=== PATIENT | female | born 1960 | race Caucasian/White ===

== ENCOUNTER 2023-05-11 14:38 | Inpatient (IN) | payer OTHER, SELFPAY ==
--- NOTE | ~2023-05-11 | US_ITS ---
EXAMINATION: US VENOUS ULTRASOUND WITH DOPPLER LOWER EXTREMITY, BILATERAL CLINICAL INFORMATION: Pain. COMPARISON: None available. TECHNIQUE: Ultrasound of the deep veins is performed from the hip to the calf with compression sonography and color and pulse Doppler assessment. Spectral analysis with color-flow imaging is performed. FINDINGS: RIGHT: There is thrombus in the popliteal vein and visualized posterior tibial and peroneal veins in the calf. The visualized common femoral vein, superficial femoral vein, and profunda femoral vein shows no evidence of deep venous thrombosis. There is no significant popliteal fossa cyst. LEFT: There is thrombus in the posterior tibial vein in the calf. The visualized common femoral vein, superficial femoral vein, profunda femoral vein, popliteal vein, and the peroneal vein shows no evidence of deep venous thrombosis. There is no significant popliteal fossa cyst. US/US venous duplex LE IMPRESSION: Right popliteal vein and bilateral calf vein DVT. Findings were communicated to Dr. Gonzalez by telephone on 05/11/2023 at 1908 hours
--- NOTE | ~2023-05-11 | CT_ITS ---
EXAMINATION: CT ABDOMEN AND PELVIS WITH CONTRAST CLINICAL INFORMATION: CT angiogram chest 05/11/2023: 1 cm low-attenuation lesion high in the posterior dome of the right lobe of the liver. COMPARISON: None available. TECHNIQUE: Multidetector volumetric images were obtained from the superior aspect of the liver through the pubic symphysis following administration 85 mL of Omnipaque 350 intravenous contrast. Sagittal and coronal reformatted images were obtained on the technologist's workstation. Oral contrast: No This CT examination was performed using dose optimization techniques as appropriate, variously including the following: *Automated exposure control *Adjustment of mA and/or kV according to patient size (this includes techniques or standardized protocols for targeted exams where dose is matched to indication/reason for exam; i.e. extremities or head) *Use of iterative reconstruction technique DLP: 299 mGy-cm FINDINGS: LUNG BASES: Again seen is a right-sided pleural effusion and right lower lobe infiltrate/atelectasis. There is a 4 mm right middle lobe nodule, unchanged when compared to the study from 2 days ago. There is a new tiny left pleural effusion. Right infrahilar lymph node better imaged on the CT chest 2 days ago. LIVER, GALLBLADDER, AND BILIARY TREE: The liver is normal in size, shape, and attenuation. There is a 1 cm lobular mass seen in the right lobe of the liver just beneath the hemidiaphragm which measures 2 Hounsfield units on noncontrast imaging consistent with a benign simple cyst. A single septation may be present. No worrisome solid focal hepatic lesion or biliary ductal dilatation is present. The gallbladder is unremarkable with no evidence of radiopaque gallstones, gallbladder wall thickening, or obvious pericholecystic inflammatory changes. PANCREAS: Unremarkable. SPLEEN: Unremarkable. ADRENAL GLANDS: Unremarkable. KIDNEYS AND URETERS: The kidneys are normal in size, shape, and attenuation. There is a 1 cm cortical left renal mass present measuring 76 Hounsfield units which is indeterminate based upon this exam (3:28). It could represent a Bosniak class II hypodensities cyst but a small solid mass cannot be excluded. Some smaller water density masses are present in the left kidney, the largest measuring 1 cm (3:38) consistent with benign Bosniak class I renal cysts for which no additional followup is needed. No hydronephrosis, hydroureter, or calculi seen. No perinephric stranding. BLADDER: Unremarkable. GASTROINTESTINAL TRACT: The small and large bowel are unremarkable. The appendix is unremarkable. ABDOMINAL WALL: No significant hernia is appreciated. LYMPH NODES: No retroperitoneal lymphadenopathy. VASCULAR: Unremarkable. Reflux is present in both ovarian veins without large pelvic varices. PELVIC VISCERA: Unremarkable. There is a 2.5 cm right ovarian cyst present which needs no additional imaging or followup. OSSEOUS STRUCTURES: No evidence of bony metastatic disease. CT/CT abdomen pelvis w IV con IMPRESSION: 1. The 1 cm mass in the right lobe of the liver is a benign cyst. 2. There is a 1 cm indeterminate left renal mass. Renal ultrasound is recommended for further evaluation. Given its size and location, if this is not seen with ultrasound, MRI would be useful for further evaluation. 3. Other incidental findings as described above. Fleischner guidelines were followed.
--- NOTE | ~2023-05-11 | XR_ITS ---
EXAMINATION: XR CHEST CLINICAL INFORMATION: Fatigue, right lung base rhonchi on auscultation COMPARISON: None available. TECHNIQUE: 2 views of the chest were obtained. FINDINGS: vascularity. Mitral valve replacement prosthesis is present. LUNGS: Lungs are hyperinflated with flat hemidiaphragms. Asymmetric airspace disease is seen in the right lung base effacing the right hemidiaphragm and right lateral costophrenic angle. No pneumothorax is seen. BONES: Bony skeleton is intact. Median sternotomy wire loops are present. XR/XR chest 2V IMPRESSION: 1. COPD. 2. Right lung base airspace disease and small right pleural effusion are present, suggestive of pneumonia. 3. Status post median sternotomy and mitral valve replacement.
--- NOTE | ~2023-05-11 | US_ITS ---
EXAMINATION: US RETROPERITONEAL LIMITED (RENAL ONLY) CLINICAL INFORMATION: Cortical left renal mass. COMPARISON: CT scan 05/13/2023 TECHNIQUE: Portable real-time imaging of the kidneys was performed. FINDINGS: RIGHT KIDNEY: 11.4 x 6.1 x 4.8 cm (SAG x AP x TRV). The kidney is normal in size, contour, and echogenicity. Renal cortical thickness is normal. No calculi or focal parenchymal lesions. No hydronephrosis. LEFT KIDNEY: 11.1 x 5.2 x 6.0 cm (SAG x AP x TRV). The kidney is normal in size, contour, and echogenicity. Renal cortical thickness is normal. No calculi. No hydronephrosis. 0.8 x 0.9 x 1.1 cm lateral cortical simple cyst is seen in the upper to mid kidney. This likely corresponds to the finding seen on CT scan. No imaging follow-up is recommended. 1.0 x 2 1.0 x 1.1 cm simple cyst is seen in the lower pole and this corresponds to the finding seen on CT scan as well. No imaging follow-up is recommended. US/US renal BI IMPRESSION: Normal appearance of the right kidney. 1.1 cm lateral cortical simple cyst in the upper to mid left kidney corresponds to the finding seen on CT scan. No imaging follow-up is recommended.
--- NOTE | ~2023-05-11 | CT_ITS ---
EXAMINATION: CT ANGIOGRAM OF THE CHEST PE PROTOCOL CLINICAL INFORMATION: Shortness of breath. COMPARISON: Chest x-ray from earlier the same day. TECHNIQUE: Prior to contrast administration, noncontrast localization images were obtained. Subsequently, multidetector volumetric imaging was performed from the thoracic inlet to below the diaphragms following the administration of 65 mL Omnipaque 350 intravenous contrast. No contrast reaction reported. Sagittal, coronal, and MIP oblique sagittal reformatted images were obtained on the CT workstation, uploaded to PACS, and reviewed. This CT examination was performed using dose optimization techniques as appropriate, variously including the following: *Automated exposure control *Adjustment of mA and/or kV according to patient size (this includes techniques or standardized protocols for targeted exams where dose is matched to indication/reason for exam; i.e. extremities or head) *Use of iterative reconstruction technique Total exam dose-length product: 213 mGy-cm. FINDINGS: QUALITY OF STUDY/CONTRAST BOLUS: Satisfactory. PULMONARY ARTERIES: Right middle and right lower lobe subsegmental pulmonary emboli. THORACIC AORTA: No aneurysm. LUN mm right upper lobe nodule axial image 182, series 7 and a 4 mm right middle lobe nodule axial image 312, series 7. Right middle and right lower lobe patchy and lingular atelectasis/consolidation. PLEURA: Small right pleural effusion. MEDIASTINUM: Enlarged heart. Mitral valve ring. No pericardial effusion. No evidence of septal bowing or right heart strain. Large right thyroid nodule measuring 2.3 x 3.4 cm, deviates trachea to the left. Enlarged mediastinal lymph nodes. Largest lymph node is a right paratracheal lymph node measuring 4.5 cm in short axis. Small bilateral hilar lymph nodes. CORONARY ARTERY CALCIFICATION: Mild. CHEST WALL/AXILLA: Bilateral axillary lymphadenopathy, upper normal-size. No chest wall mass. OSSEOUS STRUCTURES: Median sternotomy wires. Degenerative changes of the spine. UPPER ABDOMEN: 1 cm low-attenuation lesion high in the posterior dome of the right lobe of the liver. No reflux of contrast into the hepatic veins to suggest elevated right heart pressures. CT/CT angio chest PE protocol IMPRESSION: Subsegmental pulmonary emboli in the right middle and right lower lobes. Atelectasis or small infiltrates in the right lower lobe, right middle lobe and inferior segment of the lingula. Small right pleural effusion. Abnormal enlarged mediastinal lymph nodes, worrisome for neoplastic process. Large right thyroid nodule. Given size of nodule, ultrasound follow-up recommended. Small pulmonary nodules. 1 cm liver lesion. VTE: positive Findings were communicated to Dr. Gonzalez by telephone on 05/11/2023 and 9:00 PM
--- NOTE | ~2023-05-11 | US_ITS ---
EXAMINATION: US VENOUS WITH DOPPLER UPPER EXTREMITY, LEFT CLINICAL INFORMATION: Swelling COMPARISON: None available. TECHNIQUE: Ultrasound of the upper extremity is performed using compression sonography and color and pulse Doppler flow with assessment of augmentation of flow. There is also imaging and Doppler assessment of the jugular and subclavian veins. Spectral analysis with color-flow imaging is performed. FINDINGS: Respiratory variation, normal compression, and augmented flow are noted throughout the upper extremity including the axillary, cubital, and radial and ulnar veins. There is normal flow in the internal jugular and subclavian veins. There is nonocclusive thrombus in the brachial vein and superficial thrombophlebitis in the basilic and distal cephalic veins. US/US venous duplex UE LT IMPRESSION: Nonocclusive thrombus in the brachial vein and superficial thrombophlebitis in the basilic and distal cephalic veins. Per notes, patient is anticoagulated.
--- NOTE | 2023-05-11 15:00 | ED_ITS ---
HPI - General Adult General Chief complaint: Recheck/Abnormal Lab/Rx Stated complaint: heart valve infection ? Time Seen by Provider: 05/11/23 17:01 Source: patient, RN notes reviewed and old records reviewed Mode of arrival: ambulatory Limitations: no limitations History of Present Illness HPI narrative: 62-year-old female presents for evaluation of fevers, chills, shortness of breath with exertion Patient reports that she has had weakness, cough and runny nose for a few weeks. She has finished a course of azithromycin and is currently taking Levaquin prescribed by her PCP She states that despite the antibiotics her white blood cell count was elevated Patient complains of bilateral calf pain and right foot pain. 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 Related Data Allergies Allergy/AdvReac Type Severity Reaction Status Date / Time acetaminophen [From Vicodin] Allergy Vomiting Verified 05/11/23 15:07 hydrocodone [From Vicodin] Allergy Vomiting Verified 05/11/23 15:07 oxycodone [From Percocet] Allergy Vomiting Verified 05/11/23 15:07 shellfish derived Allergy Unknown Verified 05/11/23 15:07 Review of Systems 2 Constitutional: Constitutional: Reports body ache(s), Reports chills and Reports fever(s) ENT: Reports sinus pain and Reports sinus pressure Cardiovascular: Cardiovascular: Reports chest pain (Right-sided chest pain with exertion), Reports chest pain with activity and Reports dyspnea Respiratory: Respiratory: Reports chest congestion, Reports cough, Reports pain on inspiration and Reports dyspnea Gastrointestinal: Gastrointestinal: Denies abdominal pain, Denies nausea and Denies vomiting Musculoskeletal: Musculoskeletal: Denies back pain Integumentary/Breasts: Skin/Breast: Denies rash PMFSH Past Medical History Medical History Sinus tachycardia Asthma Social History Social History Patient Tobacco Use Status: Never used Tobacco Smoked in Last 30 Days: No Use of substances other than those prescribed or required for medical reasons: No Advance Directives: No Advance Directives Information Provided: No Nutrition Risks: No Nutritional Risk Patient : No Physical Exam ED Vital Signs: Vital Signs - 24 hr 05/11/23 15:01 05/11/23 18:14 05/11/23 20:05 Temperature 97.3 F Pulse Rate 116 H 112 H 104 H Respiratory Rate 16 20 21 H Blood Pressure 129/77 125/74 132/79 Pulse Oximetry 97 99 97 Oxygen Delivery Method Room Air Room Air Room Air BMI result Body Mass Index 22.2 Const General: healthy appearing, comfortable, no acute distress, alert and awake Nutritional Appearance: well nourished Orientation/consciousness: patient oriented x3 HENMT Head: Yes normocephalic and Yes atraumatic Eyes Eyelids: Yes eyelids normal Conjunctivae: conjunctivae normal Sclerae: sclerae normal Corneas: corneas normal Pupils: Equal, round and reactive pupils present EOM: EOMs intact bilaterally Neck Neck: Yes full ROM Resp Effort & Inspection: normal respiratory effort, able to speak in complete sentences, no audible wheezes and not labored Auscultation: clear to auscultation bilaterally Cardio Rate: regular rate Rhythm: regular rhythm GI Inspection: No distended Palpation (GI): Soft to palpation, not firm, nontender, no guarding and not rigid Skin General skin exam: elasticity normal Neuro General: patient oriented x3 Cranial nerves: Yes Equal, round and reactive pupils present and Yes Bilaterally intact EOM present Cognition (Neuro): normal cognition Extrem Other: Moving all extremities well without any obvious deformities Course Course Course Narrative: RME:?62 yo female here for eval of feeling generally unwell, fatigue, productive cough, body aches x2 months. admits to feeling short of breath and endorses pain under right shoulder blade beginning today. Was diagnosed with sinus infection and treated with Augmentin 1 mo ago. Had lab work with WBC of 14.5 with left shift at PCP office 1 week ago. was seen at [facility] yesterday with a white count of 22.8 with left shift. Mitral valve repair 2017. denies fever, chills, dysuria. Denies recent travel or long car rides. ronchi to right lung base labs, CXR, trop ekg, urine ordered Full HPI, ROS and PE to be performed by the primary ED provider. Reevaluation(s) Reevaluation #1: Discussed with radiology who reports the patient has a right lower extremity DVT as well as right sided PE. There is no evidence of heart strain. The patient's vital signs remained stable. Discussed with the hospitalist, Dr. Calix who will admit the patient for further evaluation and management. The patient is receiving therapeutic Lovenox Time: 21:37 Medications Administered Generic Name Dose Route Start Last Admin Trade Name Freq PRN Reason Stop Dose Admin Enoxaparin Sodium 60 mg 05/11/23 20:00 05/11/23 20:01 Enoxaparin Sodium 60 Mg/0.6 Ml Syringe SUBCUT 60 mg Q12H ABHAY Administration Ceftriaxone Sodium 1 gm/ 50 mls @ 100 mls/hr 05/11/23 20:00 05/11/23 19:59 Sodium Chloride IV Infused Q24H ABHAY Infusion Doxycycline Hyclate 100 mg/ 250 mls @ 166.67 mls/hr 05/11/23 21:00 05/11/23 20:47 Sodium Chloride IV 166.67 mls/hr Q12H ABHAY Administration Discontinued Medications Generic Name Dose Route Start Last Admin Trade Name Freq PRN Reason Stop Dose Admin Aspirin 324 mg 05/11/23 18:28 05/11/23 18:34 Aspirin 81 Mg Tab.Chew PO 05/11/23 18:29 324 mg ONCE ONE Administration Hydrocortisone Sodium Succinate 100 mg 05/11/23 17:35 05/11/23 18:13 Hydrocortisone Sod Succ/Pf 100 Mg Vial IVPUSH 05/11/23 17:36 100 mg ONCE ONE Administration Sodium Chloride 1,000 mls @ 999 mls/hr 05/11/23 17:45 05/11/23 18:13 Ns IV 05/11/23 18:45 999 mls/hr .Q1H1M ABHAY Administration Iohexol 65 ml 05/11/23 19:42 05/11/23 19:43 Iohexol 350 Mg/Ml 100 Ml Infus..Btl IV 05/11/23 19:43 65 ml ONCE ONE Administration Medical Decision Making Medical Decision Making MDM Narrative: 62-year-old female presents for evaluation of subjective fevers and elevated white count. Her white count in the ER today is 22.2 K. she has a left shift. ESR is elevated to 55 with a CRP elevated to 23.68. Her troponin was elevated to 199.5. This was repeated 2 hours later in his to 13.6. BNP is 87. There is some concern for PE given the exertional dyspnea with calf pain and elevated troponin. The patient is not hypoxic but is tachycardic. She has not having chest pain and denies having had any chest pain today. Her EKG does not show any acute ischemic changes, then for CTA of the chest as well as duplex ultrasound of the lower extremities. Dr. Ham was present in the ER and did a bedside ultrasound that did not show any obvious/overt vegetations to any of the heart valves. Blood cultures are pending. Patient's chest x-ray shows possible right lower lobe pneumonia. This will be better evaluated with CT imaging. Differential Diagnosis Differential Diagnoses: The differential diagnosis associated with the presentation includes Pneumonia ACS Cardiac arrhythmia PE CHF Influenza Admission/Observation Consideration of admission/observation: Escalation of care including admission/observation considered Consult Healthcare Provider Management of the patient was discussed with: Hospitalist Lab Data MDM Lab Attestation statement: I reviewed the patient's lab results. See above, notably elevated white count, elevated troponin. 05/11/23 15:55 05/11/23 15:55 Labs: Lab Results 05/11/23 05/11/23 05/11/23 Range/Units 15:55 17:50 17:51 WBC 22.2 H (4.8-10.8) X10*3/uL RBC 3.85 L (4.20-5.50) X10*6/uL Hgb 10.9 L (12.0-16.0) g/dl Hct 32.7 L (37.0-47.0) % MCV 84.9 (80.0-98.0) fL MCH 28.3 (27.0-33.0) pg MCHC 33.3 (31.0-35.0) g/dl RDW 14.1 (11.0-16.0) % Plt Count 305 (160-400) X10*3/uL MPV 10.6 (9.4-12.3) fL Immature Gran % (Auto) 1.5 H (0.0-0.4) % Neut % (Auto) 88.9 H (45-73) % Lymph % (Auto) 3.7 L (20-40) % [place] % (Auto) 5.5 (2-11) % Eos % (Auto) 0.1 (0-4) % Baso % (Auto) 0.3 (0-2) % Lymph # (Auto) 0.8 L (1.2-4.9) X10*3/uL [place] # (Auto) 1.2 (0.1-1.2) X10*3/uL Eos # (Auto) 0.0 (0.0-0.4) X10*3/uL Baso # (Auto) 0.1 (0.0-0.2) X10*3/uL Abs Immat Gran (auto) 0.34 H (0.00-0.03) X10*3/uL Absolute Neuts (auto) 19.8 H (2.0-8.3) x10*3/uL Absolute Nucleated RBC 0.000 (0.0-0.012) X10*3/uL Nucleated RBC % (auto) 0.0 (0.0-0.2) /100WBC ESR 55 H (0-20) MM/HR PT 18.1 H (11.1-13.3) SEC INR 1.5 H (0.9-1.1) D-Dimer High Sensitivty NG/ML Sodium 132 L (135-145) mmol/L Potassium 4.2 (3.3-5.1) mmol/L Chloride 97 (96-108) mmol/L Carbon Dioxide 27 (22-29) mmol/L Anion Gap 12 (12-20) BUN 17 H (9-16) mg/dL Creatinine 0.84 (0.5-1.4) mg/dL Estim Creat Clear Calc 63.3 Estimated GFR > 60 Random Glucose 121 H (60-115) mg/dL Lactic Acid 1.1 (0.5-2.0) mmol/L Calcium 8.8 (8.4-10.2) mg/dL Magnesium 2.2 (1.6-2.6) mg/dL Troponin I High Sens 199.5 H* 213.6 H* (<3.5-17.0) ng/L C-Reactive Protein 23.68 H (< or = 0.50) mg/dL B-Natriuretic Peptide 87 (<100) pg/mL Urine Color Urine Appearance Urine pH (5.0-9.0) Ur Specific [place] (1.005-1.025) Urine Protein (Neg-Trace) mg/dL Urine Glucose (UA) (Negative) mg/dL Urine Ketones (Negative) mg/dL Urine Blood (Negative) Urine Nitrite (Negative) Ur Leukocyte Esterase (Negative) Influenza Type A (EZE) Negative (Negative) Influenza Type A (PCR) NEGATIVE (Negative) Influenza Type B (EZE) Negative (Negative) Influenza Type B (PCR) NEGATIVE (Negative) Influenza A & B Note See Note RSV RNA Qual (PCR) NEGATIVE (Negative) SARS-CoV-2 RNA (RT-PCR) NEGATIVE (Negative) 05/11/23 Range/Units 20:48 WBC (4.8-10.8) X10*3/uL RBC (4.20-5.50) X10*6/uL Hgb (12.0-16.0) g/dl Hct (37.0-47.0) % MCV (80.0-98.0) fL MCH (27.0-33.0) pg MCHC (31.0-35.0) g/dl RDW (11.0-16.0) % Plt Count (160-400) X10*3/uL MPV (9.4-12.3) fL Immature Gran % (Auto) (0.0-0.4) % Neut % (Auto) (45-73) % Lymph % (Auto) (20-40) % [place] % (Auto) (2-11) % Eos % (Auto) (0-4) % Baso % (Auto) (0-2) % Lymph # (Auto) (1.2-4.9) X10*3/uL [place] # (Auto) (0.1-1.2) X10*3/uL Eos # (Auto) (0.0-0.4) X10*3/uL Baso # (Auto) (0.0-0.2) X10*3/uL Abs Immat Gran (auto) (0.00-0.03) X10*3/uL Absolute Neuts (auto) (2.0-8.3) x10*3/uL Absolute Nucleated RBC (0.0-0.012) X10*3/uL Nucleated RBC % (auto) (0.0-0.2) /100WBC ESR (0-20) MM/HR PT (11.1-13.3) SEC INR (0.9-1.1) D-Dimer High Sensitivty NG/ML Sodium (135-145) mmol/L Potassium (3.3-5.1) mmol/L Chloride (96-108) mmol/L Carbon Dioxide (22-29) mmol/L Anion Gap (12-20) BUN (9-16) mg/dL Creatinine (0.5-1.4) mg/dL Estim Creat Clear Calc Estimated GFR Random Glucose (60-115) mg/dL Lactic Acid (0.5-2.0) mmol/L Calcium (8.4-10.2) mg/dL Magnesium (1.6-2.6) mg/dL Troponin I High Sens (<3.5-17.0) ng/L C-Reactive Protein (< or = 0.50) mg/dL B-Natriuretic Peptide (<100) pg/mL Urine Color Yellow Urine Appearance Clear Urine pH 6.0 (5.0-9.0) Ur Specific [place] >= 1.030 H (1.005-1.025) Urine Protein Trace (Neg-Trace) mg/dL Urine Glucose (UA) Negative (Negative) mg/dL Urine Ketones Negative (Negative) mg/dL Urine Blood Negative (Negative) Urine Nitrite Negative (Negative) Ur Leukocyte Esterase Negative (Negative) Influenza Type A (EZE) (Negative) Influenza Type A (PCR) (Negative) Influenza Type B (EZE) (Negative) Influenza Type B (PCR) (Negative) Influenza A & B Note RSV RNA Qual (PCR) (Negative) SARS-CoV-2 RNA (RT-PCR) (Negative) Independent Interpretation I performed an independent interpretation of an: EKG (Sinus tachycardia with frequent PVCs. Rate of [address] segment elevation) and Plain X- Ray (Right lower lobe effusion) Radiology Impression Discussion of test interpretation with radiology: I have reviewed the radiologist's reading. (COPD, right lung base airspace disease and small right pleural effusion are present suggestive of pneumonia.) Discharge Plan Discharge Clinical Impression: DVT (deep venous thrombosis), Pulmonary emboli Patient Disposition: Admitted As Inpatient
[2023-05-11 15:01] VITALS: BP 129/77; PULSE 116; RESP 16; TEMP 36.3; O2SAT 97; BMI 22.2
--- NOTE | 2023-05-11 15:09 | ECG_ITS ---
Test Reason : FATIGUE Blood Pressure : / mmHG Vent. Rate : 112 BPM Atrial Rate : 112 BPM P-R Int : 124 ms QRS Dur : 078 ms QT Int : 332 ms P-R-T Axes : 044 004 034 degrees QTc Int : 453 ms Sinus tachycardia with frequent Premature ventricular complexes Nonspecific ST abnormality Abnormal ECG No previous ECGs available Referred By: Yecenia Saldana Electronically Signed By:Stefano Escobar
[2023-05-11 16:02] LABS: MANUAL DIFF FLAG NO
[2023-05-11 16:10] LABS: Basophils Absolute Auto 0.1 X10*3/uL (0.0-0.2); Basophils Percent Auto 0.3 % (0-2); Eosinophils Percent Auto 0.1 % (0-4); Hematocrit 32.7 % (37.0-47.0); Hemoglobin 10.9 g/dl (12.0-16.0); Imm Gran Abs Auto 0.34 X10*3/uL (0.00-0.03); Imm Gran Pct Auto 1.5 % (0.0-0.4); Lymphocytes Absolute Auto 0.8 X10*3/uL (1.2-4.9); Lymphocytes Percent Auto 3.7 % (20-40); Mean Corpuscular HGB Conc 33.3 g/dl (31.0-35.0); Mean Corpuscular Hemoglobin 28.3 pg (27.0-33.0); Mean Corpuscular Volume 84.9 fL (80.0-98.0); Mean Platelet Volume 10.6 fL (9.4-12.3); Monocytes Absolute Auto 1.2 X10*3/uL (0.1-1.2); Monocytes Percent Auto 5.5 % (2-11); Neutrophils Absolute Auto 19.8 x10*3/uL (2.0-8.3); Neutrophils Percent Auto 88.9 % (45-73); Platelet Count 305 X10*3/uL (160-400); Red Blood Count 3.85 X10*6/uL (4.20-5.50); Red Cell Distribution Width 14.1 % (11.0-16.0); White Blood Count 22.2 X10*3/uL (4.8-10.8)
[2023-05-11 16:18] LABS: Anion Gap 12 (12-20); Blood Urea Nitrogen 17 mg/dL (9-16); C Reactive Protein 23.68 mg/dL (< or = 0.50); Calcium 8.8 mg/dL (8.4-10.2); Carbon Dioxide 27 mmol/L (22-29); Chloride 97 mmol/L (96-108); Creatinine Clr Calc Pharmacy 63.3; Estimated Glomerular Filt Rate > 60; Glucose Random 121 mg/dL (60-115); Magnesium 2.2 mg/dL (1.6-2.6); Potassium 4.2 mmol/L (3.3-5.1); Sodium 132 mmol/L (135-145)
[2023-05-11 16:24] LABS: B Type Natriuretic Peptide 87 pg/mL (<100)
[2023-05-11 16:26] LABS: IDNOW Serial# 9DB6401D; Influenza A Negative (Negative); Influenza B2 Negative (Negative)
[2023-05-11 16:28] LABS: Troponin-I High Sensitivity 199.5 ng/L (<3.5-17.0)
[2023-05-11 16:46] LABS: Erythrocyte Sedimentation Rate 55 MM/HR (0-20)
[2023-05-11 18:13] LABS: Lactic Acid 1.1 mmol/L (0.5-2.0)
[2023-05-11] MEDS: Hydrocortisone Sod Succ/PF 100 MG VIAL IVPUSH (18:13)
[2023-05-11] MEDS: 0.9 % Sodium Chloride 1,000 ML 999 ML IV (18:13)
[2023-05-11 18:14] VITALS: BP 125/74; PULSE 112; RESP 20; O2SAT 99
--- NOTE | 2023-05-11 18:15 | PC.NURSE ---
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
[2023-05-11 18:28] LABS: Troponin-I High Sensitivity 213.6 ng/L (<3.5-17.0)
[2023-05-11] MEDS: Aspirin 81 MG TAB.CHEW 324 MG PO (18:34)
[2023-05-11 18:41] LABS: Influenza A PCR NEGATIVE (Negative); Influenza B PCR NEGATIVE (Negative); Resp Syncy Virus RNA Qual PCR NEGATIVE (Negative); SARS COV2 PCR INHOUSE NEGATIVE (Negative)
[2023-05-11 19:13] LABS: INTERNATIONAL NORM RATIO 1.5 (0.9-1.1); Prothrombin Time 18.1 SEC (11.1-13.3)
--- NOTE | 2023-05-11 19:18 | PC.NURSE ---
Lab called reporting there is something interfering with the D-Dimer test results not available. EDWARD Madden notified. No new orders received at this time.
[2023-05-11] MEDS: cefTRIAXone sodium 1 GM in 0.9 % Sodium Chloride 50 ML IV (19:29)
[2023-05-11] MEDS: iohexoL 350 MG/ML 100 ML INFUS..BTL 65 ML IV (19:43)
--- NOTE | 2023-05-11 19:49 | P.HPHOSP_ITS ---
History of Present Illness Date of Service: 05/11/23 Chief Complaint: Dyspnea This is a 62-year-old female with pertinent history of asthma not on home oxygen, sinus tachycardia on beta-elli, history of mitral valve repair in 2017 who presents to the emergency department for evaluation of chills and dyspnea. Patient states that she has been having symptoms for the last 3-4 weeks. She has been having productive cough with yellowish sputum production. Also has been having associated chills. Endorses dyspnea which is worse with exertion. No orthopnea or PND. No wheezing. Patient states she is compliant with home inhaler. Patient was seen outpatient and got blood work done about 1 week ago where white count was found to be elevated. She states that her neighbor is a nurse practitioner and she started p.o. antibiotics on the neighbor's recommendation. Patient does not remember the name but took 2 separate courses of p.o. antibiotics without any relief. Also has been having bilateral calf pain that started 1 week ago. No history of DVT/PE or blood clots. No chest discomfort, palpitations, abdominal pain, changes in urinary or bowel habits. In the emergency department, imaging with right-sided PE, right-sided pneumonia and DVT. WBC found to be elevated Review of Systems 2 Constitutional: Constitutional: Reports chills, Reports malaise, Reports poor appetite and Reports weakness Cardiovascular: Cardiovascular: Reports dyspnea on exertion Respiratory: Respiratory: Reports cough and Reports dyspnea on exertion Genitourinary: Genitourinary: Reports no additional female genitourinary complaints Neurologic: Reports weakness PMFSH Medical History Sinus tachycardia Asthma Pertinent family history: No family history of early CAD Social History Patient Tobacco Use Status: Never used Tobacco Smoked in Last 30 Days: No Use of substances other than those prescribed or required for medical reasons: No Advance Directives: No Advance Directives Information Provided: No Nutrition Risks: No Nutritional Risk Patient : No Meds Allergies Allergy/AdvReac Type Severity Reaction Status Date / Time acetaminophen [From Vicodin] Allergy Vomiting Verified 05/11/23 15:07 hydrocodone [From Vicodin] Allergy Vomiting Verified 05/11/23 15:07 oxycodone [From Percocet] Allergy Vomiting Verified 05/11/23 15:07 shellfish derived Allergy Unknown Verified 05/11/23 15:07 Active Medications: Current Medications Acetaminophen (Acetaminophen 325 Mg Tablet) 650 mg PO Q6H PRN PRN Reason: Pain, Mild (Pain Scale 1-3) Enoxaparin Sodium (Enoxaparin Sodium 60 Mg/0.6 Ml Syringe) 60 mg SUBCUT Q12H [facility] Ceftriaxone Sodium 1 gm/ (Sodium Chloride) 50 mls @ 100 mls/hr IV Q24H ABHAY Last Admin: 05/11/23 19:29 Dose: 100 mls/hr Azithromycin 500 mg/ Sodium (Chloride) 250 mls @ 125 mls/hr IV Q24H [facility] Melatonin (Melatonin 3 Mg Tablet) 6 mg PO BEDTIME PRN PRN Reason: Insomnia Ondansetron HCl (Ondansetron Hcl 4 Mg/2 Ml Vial) 4 mg IVPUSH Q8H PRN PRN Reason: Nausea and Vomiting Sodium Chloride (0.9 % Sodium Chloride Flush 3 Ml Syringe) 3 ml IVFLUSH QSHIFT [facility] Physical Exam 2 Vital Signs and Narrative: Vital Signs: Last Vital Signs Temp 97.3 F 05/11/23 15:01 Pulse 112 H 05/11/23 18:14 Resp 20 05/11/23 18:14 BP 125/74 05/11/23 18:14 Pulse Ox 99 05/11/23 18:14 O2 Del Method Room Air 05/11/23 18:14 BMI result Body Mass Index 22.2 Middle-aged female lying in bed in no distress Neck supple, no JVD Tachycardic with regular rhythm, S1-S2 heard Regular breath sounds bilaterally, no wheezing or crackles appreciated Abdomen soft nontender, no guarding, no rigidity Patient is awake, alert and oriented to self, place, time and person ; no focal motor deficit Psych: Normal mood Results Labs 05/11/23 15:55 05/11/23 15:55 Labs: Laboratory Results - last 24 hr 05/11/23 05/11/23 05/11/23 15:55 17:50 17:51 MCV 84.9 MCH 28.3 MCHC 33.3 RDW 14.1 Plt Count 305 MPV 10.6 Immature Gran % (Auto) 1.5 H Neut % (Auto) 88.9 H Lymph % (Auto) 3.7 L [place] % (Auto) 5.5 Eos % (Auto) 0.1 Baso % (Auto) 0.3 Lymph # (Auto) 0.8 L White # (Auto) 1.2 Eos # (Auto) 0.0 Baso # (Auto) 0.1 Abs Immat Gran (auto) 0.34 H Absolute Neuts (auto) 19.8 H Absolute Nucleated RBC 0.000 Nucleated RBC % (auto) 0.0 ESR 55 H PT 18.1 H INR 1.5 H D-Dimer High Sensitivty Anion Gap 12 Estim Creat Clear Calc 63.3 Estimated GFR > 60 Random Glucose 121 H Lactic Acid 1.1 Calcium 8.8 Magnesium 2.2 Troponin I High Sens 199.5 H* 213.6 H* C-Reactive Protein 23.68 H B-Natriuretic Peptide 87 Influenza Type A (EZE) Negative Influenza Type A (PCR) NEGATIVE Influenza Type B (EZE) Negative Influenza Type B (PCR) NEGATIVE Influenza A & B Note See Note RSV RNA Qual (PCR) NEGATIVE SARS-CoV-2 RNA (RT-PCR) NEGATIVE Imaging Radiologist's Impressions: Impressions Chest X-Ray 05/11/23 16:19 IMPRESSION: 1. COPD. 2. Right lung base airspace disease and small right pleural effusion are present, suggestive of pneumonia. 3. Status post median sternotomy and mitral valve replacement. Venous Duplex 05/11/23 18:39 IMPRESSION: Right popliteal vein and bilateral calf vein DVT. Findings were communicated to Dr. Gonzalez by telephone on 05/11/2023 at 1908 hours Assessment and Plan (1) Acute pulmonary embolus: Status: Acute (2) Community acquired pneumonia: Status: Acute (3) DVT (deep venous thrombosis): Status: Acute Plan This is a 62-year-old female who presents to the emergency department for evaluation of fevers, chills and dyspnea. #. Sepsis due to right sided pneumonia: Failed outpatient po abx. Initiating empiric IV abx. Resuscitated with IV crystalloids. Sputum culture and blood culture pending. Lactic acid obtained. #. Acute submassive PE: Will admit patient with cardiac monitoring. Initiated therapeutic lovenox. Transitioned to p.o. anticoagulants prior to discharge. Obtaining echocardiogram #. Acute respiratory distress due to PE + PNA #. Acute right popliteal and calf vein DVT: On therapeutic lovenox. Will need outpatient hematology follow up #. Elevated troponin: Likely in the setting of increased demand. Patient received aspirin and is on anticoagulation. Trend troponin #. Normocytic anemia: Hemoglobin above transfusion threshold #. Thyroid nodule on imaging: Outpatient follow-up with ultrasound #. Enlarged mediastinal lymph nodes on imaging: Will need outpatient follow- up. #. Asthma: No exacerbation during admission. Continue home inhaler #. Sinus tachycardia on beta-elli Med rec pending DVT prophylaxis: Therapeutic Lovenox Full code Admit as inpatient and will require two night minimum hospital stay for IV antibiotics, close hemodynamic monitoring (as above), which is not possible in a lesser acute setting. Quality Stroke Does the patient have a stroke diagnosis?: No VTE Prior VTE?: No VTE Risk Level:: Medical - moderate - high VTE Device Contraindication: Treatment Not Indicated VTE Drug Contraindication: N/A - Med Ordered
[2023-05-11] MEDS: Enoxaparin Sodium 60 MG/0.6 ML SYRINGE SUBCUT (20:01)
[2023-05-11 20:05] VITALS: BP 132/79; PULSE 104; RESP 21; O2SAT 97
[2023-05-11] MEDS: Doxycycline Hyclate 100 MG in 0.9 % Sodium Chloride 250 ML 166.67 MG IV (20:47)
[2023-05-11 20:55] LABS: Appearance Urine Clear; Color Urine Yellow; Glucose Urine UA Negative (Negative); Leukocyte Esterase Urine Negative (Negative); Nitrite Urine Negative (Negative); Specific Gravity - Urine >= 1.030 (1.005-1.025); Urine Blood Negative (Negative); Urine Ketones Negative (Negative); Urine Protein Trace mg/dL (Neg-Trace)
[2023-05-11 22:56] VITALS: BP 125/74; PULSE 93; RESP 22; O2SAT 96
[2023-05-12] MEDS: 0.9 % Sodium Chloride Flush 3 ML SYRINGE IVFLUSH ×4 (03:42→20:40)
[2023-05-12 03:55] VITALS: BP 127/76; PULSE 88; RESP 20; TEMP 36.4; O2SAT 96
[2023-05-12 05:54] VITALS: BP 135/80; PULSE 89; RESP 20; O2SAT 97
[2023-05-12 07:52] VITALS: BP 127/73; PULSE 109; RESP 18; TEMP 36.9; O2SAT 95
--- NOTE | 2023-05-12 09:24 | PHA.MEDREC ---
Pharmacy Consult ? Medication Reconciliation Pharmacy has completed the medication reconciliation. called patients pharmacy to confirm medications. Patient told med rec pharmacist yesterday that she has not been taking her meds for a while.
--- NOTE | 2023-05-12 10:32 | HO.PM.IMPN ---
Subjective Subjective Date of Service: 05/12/23 Interval History: Being followed for right-sided pulmonary embolism and right lower extremity DVT Patient denies chest pain, no shortness of breath, has bilateral cough pain for of several weeks of. Tolerating diet no nausea, no vomiting No urinary symptoms of urgency or frequency. Review of Systems All other system reviewed and negative. Physical Exam Vital Signs: Vital Signs: Last Vital Signs Temp 98.4 F 05/12/23 07:52 Pulse 109 H 05/12/23 07:52 Resp 18 05/12/23 07:52 BP 127/73 05/12/23 07:52 Pulse Ox 95 05/12/23 07:52 O2 Del Method Room Air 05/12/23 07:52 BMI result Body Mass Index 22.2 Const: Other: General A xox3, resting comfortably in no acute distress. Neck supple no JVD. CVS regular rate rhythm, Respiratory lungs clear to auscultation, no respiratory distress, no wheeze, no rhonchi. Gastrointestinal abdomen soft, non tender, bowel sounds audible, no guarding , no rigidity. Extremities no edema. Mild bilateral calf tenderness, Neuro nonfocal Skin no rash Psych appropriate affect Objective Data Active Medications Acetaminophen (Acetaminophen 325 Mg Tablet) 650 mg PO Q6H PRN PRN Reason: Pain, Mild (Pain Scale 1-3) Enoxaparin Sodium (Enoxaparin Sodium 60 Mg/0.6 Ml Syringe) 60 mg SUBCUT Q12H [facility] Last Admin: 05/11/23 20:01 Dose: 60 mg Documented By: MARCELINO Ceftriaxone Sodium 1 gm/ (Sodium Chloride) 50 mls @ 100 mls/hr IV Q24H [facility] Last Infusion: 05/11/23 19:59 Dose: Infused Documented By: MARCELINO Doxycycline Hyclate 100 mg/ (Sodium Chloride) 250 mls @ 166.67 mls/hr IV Q12H [facility] Last Infusion: 05/11/23 22:17 Dose: Infused Documented By: MARCELINO Melatonin (Melatonin 3 Mg Tablet) 6 mg PO BEDTIME PRN PRN Reason: Insomnia Ondansetron HCl (Ondansetron Hcl 4 Mg/2 Ml Vial) 4 mg IVPUSH Q8H PRN PRN Reason: Nausea and Vomiting Sodium Chloride (0.9 % Sodium Chloride Flush 3 Ml Syringe) 3 ml IVFLUSH QSHIFT [facility] Last Admin: 05/12/23 03:42 Dose: 3 ml Documented By: MARCELINO Labs 05/11/23 15:55 05/11/23 15:55 Labs: Laboratory Results - last 24 hr 05/11/23 05/11/23 05/11/23 15:55 17:50 17:51 MCV 84.9 MCH 28.3 MCHC 33.3 RDW 14.1 Plt Count 305 MPV 10.6 Immature Gran % (Auto) 1.5 H Neut % (Auto) 88.9 H Lymph % (Auto) 3.7 L [place] % (Auto) 5.5 Eos % (Auto) 0.1 Baso % (Auto) 0.3 Lymph # (Auto) 0.8 L [place] # (Auto) 1.2 Eos # (Auto) 0.0 Baso # (Auto) 0.1 Abs Immat Gran (auto) 0.34 H Absolute Neuts (auto) 19.8 H Absolute Nucleated RBC 0.000 Nucleated RBC % (auto) 0.0 ESR 55 H PT 18.1 H INR 1.5 H D-Dimer High Sensitivty Anion Gap 12 Estim Creat Clear Calc 63.3 Estimated GFR > 60 Random Glucose 121 H Lactic Acid 1.1 Calcium 8.8 Magnesium 2.2 Troponin I High Sens 199.5 H* 213.6 H* C-Reactive Protein 23.68 H B-Natriuretic Peptide 87 Urine Color Urine Appearance Urine pH Ur Specific Sully Urine Protein Urine Glucose (UA) Urine Ketones Urine Blood Urine Nitrite Ur Leukocyte Esterase Influenza Type A (EZE) Negative Influenza Type A (PCR) NEGATIVE Influenza Type B (EZE) Negative Influenza Type B (PCR) NEGATIVE Influenza A & B Note See Note RSV RNA Qual (PCR) NEGATIVE SARS-CoV-2 RNA (RT-PCR) NEGATIVE 05/11/23 20:48 MCV MCH MCHC RDW Plt Count MPV Immature Gran % (Auto) Neut % (Auto) Lymph % (Auto) [place] % (Auto) Eos % (Auto) Baso % (Auto) Lymph # (Auto) [place] # (Auto) Eos # (Auto) Baso # (Auto) Abs Immat Gran (auto) Absolute Neuts (auto) Absolute Nucleated RBC Nucleated RBC % (auto) ESR PT INR D-Dimer High Sensitivty Anion Gap Estim Creat Clear Calc Estimated GFR Random Glucose Lactic Acid Calcium Magnesium Troponin I High Sens C-Reactive Protein B-Natriuretic Peptide Urine Color Yellow Urine Appearance Clear Urine pH 6.0 Ur Specific Sully >= 1.030 H Urine Protein Trace Urine Glucose (UA) Negative Urine Ketones Negative Urine Blood Negative Urine Nitrite Negative Ur Leukocyte Esterase Negative Influenza Type A (EZE) Influenza Type A (PCR) Influenza Type B (EZE) Influenza Type B (PCR) Influenza A & B Note RSV RNA Qual (PCR) SARS-CoV-2 RNA (RT-PCR) Assessment and Plan (1) Pulmonary emboli: Status: Acute (2) DVT (deep venous thrombosis): Status: Acute (3) Community acquired pneumonia: Status: Acute (4) Sinus tachycardia: Status: Acute Plan 62-year-old female who presents to the emergency department for evaluation of fevers, chills and dyspnea. #. Sepsis due to right sided pneumonia: Failed outpatient po abx., continue IV doxycycline and ceftriaxone started on 05/11 blood culture pending. Lactic acid normal, elevated C-reactive protein and ESR will follow. Elevated WBC will follow. #. Acute submassive PE: Feels better, no chest pain, no palpitations continue therapeutic Lovenox and transition to by mouth Lovenox prior to discharge follow echocardiogram Noted to have right lower extremity DVT, no family history of clots quit smoking 36 years ago. #. Acute respiratory distress due to PE + PNA resolved no hypoxia noted. #. Acute right popliteal and calf vein DVT: On therapeutic lovenox. Will need outpatient hematology follow up. #. Elevated troponin: No chest pain, no palpitations, no worsening shortness of breath, Elevated but flat 199.5 repeat 213.6, Likely in the setting of increased demand, no acute ischemic changes on EKG, received aspirin and is on anticoagulation, resume low-dose beta-blockers , Follow echocardiogram. #. Normocytic anemia: Hemoglobin above transfusion threshold. #. Thyroid nodule on imaging: Being followed by glove stitcher for right thyroid nodule at [facility] , recommend continued outpatient follow-up #. Enlarged mediastinal lymph nodes on imaging: Concern for malignancy, due to DVT and PE with no obvious cause, no sedentary lifestyle, no family history, question related to COVID infection dx week of February Will need outpatient Oncology follow-up. #. Mild persistent Asthma: No acute exacerbation , Continue home inhalers. #. Sinus tachycardia on beta-elli DVT prophylaxis: Therapeutic Lovenox Full code Patient will require continued inpatient hospitalization for IV antibiotics, close hemodynamic monitoring (as above), which is not possible in a lesser acute setting. Quality Stroke Does the patient have a stroke diagnosis?: No VTE Prior VTE?: No VTE Risk Level:: Medical - moderate - high VTE Device Contraindication: Treatment Not Indicated VTE Drug Contraindication: N/A - Med Ordered
[2023-05-12] MEDS: Doxycycline Hyclate 100 MG in 0.9 % Sodium Chloride 250 ML 166.67 MG IV ×2 (11:19→21:18)
[2023-05-12] MEDS: Enoxaparin Sodium 60 MG/0.6 ML SYRINGE SUBCUT ×2 (11:19→20:39)
[2023-05-12] MEDS: Metoprolol Tartrate 12.5 MG HALFTAB PO ×2 (11:19→20:40)
--- NOTE | 2023-05-12 11:59 | PC.NURSE ---
remains alert and oriented with even and unlabored respirations. continues to offer no complaints and ambulate independently to the bathroom. iv antibiotics infusing, medicated per the MAR. offered a hospital bed which patient declined. no obvious signs/symptoms of distress noted, conversing with family at the bedside.
--- NOTE | 2023-05-12 12:00 | CA_ITS ---
Transthoracic Echocardiogram Patient (Last, First, Middle): Woo Marks, Gender: Female Date of : 1960 Age: 62 Procedure Date: 05/12/2023 Procedure Type: Transthoracic Echocardiogram Location: ER Height: 167.64 cm Weight: 62.14 kg BSA: 1.70 m2 Heart Rate: 99 bpm BP: 127 / 73 mmHg Supervisor Product Inspection: SB Referring MD: Gail Calix MD Symptoms: PE Study Quality: Adequate ECG Rhythm: Sinus Conclusions: - Normal left ventricular size, thickness, systolic function, and wall motion. The visually estimated ejection fraction is between 60-65%. Diastolic function is indeterminate on the basis of available data. - Normal right ventricular cavity size. There is low normal right ventricular systolic function. - The left atrium is severely dilated. - There is moderate mitral annular calcification. There is no mitral valve regurgitation. There is moderate mitral valve stenosis. There is previous mitral valve repair potentially with mitral valve ring- mean gradient across MV 11-12 mm Hg at HR 108 beats/min. - Normal right atrial pressure. Mild pulmonary hypertension is present. Findings Left Ventricle Normal left ventricular size, thickness, systolic function, and wall motion. The visually estimated ejection fraction is between 60-65%. Diastolic function is indeterminate on the basis of available data. Right Ventricle Normal right ventricular cavity size. There is low normal right ventricular systolic function. Atria The left atrium is severely dilated. The right atrium is normal in size. Aortic Valve Normal aortic valve structure and function. There is no aortic valve stenosis. There is no aortic valve regurgitation. Mitral Valve There is moderate mitral annular calcification. There is no mitral valve regurgitation. There is moderate mitral valve stenosis. There is previous mitral valve repair potentially with mitral valve ring- mean gradient across MV 11-12 mm Hg at HR 108 beats/min. Pulmonic Valve The pulmonic valve is normal. There is trace pulmonic valve regurgitation. Tricuspid Valve Normal tricuspid valve structure. There is trace tricuspid valve regurgitation. The right ventricular systolic pressure is 43 mmHg. Normal right atrial pressure. Mild pulmonary hypertension is present. Great Vessels There is mild dilatation of the ascending aorta measuring 3.70 cm. The visualized portions of the pulmonary artery and branches are normal. Venous The inferior vena cava is normal in size and collapses greater than 50% with inspiration. Pericardium/Pleural There is no evidence of pericardial effusion. Prior Study Comparison No prior study available for comparison. Measurements 2D Linear Measurements IVSd: 1.01 0.6-0.9/0.6-1.0 cm LVIDd: 4.01 3.9-5.3/4.2-5.9 cm LVIDd Index: 2.36 2.4-3.2/2.2-3.1 cm/m2 LVIDs: 2.51 2.0-3.6 cm LVPWd: 0.78 0.7-1.1 cm Ao Root: 2.70 2.1-3.5 cm LA Diam: 5.40 2.7-3.8/3.0-4.0 cm LAIDs Index: 3.18 1.5-2.3 cm/m2 LV Mass: 135.75 67-162/88-224 g LV Mass Index: 79.85 43-95/49-115 g/m2 LVOT Diam: 2.00 3.0+(-)1.3 cm 2D Systolic Function EF 4C: 54.00 >55% EF 2C: 54.70 >55% EF BiP: 53.30 >55% Mitral Valve MV VTI: 0.47 MV Pk Vipul: 2.07 MV Mn Vipul: 1.53 MV Pk Grad: 17.00 MV Mn Grad: 10.00 MV Pk E: 1.93 MV PK A: 1.69 MV Decel Time: 306.00 E/A: 1.10 E'Lateral: 3.92 E'Medial: 5.55 E/E' Med: 34.80 E/E' Lat: 49.20 PHT: 89.00 MVA PHT: 2.47 MVA Continuity: 1.71 Decel [place]: 6.31 Aortic Valve AoV Pk Vipul: 1.83 AoV Mn Vipul: 1.34 AoV VTI: 0.30 AoV Pk Grad: 13.00 Aov Mn Grad: 9.00 RASTA Cont.VTI: 2.74 LVOT LVOT Pk Vipul: 1.55 LVOT Mn Vipul: 1.17 LVOT VTI: 0.26 LVOT Pk Grad: 10.00 LVOT Mn Grad: 6.00 LVOT Diam: 2.00 LVOT Area: 3.14 Diastolic Function MV Pk E: 1.93 MV Pk A: 1.69 E/A: 1.10 E'Medial: 5.55 E/E' Med: 34.80 E' Laterial: 3.92 E/E' Lat: 49.20 Right Ventricle TAPSE (mm): 13.00 Tricuspid Valve TR Pk Vipul: 3.15 TR Pk Grad: 40.00 RA Press: 3.00 RVSP: 43.00 Great Vessels Aorta Ao Root-2D: 2.70 2.0-3.7 cm Ao Asc: 3.70 2.1-3.4 cm Pulmonary Veins Pulm Vein S/D 1.30 Pulmonary Valve PV Pk Vipul: 0.94 Peak PV Grad: 4.00 Updated in Other Vendor System with Status of Final Stefano Escobar MD electronically signed on 05/12/2023 6:44:47 PM with status of Final
[2023-05-12 14:51] VITALS: BMI 22.7
--- NOTE | 2023-05-12 15:12 | PC.NURSE ---
Received patient from ed, by stretcher at approximately 1445.
[2023-05-12 15:42] VITALS: BP 121/66; PULSE 112; RESP 20; TEMP 37; O2SAT 97
[2023-05-12 19:38] VITALS: BP 122/64; PULSE 102; RESP 16; TEMP 36.5; O2SAT 94
[2023-05-12] MEDS: cefTRIAXone sodium 1 GM in 0.9 % Sodium Chloride 50 ML IV (20:39)
[2023-05-13] VITALS (7 sets, daily range): BP systolic 111–143; BP diastolic 70–77; PULSE 89–104; RESP 16–20; TEMP 36.1–37.4; O2SAT 93–95
[2023-05-13 07:08] LABS: Hematocrit 29.7 % (37.0-47.0); Mean Corpuscular HGB Conc 33.7 g/dl (31.0-35.0); Mean Corpuscular Hemoglobin 28.6 pg (27.0-33.0); Mean Corpuscular Volume 84.9 fL (80.0-98.0); Mean Platelet Volume 10.6 fL (9.4-12.3); Platelet Count 441 X10*3/uL (160-400); Red Cell Distribution Width 14.4 % (11.0-16.0)
[2023-05-13 07:21] LABS: Anion Gap 11 (12-20); Blood Urea Nitrogen 14 mg/dL (9-16); Calcium 8.2 mg/dL (8.4-10.2); Carbon Dioxide 23 mmol/L (22-29); Chloride 104 mmol/L (96-108); Creatinine Clr Calc Pharmacy 67.3; Estimated Glomerular Filt Rate > 60; Glucose Random 92 mg/dL (60-115); Sodium 134 mmol/L (135-145)
[2023-05-13] MEDS: Enoxaparin Sodium 60 MG/0.6 ML SYRINGE SUBCUT ×2 (08:33→20:06)
[2023-05-13] MEDS: Metoprolol Tartrate 12.5 MG HALFTAB PO ×2 (08:33→20:05)
[2023-05-13] MEDS: Doxycycline Hyclate 100 MG in 0.9 % Sodium Chloride 250 ML 166.7 MG IV (08:34)
[2023-05-13] MEDS: 0.9 % Sodium Chloride Flush 3 ML SYRINGE IVFLUSH ×2 (08:35→16:06)
--- NOTE | 2023-05-13 09:01 | MHC.CM.PN ---
Pt is independent, no home health services or medical equipment. Her sister, Vicki Gutierres is her HCP, copy requested. She has transportation when DC. DC plan mirta be home, self care. CM will follow and assist as needed with DC plan.
--- NOTE | 2023-05-13 09:07 | MHC.CM.PN ---
For PCP pt goes to [facility] in [place], [place], and she sees residents, it is associated with [facility] [place]. She plans to get a PCP after DC.
--- NOTE | 2023-05-13 12:44 | HO.PM.IMPN ---
Subjective Subjective Date of Service: 05/13/23 Interval History: Feeling better this morning denies shortness of breath, no chest pain, has mild bilateral persistent calf discomfort, no fevers, no chills, no other acute events overnight. Review of Systems All other system reviewed and negative. Physical Exam Vital Signs: Vital Signs: Last Vital Signs Temp 98.4 F 05/13/23 12:00 Pulse 95 05/13/23 12:00 Resp 16 05/13/23 12:00 BP 121/71 05/13/23 12:00 Pulse Ox 94 05/13/23 12:00 O2 Del Method Room Air 05/13/23 12:00 BMI result Body Mass Index 22.7 Const: Other: General A xox3, resting comfortably in no acute distress. Neck supple no JVD. CVS regular rate rhythm, Respiratory lungs coarse breath sounds, no respiratory distress, no wheeze, no rhonchi. Gastrointestinal abdomen soft, non tender, bowel sounds audible, no guarding , no rigidity. Extremities no edema. Mild bilateral calf tenderness, Neuro non focal Skin no rash Psych appropriate affect Objective Data Active Medications Acetaminophen (Acetaminophen 325 Mg Tablet) 650 mg PO Q6H PRN PRN Reason: Pain, Mild (Pain Scale 1-3) Albuterol Sulfate (Albuterol Sulfate 90 Mcg 8 Gm Inhaler) 2 puff INHALE Q4H PRN PRN Reason: Shortness Of Breath Or Wheezing Enoxaparin Sodium (Enoxaparin Sodium 60 Mg/0.6 Ml Syringe) 60 mg SUBCUT Q12H [facility] Last Admin: 05/13/23 08:33 Dose: 60 mg Documented By: EUGENIO Ceftriaxone Sodium 1 gm/ (Sodium Chloride) 50 mls @ 100 mls/hr IV Q24H [facility] Last Infusion: 05/12/23 21:20 Dose: Infused Documented By: BRYAN Doxycycline Hyclate 100 mg/ (Sodium Chloride) 250 mls @ 166.67 mls/hr IV Q12H [facility] Last Infusion: 05/13/23 10:15 Dose: Infused Documented By: EUGENIO Melatonin (Melatonin 3 Mg Tablet) 6 mg PO BEDTIME PRN PRN Reason: Insomnia Metoprolol Tartrate (Metoprolol Tartrate 12.5 Mg Halftab) 12.5 mg PO BID [facility]; Protocol Last Admin: 05/13/23 08:33 Dose: 12.5 mg Documented By: EUGENIO Ondansetron HCl (Ondansetron Hcl 4 Mg/2 Ml Vial) 4 mg IVPUSH Q8H PRN PRN Reason: Nausea and Vomiting Sodium Chloride (0.9 % Sodium Chloride Flush 3 Ml Syringe) 3 ml IVFLUSH QSHIFT [facility] Last Admin: 05/13/23 08:35 Dose: 3 ml Documented By: EUGENIO Labs 05/13/23 06:33 05/13/23 06:33 Labs: Laboratory Results - last 24 hr 05/13/23 06:33 MCV 84.9 MCH 28.6 MCHC 33.7 RDW 14.4 Plt Count 441 H D MPV 10.6 Absolute Nucleated RBC 0.000 Nucleated RBC % (auto) 0.0 Anion Gap 11 L Estim Creat Clear Calc 67.3 Estimated GFR > 60 Random Glucose 92 Calcium 8.2 L D Microbiology Microbiology Results: Microbiology 05/11/23 17:53 Blood Culture - Preliminary Blood - Venous No growth after 24 hours. 05/11/23 17:50 Blood Culture - Preliminary Blood - Venous No growth after 24 hours. Assessment and Plan (1) Pulmonary emboli: Status: Acute (2) DVT (deep venous thrombosis): Status: Acute (3) Community acquired pneumonia: Status: Acute Plan 62-year-old female who presents to the emergency department for evaluation of fevers, chills and dyspnea. #. Sepsis due to right sided pneumonia: Failed outpatient po abx., continue IV doxycycline and ceftriaxone started on 05/11 blood culture negative times 24 hours, Lactic acid normal, elevated C-reactive protein and ESR WBC remains elevated will follow ESR and WBC. #. Acute submassive PE: Feels better, no chest pain, no palpitations continue therapeutic Lovenox and transition to by mouth eliquis prior to discharge echocardiogram showed EF 60-65%, indeterminate diastolic function low normal right ventricular systolic function, severely dilated left atrium, no mitral valve regurgitation moderate mitral valve stenosis Noted to have right lower extremity DVT, no family history of clots quit smoking 36 years ago. Consult oncology case discussed with Dr. Lowry #. Acute respiratory distress due to PE + PNA resolved no hypoxia noted. #. Acute right popliteal and calf vein DVT: On therapeutic lovenox. Will need outpatient hematology follow up. #. Elevated troponin: No chest pain, no palpitations, no worsening shortness of breath, Elevated but flat 199.5 repeat 213.6, Likely in the setting of increased demand, no acute ischemic changes on EKG, received aspirin and is on anticoagulation, resume low-dose beta-blockers , echocardiogram as above no wall motion abnormality. #. Normocytic anemia: Hemoglobin above transfusion threshold. #. Thyroid nodule on imaging: Being followed by alarm installer for right thyroid nodule at [facility] , recommend continued outpatient follow-up #. Enlarged mediastinal lymph nodes on imaging: Concern for malignancy, due to DVT and PE with no obvious cause, no sedentary lifestyle, no family history, question related to COVID infection dx week of February /oncology consult obtained. #. Mild persistent Asthma: No acute exacerbation , Continue home inhalers. #. Sinus tachycardia on beta-elli DVT prophylaxis: Therapeutic Lovenox Full code Patient will require continued inpatient hospitalization for IV antibiotics, close hemodynamic monitoring (as above), which is not possible in a lesser acute setting. Quality Stroke Does the patient have a stroke diagnosis?: No VTE Prior VTE?: No VTE Risk Level:: Medical - moderate - high VTE Device Contraindication: Treatment Not Indicated VTE Drug Contraindication: N/A - Med Ordered
--- NOTE | 2023-05-13 14:40 | PM.HEMONCCN ---
Subjective - Subjective Chief complaint: consult for: 1. PE. 2. DVT. 3. Mediastinal mass. Patient: new to practice Consult date: 05/13/23 Requesting Physician: Tyler. Primary Care Provider: Unknown Physician Medical Summary: DIAGNOSIS: 1. DVT. 2. PE. 3. MEDIASTINAL MASS. HPI - Consult Narrative Reason for consult: Consult for: 1. PE. 2. DVT. 3. Mediastinal mass. Narrative: Woo Marks is a 62 year old lady, referred for pulmonary embolism, DVT and mediastinal mass. She initially had some cold symptoms for about a week. Sore throat cough and sinus symptoms. She had a fever, had some sweats x3. She has been tired but has a busy work schedule. She had a great appetite up until 2 weeks ago when it declined. She noted pain in her right foot a week ago. She felt she had plantar fasciitis. Then the back of her legs started feeling sore. She then had bilateral leg pain. No obvious swelling. Sunday she noted right-sided pleuritic chest pain. She presented to the emergency department for evaluation of chills and dyspnea. Patient states that she has been having symptoms for the last 3-4 weeks. She has been having productive cough with yellowish sputum production. Also has been having associated chills. Endorses dyspnea which is worse with exertion. No orthopnea or PND. No wheezing. Patient states she is compliant with home inhaler. Patient was seen outpatient and got blood work done about 1 week ago where white count was found to be elevated. She states that her neighbor is a nurse practitioner and she started p.o. antibiotics on the neighbor's recommendation. Patient does not remember the name but took 2 separate courses of p.o. antibiotics without any relief. Also has been having bilateral calf pain that started 1 week ago. No history of DVT/PE or blood clots. No chest discomfort, palpitations, abdominal pain, changes in urinary or bowel habits. CT scan angiogram of the chest revealed: Subsegmental pulmonary emboli in the right middle and right lower lobes. Atelectasis or small infiltrates in the right lower lobe, right middle lobe and inferior segment of the lingula. Small right pleural effusion. Abnormal enlarged mediastinal lymph nodes, worrisome for neoplastic process. Large right thyroid nodule. Given size of nodule, ultrasound follow-up recommended. Small pulmonary nodules. 1 cm liver lesion. WBC found to be elevated. Review of Systems Constitutional: Constitutional: Reports chills, Reports malaise, Reports poor appetite and Reports weakness Cardiovascular: Cardiovascular: Reports dyspnea on exertion Respiratory: Respiratory: Reports cough and Reports dyspnea on exertion Genitourinary: Genitourinary: Reports no additional female genitourinary complaints Neurologic: Reports weakness [facility] Medical History: history of asthma not on home oxygen, Sinus tachycardia on beta-elli. PAST SURGICAL HISTORY: History of mitral valve repair in 2017. Thyroid nodule removed in 2008. 36 years ago. Family history: Her dad had parkinsonism. Mom had AML at the age of 83, she quickly No family history of early CAD. 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 She is . Has 130 6-year-old daughter. Patient Tobacco Use Status: Never used Tobacco Smoked in Last 30 Days: No Use of substances other than those prescribed or required for medical reasons: No She denies any alcohol. ROS: She has felt fatigued over the past couple of weeks. She had some night sweats x3. Couple of weeks ago her appetite declined she thinks she may have lost 4-5 lb. No headache no dizziness. She has had pleuritic chest pain. She does have shortness of breath related to asthma. She also has a dog and a sister has a CT could be allergic. Denies any abdominal pain nausea vomiting heartburn indigestion. Bowels are working without any gross blood in it. She does have hemorrhoids and bleeds sometimes. She had a colonoscopy couple of years ago at [place]. She denies dysuria or hematuria. Denies any depression. She gets rashes behind her heels during the summer months. Review of Systems - Constitutional Reports system reviewed and no additional complaints, except as documented, Reports malaise, Reports weakness, Reports weight loss, Denies fever(s) - Eyes Reports system reviewed and no additional complaints, except as documented - ENT Reports system reviewed and no additional complaints, except as documented - Cardiovascular Reports system reviewed and no additional complaints, except as documented - Respiratory Reports no additional respiratory complaints, Reports dyspnea - Gastrointestinal Reports system reviewed and no additional complaints, except as documented - Genitourinary Reports no additional female genitourinary complaints - Musculoskeletal Reports system reviewed and no additional complaints, except as documented - Integumentary/Breasts Skin/Breast: Reports no additional skin complaints - Neurologic Reports weakness - Psychiatric Reports system reviewed and no additional complaints, except as documented - Endocrine Reports no additional endocrine complaints - Hematologic/Lymphatic Reports system reviewed and no additional complaints, except as documented - Allergic/Immunologic Reports system reviewed and no additional complaints, except as documented [facility] Medical History: Medical History (Last Updated 05/15/23 @ 13:36 by Shama Jaffe RN) Asthma Bilateral cataracts Family history of thyroid disease Sinus tachycardia Functional capacity: independent ambulation Patient : No Surgical History: Surgical History (Last Updated 05/15/23 @ 13:37 by Shama Jaffe RN) History of open heart surgery History of tonsillectomy S/P IVC filter Social History: Social History (Last Reviewed 05/11/23 @ 21:28 by Gail Calix MD) Living Situation History: Household Members: Family Household Members Other:: sister Housing: House Do you presently have visiting nurse or other home services: No Alcohol History Details: 1. How often do you have a drink containing alcohol?: a. Never 2. How many drinks containing alcohol do you have on a typical day when you are drinking?: a. 1 or 2 3. How often do you have six or more drinks on one occasion?: a. Never AUDIT-C Alcohol total score: 0 Currently Displaying Signs/Symptoms of Alcohol Withdrawal: No Tobacco History: Patient Tobacco Use Status: Former Tobacco user Smoked in Last 30 Days: No Substance Use History: Use of substances other than those prescribed or required for medical reasons: No Currently Displaying Signs/Symptoms of Drug Intoxication Withdrawal: No Domestic Abuse History: Have you been hit, kicked, punched, or otherwise hurt by someone within the past year? If so, by whom?: No Do you feel safe in your current relationship?: Yes Is there a partner from a previous relationship who is making you feel unsafe now?: No Are you made to feel afraid or neglected: No Advance Directives: Advance Directives: No Advance Directives Information Provided: No Homicidal Assessment: Do you have thoughts of harming others: None Nutrition Assessment: Recently lost weight without trying: No How much weight loss: Not applicable Eating poorly because of decreased appetite: No Nutrition screen score: 0 Nutrition Risks: No Nutritional Risk Patient : No : No Poor oral hygiene: No Occupation Assessmet: service: No Home Medications and Allergies Current Medications: Current Medications Acetaminophen (Acetaminophen 325 Mg Tablet) 650 mg PO Q6H PRN PRN Reason: Pain, Mild (Pain Scale 1-3) Albuterol Sulfate (Albuterol Sulfate 90 Mcg 8 Gm Inhaler) 2 puff INHALE Q4H PRN PRN Reason: Shortness Of Breath Or Wheezing Enoxaparin Sodium (Enoxaparin Sodium 60 Mg/0.6 Ml Syringe) 60 mg SUBCUT Q12H [facility] Last Admin: 05/13/23 08:33 Dose: 60 mg Ceftriaxone Sodium 1 gm/ (Sodium Chloride) 50 mls @ 100 mls/hr IV Q24H [facility] Last Infusion: 05/12/23 21:20 Dose: Infused Doxycycline Hyclate 100 mg/ (Sodium Chloride) 250 mls @ 166.67 mls/hr IV Q12H [facility] Last Infusion: 05/13/23 10:15 Dose: Infused Melatonin (Melatonin 3 Mg Tablet) 6 mg PO BEDTIME PRN PRN Reason: Insomnia Metoprolol Tartrate (Metoprolol Tartrate 12.5 Mg Halftab) 12.5 mg PO BID [facility]; Protocol Last Admin: 05/13/23 08:33 Dose: 12.5 mg Ondansetron HCl (Ondansetron Hcl 4 Mg/2 Ml Vial) 4 mg IVPUSH Q8H PRN PRN Reason: Nausea and Vomiting Sodium Chloride (0.9 % Sodium Chloride Flush 3 Ml Syringe) 3 ml IVFLUSH QSHIFT [facility] Last Admin: 05/13/23 08:35 Dose: 3 ml Home Medications Medication Instructions Recorded Confirmed Type albuterol sulfate 90 mcg/actuation 2 puff inhalation Q4-6H PRN 05/12/23 05/12/23 History aerosol inhaler (Ventolin HFA) Shortness Of Breath Or Wheezing budesonide-formoterol HFA 160 2 puff inhalation BID 05/12/23 05/12/23 History mcg-4.5 mcg/actuation aerosol inhaler (Symbicort) levofloxacin 500 mg tablet 500 mg PO DAILY 05/12/23 05/12/23 History metoprolol tartrate 25 mg tablet 12.5 mg PO BID 05/12/23 05/12/23 History Allergies Allergy/AdvReac Type Severity Reaction Status Date / Time hydrocodone [From Vicodin] Allergy Vomiting Verified 05/11/23 15:07 oxycodone [From Percocet] Allergy Vomiting Verified 05/11/23 15:07 shellfish derived Allergy Anaphylaxis Verified 05/15/23 13:33 Physical Exam Vital signs: Vital Signs Temp 98.4 F 05/13/23 12:00 Pulse 95 05/13/23 12:00 Resp 16 05/13/23 12:00 BP 121/71 05/13/23 12:00 Pulse Ox 94 05/13/23 12:00 O2 Del Method Room Air 05/13/23 12:00 Intake & Output 05/12/23 05/13/23 05/13/23 18:59 06:59 18:59 Intake Total 250 / 750 500 / 750 1050 / 1050 Balance 250 / 750 500 / 750 1050 / 1050 Intake: Intake, Oral Amount 200 / 200 800 / 800 Intake, IV Amount 250 / 550 300 / 550 250 / 250 Doxycycline Hyclate 100 mg In 0 250 / 500 250 / 500 250 / 250 .9 % Sodium Chloride 250 ml @ 166.67 mls/hr IV Q12H [facility] Rx#: [id number] cefTRIAXone sodium 1 gm In 0.9 50 / 50 % Sodium Chloride 50 ml @ 100 mls/hr IV Q24H [facility] Rx#: [id number] Other: Breakfast % Eaten 100% Lunch % Eaten 100% Number of Unmeasured Voids 1 2 Urine Bathroom Bathroom Last Bowel Movement 05/10/23 Weight 63.9 kg Weight in Grams [id number] Weight 63.9 kg - Constitutional Present: mild distress - Routine HEENT Exam Head: Present: normal inspection, normocephalic Eye: Present: normal appearance ENT: Present: mucous membranes moist - Routine Neck Exam Present: supple - Routine Respiratory Exam Present: CTAB - Routine Cardiovascular Exam Cardiovascular: Present: RRR, S1, S2 - Routine Abdominal Exam Present: normal bowel sounds, nontender - Routine Extremities Exam Present: nontender - Routine Skin Exam Present: intact - Routine Neurological Exam Present: alert, oriented X3 - Detailed Neurological Exam: Coma Scale Eye Opening: Spontaneous (4) Verbal Response: Oriented (5) Motor Response: Obeys commands (6) [place] Coma Scale Total: 15 Hem/Onc Consult Result - Labs CBC & Chem 7: 05/20/23 07:08 05/19/23 07:07 Labs: Short CBC 05/13/23 Range/Units 06:33 WBC 21.0 H (4.8-10.8) X10*3/uL Hgb 10.0 L (12.0-16.0) g/dl Hct 29.7 L (37.0-47.0) % Plt Count 441 H D (160-400) X10*3/uL [facility] 05/13/23 06:33 Sodium 134 L Potassium 4.0 Chloride 104 Carbon Dioxide 23 BUN 14 Creatinine 0.79 Calcium 8.2 L D Assessment and Plan Patient Active problem list reviewed?: Yes (1) Acute pulmonary embolus Status: Acute Assessment and plan: 62-year-old lady presented with shortness of breath. CT scan angiogram of the chest revealed: Subsegmental pulmonary emboli in the right middle and right lower lobes. Atelectasis or small infiltrates in the right lower lobe, right middle lobe and inferior segment of the lingula. Small right pleural effusion. Abnormal enlarged mediastinal lymph nodes, worrisome for neoplastic process. Large right thyroid nodule. Given size of nodule, ultrasound follow-up recommended. Small pulmonary nodules. 1 cm liver lesion. Noted to have a pulmonary embolism. Ultrasound of the leg revealed: Right popliteal vein and bilateral calf vein DVT. In addition she has been noted to have a 4.5 cm mediastinal mass, in the right paratracheal region. Denies any history of smoking. DIFFERENTIAL DIAGNOSIS: 1. Lymphoma: Hodgkin's versus non-Hodgkin's. Versus T-cell. 2. SOLID TUMOR: Metastatic tumor versus primary lung cancer. She had a mammogram in September. Colonoscopy was a couple of years ago. She had a pelvic exam 4 years ago along with a Pap smear. PLAN: Will proceed with CT scan of the abdomen pelvis for complete staging, and to look for a primary site. 1. The 1 cm mass in the right lobe of the liver is a benign cyst. 2. There is a 1 cm indeterminate left renal mass. Renal ultrasound is recommended for further evaluation. Given its size and location, if this is not seen with ultrasound, MRI would be useful for further evaluation. 3. Other incidental findings as described above. Tissue diagnosis: Option is Mediastinal biopsy, discussed with pulmonary. Unless we find another primary on the CT scan of the abdomen, that would be less risky to biopsy. Meanwhile check LDH:226, and CEA levels: 26.30. Continue Lovenox for now, easier to obtain tissue on Lovenox. Thank you for this consult, Will follow, Thank you, CC: Dr. Scott. - Time Spent With Patient Time Spent with Patient (in minutes): 30
[2023-05-13 15:10] LABS: Lactate Dehydrogenase 226 U/L (122-220)
--- NOTE | 2023-05-13 19:09 | PC.NURSE ---
contacted Dr Scott @ 15:37 concerning shell fish allergy and order ct scan with contrast via [employer]. Provider aware of allergy and no medication order provided for pre scan.
[2023-05-13] MEDS: iohexoL 350 MG/ML 100 ML INFUS..BTL 85 ML IV (19:57)
[2023-05-13] MEDS: cefTRIAXone sodium 1 GM in 0.9 % Sodium Chloride 50 ML IV (20:05)
[2023-05-14] MEDS: Doxycycline Hyclate 100 MG in 0.9 % Sodium Chloride 250 ML 166.67 MG IV ×2 (00:08→09:46)
[2023-05-14] MEDS: 0.9 % Sodium Chloride Flush 3 ML SYRINGE IVFLUSH ×4 (01:41→20:17)
[2023-05-14 03:36] VITALS: BP 151/88; PULSE 88; RESP 20; TEMP 36.4; O2SAT 95
[2023-05-14 07:43] VITALS: BP 131/83; PULSE 103; RESP 20; TEMP 36.8; O2SAT 94
--- NOTE | 2023-05-14 07:47 | PC.NURSE ---
Patient c/o rectal bleeding. Patient asymptomatic, VSS. Dr Scott notified via [employer] and will reassess per .
[2023-05-14] MEDS: Metoprolol Tartrate 12.5 MG HALFTAB PO ×2 (08:24→20:15)
--- NOTE | 2023-05-14 09:59 | PC.NURSE ---
VO Dr Tyler lackey to shower off tele
[2023-05-14 11:04] VITALS: BP 121/71; PULSE 95; RESP 20; TEMP 36.4; O2SAT 95
--- NOTE | 2023-05-14 11:45 | P.CONPL_ITS ---
History of Present Illness History of Present Illness Consult date: 05/14/23 Chief complaint: heart valve infection ? Narrative: This is an inpatient pulmonary consultation. This is a 62-year-old female with pertinent history of asthma, sinus tachycardia on beta-elli, history of mitral valve repair in 2017 who presents to the emergency department for evaluation of chills and dyspnea. Patient states that she has been having symptoms for the last 3-4 weeks. She has been having productive cough with yellowish sputum production. Also has been having associated chills. She states that her neighbor is a nurse practitioner and she started p.o. antibiotics on the neighbor's recommendation. Patient does not remember the name but took 2 separate courses of p.o. antibiotics without any relief. Also has been having bilateral calf pain that started 1 week ago. No history of DVT/PE or blood clots. In the emergency department, imaging with right-sided PE, right-sided pneumonia and DVT. WBC found to be elevated. I did personally review the CT scan of the chest demonstrating the pulmonary emboli in addition to that significant mediastinal mass in addition to a thyroid masslike density in the right low. The patient was placed on anticoagulation but then she started having a GI bleed. She is having bright red blood per rectum. Therefore the antithrombotic therapy was stopped. She is being evaluated by GI in may need a IVC filter in view of the significant clot burden. The patient does have DVTs so therefore will be imperative to avoid further clot burden to be dislodged into the lungs. Right now although the patient appears to have a malignant process that is likely resulting the hypercoagulable state the patient is not stable enough to undergo a procedure. Will continue to monitor closely and likely will plan to do a endobronchial ultrasound bronchoscopy once the patient is stable ideally 2 weeks after starting anticoagulation. Review of Systems 2 Constitutional: Constitutional: Reports chills, Reports malaise, Reports poor appetite and Reports weakness Cardiovascular: Cardiovascular: Reports dyspnea on exertion Respiratory: Respiratory: Reports cough and Reports dyspnea on exertion Gastrointestinal: Gastrointestinal: Reports hematochezia Genitourinary: Genitourinary: Reports no additional female genitourinary complaints Neurologic: Reports weakness PMFSH Past Medical History Medical History Sinus tachycardia Asthma Social History Social History Household Members: Family Household Members Other:: sister Housing: House Do you presently have visiting nurse or other home services: No Patient Tobacco Use Status: Never used Tobacco Smoked in Last 30 Days: No Use of substances other than those prescribed or required for medical reasons: No Currently Displaying Signs/Symptoms of Drug Intoxication Withdrawal: No Have you been hit, kicked, punched, or otherwise hurt by someone within the past year? If so, by whom?: No Do you feel safe in your current relationship?: Yes Is there a partner from a previous relationship who is making you feel unsafe now?: No Are you made to feel afraid or neglected: No Advance Directives: No Advance Directives Information Provided: No Do you have thoughts of harming others: None Recently lost weight without trying: No How much weight loss: Not applicable Eating poorly because of decreased appetite: No Nutrition screen score: 0 Nutrition Risks: No Nutritional Risk Patient : No : No Poor oral hygiene: No service: No Meds Allergies Allergy/AdvReac Type Severity Reaction Status Date / Time acetaminophen [From Vicodin] Allergy Vomiting Verified 05/11/23 15:07 hydrocodone [From Vicodin] Allergy Vomiting Verified 05/11/23 15:07 oxycodone [From Percocet] Allergy Vomiting Verified 05/11/23 15:07 shellfish derived Allergy Unknown Verified 05/11/23 15:07 Active Medications: Current Medications Acetaminophen (Acetaminophen 325 Mg Tablet) 650 mg PO Q6H PRN PRN Reason: Pain, Mild (Pain Scale 1-3) Albuterol Sulfate (Albuterol Sulfate 90 Mcg 8 Gm Inhaler) 2 puff INHALE Q4H PRN PRN Reason: Shortness Of Breath Or Wheezing Ceftriaxone Sodium 1 gm/ (Sodium Chloride) 50 mls @ 100 mls/hr IV Q24H [facility] Last Infusion: 05/13/23 20:44 Dose: Infused Doxycycline Hyclate 100 mg/ (Sodium Chloride) 250 mls @ 166.67 mls/hr IV Q12H [facility] Last Infusion: 05/14/23 11:31 Dose: Infused Melatonin (Melatonin 3 Mg Tablet) 6 mg PO BEDTIME PRN PRN Reason: Insomnia Metoprolol Tartrate (Metoprolol Tartrate 12.5 Mg Halftab) 12.5 mg PO BID [facility]; Protocol Last Admin: 05/14/23 08:24 Dose: 12.5 mg Ondansetron HCl (Ondansetron Hcl 4 Mg/2 Ml Vial) 4 mg IVPUSH Q8H PRN PRN Reason: Nausea and Vomiting Sodium Chloride (0.9 % Sodium Chloride Flush 3 Ml Syringe) 3 ml IVFLUSH QSHIFT [facility] Last Admin: 05/14/23 07:37 Dose: 3 ml Home Medications Medication Instructions Recorded Confirmed Last Taken Type albuterol sulfate 90 mcg/actuation 2 puff inhalation Q4-6H PRN 05/12/23 05/12/23 Unknown History aerosol inhaler (Ventolin HFA) Shortness Of Breath Or Wheezing budesonide-formoterol HFA 160 2 puff inhalation BID 05/12/23 05/12/23 Unknown History mcg-4.5 mcg/actuation aerosol inhaler (Symbicort) levofloxacin 500 mg tablet 500 mg PO DAILY 05/12/23 05/12/23 Unknown History metoprolol tartrate 25 mg tablet 12.5 mg PO BID 05/12/23 05/12/23 Unknown History Physical Exam 2 Vital Signs: Vital Signs: Last Vital Signs Temp 97.6 F 05/14/23 11:04 Pulse 95 05/14/23 11:04 Resp 20 05/14/23 11:04 BP 121/71 05/14/23 11:04 Pulse Ox 95 05/14/23 11:04 O2 Del Method Room Air 05/14/23 11:04 BMI result Body Mass Index 22.7 Const: General: comfortable Orientation/consciousness: patient oriented x3 Resp: Effort & Inspection: normal respiratory effort and able to speak in complete sentences GI: Other: bright blood in the toliet Skin: General skin exam: no rashes or lesions noted Neuro: General: patient oriented x3 Extrem: General: Yes full ROM Psych: Mental Status: mental status grossly normal Speech and movement: N ormal speech and movement present and Clear speech present Affect: normal affect Results Laboratory Findings 05/13/23 06:33 05/13/23 06:33 ABG, PT/INR, D-dimer: PT/INR, D-dimer PT 18.1 SEC (11.1-13.3) H 05/11/23 17:50 INR 1.5 (0.9-1.1) H 05/11/23 17:50 Abnormal lab findings: Abnormal Labs 05/11/23 05/11/23 05/11/23 15:55 17:50 20:48 WBC 22.2 H RBC 3.85 L Hgb 10.9 L Hct 32.7 L Plt Count Immature Gran % (Auto) 1.5 H Neut % (Auto) 88.9 H Lymph % (Auto) 3.7 L Lymph # (Auto) 0.8 L Abs Immat Gran (auto) 0.34 H Absolute Neuts (auto) 19.8 H ESR 55 H PT 18.1 H INR 1.5 H Sodium 132 L Anion Gap BUN 17 H Random Glucose 121 H Calcium Lactate Dehydrogenase Troponin I High Sens 199.5 H* 213.6 H* C-Reactive Protein 23.68 H Ur Specific Boelus >= 1.030 H 05/13/23 06:33 WBC 21.0 H RBC 3.50 L Hgb 10.0 L Hct 29.7 L Plt Count 441 H D Immature Gran % (Auto) Neut % (Auto) Lymph % (Auto) Lymph # (Auto) Abs Immat Gran (auto) Absolute Neuts (auto) ESR PT INR Sodium 134 L Anion Gap 11 L BUN Random Glucose Calcium 8.2 L D Lactate Dehydrogenase 226 H Troponin I High Sens C-Reactive Protein Ur Specific Boelus Microbiology: Microbiology 05/11/23 17:53 Blood - Venous Blood Culture - Preliminary No growth after 48 hours. 05/11/23 17:50 Blood - Venous Blood Culture - Preliminary No growth after [address] scan - chest: report reviewed and other Assessment and Plan (1) Pulmonary emboli: Qualifiers: Pulmonary embolism type: other Chronicity: acute Acute cor pulmonale presence: with acute cor pulmonale Qualified Code(s): I26.09 - Other pulmonary embolism with acute cor pulmonale Status: Acute Submassive PE with elevated tropI and mild pulm HTN (2) DVT (deep venous thrombosis): Qualifiers: DVT location: lower extremity Affected thrombotic vein of extremity: u nspecified vein of extremity Chronicity: acute Laterality: unspecified laterality Qualified Code(s): I82.409 - Acute embolism and thrombosis of unspecified deep veins of unspecified lower extremity Status: Acute (3) Mediastinal mass: Status: Acute Likely 4cm 4R lymph node (4) Thyroid mass: Status: Acute (5) GIB (gastrointestinal bleeding): Qualifiers: GI bleed type/associated pathology: unspecified gastrointestinal hemorrhage type Qualified Code(s): K92.2 - Gastrointestinal hemorrhage, unspecified Status: Acute Plan Holding anticoagulatio/anti platelet for now, needs urgent GI eval. Will need life long anticoagulation Needs IVC filter now in view of the submassive pe and still with DVT which could be detrimental after 2 weeks of anticoagulation, we can have her undergo an EBUS to sample 4R LN should have an US to assess thyroid Fair condition Procedures Date of Service Date of Service: 05/14/23
[2023-05-14 12:23] LABS: Hematocrit 31.3 % (37.0-47.0); Hemoglobin 10.6 g/dl (12.0-16.0); Mean Corpuscular HGB Conc 33.9 g/dl (31.0-35.0); Mean Corpuscular Hemoglobin 28.3 pg (27.0-33.0); Mean Corpuscular Volume 83.7 fL (80.0-98.0); Mean Platelet Volume 10.2 fL (9.4-12.3); Platelet Count 550 X10*3/uL (160-400); Red Blood Count 3.74 X10*6/uL (4.20-5.50); Red Cell Distribution Width 14.6 % (11.0-16.0); White Blood Count 23.6 X10*3/uL (4.8-10.8)
[2023-05-14 12:44] LABS: Iron 39 mcg/dL (30-160); Percent Iron Saturation 26 % (15-50); Total Iron Binding Capacity 150 mcg/dL (228-428); Unsaturated Iron Binding 111 ug/dL
[2023-05-14 12:58] LABS: Ferritin 721 ng/mL (10-250)
--- NOTE | 2023-05-14 13:03 | PM.EVENT ---
Event Note Date of Service: 05/14/23 Event Note: GI consult received, chart reviewed, discussed with nursing. I have tentatively planned colonoscopy for tomorrow if she is agreeable, as she will need anticoagulation for dvt/pe. Time Spent With Patient Time: Total time managing care of this patient today ____ minutes.
[2023-05-14] MEDS: PEG 3350/Na Sulf,Bicarb,Cl/KCL 4,000 ML SOLN.RECON 4000 ML PO (14:01)
[2023-05-14 15:36] VITALS: BP 147/83; PULSE 102; RESP 20; TEMP 36.8; O2SAT 98
--- NOTE | 2023-05-14 15:40 | HO.PM.IMPN ---
Subjective Subjective Date of Service: 05/14/23 Interval History: Had 2 episodes of bright red blood per rectum, denies rectal pain history of internal hemorrhoids, no history of intermittent bleeding had last episode 6 months ago, denies abdominal pain no nausea, no vomiting, no hematemesis tolerating diet, leg pain improving. No lightheadedness, no dizziness, no fevers, no cough, no shortness of breath. Review of Systems All other system reviewed and negative Physical Exam Vital Signs: Vital Signs: Last Vital Signs Temp 98.3 F 05/14/23 15:36 Pulse 102 H 05/14/23 15:36 Resp 20 05/14/23 15:36 BP 147/83 H 05/14/23 15:36 Pulse Ox 98 05/14/23 15:36 O2 Del Method Room Air 05/14/23 15:36 BMI result Body Mass Index 22.7 Const: Other: General A xox3, resting comfortably in no acute distress. Neck supple no JVD. CVS regular rate rhythm, Respiratory lungs coarse breath sounds, no respiratory distress, no wheeze, no rhonchi. Gastrointestinal abdomen soft, non tender, bowel sounds audible, no guarding , no rigidity. Extremities no edema. Neuro non focal Skin no rash Psych appropriate affect Objective Data Active Medications Acetaminophen (Acetaminophen 325 Mg Tablet) 650 mg PO Q6H PRN PRN Reason: Pain, Mild (Pain Scale 1-3) Albuterol Sulfate (Albuterol Sulfate 90 Mcg 8 Gm Inhaler) 2 puff INHALE Q4H PRN PRN Reason: Shortness Of Breath Or Wheezing Steptoe Butter/Zinc Oxide (Steptoe Butter/Zinc Oxide Supp.Rect) 1 supp [place] BID [facility] Ceftriaxone Sodium 1 gm/ (Sodium Chloride) 50 mls @ 100 mls/hr IV Q24H [facility] Last Infusion: 05/13/23 20:44 Dose: Infused Documented By: BOAZ Doxycycline Hyclate 100 mg/ (Sodium Chloride) 250 mls @ 166.67 mls/hr IV Q12H [facility] Last Infusion: 05/14/23 11:31 Dose: Infused Documented By: MAGUI Melatonin (Melatonin 3 Mg Tablet) 6 mg PO BEDTIME PRN PRN Reason: Insomnia Metoprolol Tartrate (Metoprolol Tartrate 12.5 Mg Halftab) 12.5 mg PO BID [facility]; Protocol Last Admin: 05/14/23 08:24 Dose: 12.5 mg Documented By: MAGUI Ondansetron HCl (Ondansetron Hcl 4 Mg/2 Ml Vial) 4 mg IVPUSH Q8H PRN PRN Reason: Nausea and Vomiting Sodium Chloride (0.9 % Sodium Chloride Flush 3 Ml Syringe) 3 ml IVFLUSH QSHIFT [facility] Last Admin: 05/14/23 14:54 Dose: 3 ml Documented By: MAGUI Labs 05/14/23 12:05 05/13/23 06:33 Labs: Laboratory Results - last 24 hr 05/14/23 12:05 MCV 83.7 MCH 28.3 MCHC 33.9 RDW 14.6 Plt Count 550 H MPV 10.2 Absolute Nucleated RBC 0.000 Nucleated RBC % (auto) 0.0 Iron 39 TIBC 150 L % Saturation 26 Unsat Iron Binding 111 Ferritin 721 H Blood Type O Positive Antibody Screen POSITIVE Blood Bank Comment Technical Microbiology Microbiology Results: Microbiology 05/11/23 17:53 Blood Culture - Preliminary Blood - Venous No growth after 48 hours. 05/11/23 17:50 Blood Culture - Preliminary Blood - Venous No growth after 48 hours. Assessment and Plan (1) Pulmonary emboli: Status: Acute (2) DVT (deep venous thrombosis): Status: Acute (3) Community acquired pneumonia: Status: Acute Plan 62-year-old female who presents to the emergency department for evaluation of fevers, chills and dyspnea. #. Sepsis due to right sided pneumonia: Failed outpatient po abx., on IV doxycycline and ceftriaxone started on 05/11 No fevers, no cough, no shortness on breath blood culture negative times 24 hours, Lactic acid normal, elevated C-reactive protein and ESR WBC remains elevated, likely reactive Will DC IV ceftriaxone, will follow ESR and WBC. #. Acute submassive PE: Feels better, no chest pain, no palpitations on therapeutic Lovenox but noted to have bright red blood per rectum x2 therefore Lovenox discontinued echocardiogram showed EF 60-65%, indeterminate diastolic function low normal right ventricular systolic function, severely dilated left atrium, no mitral valve regurgitation moderate mitral valve stenosis Noted to have right lower extremity DVT, no family history of clots quit smoking 36 years ago. Ordered IVC filter placement, will hold Lovenox follow CBC. # acute lower GI bleed likely hemorrhoidal obtain GI consult since patient requires anticoagulation Will undergo colonoscopy at a.m. follow CBC/hold anticoagulation. #. Acute respiratory distress due to PE + PNA resolved no hypoxia noted. #. Acute right popliteal and calf vein DVT: On therapeutic lovenox. Will need outpatient hematology follow up. #. Elevated troponin: No chest pain, no palpitations, no worsening shortness of breath, Elevated but flat 199.5 repeat 213.6, Likely in the setting of increased demand, no acute ischemic changes on EKG, received aspirin and is on anticoagulation, resume low-dose beta-blockers , echocardiogram as above no wall motion abnormality. #. Normocytic anemia: Hemoglobin stable hold blood transfusion. #. Thyroid nodule on imaging: Being followed by commissary clerk for right thyroid nodule at [facility] , recommend continued outpatient follow-up #. Enlarged mediastinal lymph nodes on imaging: Concern for malignancy, due to DVT and PE with no obvious cause, no sedentary lifestyle, no family history, question related to COVID infection dx week february /seen by Dr. Lowry from Oncology CT abdomen and pelvis showed no abnormality, renal ultrasound showed benign renal cyst Case discussed with pulmonology they recommend mediastinal node biopsy once patient hemodynamically stable after 2 weeks of treatment with anticoagulation #. Mild persistent Asthma: No acute exacerbation , Continue home inhalers. #. Sinus tachycardia on beta-elli DVT prophylaxis: Lovenox on hold due to bleeding/hold compression boot with b/l dvt. Full code Patient will require continued inpatient hospitalization for IV antibiotics, close hemodynamic monitoring (as above), which is not possible in a lesser acute setting. Quality Stroke Does the patient have a stroke diagnosis?: No VTE Prior VTE?: No VTE Risk Level:: Medical - moderate - high VTE Device Contraindication: Treatment Not Indicated VTE Drug Contraindication: N/A - Med Ordered
[2023-05-14 16:02] LABS: Alanine Aminotransferase 34 U/L (0-31); Albumin Level 2.9 g/dL (3.5-5.0); Alkaline Phosphatase 133 U/L (39-117); Aspartate Amino Transferase 40 U/L (5-31); Bilirubin Direct 0.2 mg/dL (0.0-0.5); Bilirubin Total 0.3 mg/dL (0.0-1.0); Total Protein 7.4 g/dL (6.5-8.0)
[2023-05-14 19:57] VITALS: BP 137/77; PULSE 98; RESP 20; TEMP 36.7; O2SAT 94
[2023-05-14] MEDS: cefTRIAXone sodium 1 GM in 0.9 % Sodium Chloride 50 ML IV (20:16)
[2023-05-14 20:23] LABS: Hematocrit 30.6 % (37.0-47.0); Hemoglobin 10.3 g/dl (12.0-16.0); Mean Corpuscular HGB Conc 33.7 g/dl (31.0-35.0); Mean Corpuscular Hemoglobin 28.5 pg (27.0-33.0); Mean Corpuscular Volume 84.5 fL (80.0-98.0); Mean Platelet Volume 10.1 fL (9.4-12.3); Platelet Count 484 X10*3/uL (160-400); Red Blood Count 3.62 X10*6/uL (4.20-5.50); Red Cell Distribution Width 14.6 % (11.0-16.0); White Blood Count 22.9 X10*3/uL (4.8-10.8)
[2023-05-14] MEDS: Doxycycline Hyclate 100 MG in 0.9 % Sodium Chloride 250 ML 166.7 MG IV (22:06)
[2023-05-14 23:38] VITALS: BP 138/73; PULSE 96; RESP 20; TEMP 36.5; O2SAT 96
[2023-05-15] VITALS (11 sets, daily range): BP systolic 99–145; BP diastolic 54–89; PULSE 77–109; RESP 16–20; TEMP 36.2–37.6; O2SAT 92–97
[2023-05-15 06:51] LABS: MANUAL DIFF FLAG NO
[2023-05-15 07:02] LABS: Basophils Absolute Auto 0.1 X10*3/uL (0.0-0.2); Basophils Percent Auto 0.3 % (0-2); Eosinophils Absolute Auto 0.1 X10*3/uL (0.0-0.4); Eosinophils Percent Auto 0.3 % (0-4); Hemoglobin 9.7 g/dl (12.0-16.0); Imm Gran Abs Auto 0.24 X10*3/uL (0.00-0.03); Imm Gran Pct Auto 1.1 % (0.0-0.4); Lymphocytes Absolute Auto 1.1 X10*3/uL (1.2-4.9); Lymphocytes Percent Auto 5.1 % (20-40); Mean Corpuscular HGB Conc 33.4 g/dl (31.0-35.0); Mean Corpuscular Hemoglobin 28.3 pg (27.0-33.0); Mean Corpuscular Volume 84.5 fL (80.0-98.0); Mean Platelet Volume 10.1 fL (9.4-12.3); Monocytes Percent Auto 4.6 % (2-11); Neutrophils Absolute Auto 18.8 x10*3/uL (2.0-8.3); Neutrophils Percent Auto 88.6 % (45-73); Platelet Count 434 X10*3/uL (160-400); Red Blood Count 3.43 X10*6/uL (4.20-5.50); Red Cell Distribution Width 14.6 % (11.0-16.0); White Blood Count 21.2 X10*3/uL (4.8-10.8)
[2023-05-15 07:21] LABS: INTERNATIONAL NORM RATIO 1.3 (0.9-1.1); Prothrombin Time 16.3 SEC (11.1-13.3)
[2023-05-15] MEDS: Metoprolol Tartrate 12.5 MG HALFTAB PO ×2 (07:47→23:30)
[2023-05-15] MEDS: 0.9 % Sodium Chloride Flush 3 ML SYRINGE IVFLUSH (07:48)
--- NOTE | 2023-05-15 09:09 | W.PM.OPN ---
Operative Note Operative Note Date of Service: 05/15/23 Narrative: Angiogram report from [facility] Preoperative diagnosis: Deep venous thrombosis Postoperative diagnosis: Same Procedure: 1. Ultrasound-guided right common femoral vein access 2. Inferior vena cavogram 3. Placement of inferior vena cava filter Surgeon:Ben Oneil M.D., FACS, RPVI Business Info Consultant:None Anesthesia: Local only Specimens:none Drains:none Estimated blood loss: Less than 10 ml Implant: Bard Milena retrievable vena cava filter Indications: 62-year-old female who was diagnosed with DVT and PE. Had GI bleed and was unable to be anticoagulated. She now presents for IVC filter placement. The patient has signed the informed consent after reviewing risks, complications, benefits, and alternatives previously discussed with the patient. The patient was given the opportunity to ask any additional questions or voice any concerns. All questions were answered to the patient's satisfaction. Of note she has a prior history to shellfish. There was no prior history to contrast dye allergy. Procedure in detail: Patient was brought to the angiography suite prior to which a time-out was called for patient identification and site verification. Bilateral groins were prepped and draped in the standard surgical fashion. Under ultrasound guidance right common femoral vein was punctured with micro puncture needle and wire. Subsequently a precision 5 [place] sheath was then placed. Bentson wire was advanced to the level of the vena cava. Vena cavogram was then undertaken through the 5 [place] sheath. This was a baseline study to define the variant anatomy, caval size, location and number of renal veins, and to evaluate for ileo caval thrombus. Under direct fluoroscopic guidance we exchanged out the 5 [place] sheath for the [place] sheath. We brought the filter into position. This was then subsequently deployed. The inner cannula was then removed. Through the sheath a hand injection was performed to assess filter position. Once this was accomplished the sheath was then removed, and hemostasis was achieved with 10 minutes of direct compression. No immediate complications occurred and the patient was returned to the recovery suite with no complications Interpretation of films: 1. Ultrasound demonstrates appropriate femoral vein puncture. Image of which was saved. 2. There was no ileal caval thrombus noted 3. There are single renal veins bilaterally and the IVC is normal in caliber. There is no aberrant anatomy. 4. The filter was deployed appropriately and position below the lowest renal vein. Conclusion: 1. Successful placement of Bard Milena IVC filter 2. Anticoagulation status: Resume regular anticoagulation as indicated 4 hours post filter placement This note is constructed using voice recognition software. While every effort has been made to ensure accuracy, gold leaf gilder errors may have been included. Thank you for allowing me to participate in the care of your patient. Yours sincerely, Ben Oneil MD, FACS, R.P.V.I.
--- NOTE | 2023-05-15 09:11 | PM.CNGS ---
History of Present Illness Consult details Consult date: 05/15/23 Reason for consult: other (DVT with PE) Narrative: Complex 62-year-old female was brought into the hospital for sore throat sinus symptoms. 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 She would noted lower extremity pain but attributed to musculoskeletal more of plantar fasciitis. This past Sunday she started to develop right-sided chest pain. She then presented to the emergency room. Upon workup CT scan of the chest demonstrated PE in the right middle and lower lobes. Upon lower extremity ultrasound was noted to have a DVT. Once anticoagulated was noted to have a GI bleed. She was seen by GI and was actually scheduled for colonoscopy today. There was concern over this and her lack of being able to be anticoagulated and she now presents for IVC filter placement. Review of Systems Review of Systems: Yes all other systems are reviewed and are negative Constitutional: Constitutional: Reports no additional constitutional complaints ENT: Reports Normal hearing present Cardiovascular: Cardiovascular: Denies chest pain, Denies chest pain at rest, Denies chest pain with activity and Denies pedal edema Respiratory: Respiratory: Denies cough Gastrointestinal: Gastrointestinal: Denies abdominal pain Musculoskeletal: Musculoskeletal: Denies abnormal gait, Denies muscle cramps and Denies radiating pain into limb Integumentary/Breasts: Skin/Breast: Denies skin ulcer and Denies wounds Neurologic: Reports Normal hearing present and Denies abnormal gait Psychiatric: Psychiatric: Reports no additional psychiatric complaints [facility] Past Medical History Medical History Sinus tachycardia Asthma Social History Social History Household Members: Family Household Members Other:: sister Housing: House Do you presently have visiting nurse or other home services: No Comment: Commode near bed. Pt gait and balance are steady. Per protocol extra safety Patient Tobacco Use Status: Never used Tobacco Smoked in Last 30 Days: No Use of substances other than those prescribed or required for medical reasons: No Currently Displaying Signs/Symptoms of Drug Intoxication Withdrawal: No Have you been hit, kicked, punched, or otherwise hurt by someone within the past year? If so, by whom?: No Do you feel safe in your current relationship?: Yes Is there a partner from a previous relationship who is making you feel unsafe now?: No Are you made to feel afraid or neglected: No Advance Directives: No Advance Directives Information Provided: No Do you have thoughts of harming others: None Recently lost weight without trying: No How much weight loss: Not applicable Eating poorly because of decreased appetite: No Nutrition screen score: 0 Nutrition Risks: No Nutritional Risk Patient : No : No Poor oral hygiene: No service: No Meds Allergies Allergy/AdvReac Type Severity Reaction Status Date / Time acetaminophen [From Vicodin] Allergy Vomiting Verified 05/11/23 15:07 hydrocodone [From Vicodin] Allergy Vomiting Verified 05/11/23 15:07 oxycodone [From Percocet] Allergy Vomiting Verified 05/11/23 15:07 shellfish derived Allergy Unknown Verified 05/11/23 15:07 Active Medications: Current Medications Acetaminophen (Acetaminophen 325 Mg Tablet) 650 mg PO Q6H PRN PRN Reason: Pain, Mild (Pain Scale 1-3) Albuterol Sulfate (Albuterol Sulfate 90 Mcg 8 Gm Inhaler) 2 puff INHALE Q4H PRN PRN Reason: Shortness Of Breath Or Wheezing [place] Butter/Zinc Oxide ([place] Butter/Zinc Oxide Supp.Rect) 1 supp WA BID [facility] Last Admin: 05/15/23 07:49 Dose: Not Given Ceftriaxone Sodium 1 gm/ (Sodium Chloride) 50 mls @ 100 mls/hr IV Q24H [facility] Last Infusion: 05/15/23 00:05 Dose: Infused Doxycycline Hyclate 100 mg/ (Sodium Chloride) 250 mls @ 166.67 mls/hr IV Q12H [facility] Last Infusion: 05/15/23 00:00 Dose: Infused Melatonin (Melatonin 3 Mg Tablet) 6 mg PO BEDTIME PRN PRN Reason: Insomnia Metoprolol Tartrate (Metoprolol Tartrate 12.5 Mg Halftab) 12.5 mg PO BID [facility]; Protocol Last Admin: 05/15/23 07:47 Dose: 12.5 mg Ondansetron HCl (Ondansetron Hcl 4 Mg/2 Ml Vial) 4 mg IVPUSH Q8H PRN PRN Reason: Nausea and Vomiting Sodium Chloride (0.9 % Sodium Chloride Flush 3 Ml Syringe) 3 ml IVFLUSH QSHIFT [facility] Last Admin: 05/15/23 07:48 Dose: 3 ml Home Medications Medication Instructions Recorded Confirmed Last Taken Type albuterol sulfate 90 mcg/actuation 2 puff inhalation Q4-6H PRN 05/12/23 05/12/23 Unknown History aerosol inhaler (Ventolin HFA) Shortness Of Breath Or Wheezing budesonide-formoterol HFA 160 2 puff inhalation BID 05/12/23 05/12/23 Unknown History mcg-4.5 mcg/actuation aerosol inhaler (Symbicort) levofloxacin 500 mg tablet 500 mg PO DAILY 05/12/23 05/12/23 Unknown History metoprolol tartrate 25 mg tablet 12.5 mg PO BID 05/12/23 05/12/23 Unknown History Physical Exam Vital Signs: Vital Signs: Last Vital Signs Temp 98.5 F 05/15/23 07:20 Pulse 94 05/15/23 07:20 Resp 18 05/15/23 07:20 BP 133/76 05/15/23 07:20 Pulse Ox 94 05/15/23 07:20 O2 Del Method Room Air 05/15/23 07:20 BMI result Body Mass Index 22.7 Const: General: cooperative, healthy appearing and comfortable Orientation/consciousness: oriented to person, oriented to place and oriented to time HEENT: Head: Yes normal to inspection Neck: Neck: Yes normal visual inspection Carotids: no bruits Chest: Chest palpation & inspection: normal inspection of the chest Resp: Effort & Inspection: normal respiratory effort and able to speak in complete sentences Auscultation: clear to auscultation bilaterally, no crackles, no rales, no rhonchi and no wheezes Cardio: Rate: regular rate Rhythm: regular rhythm Heart sounds: S1 normal heart sound present and S2 normal heart sound present Bruits: no carotid bruits Peripheral pulses: Peripheral pulses 2+ throughout GI: Inspection: Yes normal to inspection Skin: Wounds: no wounds Hair: normal Neuro: General: oriented to person, oriented to place and oriented to time Cranial nerves: Yes CN's II-XII intact bilaterally and Yes Normal hearing present Cognition (Neuro): normal cognition Motor exam (neuro): 5/5 motor strength present throughout Extrem: Other: venous exam: No significant superficial varicosities or spider telangiectasias, minimal edema General: No clubbing, No cyanosis and No edema Psych: Appearance: grossly normal Mental Status: mental status grossly normal Speech and movement: Normal speech and movement present Results Labs 05/15/23 06:34 05/13/23 06:33 Labs: Abnormal lab results 05/14/23 05/14/23 05/15/23 Range/Units 12:05 20:14 06:34 WBC 23.6 H 22.9 H 21.2 H (4.8-10.8) X10*3/uL RBC 3.74 L 3.62 L 3.43 L (4.20-5.50) X10*6/uL Hgb 10.6 L 10.3 L 9.7 L (12.0-16.0) g/dl Hct 31.3 L 30.6 L 29.0 L (37.0-47.0) % Plt Count 550 H 484 H 434 H (160-400) X10*3/uL Immature Gran % (Auto) 1.1 H (0.0-0.4) % Neut % (Auto) 88.6 H (45-73) % Lymph % (Auto) 5.1 L (20-40) % Lymph # (Auto) 1.1 L (1.2-4.9) X10*3/uL Abs Immat Gran (auto) 0.24 H (0.00-0.03) X10*3/uL Absolute Neuts (auto) 18.8 H (2.0-8.3) x10*3/uL PT 16.3 H (11.1-13.3) SEC INR 1.3 H (0.9-1.1) TIBC 150 L (228-428) mcg/dL Ferritin 721 H (10-250) ng/mL AST 40 H (5-31) U/L ALT 34 H (0-31) U/L Alkaline Phosphatase 133 H (39-117) U/L Albumin 2.9 L (3.5-5.0) g/dL Enhanced Crossmatch See Detail Short CBC 05/14/23 05/14/23 05/15/23 Range/Units 12:05 20:14 06:34 WBC 23.6 H 22.9 H 21.2 H (4.8-10.8) X10*3/uL Hgb 10.6 L 10.3 L 9.7 L (12.0-16.0) g/dl Hct 31.3 L 30.6 L 29.0 L (37.0-47.0) % Plt Count 550 H 484 H 434 H (160-400) X10*3/uL Liver Function 05/14/23 Range/Units 12:05 Total Bilirubin 0.3 (0.0-1.0) mg/dL Direct Bilirubin 0.2 (0.0-0.5) mg/dL AST 40 H (5-31) U/L ALT 34 H (0-31) U/L Alkaline Phosphatase 133 H (39-117) U/L Albumin 2.9 L (3.5-5.0) g/dL Urine 05/11/23 Range/Units 20:48 Urine Color Yellow Urine Appearance Clear Urine pH 6.0 (5.0-9.0) Ur Specific [place] >= 1.030 H (1.005-1.025) Urine Protein Trace (Neg-Trace) mg/dL Urine Glucose (UA) Negative (Negative) mg/dL All other labs normal. Assessment and Plan (1) DVT (deep venous thrombosis): Qualifiers: Affected thrombotic vein of extremity: unspecified vein of extremity Chronicity: acute DVT location: lower extremity Laterality: unspecified laterality Qualified Code(s): I82.409 - Acute embolism and thrombosis of unspecified deep veins of unspecified lower extremity Status: Acute Plan In short patient has DVT with PE. Patient will require inferior vena cava filter placement. Risks benefits complications of the procedure were discussed in detail with the patient. She understood and consented. Procedures Date of Service Date of Service: 05/15/23
[2023-05-15] MEDS: Doxycycline Hyclate 100 MG in 0.9 % Sodium Chloride 250 ML 166.67 MG IV (09:49)
--- NOTE | 2023-05-15 11:45 | PM.HEMONCPN ---
Medical Summary - Medical Summary Date of Service: 05/15/23 Chief complaint: Follow-up for: Mediastinal mass. 2. PE. 3. DVT. Primary Care Provider: Unknown Physician Medical Summary: DIAGNOSIS: 1. DVT. 2. PE. 3. MEDIASTINAL MASS. Interval History Interval history: Woo Marks is a 62 year old lady, she is holding her own. She has felt fatigued over the past couple of weeks. She had some night sweats x3. No headache no dizziness. She has had pleuritic chest pain. She does have shortness of breath related to asthma. She also has a dog and a sister has a CT could be allergic. Denies any abdominal pain nausea vomiting heartburn indigestion. Bowels are working without any gross blood in it. She does have hemorrhoids and bleeds sometimes. Couple of weeks ago her appetite declined she thinks she may have lost 4-5 lb. She had a colonoscopy couple of years ago at [facility]. She denies dysuria or hematuria. Denies any depression. She gets rashes behind her heels during the summer months. PRESENTING HISTORY: She was referred for pulmonary embolism, DVT and mediastinal mass. She initially had some cold symptoms for about a week. Sore throat cough and sinus symptoms. She had a fever, had some sweats x3. She has been tired but has a busy work schedule. She had a great appetite up until 2 weeks ago when it declined. She noted pain in her right foot a week ago. She felt she had plantar fasciitis. Then the back of her legs started feeling sore. She then had bilateral leg pain. No obvious swelling. Sunday she noted right-sided pleuritic chest pain. She presented to the emergency department for evaluation of chills and dyspnea. Patient states that she has been having symptoms for the last 3-4 weeks. She has been having productive cough with yellowish sputum production. Also has been having associated chills. Endorses dyspnea which is worse with exertion. No orthopnea or PND. No wheezing. Patient states she is compliant with home inhaler. Patient was seen outpatient and got blood work done about 1 week ago where white count was found to be elevated. She states that her neighbor is a nurse practitioner and she started p.o. antibiotics on the neighbor's recommendation. Patient does not remember the name but took 2 separate courses of p.o. antibiotics without any relief. Also has been having bilateral calf pain that started 1 week ago. No history of DVT/PE or blood clots. No chest discomfort, palpitations, abdominal pain, changes in urinary or bowel habits. CT scan angiogram of the chest revealed: Subsegmental pulmonary emboli in the right middle and right lower lobes. Atelectasis or small infiltrates in the right lower lobe, right middle lobe and inferior segment of the lingula. Small right pleural effusion. Abnormal enlarged mediastinal lymph nodes, worrisome for neoplastic process. Large right thyroid nodule. Given size of nodule, ultrasound follow-up recommended. Small pulmonary nodules. 1 cm liver lesion. WBC found to be elevated. Review of Systems Constitutional: Constitutional: Reports chills, Reports malaise, Reports poor appetite and Reports weakness Cardiovascular: Cardiovascular: Reports dyspnea on exertion Respiratory: Respiratory: Reports cough and Reports dyspnea on exertion Genitourinary: Genitourinary: Reports no additional female genitourinary complaints Neurologic: Reports weakness PMFSH Medical History: history of asthma not on home oxygen, Sinus tachycardia on beta-elli. PAST SURGICAL HISTORY: History of mitral valve repair in 2017. Thyroid nodule removed in 2008. 36 years ago. Family history: Her dad had parkinsonism. Mom had AML at the age of 83, she quickly No family history of early CAD. 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 She is . Has 130 6-year-old daughter. Patient Tobacco Use Status: Never used Tobacco Smoked in Last 30 Days: No Use of substances other than those prescribed or required for medical reasons: No She denies any alcohol. Review of Systems - Constitutional Reports system reviewed and no additional complaints, except as documented, Reports weakness, Reports weight loss, Denies fever(s) - Eyes Reports system reviewed and no additional complaints, except as documented - ENT Reports system reviewed and no additional complaints, except as documented - Cardiovascular Reports system reviewed and no additional complaints, except as documented - Respiratory Reports no additional respiratory complaints - Gastrointestinal Reports system reviewed and no additional complaints, except as documented - Genitourinary Reports no additional female genitourinary complaints - Musculoskeletal Reports system reviewed and no additional complaints, except as documented - Integumentary/Breasts Skin/Breast: Reports no additional skin complaints - Neurologic Reports hearing normal, Reports weakness, Denies abnormal gait - Psychiatric Reports system reviewed and no additional complaints, except as documented - Endocrine Reports no additional endocrine complaints - Hematologic/Lymphatic Reports system reviewed and no additional complaints, except as documented - Allergic/Immunologic Reports system reviewed and no additional complaints, except as documented [facility] Medical History: Medical History (Last Updated 05/15/23 @ 13:36 by Shama Jaffe RN) Asthma Bilateral cataracts Family history of thyroid disease Sinus tachycardia Functional capacity: independent ambulation Patient : No Surgical History: Surgical History (Last Updated 05/15/23 @ 13:37 by Shama Jaffe RN) History of open heart surgery History of tonsillectomy S/P IVC filter Social History: Social History (Last Reviewed 05/11/23 @ 21:28 by Gail Calix MD) Living Situation History: Household Members: Family Household Members Other:: sister Housing: House Do you presently have visiting nurse or other home services: No Alcohol History Details: 1. How often do you have a drink containing alcohol?: a. Never 2. How many drinks containing alcohol do you have on a typical day when you are drinking?: a. 1 or 2 3. How often do you have six or more drinks on one occasion?: a. Never AUDIT-C Alcohol total score: 0 Currently Displaying Signs/Symptoms of Alcohol Withdrawal: No Tobacco History: Patient Tobacco Use Status: Former Tobacco user Smoked in Last 30 Days: No Substance Use History: Use of substances other than those prescribed or required for medical reasons: No Currently Displaying Signs/Symptoms of Drug Intoxication Withdrawal: No Domestic Abuse History: Have you been hit, kicked, punched, or otherwise hurt by someone within the past year? If so, by whom?: No Do you feel safe in your current relationship?: Yes Is there a partner from a previous relationship who is making you feel unsafe now?: No Are you made to feel afraid or neglected: No Advance Directives: Advance Directives: No Advance Directives Information Provided: No Homicidal Assessment: Do you have thoughts of harming others: None Nutrition Assessment: Recently lost weight without trying: No How much weight loss: Not applicable Eating poorly because of decreased appetite: No Nutrition screen score: 0 Nutrition Risks: No Nutritional Risk Patient : No : No Poor oral hygiene: No Occupation Assessmet: service: No Oncology Screenings - ECOG Performance Status ECOG Performance Status: 0 Home Medications and Allergies Current Medications: Current Medications Acetaminophen (Acetaminophen 325 Mg Tablet) 650 mg PO Q6H PRN PRN Reason: Pain, Mild (Pain Scale 1-3) Albuterol Sulfate (Albuterol Sulfate 90 Mcg 8 Gm Inhaler) 2 puff INHALE Q4H PRN PRN Reason: Shortness Of Breath Or Wheezing [place] Butter/Zinc Oxide ([place] Butter/Zinc Oxide Supp.Rect) 1 supp MD BID [facility] Last Admin: 05/15/23 07:49 Dose: Not Given Ceftriaxone Sodium 1 gm/ (Sodium Chloride) 50 mls @ 100 mls/hr IV Q24H [facility] Last Infusion: 05/15/23 00:05 Dose: Infused Doxycycline Hyclate 100 mg/ (Sodium Chloride) 250 mls @ 166.67 mls/hr IV Q12H [facility] Last Infusion: 05/15/23 11:20 Dose: Infused Melatonin (Melatonin 3 Mg Tablet) 6 mg PO BEDTIME PRN PRN Reason: Insomnia Metoprolol Tartrate (Metoprolol Tartrate 12.5 Mg Halftab) 12.5 mg PO BID [facility]; Protocol Last Admin: 05/15/23 07:47 Dose: 12.5 mg Ondansetron HCl (Ondansetron Hcl 4 Mg/2 Ml Vial) 4 mg IVPUSH Q8H PRN PRN Reason: Nausea and Vomiting Sodium Chloride (0.9 % Sodium Chloride Flush 3 Ml Syringe) 3 ml IVFLUSH QSHIFT [facility] Last Admin: 05/15/23 07:48 Dose: 3 ml Home Medications Medication Instructions Recorded Confirmed Type albuterol sulfate 90 mcg/actuation 2 puff inhalation Q4-6H PRN 05/12/23 05/12/23 History aerosol inhaler (Ventolin HFA) Shortness Of Breath Or Wheezing budesonide-formoterol HFA 160 2 puff inhalation BID 05/12/23 05/12/23 History mcg-4.5 mcg/actuation aerosol inhaler (Symbicort) levofloxacin 500 mg tablet 500 mg PO DAILY 05/12/23 05/12/23 History metoprolol tartrate 25 mg tablet 12.5 mg PO BID 05/12/23 05/12/23 History Allergies Allergy/AdvReac Type Severity Reaction Status Date / Time hydrocodone [From Vicodin] Allergy Vomiting Verified 05/11/23 15:07 oxycodone [From Percocet] Allergy Vomiting Verified 05/11/23 15:07 shellfish derived Allergy Anaphylaxis Verified 05/15/23 13:33 Exam Vital signs: Vital Signs Temp 99.6 F 05/15/23 11:06 Pulse 93 05/15/23 11:06 Resp 18 05/15/23 11:06 BP 144/75 H 05/15/23 11:06 Pulse Ox 95 05/15/23 11:06 O2 Del Method Room Air 05/15/23 11:06 Intake & Output 05/14/23 05/15/23 05/15/23 18:59 06:59 18:59 Intake Total 250 / 4150 3900 / 4150 250 / 250 Balance 250 / 4150 3900 / 4150 250 / 250 Intake: Intake, Oral Amount 3600 / 3600 Intake, IV Amount 250 / 550 300 / 550 250 / 250 Doxycycline Hyclate 100 mg In 0 250 / 500 250 / 500 250 / 250 .9 % Sodium Chloride 250 ml @ 166.67 mls/hr IV Q12H [facility] Rx#: [id number] cefTRIAXone sodium 1 gm In 0.9 50 / 50 % Sodium Chloride 50 ml @ 100 mls/hr IV Q24H [facility] Rx#: [id number] Other: Number of Unmeasured Voids 2 1 Number of Bowel Movements 2 Urine Bedside Commode Urine Color Yellow Last Bowel Movement 05/14/23 05/15/23 05/15/23 Stool Bedpan Bedside Commode Stool Amount Small Stool Color Michael Blood Stool Consistency Liquid Weight 63.9 kg BMI result Body Mass Index 22.7 - Constitutional Present: mild distress - Routine HEENT Exam Head: Present: normal inspection, normocephalic Eye: Present: normal appearance ENT: Present: mucous membranes moist - Routine Neck Exam Present: full ROM - Routine Respiratory Exam Present: CTAB - Routine Cardiovascular Exam Cardiovascular: Present: RRR, S1, S2 - Routine Abdominal Exam Present: normal bowel sounds, nontender - Routine Rectal Exam Patient deferred: digital exam - Routine Extremities Exam Present: nontender - Routine Back/Spine/Pelvis Exam Back/Spine: Present: full ROM - Routine Skin Exam Present: intact - Routine Neurological Exam Present: alert, oriented X3 - Detailed Neurological Exam: Coma Scale Eye Opening: Spontaneous (4) - Routine Psychiatric Exam Present: normal affect Data - Labs CBC & Chem 7: 05/20/23 07:08 05/19/23 07:07 Labs: Laboratory Last Values WBC 21.2 X10*3/uL (4.8-10.8) H 05/15/23 06:34 RBC 3.43 X10*6/uL (4.20-5.50) L 05/15/23 06:34 Hgb 9.7 g/dl (12.0-16.0) L 05/15/23 06:34 Hct 29.0 % (37.0-47.0) L 05/15/23 06:34 MCV 84.5 fL (80.0-98.0) 05/15/23 06:34 MCH 28.3 pg (27.0-33.0) 05/15/23 06:34 MCHC 33.4 g/dl (31.0-35.0) 05/15/23 06:34 RDW 14.6 % (11.0-16.0) 05/15/23 06:34 Plt Count 434 X10*3/uL (160-400) H 05/15/23 06:34 MPV 10.1 fL (9.4-12.3) 05/15/23 06:34 Immature Gran % (Auto) 1.1 % (0.0-0.4) H 05/15/23 06:34 Neut % (Auto) 88.6 % (45-73) H 05/15/23 06:34 Lymph % (Auto) 5.1 % (20-40) L 05/15/23 06:34 [place] % (Auto) 4.6 % (2-11) 05/15/23 06:34 Eos % (Auto) 0.3 % (0-4) 05/15/23 06:34 Baso % (Auto) 0.3 % (0-2) 05/15/23 06:34 Lymph # (Auto) 1.1 X10*3/uL (1.2-4.9) L 05/15/23 06:34 [place] # (Auto) 1.0 X10*3/uL (0.1-1.2) 05/15/23 06:34 Eos # (Auto) 0.1 X10*3/uL (0.0-0.4) 05/15/23 06:34 Baso # (Auto) 0.1 X10*3/uL (0.0-0.2) 05/15/23 06:34 Abs Immat Gran (auto) 0.24 X10*3/uL (0.00-0.03) H 05/15/23 06:34 Absolute Neuts (auto) 18.8 x10*3/uL (2.0-8.3) H 05/15/23 06:34 Absolute Nucleated RBC 0.000 X10*3/uL (0.0-0.012) 05/15/23 06:34 Nucleated RBC % (auto) 0.0 /100WBC (0.0-0.2) 05/15/23 06:34 ESR 55 MM/HR (0-20) H 05/11/23 15:55 PT 16.3 SEC (11.1-13.3) H 05/15/23 06:34 INR 1.3 (0.9-1.1) H 05/15/23 06:34 D-Dimer High Sensitivty NG/ML 05/11/23 17:50 Sodium 134 mmol/L (135-145) L 05/13/23 06:33 Potassium 4.0 mmol/L (3.3-5.1) 05/13/23 06:33 Chloride 104 mmol/L (96-108) 05/13/23 06:33 Carbon Dioxide 23 mmol/L (22-29) 05/13/23 06:33 Anion Gap 11 (12-20) L 05/13/23 06:33 BUN 14 mg/dL (9-16) 05/13/23 06:33 Creatinine 0.79 mg/dL (0.5-1.4) 05/13/23 06:33 Estim Creat Clear Calc 67.3 05/13/23 06:33 Estimated GFR > 60 05/13/23 06:33 Random Glucose 92 mg/dL (60-115) 05/13/23 06:33 Lactic Acid 1.1 mmol/L (0.5-2.0) 05/11/23 17:50 Calcium 8.2 mg/dL (8.4-10.2) L D 05/13/23 06:33 Magnesium 2.2 mg/dL (1.6-2.6) 05/11/23 15:55 Iron 39 mcg/dL (30-160) 05/14/23 12:05 TIBC 150 mcg/dL (228-428) L 05/14/23 12:05 % Saturation 26 % (15-50) 05/14/23 12:05 Unsat Iron Binding 111 ug/dL 05/14/23 12:05 Ferritin 721 ng/mL (10-250) H 05/14/23 12:05 Total Bilirubin 0.3 mg/dL (0.0-1.0) 05/14/23 12:05 Direct Bilirubin 0.2 mg/dL (0.0-0.5) 05/14/23 12:05 AST 40 U/L (5-31) H 05/14/23 12:05 ALT 34 U/L (0-31) H 05/14/23 12:05 Alkaline Phosphatase 133 U/L (39-117) H 05/14/23 12:05 Lactate Dehydrogenase 226 U/L (122-220) H 05/13/23 06:33 Troponin I High Sens 213.6 ng/L (<3.5-17.0) H* 05/11/23 17:50 C-Reactive Protein 23.68 mg/dL (< or = 0.50) H 05/11/23 15:55 B-Natriuretic Peptide 87 pg/mL (<100) 05/11/23 15:55 Total Protein 7.4 g/dL (6.5-8.0) 05/14/23 12:05 Albumin 2.9 g/dL (3.5-5.0) L 05/14/23 12:05 Carcinoembryonic Ag 26.30 ng/mL 05/13/23 06:33 Urine Color Yellow 05/11/23 20:48 Urine Appearance Clear 05/11/23 20:48 Urine pH 6.0 (5.0-9.0) 05/11/23 20:48 Ur Specific [place] >= 1.030 (1.005-1.025) H 05/11/23 20:48 Urine Protein Trace mg/dL (Neg-Trace) 05/11/23 20:48 Urine Glucose (UA) Negative mg/dL (Negative) 05/11/23 20:48 Urine Ketones Negative mg/dL (Negative) 05/11/23 20:48 Urine Blood Negative (Negative) 05/11/23 20:48 Urine Nitrite Negative (Negative) 05/11/23 20:48 Ur Leukocyte Esterase Negative (Negative) 05/11/23 20:48 Influenza Type A (EZE) Negative (Negative) 05/11/23 15:55 Influenza Type A (PCR) NEGATIVE (Negative) 05/11/23 17:51 Influenza Type B (EZE) Negative (Negative) 05/11/23 15:55 Influenza Type B (PCR) NEGATIVE (Negative) 05/11/23 17:51 Influenza A & B Note See Note 05/11/23 15:55 RSV RNA Qual (PCR) NEGATIVE (Negative) 05/11/23 17:51 SARS-CoV-2 RNA (RT-PCR) NEGATIVE (Negative) 05/11/23 17:51 Blood Type O Positive 05/14/23 12:05 Antibody Screen POSITIVE 05/14/23 12:05 Antibody Identification Warm Auto Antibody 05/14/23 12:05 PREETHI, Polyspecific POSITIVE A 05/14/23 12:05 Positive PREETHI Work-up IgG=Pos U2e=Hpt A 05/14/23 12:05 Enhanced Crossmatch See Detail 05/14/23 12:05 Blood Bank Comment Technical 05/14/23 12:05 - Imaging Radiologist's impression: ITS Impressions Chest X-Ray 05/11/23 16:19 IMPRESSION: 1. COPD. 2. Right lung base airspace disease and small right pleural effusion are present, suggestive of pneumonia. 3. Status post median sternotomy and mitral valve replacement. Venous Duplex 05/11/23 18:39 IMPRESSION: Right popliteal vein and bilateral calf vein DVT. Findings were communicated to Dr. Gonzalez by telephone on 05/11/2023 at 1908 hours Chest CTA 05/11/23 20:11 IMPRESSION: Subsegmental pulmonary emboli in the right middle and right lower lobes. Atelectasis or small infiltrates in the right lower lobe, right middle lobe and inferior segment of the lingula. Small right pleural effusion. Abnormal enlarged mediastinal lymph nodes, worrisome for neoplastic process. Large right thyroid nodule. Given size of nodule, ultrasound follow-up recommended. Small pulmonary nodules. 1 cm liver lesion. VTE: positive Findings were communicated to Dr. Gonzalez by telephone on 05/11/2023 and 9:00 PM Abdomen/Pelvis CT 05/13/23 20:03 IMPRESSION: 1. The 1 cm mass in the right lobe of the liver is a benign cyst. 2. There is a 1 cm indeterminate left renal mass. Renal ultrasound is recommended for further evaluation. Given its size and location, if this is not seen with ultrasound, MRI would be useful for further evaluation. 3. Other incidental findings as described above. Fleischner guidelines were followed. Renal Ultrasound 05/14/23 10:59 IMPRESSION: Normal appearance of the right kidney. 1.1 cm lateral cortical simple cyst in the upper to mid left kidney corresponds to the finding seen on CT scan. No imaging follow-up is recommended. Assessment and Plan Patient Active problem list reviewed?: Yes (1) Acute pulmonary embolus Status: Acute Assessment and plan: 62-year-old lady presented with shortness of breath. CT scan angiogram of the chest revealed: Subsegmental pulmonary emboli in the right middle and right lower lobes. Atelectasis or small infiltrates in the right lower lobe, right middle lobe and inferior segment of the lingula. Small right pleural effusion. Abnormal enlarged mediastinal lymph nodes, worrisome for neoplastic process. Large right thyroid nodule. Given size of nodule, ultrasound follow-up recommended. Small pulmonary nodules. 1 cm liver lesion. Noted to have a pulmonary embolism. Ultrasound of the leg revealed: Right popliteal vein and bilateral calf vein DVT. In addition she has been noted to have a 4.5 cm mediastinal mass, in the right paratracheal region. Denies any history of smoking. DIFFERENTIAL DIAGNOSIS: 1. Lymphoma: Hodgkin's versus non-Hodgkin's. Versus T-cell. 2. SOLID TUMOR: Metastatic tumor versus primary lung cancer. She had a mammogram in September. Colonoscopy was a couple of years ago. She had a pelvic exam 4 years ago along with a Pap smear. l proceeded with CT scan of the abdomen pelvis for complete staging, and to look for a primary site. 1. The 1 cm mass in the right lobe of the liver is a benign cyst. 2. There is a 1 cm indeterminate left renal mass. Renal ultrasound is recommended for further evaluation. Given its size and location, if this is not seen with ultrasound, MRI would be useful for further evaluation. 3. Other incidental findings as described above. Renal ultrasound revealed: Normal appearance of the right kidney. 1.1 cm lateral cortical simple cyst in the upper to mid left kidney corresponds to the finding seen on CT scan. No imaging follow-up is recommended. Checked LDH:226, and CEA levels: 26.30. Patient has had a couple of episodes of bright red blood per rectum yesterday. Concern is hemorrhoids versus a colonic lesion. Patient was seen by GI and scheduled for a colonoscopy for today. However an IVC filter has been placed since she could not be continued on the Lovenox. PLAN: For colonoscopy later today. If that does not provide with an answer, proceed with Mediastinal biopsy, as discussed with pulmonary. Thank you for this consult, Will follow, Thank you, CC: dr. Scott. Addendum: Colonoscopy revealed: Internal hemorrhoids and diverticulosis no active bleeding was noted likely hemorrhoidal source. ok to resume anticoagulation per GI follow CBC/hemorrhoidal cream ordered/recommend to avoid straining if re-bleeding occurs, rec to consult surgery for possible hemorrhoidectomy Pt underwent mediastinal node biopsy 05/18, Pathology: Documented malignant cells in the specimens official bx, cytology pending. Will make further treatment plan based upon the final results. - Time Spent With Patient Time Spent with Patient (in minutes): 25
--- NOTE | 2023-05-15 12:31 | MHC.CM.PN ---
EMR reviewed and per MD rounds, pt is not medically cleared for D/C due to IVC filter placement today. CM will continue to follow.
--- NOTE | 2023-05-15 14:02 | P.PNIM_ITS ---
Subjective Subjective Date of Service: 05/15/23 Interval History: Resting comfortably offers no acute complaints NPO for IVC filter placement and colonoscopy. Denies shortness of breath, no chest pain, no palpitations, no nausea, no vomiting, no abdominal pain no acute events overnight. Review of Systems All other system reviewed and negative. Physical Exam 2 Vital Signs: Vital Signs: Last Vital Signs Temp 99.7 F 05/15/23 13:43 Pulse 102 H 05/15/23 13:43 Resp 16 05/15/23 13:43 BP 145/89 H 05/15/23 13:43 Pulse Ox 93 05/15/23 13:43 O2 Del Method Room Air 05/15/23 13:43 BMI result Body Mass Index 22.7 Const: Other: General A xox3, resting comfortably in no acute distress. Neck supple no JVD. CVS regular rate rhythm, Respiratory lungs coarse breath sounds, no respiratory distress, no wheeze, no rhonchi. Gastrointestinal abdomen soft, non tender, bowel sounds audible, no guarding , no rigidity. Extremities no edema. Neuro non focal Skin no rash Psych appropriate affect Objective Data Active Medications Acetaminophen (Acetaminophen 325 Mg Tablet) 650 mg PO Q6H PRN PRN Reason: Pain, Mild (Pain Scale 1-3) Albuterol Sulfate (Albuterol Sulfate 90 Mcg 8 Gm Inhaler) 2 puff INHALE Q4H PRN PRN Reason: Shortness Of Breath Or Wheezing [place] Butter/Zinc Oxide ([place] Butter/Zinc Oxide Supp.Rect) 1 supp [place] BID [facility] Last Admin: 05/15/23 07:49 Dose: Not Given Documented By: SRAVANI Non-Admin Reason: Patient Condition Contraindication Ceftriaxone Sodium 1 gm/ (Sodium Chloride) 50 mls @ 100 mls/hr IV Q24H [facility] Last Infusion: 05/15/23 00:05 Dose: Infused Documented By: JOSE MARTIN Doxycycline Hyclate 100 mg/ (Sodium Chloride) 250 mls @ 166.67 mls/hr IV Q12H [facility] Last Infusion: 05/15/23 11:20 Dose: Infused Documented By: SRAVANI Melatonin (Melatonin 3 Mg Tablet) 6 mg PO BEDTIME PRN PRN Reason: Insomnia Metoprolol Tartrate (Metoprolol Tartrate 12.5 Mg Halftab) 12.5 mg PO BID [facility]; Protocol Last Admin: 05/15/23 07:47 Dose: 12.5 mg Documented By: SRAVANI Ondansetron HCl (Ondansetron Hcl 4 Mg/2 Ml Vial) 4 mg IVPUSH Q8H PRN PRN Reason: Nausea and Vomiting Sodium Chloride (0.9 % Sodium Chloride Flush 3 Ml Syringe) 3 ml IVFLUSH QSHIFT [facility] Last Admin: 05/15/23 07:48 Dose: 3 ml Documented By: SRAVANI Labs 05/15/23 06:34 05/13/23 06:33 Labs: Laboratory Results - last 24 hr 05/14/23 05/14/23 05/15/23 12:05 20:14 06:34 MCV 84.5 84.5 MCH 28.5 28.3 MCHC 33.7 33.4 RDW 14.6 14.6 Plt Count 484 H 434 H MPV 10.1 10.1 Immature Gran % (Auto) 1.1 H Neut % (Auto) 88.6 H Lymph % (Auto) 5.1 L [place] % (Auto) 4.6 Eos % (Auto) 0.3 Baso % (Auto) 0.3 Lymph # (Auto) 1.1 L [place] # (Auto) 1.0 Eos # (Auto) 0.1 Baso # (Auto) 0.1 Abs Immat Gran (auto) 0.24 H Absolute Neuts (auto) 18.8 H Absolute Nucleated RBC 0.000 0.000 Nucleated RBC % (auto) 0.0 0.0 PT 16.3 H INR 1.3 H Total Bilirubin 0.3 Direct Bilirubin 0.2 AST 40 H ALT 34 H Alkaline Phosphatase 133 H Total Protein 7.4 Albumin 2.9 L Blood Type O Positive Antibody Screen POSITIVE Antibody Identification Warm Auto Antibody PREETHI, Polyspecific POSITIVE A Positive PREETHI Work-up IgG=Pos B2b=Zlk A Enhanced Crossmatch See Detail Blood Bank Comment Technical Assessment and Plan (1) Pulmonary emboli: Status: Acute (2) DVT (deep venous thrombosis): Status: Acute (3) Community acquired pneumonia: Status: Acute Plan 62-year-old female who presents to the emergency department for evaluation of fevers, chills and dyspnea. #. Sepsis due to right sided pneumonia: Failed outpatient po abx., No fevers, no cough, no shortness on breath blood culture negative times 48 hours, Lactic acid normal, elevated C- reactive protein and ESR WBC remains elevated, likely reactive On IV doxy and IV ceftriaxone day 4 will transition to by mouth doxycycline 100mg po bid. #. Acute submassive PE: Feels better, no chest pain, no palpitations s/p therapeutic Lovenox ,noted to have bright red blood per rectum x2 on 05/14 therefore Lovenox discontinued echocardiogram showed EF 60-65%, indeterminate diastolic function low normal right ventricular systolic function, severely dilated left atrium, no mitral valve regurgitation moderate mitral valve stenosis Noted to have right lower extremity DVT, no family history of clots quit smoking 36 years ago. IVC filter placed this morning by vascular surgery Will decide anticoagulation after colonoscopy. # acute lower GI bleed likely hemorrhoidal obtain GI consult since patient requires anticoagulation colonoscopy scheduled for today, by Dr. Huff , repeat hematocrit dropped but above transfusion threshold. follow CBC/hold anticoagulation. #. Acute respiratory distress due to PE + PNA resolved no hypoxia noted. #. Acute right popliteal and calf vein DVT: s/p IVC filter /AC on hold as above. #. Elevated troponin: No chest pain, no palpitations, no worsening shortness of breath, Elevated but flat 199.5 repeat 213.6, Likely in the setting of increased demand, no acute ischemic changes on EKG, received aspirin and is on anticoagulation, resume low-dose beta-blockers , echocardiogram as above no wall motion abnormality. #. Normocytic anemia: Hemoglobin stable, hold blood transfusion. #. Thyroid nodule on imaging: Being followed by livestock laborer for right thyroid nodule at [facility] , recommend continued outpatient follow-up #. Enlarged mediastinal lymph nodes on imaging: Concern for malignancy, due to DVT and PE with no obvious cause, no sedentary lifestyle, no family history, question related to COVID infection dx February /seen by Dr. Lowry from Oncology CT abdomen and pelvis showed no abnormality, renal ultrasound showed benign renal cyst Case discussed with pulmonology they recommend mediastinal node biopsy once patient hemodynamically stable after 2 weeks of treatment with anticoagulation #. Mild persistent Asthma: No acute exacerbation , Continue home inhalers. #. Sinus tachycardia on beta-elli DVT prophylaxis: Lovenox on hold due to bleeding/hold compression boot with b/l dvt. Full code Patient will require continued inpatient hospitalization for close hemodynamic monitoring (as above), which is not possible in a lesser acute setting. Quality Stroke Does the patient have a stroke diagnosis?: No VTE Prior VTE?: No VTE Risk Level:: Medical - moderate - high VTE Device Contraindication: Treatment Not Indicated VTE Drug Contraindication: N/A - Med Ordered
--- NOTE | 2023-05-15 14:06 | P.CONAN_ITS ---
[facility] Active Problems Active Problems: All Active Problems (Updated 05/15/23 @ 13:36 by Shama Jaffe RN) GIB (gastrointestinal bleeding) (Acute) Thyroid mass (Acute) Mediastinal mass (Acute) Pulmonary emboli (Acute) DVT (deep venous thrombosis) (Acute) DVT (deep venous thrombosis) (Acute) Community acquired pneumonia (Acute) Acute pulmonary embolus (Acute) Asthma (Acute) Sinus tachycardia (Acute) Past Medical History Medical History (Updated 05/15/23 @ 13:36 by Shama Jaffe RN) Family history of thyroid disease Bilateral cataracts Sinus tachycardia Asthma Functional capacity: independent ambulation Family History Family history of problems with anesthesia: No Surgical History Surgical History (Updated 05/15/23 @ 13:37 by Shama Jaffe RN) S/P IVC filter History of tonsillectomy History of open heart surgery History of Problems with Anesthesia: No Social History Social History Household Members: Family Household Members Other:: sister Housing: House Do you presently have visiting nurse or other home services: No Comment: Commode near bed. Pt gait and balance are steady. Per protocol extra safety Patient Tobacco Use Status: Former Tobacco user Smoked in Last 30 Days: No Use of substances other than those prescribed or required for medical reasons: No Currently Displaying Signs/Symptoms of Drug Intoxication Withdrawal: No Have you been hit, kicked, punched, or otherwise hurt by someone within the past year? If so, by whom?: No Do you feel safe in your current relationship?: Yes Is there a partner from a previous relationship who is making you feel unsafe now?: No Are you made to feel afraid or neglected: No Are you DNR?: No Advance Directives: No Advance Directives Information Provided: No Do you have thoughts of harming others: None Recently lost weight without trying: No How much weight loss: Not applicable Eating poorly because of decreased appetite: No Nutrition screen score: 0 Nutrition Risks: No Nutritional Risk Patient : No : No Poor oral hygiene: No service: No Meds Allergies Allergy/AdvReac Type Severity Reaction Status Date / Time hydrocodone [From Vicodin] Allergy Vomiting Verified 05/11/23 15:07 oxycodone [From Percocet] Allergy Vomiting Verified 05/11/23 15:07 shellfish derived Allergy Anaphylaxis Verified 05/15/23 13:33 Active Medications: Current Medications Acetaminophen (Acetaminophen 325 Mg Tablet) 650 mg PO Q6H PRN PRN Reason: Pain, Mild (Pain Scale 1-3) Albuterol Sulfate (Albuterol Sulfate 90 Mcg 8 Gm Inhaler) 2 puff INHALE Q4H PRN PRN Reason: Shortness Of Breath Or Wheezing [place] Butter/Zinc Oxide ([place] Butter/Zinc Oxide Supp.Rect) 1 supp [place] BID [facility] Last Admin: 05/15/23 07:49 Dose: Not Given Ceftriaxone Sodium 1 gm/ (Sodium Chloride) 50 mls @ 100 mls/hr IV Q24H [facility] Last Infusion: 05/15/23 00:05 Dose: Infused Doxycycline Hyclate 100 mg/ (Sodium Chloride) 250 mls @ 166.67 mls/hr IV Q12H [facility] Last Infusion: 05/15/23 11:20 Dose: Infused Melatonin (Melatonin 3 Mg Tablet) 6 mg PO BEDTIME PRN PRN Reason: Insomnia Metoprolol Tartrate (Metoprolol Tartrate 12.5 Mg Halftab) 12.5 mg PO BID [facility]; Protocol Last Admin: 05/15/23 07:47 Dose: 12.5 mg Ondansetron HCl (Ondansetron Hcl 4 Mg/2 Ml Vial) 4 mg IVPUSH Q8H PRN PRN Reason: Nausea and Vomiting Sodium Chloride (0.9 % Sodium Chloride Flush 3 Ml Syringe) 3 ml IVFLUSH QSHIFT [facility] Last Admin: 05/15/23 07:48 Dose: 3 ml Home Medications Medication Instructions Recorded Confirmed Last Taken Type albuterol sulfate 90 mcg/actuation 2 puff inhalation Q4-6H PRN 05/12/23 05/12/23 Unknown History aerosol inhaler (Ventolin HFA) Shortness Of Breath Or Wheezing budesonide-formoterol HFA 160 2 puff inhalation BID 05/12/23 05/12/23 Unknown History mcg-4.5 mcg/actuation aerosol inhaler (Symbicort) levofloxacin 500 mg tablet 500 mg PO DAILY 05/12/23 05/12/23 Unknown History metoprolol tartrate 25 mg tablet 12.5 mg PO BID 05/12/23 05/12/23 Unknown History Exam Height,Weight and Vital Signs: Height 5 ft 6 in Weight 63.9 kg Last Vital Signs Temp 99.7 F 05/15/23 13:43 Pulse 102 H 05/15/23 13:43 Resp 16 05/15/23 13:43 BP 145/89 H 05/15/23 13:43 Pulse Ox 93 05/15/23 13:43 O2 Del Method Room Air 05/15/23 13:43 Pertinent Lab Results Pertinent Lab Results: Laboratory Tests 05/11/23 05/11/23 05/11/23 15:55 17:50 17:51 WBC 22.2 H RBC 3.85 L Hgb 10.9 L Hct 32.7 L MCV 84.9 MCH 28.3 MCHC 33.3 RDW 14.1 Plt Count 305 MPV 10.6 Immature Gran % (Auto) 1.5 H Neut % (Auto) 88.9 H Lymph % (Auto) 3.7 L [place] % (Auto) 5.5 Eos % (Auto) 0.1 Baso % (Auto) 0.3 Lymph # (Auto) 0.8 L [place] # (Auto) 1.2 Eos # (Auto) 0.0 Baso # (Auto) 0.1 Abs Immat Gran (auto) 0.34 H Absolute Neuts (auto) 19.8 H Absolute Nucleated RBC 0.000 Nucleated RBC % (auto) 0.0 ESR 55 H PT 18.1 H INR 1.5 H D-Dimer High Sensitivty Sodium 132 L Potassium 4.2 Chloride 97 Carbon Dioxide 27 Anion Gap 12 BUN 17 H Creatinine 0.84 Estim Creat Clear Calc 63.3 Estimated GFR > 60 Random Glucose 121 H Lactic Acid 1.1 Calcium 8.8 Magnesium 2.2 Iron TIBC % Saturation Unsat Iron Binding Ferritin Total Bilirubin Direct Bilirubin AST ALT Alkaline Phosphatase Lactate Dehydrogenase Troponin I High Sens 199.5 H* 213.6 H* C-Reactive Protein 23.68 H B-Natriuretic Peptide 87 Total Protein Albumin Carcinoembryonic Ag Urine Color Urine Appearance Urine pH Ur Specific [place] Urine Protein Urine Glucose (UA) Urine Ketones Urine Blood Urine Nitrite Ur Leukocyte Esterase Influenza Type A (EZE) Negative Influenza Type A (PCR) NEGATIVE Influenza Type B (EZE) Negative Influenza Type B (PCR) NEGATIVE Influenza A & B Note See Note RSV RNA Qual (PCR) NEGATIVE SARS-CoV-2 RNA (RT-PCR) NEGATIVE Blood Type Antibody Screen Antibody Identification PREETHI, Polyspecific Positive PREETHI Work-up Enhanced Crossmatch Blood Bank Comment 05/11/23 05/13/23 05/14/23 20:48 06:33 12:05 WBC 21.0 H 23.6 H RBC 3.50 L 3.74 L Hgb 10.0 L 10.6 L Hct 29.7 L 31.3 L MCV 84.9 83.7 MCH 28.6 28.3 MCHC 33.7 33.9 RDW 14.4 14.6 Plt Count 441 H D 550 H MPV 10.6 10.2 Immature Gran % (Auto) Neut % (Auto) Lymph % (Auto) [place] % (Auto) Eos % (Auto) Baso % (Auto) Lymph # (Auto) [place] # (Auto) Eos # (Auto) Baso # (Auto) Abs Immat Gran (auto) Absolute Neuts (auto) Absolute Nucleated RBC 0.000 0.000 Nucleated RBC % (auto) 0.0 0.0 ESR PT INR D-Dimer High Sensitivty Sodium 134 L Potassium 4.0 Chloride 104 Carbon Dioxide 23 Anion Gap 11 L BUN 14 Creatinine 0.79 Estim Creat Clear Calc 67.3 Estimated GFR > 60 Random Glucose 92 Lactic Acid Calcium 8.2 L D Magnesium Iron 39 TIBC 150 L % Saturation 26 Unsat Iron Binding 111 Ferritin 721 H Total Bilirubin 0.3 Direct Bilirubin 0.2 AST 40 H ALT 34 H Alkaline Phosphatase 133 H Lactate Dehydrogenase 226 H Troponin I High Sens C-Reactive Protein B-Natriuretic Peptide Total Protein 7.4 Albumin 2.9 L Carcinoembryonic Ag 26.30 Urine Color Yellow Urine Appearance Clear Urine pH 6.0 Ur Specific [place] >= 1.030 H Urine Protein Trace Urine Glucose (UA) Negative Urine Ketones Negative Urine Blood Negative Urine Nitrite Negative Ur Leukocyte Esterase Negative Influenza Type A (EZE) Influenza Type A (PCR) Influenza Type B (EZE) Influenza Type B (PCR) Influenza A & B Note RSV RNA Qual (PCR) SARS-CoV-2 RNA (RT-PCR) Blood Type O Positive Antibody Screen POSITIVE Antibody Identification Warm Auto Antibody PREETHI, Polyspecific POSITIVE A Positive PREETHI Work-up IgG=Pos [id number] A Enhanced Crossmatch See Detail Blood Bank Comment Technical 05/14/23 05/15/23 20:14 06:34 WBC 22.9 H 21.2 H RBC 3.62 L 3.43 L Hgb 10.3 L 9.7 L Hct 30.6 L 29.0 L MCV 84.5 84.5 MCH 28.5 28.3 MCHC 33.7 33.4 RDW 14.6 14.6 Plt Count 484 H 434 H MPV 10.1 10.1 Immature Gran % (Auto) 1.1 H Neut % (Auto) 88.6 H Lymph % (Auto) 5.1 L [place] % (Auto) 4.6 Eos % (Auto) 0.3 Baso % (Auto) 0.3 Lymph # (Auto) 1.1 L [place] # (Auto) 1.0 Eos # (Auto) 0.1 Baso # (Auto) 0.1 Abs Immat Gran (auto) 0.24 H Absolute Neuts (auto) 18.8 H Absolute Nucleated RBC 0.000 0.000 Nucleated RBC % (auto) 0.0 0.0 ESR PT 16.3 H INR 1.3 H D-Dimer High Sensitivty Sodium Potassium Chloride Carbon Dioxide Anion Gap BUN Creatinine Estim Creat Clear Calc Estimated GFR Random Glucose Lactic Acid Calcium Magnesium Iron TIBC % Saturation Unsat Iron Binding Ferritin Total Bilirubin Direct Bilirubin AST ALT Alkaline Phosphatase Lactate Dehydrogenase Troponin I High Sens C-Reactive Protein B-Natriuretic Peptide Total Protein Albumin Carcinoembryonic Ag Urine Color Urine Appearance Urine pH Ur Specific [place] Urine Protein Urine Glucose (UA) Urine Ketones Urine Blood Urine Nitrite Ur Leukocyte Esterase Influenza Type A (EZE) Influenza Type A (PCR) Influenza Type B (EZE) Influenza Type B (PCR) Influenza A & B Note RSV RNA Qual (PCR) SARS-CoV-2 RNA (RT-PCR) Blood Type Antibody Screen Antibody Identification PREETHI, Polyspecific Positive PREETHI Work-up Enhanced Crossmatch Blood Bank Comment Airway Mallampati Class: II TM Dist: >3cm Neck ROM: Full Assessment and Plan Assessment Anesthesia Assessment: Anesthesia Plan Discussed and Chart Reviewed Final Anesthetic Review Family History of Problems with Anesthesia: No History of Problems with Anesthesia: No NPO: Yes ASA Class: III Final Preanesthetic Review: No Changes in Pt Med Stat, Meds/Allgs Chart Reviewed, Consent Obtained/Reviewed and Anes Risks/Benef Reviewed Patient Risk: Intermediate Procedure Risk: Low Anesthetic Plan Anesthetic Plan: TIVA Disposition: Standard PACU
--- NOTE | 2023-05-15 14:40 | MHC.SHP ---
Pre-Procedural Eval Section A - 24 Hr Update-Section A only Date of Service: 05/15/23 The patient is an INPATIENT: Yes Changes since office visit: No Cold of Flu in the past 2 weeks, No New Medical Problems, No Changes in Medication and No Patient answered all questions The patient has been examined within 24 hours of the surgical procedure. The History & Physical has been completed within 30 days and I have reviewed it.: Yes Section B - Complete if H&P > 30 days Chief Complaint: heart valve infection ? Allergies: Allergies Allergy/AdvReac Type Severity Reaction Status Date / Time hydrocodone [From Vicodin] Allergy Vomiting Verified 05/11/23 15:07 oxycodone [From Percocet] Allergy Vomiting Verified 05/11/23 15:07 shellfish derived Allergy Anaphylaxis Verified 05/15/23 13:33 Plan I have reviewed the history and physical and performed a pertinent physical examination on my patient. No changes have occurred unless specified. Time Spent With Patient Time: Total time managing care of this patient today ____ minutes.
--- NOTE | 2023-05-15 15:26 | PM.EVENT ---
Event Note Date of Service: 05/15/23 Event Note: GI colonoscopy shows internal hemorrhoids and diverticulosis no active bleeding, suspect hemorrhoids as source if AC needs to be restarted, can use hydrocortisone suppostories or refer for hemorrhoidectomy if rebleeds. Time Spent With Patient Time: Total time managing care of this patient today ____ minutes.
--- NOTE | 2023-05-15 15:45 | OP_ITS ---
DATE OF SERVICE: 05/15/2023 SURGEON: Kapil Huff MD INDICATIONS: Rectal bleeding. PREOPERATIVE DIAGNOSIS: POSTOPERATIVE DIAGNOSIS: PROCEDURE PERFORMED: Colonoscopy to the terminal ileum. ESTIMATED BLOOD LOSS: COMPLICATIONS: ANESTHESIA: Medications; monitored anesthesia care. ASSISTANTS: SPECIMENS: DESCRIPTION OF PROCEDURE: A history and physical performed. The risks and benefits of the procedure were explained to the patient. Informed consent was obtained. The patient was placed in the left lateral decubitus position. A digital rectal exam was performed and was found to be normal. The Olympus pediatric video colonoscope was introduced into the rectum and advanced to the cecum. The cecum was identified by transillumination, palpation, and identification of ileocecal valve. Examination was performed. The scope was removed. She tolerated the procedure well and was returned to recovery area in stable condition. FINDINGS: The terminal ileum was examined and appeared normal. The visualized colonic mucosa was normal. There was some stool coating mucosa in a thin layer across the right colon and proximal transverse colon limiting the sensitivity examination for detection of small polyps. This was washed and suctioned. No polyps were identified. There was mild sigmoid diverticulosis with no recent bleeding or bleeding source identified. Retroflexed examination showed moderate-sized internal hemorrhoids. IMPRESSION: 1. Diverticulosis. 2. Internal hemorrhoids, otherwise normal examination. RECOMMENDATIONS: 1. Monitor hematocrit. 2. Advance diet. 3. Anticoagulation is not contraindicated unless rebleeding occurs. MD SIMÓN Vaughn/KAROLL / [id number] MTDD
--- NOTE | 2023-05-15 15:55 | CONS_ITS ---
DATE OF SERVICE: 05/15/2023 REFERRING PHYSICIAN: Dr. Scott REASON FOR CONSULTATION: Rectal bleeding. HISTORY OF PRESENT ILLNESS: The patient is a pleasant 62-year-old woman, who was admitted to the hospital on May 11 with shortness of breath and chills. She was found to have DVT with PE and was started on anticoagulation, where she had rectal bleeding. She denies any abdominal or rectal pain. She does recall undergoing colonoscopy a couple of years ago with no significant findings. Her anticoagulation was stopped and she had a vena caval filter placed today. Hematocrit was 32.7 on admission and has been stable between 29 and 31 since then, she has not required blood transfusion. As a part of her evaluation, she was found to have a mediastinal mass, which is currently undergoing workup with suspicions of underlying malignancy. She denies any prior history of rectal bleeding. She has had no history of polyps or colitis and does not take NSAIDs on a regular basis at home. PAST MEDICAL HISTORY: 1. Asthma. 2. Tachycardia. CURRENT MEDICATIONS: Her current medication list is reviewed in the chart. ALLERGIES: SHE HAS DIFFICULTY WITH NARCOTICS AND HAS ANAPHYLAXIS TO SHELLFISH. FAMILY HISTORY: Noncontributory. SOCIAL HISTORY: There is no current tobacco, alcohol, or substance abuse. REVIEW OF SYSTEMS: SKIN: No pruritus. HEENT: Negative. CARDIOPULMONARY: She denies shortness of breath or chest pain. GASTROINTESTINAL: As above. GENITOURINARY: Negative. NEUROPSYCHIATRIC: Negative. PHYSICAL EXAMINATION: GENERAL: Shows a pleasant female, lying comfortably on the stretcher. VITAL SIGNS: Reviewed in electronic medical record and are stable. SKIN: Anicteric. HEENT: Shows no scleral icterus. NECK: Without lymphadenopathy or thyromegaly. LUNGS: Clear. HEART: Shows a regular rate and rhythm. S1, S2. No murmur. ABDOMEN: Soft without focal masses or tenderness. Bowel sounds are present. No organomegaly is noted. EXTREMITIES: Without edema. LABORATORY DATA AND IMAGING STUDIES: Reviewed. IMPRESSION: Rectal bleeding. We discussed the differential diagnosis today for her rectal bleeding, which includes diverticulosis, hemorrhoids, arteriovenous malformations, and mass lesions. This mass lesion would be less likely based on her history of a colonoscopy somewhat recently, I did recommend she undergo colonoscopy to rule out any other source and see if it will be safe for her to go back on anticoagulation. I have discussed risks and benefits of the procedure with her. She understands and agrees to proceed. Thanks for asking me to see her. I will follow her in the hospital with you. MD SIMÓN Vaughn/MARY LOU / [id number] MTDD
[2023-05-15] MEDS: Enoxaparin Sodium 60 MG/0.6 ML SYRINGE SUBCUT (17:54)
[2023-05-15] MEDS: Doxycycline Monohydrate 100 MG CAPSULE PO (20:15)
[2023-05-16 03:13] VITALS: BP 126/66; PULSE 104; RESP 20; TEMP 36.9; O2SAT 93
[2023-05-16] MEDS: Acetaminophen 325 MG TABLET 650 MG PO (03:21)
[2023-05-16 06:21] LABS: C Reactive Protein 13.48 mg/dL (< or = 0.50)
[2023-05-16 06:22] LABS: Hematocrit 29.3 % (37.0-47.0); Hemoglobin 9.7 g/dl (12.0-16.0); Mean Corpuscular HGB Conc 33.1 g/dl (31.0-35.0); Mean Corpuscular Hemoglobin 28.3 pg (27.0-33.0); Mean Corpuscular Volume 85.4 fL (80.0-98.0); Mean Platelet Volume 10.5 fL (9.4-12.3); Platelet Count 460 X10*3/uL (160-400); Red Blood Count 3.43 X10*6/uL (4.20-5.50); Red Cell Distribution Width 14.8 % (11.0-16.0); White Blood Count 20.3 X10*3/uL (4.8-10.8)
[2023-05-16] MEDS: Enoxaparin Sodium 60 MG/0.6 ML SYRINGE SUBCUT ×2 (06:40→18:19)
[2023-05-16 07:35] VITALS: BP 116/74; PULSE 95; RESP 16; TEMP 36.3; O2SAT 95
[2023-05-16] MEDS: Metoprolol Tartrate 12.5 MG HALFTAB PO ×2 (09:40→19:36)
[2023-05-16] MEDS: Doxycycline Monohydrate 100 MG CAPSULE PO ×2 (09:40→21:34)
[2023-05-16] MEDS: 0.9 % Sodium Chloride Flush 3 ML SYRINGE IVFLUSH ×3 (09:40→23:23)
[2023-05-16 12:00] VITALS: BP 130/74; PULSE 99; RESP 16; TEMP 36.4; O2SAT 98
--- NOTE | 2023-05-16 12:19 | HO.VASCPN ---
Subjective Subjective Date of Service: 05/16/23 Patient reports: no new complaints and feels better Interval history: Patient is postop day 1 status post IVC filter placement. She has resumed Lovenox. She also had a colonoscopy. Appears to be doing relatively well. Physical Exam Vital Signs: Vital Signs: Last Vital Signs Temp 97.4 F 05/16/23 07:35 Pulse 95 05/16/23 07:35 Resp 16 05/16/23 07:35 BP 116/74 05/16/23 07:35 Pulse Ox 95 05/16/23 07:35 O2 Del Method Room Air 05/16/23 07:35 O2 Flow Rate 2 05/15/23 15:57 BMI result Body Mass Index 22.7 Const: General: cooperative, healthy appearing and no acute distress Orientation/consciousness: oriented to person, oriented to place and oriented to time HEENT: Head: Yes normal to inspection Neck: Carotids: no bruits Chest: Chest palpation & inspection: normal inspection of the chest Resp: Effort & Inspection: normal respiratory effort and able to speak in complete sentences Auscultation: clear to auscultation bilaterally Cardio: Rate: regular rate Heart sounds: S1 normal heart sound present and S2 normal heart sound present GI: Inspection: Yes normal to inspection Skin: General skin exam: no rashes or lesions noted Wounds: no wounds Neuro: General: oriented to person, oriented to place, oriented to time and CN's II-XI intact bilaterally Extrem: Other: Groin with no significant hematoma General: Yes normal to inspection, Yes full ROM and Yes no clubbing, cyanosis or edema Psych: Appearance: grossly normal and well kempt Speech and movement: Normal speech and movement present Affect: normal affect Progress Note: A&P Assessment and plan (1) DVT (deep venous thrombosis): Status: Acute Assessment and Plan: In short patient has DVT with PE. Had undergone IVC filter placement. Appears to be doing relatively well. Patient will follow up with us on an as-needed basis. Thank you for allowing us to assist in her care. Time Spent With Patient Time: Total time managing care of this patient today ____ minutes. Procedures Date of Service Date of Service: 05/16/23 Quality Stroke Does the patient have a stroke diagnosis?: No VTE Prior VTE?: No VTE Risk Level:: Medical - moderate - high VTE Device Contraindication: Treatment Not Indicated VTE Drug Contraindication: N/A - Med Ordered
--- NOTE | 2023-05-16 13:28 | P.PNPL_ITS ---
Subjective Subjective Date of Service: 05/16/23 Interval history: The patient was seen on exam. She underwent IVC filter without any complications and also her colonoscopy demonstrating hemorrhoids and diverticulosis. She has not tolerating the Lovenox. At some point she will be started on Eliquis as her medication for anticoagulation. Based on her presentation she will require long-term anticoagulation. In the meantime we talked about the mediastinal lymphadenopathy which is concerning for malignancy likely driving the whole process. The patient is agreeable to undergoing a bronchoscopy with endobronchial ultrasound bronchoscopy needle sampling of the mediastinal lymph nodes. Currently she is on Lovenox we can quickly stop the medication perform the procedure. She is scheduled for 08:00 o'clock on May 18. We will stop the Lovenox 12 hours prior. In the meantime the patient should continue to hydrate. Objective Data Labs 05/16/23 05:37 05/13/23 06:33 Labs: Laboratory Results - last 24 hr 05/16/23 05:37 WBC 20.3 H RBC 3.43 L Hgb 9.7 L Hct 29.3 L MCV 85.4 MCH 28.3 MCHC 33.1 RDW 14.8 Plt Count 460 H MPV 10.5 Absolute Nucleated RBC 0.000 Nucleated RBC % (auto) 0.0 C-Reactive Protein 13.48 H Microbiology Microbiology Results: Microbiology 05/11/23 17:53 Blood - Venous Blood Culture - Preliminary No growth after 48 hours. 05/11/23 17:50 Blood - Venous Blood Culture - Preliminary No growth after 48 hours. Review of Systems Constitutional: Reports poor appetite Reports dizziness Cardiovascular: Denies chest pain and Reports dyspnea on exertion Respiratory: Reports cough, Reports dyspnea on exertion and Denies wheezing Gastrointestinal: Reports hematochezia Genitourinary: Reports no additional female genitourinary complaints Musculoskeletal: Reports no additional musculoskeletal complaints Reports dizziness Hematologic/Lymphatic: Reports lymphadenopathy Allergic/Immunologic: Denies wheezing Physical Exam 2 Vital Signs: Vital Signs: Last Vital Signs Temp 97.4 F 05/16/23 07:35 Pulse 95 05/16/23 07:35 Resp 16 05/16/23 07:35 BP 116/74 05/16/23 07:35 Pulse Ox 95 05/16/23 07:35 O2 Del Method Room Air 05/16/23 07:35 O2 Flow Rate 2 05/15/23 15:57 BMI result Body Mass Index 22.7 Const: General: cooperative, healthy appearing and no acute distress O rientation/consciousness: oriented to person, oriented to place and oriented to time HEENT: Head: Yes normal to inspection Neck: Carotids: no bruits Chest: Chest palpation & inspection: normal inspection of the chest Resp: Effort & Inspection: normal respiratory effort and able to speak in complete sentences Auscultation: clear to auscultation bilaterally Cardio: Rate: regular rate Heart sounds: S1 normal heart sound present and S2 normal heart sound present GI: Inspection: Yes normal to inspection Skin: General skin exam: no rashes or lesions noted Wounds: no wounds Neuro: General: oriented to person, oriented to place, oriented to time and CN's II-XI intact bilaterally Extrem: Other: Groin with no significant hematoma General: Yes normal to inspection, Yes full ROM and Yes no clubbing, cyanosis or edema Psych: Appearance: grossly normal and well kempt Speech and movement: N ormal speech and movement present Affect: normal affect Procedures Date of Service Date of Service: 05/16/23 Assessment and Plan Assessment and plan (1) Mediastinal mass: Status: Acute (2) Pulmonary emboli: Status: Acute (3) DVT (deep venous thrombosis): Status: Acute (4) Asthma: Status: Acute Plan continue therapeutic Lovenox, need to stop prior to 8pm the night prior to the EBUS s/p IVC filter monitor for GIB and anemia EBUS for Sunday 8am, NPO after midnight Time Spent With Patient Time: Total time managing care of this patient today ____ minutes. Progress Note: Quality Stroke Does the patient have a stroke diagnosis?: No
--- NOTE | 2023-05-16 13:38 | HO.PM.IMPN ---
Subjective Subjective Date of Service: 05/16/23 Interval History: Feeling better slept well, had loose stool this morning, denies abdominal pain, no nausea, no vomiting, denies bilateral leg discomfort, no chest pain, no palpitations, felt dizzy this morning, no other acute events overnight. Review of Systems All other system reviewed and negative. Physical Exam Vital Signs: Vital Signs: Last Vital Signs Temp 97.4 F 05/16/23 07:35 Pulse 95 05/16/23 07:35 Resp 16 05/16/23 07:35 BP 116/74 05/16/23 07:35 Pulse Ox 95 05/16/23 07:35 O2 Del Method Room Air 05/16/23 07:35 O2 Flow Rate 2 05/15/23 15:57 BMI result Body Mass Index 22.7 Const: Other: General A xox3, resting comfortably in no acute distress. Neck supple no JVD. CVS regular rate rhythm, Respiratory lungs coarse breath sounds, no respiratory distress, no wheeze, no rhonchi. Gastrointestinal abdomen soft, non tender, bowel sounds audible, no guarding , no rigidity. Extremities no edema, No calf tenderness. Neuro non focal Skin no rash Psych appropriate affect Objective Data Active Medications Acetaminophen (Acetaminophen 325 Mg Tablet) 650 mg PO Q6H PRN PRN Reason: Pain, Mild (Pain Scale 1-3) Last Admin: 05/16/23 03:21 Dose: 650 mg Documented By: RICK Albuterol Sulfate (Albuterol Sulfate 90 Mcg 8 Gm Inhaler) 2 puff INHALE Q4H PRN PRN Reason: Shortness Of Breath Or Wheezing Lutsen Butter/Zinc Oxide (Lutsen Butter/Zinc Oxide Supp.Rect) 1 supp FL BID [facility] Last Admin: 05/16/23 09:40 Dose: Not Given Documented By: MYNOR Non-Admin Reason: Patient Refused Doxycycline Monohydrate (Doxycycline Monohydrate 100 Mg Capsule) 100 mg PO BID [facility] Last Admin: 05/16/23 09:40 Dose: 100 mg Documented By: MYNOR Enoxaparin Sodium (Enoxaparin Sodium 60 Mg/0.6 Ml Syringe) 60 mg SUBCUT Q12H [facility] Last Admin: 05/16/23 06:40 Dose: 60 mg Documented By: RICK Hydrocortisone (Hydrocortisone 2.5 % Rectal Cr 30 Gm Tube) 1 appl FL BID [facility] Last Admin: 05/16/23 09:40 Dose: Not Given Documented By: MYNOR Non-Admin Reason: Patient Refused Melatonin (Melatonin 3 Mg Tablet) 6 mg PO BEDTIME PRN PRN Reason: Insomnia Metoprolol Tartrate (Metoprolol Tartrate 12.5 Mg Halftab) 12.5 mg PO BID [facility]; Protocol Last Admin: 05/16/23 09:40 Dose: 12.5 mg Documented By: MYNOR Ondansetron HCl (Ondansetron Hcl 4 Mg/2 Ml Vial) 4 mg IVPUSH Q8H PRN PRN Reason: Nausea and Vomiting Sodium Chloride (0.9 % Sodium Chloride Flush 3 Ml Syringe) 3 ml IVFLUSH QSHIFT [facility] Last Admin: 05/16/23 09:40 Dose: 3 ml Documented By: MYNOR Labs 05/16/23 05:37 05/13/23 06:33 Labs: Laboratory Results - last 24 hr 05/16/23 05:37 MCV 85.4 MCH 28.3 MCHC 33.1 RDW 14.8 Plt Count 460 H MPV 10.5 Absolute Nucleated RBC 0.000 Nucleated RBC % (auto) 0.0 C-Reactive Protein 13.48 H Assessment and Plan (1) Pulmonary emboli: Status: Acute (2) DVT (deep venous thrombosis): Status: Acute (3) Community acquired pneumonia: Status: Acute Plan 62-year-old female who presents to the emergency department for evaluation of fevers, chills and dyspnea. #. Sepsis due to right sided pneumonia: Failed outpatient po abx., Sepsis resolved, No fevers, no cough, no shortness on breath blood culture negative times 48 hours, Lactic acid normal, elevated C-reactive protein and ESR WBC remains elevated, likely reactive s/p IV doxy and IV ceftriaxone x 4d, now on po doxycycline 100mg po bid started on 05/15 thru 05/17. #. Acute submassive PE: Feels better, no chest pain, no palpitations s/p therapeutic Lovenox ,noted to have bright red blood per rectum x2 on 05/14 therefore Lovenox discontinued echocardiogram showed EF 60-65%, indeterminate diastolic function low normal right ventricular systolic function, severely dilated left atrium, no mitral valve regurgitation , moderate mitral valve stenosis Noted to have right lower extremity DVT, no family history of clots quit smoking 36 years ago. IVC filter placed 05/15 by vascular surgery due to GI bleed Placed back on Lovenox 05/15 after colonoscopy showed no active bleed Hold Lovenox evening dose on 05/17 for bronchoscopy Will start Eliquis 5 mg twice daily after bronchoscopy on 05/18, case discussed with oncology. # acute lower GI bleed Underwent colonoscopy that showed internal hemorrhoids and diverticulosis no active bleeding was noted likely hemorrhoidal source chair recommend to resume anticoagulation follow CBC/hemorrhoidal cream ordered/recommend to avoid straining/had soft bowel movement today will place on as needed MiraLax #. Acute respiratory distress due to PE + PNA resolved no hypoxia noted. #. Acute right popliteal and calf vein DVT: s/p IVC filter /and on Lovenox. #. Elevated troponin: No chest pain, no palpitations, no worsening shortness of breath, Elevated but flat 199.5 repeat 213.6, Likely in the setting of increased demand, no acute ischemic changes on EKG, continue low-dose beta-blockers , echocardiogram as above no wall motion abnormality. #. Normocytic anemia: Hemoglobin stable, hold blood transfusion. #. Thyroid nodule on imaging: Being followed by merchandise planner for right thyroid nodule at [facility] , recommend continued outpatient follow-up #. Enlarged mediastinal lymph nodes on imaging: Concern for malignancy, due to DVT and PE with no obvious cause, no sedentary lifestyle, no family history, question related to COVID infection dx week of February /seen by Dr. Lowry from Oncology CT abdomen and pelvis showed no abnormality, renal ultrasound showed benign renal cyst Case discussed with pulmonology they recommend mediastinal node biopsy is scheduled for Sunday at 08:00 Will keep her NPO on midnight/hold dose of Lovenox night #. Mild persistent Asthma: No acute exacerbation , Continue home inhalers. #. Sinus tachycardia on beta-elli DVT prophylaxis: Lovenox Full code Patient will require continued inpatient hospitalization for close hemodynamic monitoring (as above), which is not possible in a lesser acute setting. Quality Stroke Does the patient have a stroke diagnosis?: No VTE Prior VTE?: No VTE Risk Level:: Medical - moderate - high VTE Device Contraindication: Treatment Not Indicated VTE Drug Contraindication: N/A - Med Ordered
--- NOTE | 2023-05-16 14:16 | MHC.CM.PN ---
EMR reviewed and per MD rounds, pt is not medically cleared for D/C due to pending mediastinal node biopsy scheduled on Thursday 05/18. CM will continue to follow.
--- NOTE | 2023-05-16 15:13 | P.PNGI_ITS ---
Subjective Subjective Date of Service: 05/16/23 Interval History: Tolerating diet no bleeding Critical Care Time (minutes): 0 Physical Exam 2 Vital Signs: Vital Signs: Last Vital Signs Temp 97.6 F 05/16/23 12:00 Pulse 99 05/16/23 12:00 Resp 16 05/16/23 12:00 BP 130/74 05/16/23 12:00 Pulse Ox 98 05/16/23 12:00 O2 Del Method Room Air 05/16/23 12:00 O2 Flow Rate 2 05/15/23 15:57 BMI result Body Mass Index 22.7 GI: Other: abdomen is soft and nontender Objective Data Labs 05/16/23 05:37 05/13/23 06:33 Labs: hematocrit is stable. Microbiology Microbiology Results: Microbiology 05/11/23 17:53 Blood - Venous Blood Culture - Preliminary No growth after 48 hours. 05/11/23 17:50 Blood - Venous Blood Culture - Preliminary No growth after 48 hours. Procedures Date of Service Date of Service: 05/16/23 Progress Note: A&P Assessment and plan (1) GIB (gastrointestinal bleeding): Status: Acute Assessment and Plan: no further bleeding I reviewed care and treatment of hemorrhoids with Woo. followup prn. Time Spent With Patient Time: Total time managing care of this patient today ____ minutes. Quality Stroke Does the patient have a stroke diagnosis?: No VTE Prior VTE?: No VTE Risk Level:: Medical - moderate - high VTE Device Contraindication: Treatment Not Indicated VTE Drug Contraindication: N/A - Med Ordered
[2023-05-16 15:21] VITALS: BP 126/62; PULSE 101; RESP 16; TEMP 36.7; O2SAT 96
[2023-05-16 17:32] LABS: INTERNATIONAL NORM RATIO 1.3 (0.9-1.1); Prothrombin Time 15.3 SEC (11.1-13.3)
--- NOTE | 2023-05-16 17:51 | HO.POSTANES ---
Post Anesthesia Evaluation Post Anesthesia Evaluation Date of Service: 05/16/23 Vital Signs: Vital Signs Temp Pulse Resp BP Pulse Ox O2 Del Method 05/16/23 15:21 98.0 F 101 H 16 126/62 96 Room Air 05/16/23 12:00 97.6 F 99 16 130/74 98 Room Air 05/16/23 07:35 97.4 F 95 16 116/74 95 Room Air Anesthesia: Monitored Mental Status: Awake Pain Control: Satisfactory Nausea/Vomiting: None Hydration: Adequate Anesthesia-Related Issues: No Anes. Related Issues
--- NOTE | 2023-05-16 18:24 | PC.NURSE ---
IV site infiltrated , pt c/o pain and induration to the IV site. IV removed , Charge nurse attempted IV access with no effect. US guided IV not available at this time , DR Scott was notified , will attempt IV access tomorrow. Tirso UE some edema from previous IV access ,also some areas are painful to touch
--- NOTE | 2023-05-16 18:50 | PC.NURSE ---
Pt had loose BM , bright red bloody stain on the toilet paper, there are few bloody drops in the toilet bowl,
[2023-05-16 18:58] VITALS: BP 158/72; PULSE 78; RESP 16; TEMP 36.7; O2SAT 93
--- NOTE | 2023-05-16 19:39 | PC.NURSE ---
run of SVT tonight , pt was resting in bed ,no CP ,no SOB, denied palpitation , DR Dahl was notified , Metoprolol 12.5 mg given early
--- NOTE | 2023-05-16 20:13 | PC.NURSE ---
# 20 right upper arm US guided IV placed by ED PARK coburn
[2023-05-16] MEDS: Cocoa Butter/Zinc Oxide SUPP.RECT 1 SUPP PR (21:35)
--- NOTE | 2023-05-16 21:37 | PC.NURSE ---
Pt accepted one suppository medication for her hemorrhoids and she administered by herself . She is afraid to use suppository, she stated that she is afraid to irritate her rectum
[2023-05-16 23:16] VITALS: BP 129/69; PULSE 96; RESP 18; TEMP 36.7; O2SAT 95
[2023-05-17 03:04] VITALS: BP 123/67; PULSE 94; RESP 18; TEMP 36.6; O2SAT 95
[2023-05-17] MEDS: Enoxaparin Sodium 60 MG/0.6 ML SYRINGE SUBCUT (05:56)
[2023-05-17 07:06] LABS: Hematocrit 28.5 % (37.0-47.0); Hemoglobin 9.3 g/dl (12.0-16.0); Mean Corpuscular HGB Conc 32.6 g/dl (31.0-35.0); Mean Corpuscular Hemoglobin 27.8 pg (27.0-33.0); Mean Corpuscular Volume 85.3 fL (80.0-98.0); Mean Platelet Volume 10.6 fL (9.4-12.3); Platelet Count 513 X10*3/uL (160-400); Red Blood Count 3.34 X10*6/uL (4.20-5.50); Red Cell Distribution Width 14.7 % (11.0-16.0); White Blood Count 18.3 X10*3/uL (4.8-10.8)
[2023-05-17 07:43] VITALS: BP 116/68; PULSE 96; RESP 20; TEMP 37.1; O2SAT 97
--- NOTE | 2023-05-17 09:10 | MHC.CM.PN ---
HCP completed with pt, now on file.
[2023-05-17] MEDS: Cocoa Butter/Zinc Oxide SUPP.RECT 1 SUPP PR ×2 (09:12→21:35)
[2023-05-17] MEDS: Doxycycline Monohydrate 100 MG CAPSULE PO ×2 (09:13→21:35)
[2023-05-17] MEDS: Metoprolol Tartrate 12.5 MG HALFTAB PO ×2 (09:13→21:35)
[2023-05-17] MEDS: 0.9 % Sodium Chloride Flush 3 ML SYRINGE IVFLUSH ×3 (09:14→23:46)
[2023-05-17] MEDS: Hydrocortisone 2.5 % Rectal Cr 30 GM TUBE 1 APPL PR (09:16)
--- NOTE | 2023-05-17 09:28 | P.PNPL_ITS ---
Subjective Subjective Date of Service: 05/17/23 Interval history: The patient was seen on exam. Doing better. Her dizziness is improved. She is agreeable to undergo the endobronchial ultrasound bronchoscopy tomorrow morning. She should be NPO after midnight in her Lovenox should be stopped more than 12 hours before. Objective Data Labs 05/17/23 06:17 05/13/23 06:33 Labs: Laboratory Results - last 24 hr 05/16/23 05/17/23 17:02 06:17 WBC 18.3 H RBC 3.34 L Hgb 9.3 L Hct 28.5 L MCV 85.3 MCH 27.8 MCHC 32.6 RDW 14.7 Plt Count 513 H MPV 10.6 Absolute Nucleated RBC 0.000 Nucleated RBC % (auto) 0.0 PT 15.3 H INR 1.3 H Microbiology Microbiology Results: Microbiology 05/11/23 17:53 Blood - Venous Blood Culture - Final No growth after 5 days. 05/11/23 17:50 Blood - Venous Blood Culture - Final No growth after 5 days. Review of Systems Constitutional: Denies poor appetite Denies dizziness Cardiovascular: Denies chest pain and Reports dyspnea on exertion Respiratory: Reports cough, Reports dyspnea on exertion and Denies wheezing Gastrointestinal: Reports hematochezia Genitourinary: Reports no additional female genitourinary complaints Musculoskeletal: Reports no additional musculoskeletal complaints Denies dizziness Hematologic/Lymphatic: Reports lymphadenopathy Allergic/Immunologic: Denies wheezing Physical Exam 2 Vital Signs: Vital Signs: Last Vital Signs Temp 98.7 F 05/17/23 07:43 Pulse 96 05/17/23 07:43 Resp 20 05/17/23 07:43 BP 116/68 05/17/23 07:43 Pulse Ox 97 05/17/23 07:43 O2 Del Method Room Air 05/17/23 07:43 O2 Flow Rate 2 05/15/23 15:57 BMI result Body Mass Index 22.7 Const: General: cooperative, healthy appearing and no acute distress O rientation/consciousness: oriented to person, oriented to place and oriented to time HEENT: Head: Yes normal to inspection Neck: Carotids: no bruits Chest: Chest palpation & inspection: normal inspection of the chest Resp: Effort & Inspection: normal respiratory effort and able to speak in complete sentences Auscultation: clear to auscultation bilaterally Cardio: Rate: regular rate Heart sounds: S1 normal heart sound present and S2 normal heart sound present GI: Inspection: Yes normal to inspection Skin: General skin exam: no rashes or lesions noted Wounds: no wounds Neuro: General: oriented to person, oriented to place, oriented to time and CN's II-XI intact bilaterally Extrem: Other: Groin with no significant hematoma General: Yes normal to inspection, Yes full ROM and Yes no clubbing, cyanosis or edema Psych: Appearance: grossly normal and well kempt Speech and movement: N ormal speech and movement present Affect: normal affect Procedures Date of Service Date of Service: 05/17/23 Assessment and Plan Assessment and plan (1) Mediastinal mass: Status: Acute (2) Pulmonary emboli: Status: Acute (3) DVT (deep venous thrombosis): Status: Acute (4) Asthma: Status: Acute Plan continue therapeutic Lovenox, need to stop >12 hours prior to the EBUS Holding Eliquis, then can start with loading dose s/p IVC filter monitor for GIB and anemia EBUS for Sunday 8am, NPO after midnight Time Spent With Patient Time: Total time managing care of this patient today ____ minutes. Progress Note: Quality Stroke Does the patient have a stroke diagnosis?: No
[2023-05-17 11:27] VITALS: BP 102/60; PULSE 94; RESP 18; TEMP 36.3; O2SAT 96
--- NOTE | 2023-05-17 14:38 | HO.PM.IMPN ---
Subjective Subjective Date of Service: 05/17/23 Interval History: Seen and examined this morning Follow-up for PE, GI bleed reporting small amt of blood mixed with stool yesterday, none since no sob at rest Review of Systems Review of Systems: Yes all other systems are reviewed and are negative Constitutional Constitutional: Denies chills and Denies fever(s) Cardiovascular Cardiovascular: Denies chest pain, Denies palpitations and Denies dyspnea Respiratory Respiratory: Denies cough and Denies dyspnea Endocrine Endocrine: Denies palpitations Physical Exam Vital Signs: Vital Signs: Last Vital Signs Temp 97.4 F 05/17/23 11:27 Pulse 94 05/17/23 11:27 Resp 18 05/17/23 11:27 BP 102/60 05/17/23 11:27 Pulse Ox 96 05/17/23 11:27 O2 Del Method Room Air 05/17/23 11:27 O2 Flow Rate 2 05/15/23 15:57 BMI result Body Mass Index 22.7 Const: General: cooperative, comfortable, no acute distress, alert and awake Nutritional Appearance: average body habitus Orientation/consciousness: patient oriented x3 Resp: Effort & Inspection: normal respiratory effort, able to speak in complete sentences, no respiratory distress and no use of accessory muscles Auscultation: clear to auscultation bilaterally Cardio: Rate: regular rate GI: Inspection: No distended Palpation (GI): Soft to palpation and nontender Neuro: General: patient oriented x3, moves all extremities and CN's II-XI intact bilaterally Extrem: General: Yes no pedal edema Objective Data Active Medications Acetaminophen (Acetaminophen 325 Mg Tablet) 650 mg PO Q6H PRN PRN Reason: Pain, Mild (Pain Scale 1-3) Last Admin: 05/16/23 03:21 Dose: 650 mg Documented By: RICK Albuterol Sulfate (Albuterol Sulfate 90 Mcg 8 Gm Inhaler) 2 puff INHALE Q4H PRN PRN Reason: Shortness Of Breath Or Wheezing [place] Butter/Zinc Oxide ([place] Butter/Zinc Oxide Supp.Rect) 1 supp [place] BID [facility] Last Admin: 05/17/23 09:12 Dose: 1 supp Documented By: VINOD Doxycycline Monohydrate (Doxycycline Monohydrate 100 Mg Capsule) 100 mg PO BID [facility] Last Admin: 05/17/23 09:13 Dose: 100 mg Documented By: VINOD Hydrocortisone (Hydrocortisone 2.5 % Rectal Cr 30 Gm Tube) 1 appl [place] BID [facility] Last Admin: 05/17/23 09:16 Dose: 1 appl Documented By: VINOD Melatonin (Melatonin 3 Mg Tablet) 6 mg PO BEDTIME PRN PRN Reason: Insomnia Metoprolol Tartrate (Metoprolol Tartrate 12.5 Mg Halftab) 12.5 mg PO BID [facility]; Protocol Last Admin: 05/17/23 09:13 Dose: 12.5 mg Documented By: VINOD Ondansetron HCl (Ondansetron Hcl 4 Mg/2 Ml Vial) 4 mg IVPUSH Q8H PRN PRN Reason: Nausea and Vomiting Polyethylene Glycol (Polyethylene Glycol 3350 17 Gm Powd.Pack) 17 gm PO DAILY PRN PRN Reason: Constipation Sodium Chloride (0.9 % Sodium Chloride Flush 3 Ml Syringe) 3 ml IVFLUSH QSHIFT [facility] Last Admin: 05/17/23 09:14 Dose: 3 ml Documented By: VINOD Labs 05/17/23 06:17 05/13/23 06:33 Labs: Laboratory Results - last 24 hr 05/16/23 05/17/23 17:02 06:17 MCV 85.3 MCH 27.8 MCHC 32.6 RDW 14.7 Plt Count 513 H MPV 10.6 Absolute Nucleated RBC 0.000 Nucleated RBC % (auto) 0.0 PT 15.3 H INR 1.3 H Microbiology Microbiology Results: Microbiology 05/11/23 17:53 Blood Culture - Final Blood - Venous No growth after 5 days. 05/11/23 17:50 Blood Culture - Final Blood - Venous No growth after 5 days. Assessment and Plan (1) GIB (gastrointestinal bleeding): Status: Acute (2) Pulmonary emboli: Status: Acute Plan 62-year-old female who presents to the emergency department for evaluation of fevers, chills and dyspnea. Acute submassive PE: Feels better, no chest pain, no palpitations s/p therapeutic Lovenox, noted to have bright red blood per rectum x2 on 05/14 therefore Lovenox discontinued echocardiogram showed EF 60-65%, indeterminate diastolic function low normal right ventricular systolic function, severely dilated left atrium, no mitral valve regurgitation , moderate mitral valve stenosis Noted to have right lower extremity DVT, no family history of clots quit smoking 36 years ago. IVC filter placed 05/15 by vascular surgery due to GI bleed Placed back on Lovenox 05/15 after colonoscopy showed no active bleed Hold Lovenox evening dose on 05/17 for bronchoscopy Will start Eliquis 5 mg twice daily after bronchoscopy on 05/18, case discussed with oncology, no need for loading dose acute lower GI bleed Underwent colonoscopy 05/15 showing internal hemorrhoids and diverticulosis no active bleeding was noted likely hemorrhoidal source. ok to resume anticoagulation per GI follow CBC/hemorrhoidal cream ordered/recommend to avoid straining if re-bleeding occurs, rec to consult surgery for possible hemorrhoidectomy Sepsis due to right sided pneumonia: Failed outpatient po abx. Sepsis resolved, No fevers, no cough, no shortness on breath blood culture negative times 48 hours, Lactic acid normal, elevated C-reactive protein and ESR WBC remains elevated, likely reactive s/p IV doxy and IV ceftriaxone x 4d, now on po doxycycline 100mg po bid started on 05/15 thru 05/17. Acute respiratory distress due to PE + PNA resolved no hypoxia noted. Acute right popliteal and bilateral calf vein DVT s/p IVC filter /and on Lovenox Elevated troponin: No chest pain, no palpitations, no worsening shortness of breath Elevated but flat 199.5 repeat 213.6, Likely in the setting of increased demand, no acute ischemic changes on EKG continue low-dose beta-blockers , echocardiogram as above no wall motion abnormality. Normocytic anemia: Hemoglobin stable, hold blood transfusion. 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 Lowry from Oncology CT abdomen and pelvis showed no abnormality, renal ultrasound showed benign renal cyst Case discussed with pulmonology they recommend mediastinal node biopsy is scheduled for Sunday at 08:00 Will keep her NPO on midnight/hold dose of Lovenox night Mild persistent Asthma: No acute exacerbation , Continue home inhalers. Sinus tachycardia improving on beta-elli DVT prophylaxis: Lovenox Full code Patient will require continued inpatient hospitalization for close hemodynamic monitoring (as above), and lymph node biopsy which is not possible in a lesser acute setting. Quality Stroke Does the patient have a stroke diagnosis?: No VTE Prior VTE?: No VTE Risk Level:: Medical - moderate - high VTE Device Contraindication: Treatment Not Indicated VTE Drug Contraindication: N/A - Med Ordered
[2023-05-17 15:41] VITALS: BP 127/82; PULSE 101; RESP 20; TEMP 36.6; O2SAT 99
[2023-05-17] MEDS: Albuterol Sulfate 90 MCG 8 GM INHALER 2 PUFF INHALE (18:36)
[2023-05-17] MEDS: Acetaminophen 325 MG TABLET 650 MG PO (18:37)
[2023-05-17 20:00] VITALS: BP 117/63; PULSE 111; RESP 20; TEMP 36.7; O2SAT 94
[2023-05-18] VITALS (12 sets, daily range): BP systolic 91–137; BP diastolic 53–81; PULSE 87–105; RESP 16–20; TEMP 36.3–37; O2SAT 94–100
--- NOTE | 2023-05-18 05:56 | PC.NURSE ---
Report called in to K[facility] in pre op, plan to have patient transfer to pre-op around 0700
[2023-05-18 07:10] LABS: Hematocrit 27.5 % (37.0-47.0); Hemoglobin 9.4 g/dl (12.0-16.0); Mean Corpuscular HGB Conc 34.2 g/dl (31.0-35.0); Mean Corpuscular Hemoglobin 28.8 pg (27.0-33.0); Mean Corpuscular Volume 84.4 fL (80.0-98.0); Mean Platelet Volume 10.2 fL (9.4-12.3); Platelet Count 499 X10*3/uL (160-400); Red Blood Count 3.26 X10*6/uL (4.20-5.50); Red Cell Distribution Width 14.9 % (11.0-16.0); White Blood Count 19.2 X10*3/uL (4.8-10.8)
--- NOTE | 2023-05-18 07:29 | HO.ANESPROP2 ---
HPI - Anesthesia Eval Consult details Narrative: for endo bronchial procedure PMFSH Active Problems Active Problems: All Active Problems (Updated 05/15/23 @ 13:36 by Shama Jaffe RN) GIB (gastrointestinal bleeding) (Acute) Thyroid mass (Acute) Mediastinal mass (Acute) Pulmonary emboli (Acute) DVT (deep venous thrombosis) (Acute) DVT (deep venous thrombosis) (Acute) Community acquired pneumonia (Acute) Acute pulmonary embolus (Acute) Asthma (Acute) Sinus tachycardia (Acute) Past Medical History Medical History (Updated 05/15/23 @ 13:36 by Shama Jaffe RN) Family history of thyroid disease Bilateral cataracts Sinus tachycardia Asthma Functional capacity: independent ambulation Family History Family history of problems with anesthesia: No Surgical History Surgical History (Updated 05/15/23 @ 13:37 by Shama Jaffe RN) S/P IVC filter History of tonsillectomy History of open heart surgery History of Problems with Anesthesia: No Social History Social History Household Members: Family Household Members Other:: sister Housing: House Do you presently have visiting nurse or other home services: No Comment: Commode near bed. Pt gait and balance are steady. Per protocol extra safety Patient Tobacco Use Status: Former Tobacco user Smoked in Last 30 Days: No Use of substances other than those prescribed or required for medical reasons: No Currently Displaying Signs/Symptoms of Drug Intoxication Withdrawal: No Have you been hit, kicked, punched, or otherwise hurt by someone within the past year? If so, by whom?: No Do you feel safe in your current relationship?: Yes Is there a partner from a previous relationship who is making you feel unsafe now?: No Are you made to feel afraid or neglected: No Are you DNR?: No Advance Directives: No Advance Directives Information Provided: No Do you have thoughts of harming others: None Recently lost weight without trying: No How much weight loss: Not applicable Eating poorly because of decreased appetite: No Nutrition screen score: 0 Nutrition Risks: No Nutritional Risk Patient : No : No Poor oral hygiene: No service: No Meds Allergies Allergy/AdvReac Type Severity Reaction Status Date / Time hydrocodone [From Vicodin] Allergy Vomiting Verified 05/11/23 15:07 oxycodone [From Percocet] Allergy Vomiting Verified 05/11/23 15:07 shellfish derived Allergy Anaphylaxis Verified 05/15/23 13:33 Active Medications: Current Medications Acetaminophen (Acetaminophen 325 Mg Tablet) 650 mg PO Q6H PRN PRN Reason: Pain, Mild (Pain Scale 1-3) Last Admin: 05/17/23 18:37 Dose: 650 mg Albuterol Sulfate (Albuterol Sulfate 90 Mcg 8 Gm Inhaler) 2 puff INHALE Q4H PRN PRN Reason: Shortness Of Breath Or Wheezing Last Admin: 05/17/23 18:36 Dose: 2 puff [place] Butter/Zinc Oxide ([place] Butter/Zinc Oxide Supp.Rect) 1 supp [place] BID [facility] Last Admin: 05/18/23 07:10 Dose: Not Given Docusate Sodium (Docusate Sodium 100 Mg Capsule) 100 mg PO BEDTIME [facility] Last Admin: 05/17/23 21:41 Dose: Not Given Hydrocortisone (Hydrocortisone 2.5 % Rectal Cr 30 Gm Tube) 1 appl [place] BID [facility] Last Admin: 05/18/23 07:10 Dose: Not Given Melatonin (Melatonin 3 Mg Tablet) 6 mg PO BEDTIME PRN PRN Reason: Insomnia Metoprolol Tartrate (Metoprolol Tartrate 12.5 Mg Halftab) 12.5 mg PO BID [facility]; Protocol Last Admin: 05/18/23 07:10 Dose: Not Given Ondansetron HCl (Ondansetron Hcl 4 Mg/2 Ml Vial) 4 mg IVPUSH Q8H PRN PRN Reason: Nausea and Vomiting Polyethylene Glycol (Polyethylene Glycol 3350 17 Gm Powd.Pack) 17 gm PO DAILY PRN PRN Reason: Constipation Sodium Chloride (0.9 % Sodium Chloride Flush 3 Ml Syringe) 3 ml IVFLUSH QSHIFT [facility] Last Admin: 05/18/23 07:09 Dose: Not Given Home Medications Medication Instructions Recorded Confirmed Last Taken Type albuterol sulfate 90 mcg/actuation 2 puff inhalation Q4-6H PRN 05/12/23 05/12/23 Unknown History aerosol inhaler (Ventolin HFA) Shortness Of Breath Or Wheezing budesonide-formoterol HFA 160 2 puff inhalation BID 05/12/23 05/12/23 Unknown History mcg-4.5 mcg/actuation aerosol inhaler (Symbicort) levofloxacin 500 mg tablet 500 mg PO DAILY 05/12/23 05/12/23 Unknown History metoprolol tartrate 25 mg tablet 12.5 mg PO BID 05/12/23 05/12/23 Unknown History Exam Height,Weight and Vital Signs: Height 5 ft 6 in Weight 63.9 kg Last Vital Signs Temp 98.3 F 05/18/23 07:20 Pulse 105 H 05/18/23 07:20 Resp 18 05/18/23 07:20 BP 137/81 05/18/23 07:20 Pulse Ox 96 05/18/23 07:20 O2 Del Method Room Air 05/18/23 07:20 O2 Flow Rate 2 05/15/23 15:57 Pertinent Lab Results Pertinent Lab Results: Laboratory Tests 05/11/23 05/11/23 05/11/23 15:55 17:50 17:51 WBC 22.2 H RBC 3.85 L Hgb 10.9 L Hct 32.7 L MCV 84.9 MCH 28.3 MCHC 33.3 RDW 14.1 Plt Count 305 MPV 10.6 Immature Gran % (Auto) 1.5 H Neut % (Auto) 88.9 H Lymph % (Auto) 3.7 L [place] % (Auto) 5.5 Eos % (Auto) 0.1 Baso % (Auto) 0.3 Lymph # (Auto) 0.8 L [place] # (Auto) 1.2 Eos # (Auto) 0.0 Baso # (Auto) 0.1 Abs Immat Gran (auto) 0.34 H Absolute Neuts (auto) 19.8 H Absolute Nucleated RBC 0.000 Nucleated RBC % (auto) 0.0 ESR 55 H PT 18.1 H INR 1.5 H D-Dimer High Sensitivty Sodium 132 L Potassium 4.2 Chloride 97 Carbon Dioxide 27 Anion Gap 12 BUN 17 H Creatinine 0.84 Estim Creat Clear Calc 63.3 Estimated GFR > 60 Random Glucose 121 H Lactic Acid 1.1 Calcium 8.8 Magnesium 2.2 Iron TIBC % Saturation Unsat Iron Binding Ferritin Total Bilirubin Direct Bilirubin AST ALT Alkaline Phosphatase Lactate Dehydrogenase Troponin I High Sens 199.5 H* 213.6 H* C-Reactive Protein 23.68 H B-Natriuretic Peptide 87 Total Protein Albumin Carcinoembryonic Ag Urine Color Urine Appearance Urine pH Ur Specific [place] Urine Protein Urine Glucose (UA) Urine Ketones Urine Blood Urine Nitrite Ur Leukocyte Esterase Influenza Type A (EZE) Negative Influenza Type A (PCR) NEGATIVE Influenza Type B (EZE) Negative Influenza Type B (PCR) NEGATIVE Influenza A & B Note See Note RSV RNA Qual (PCR) NEGATIVE SARS-CoV-2 RNA (RT-PCR) NEGATIVE Blood Type Antibody Screen Antibody Identification PREETHI, Polyspecific Positive PREETHI Work-up Enhanced Crossmatch Blood Bank Comment 05/11/23 05/13/23 05/14/23 20:48 06:33 12:05 WBC 21.0 H 23.6 H RBC 3.50 L 3.74 L Hgb 10.0 L 10.6 L Hct 29.7 L 31.3 L MCV 84.9 83.7 MCH 28.6 28.3 MCHC 33.7 33.9 RDW 14.4 14.6 Plt Count 441 H D 550 H MPV 10.6 10.2 Immature Gran % (Auto) Neut % (Auto) Lymph % (Auto) [place] % (Auto) Eos % (Auto) Baso % (Auto) Lymph # (Auto) [place] # (Auto) Eos # (Auto) Baso # (Auto) Abs Immat Gran (auto) Absolute Neuts (auto) Absolute Nucleated RBC 0.000 0.000 Nucleated RBC % (auto) 0.0 0.0 ESR PT INR D-Dimer High Sensitivty Sodium 134 L Potassium 4.0 Chloride 104 Carbon Dioxide 23 Anion Gap 11 L BUN 14 Creatinine 0.79 Estim Creat Clear Calc 67.3 Estimated GFR > 60 Random Glucose 92 Lactic Acid Calcium 8.2 L D Magnesium Iron 39 TIBC 150 L % Saturation 26 Unsat Iron Binding 111 Ferritin 721 H Total Bilirubin 0.3 Direct Bilirubin 0.2 AST 40 H ALT 34 H Alkaline Phosphatase 133 H Lactate Dehydrogenase 226 H Troponin I High Sens C-Reactive Protein B-Natriuretic Peptide Total Protein 7.4 Albumin 2.9 L Carcinoembryonic Ag 26.30 Urine Color Yellow Urine Appearance Clear Urine pH 6.0 Ur Specific [place] >= 1.030 H Urine Protein Trace Urine Glucose (UA) Negative Urine Ketones Negative Urine Blood Negative Urine Nitrite Negative Ur Leukocyte Esterase Negative Influenza Type A (EZE) Influenza Type A (PCR) Influenza Type B (EZE) Influenza Type B (PCR) Influenza A & B Note RSV RNA Qual (PCR) SARS-CoV-2 RNA (RT-PCR) Blood Type O Positive Antibody Screen POSITIVE Antibody Identification Warm Auto Antibody PREETHI, Polyspecific POSITIVE A Positive PREETHI Work-up IgG=Pos Y1v=Swk A Enhanced Crossmatch See Detail Blood Bank Comment Technical 05/14/23 05/15/23 05/16/23 20:14 06:34 05:37 WBC 22.9 H 21.2 H 20.3 H RBC 3.62 L 3.43 L 3.43 L Hgb 10.3 L 9.7 L 9.7 L Hct 30.6 L 29.0 L 29.3 L MCV 84.5 84.5 85.4 MCH 28.5 28.3 28.3 MCHC 33.7 33.4 33.1 RDW 14.6 14.6 14.8 Plt Count 484 H 434 H 460 H MPV 10.1 10.1 10.5 Immature Gran % (Auto) 1.1 H Neut % (Auto) 88.6 H Lymph % (Auto) 5.1 L [place] % (Auto) 4.6 Eos % (Auto) 0.3 Baso % (Auto) 0.3 Lymph # (Auto) 1.1 L [place] # (Auto) 1.0 Eos # (Auto) 0.1 Baso # (Auto) 0.1 Abs Immat Gran (auto) 0.24 H Absolute Neuts (auto) 18.8 H Absolute Nucleated RBC 0.000 0.000 0.000 Nucleated RBC % (auto) 0.0 0.0 0.0 ESR PT 16.3 H INR 1.3 H D-Dimer High Sensitivty Sodium Potassium Chloride Carbon Dioxide Anion Gap BUN Creatinine Estim Creat Clear Calc Estimated GFR Random Glucose Lactic Acid Calcium Magnesium Iron TIBC % Saturation Unsat Iron Binding Ferritin Total Bilirubin Direct Bilirubin AST ALT Alkaline Phosphatase Lactate Dehydrogenase Troponin I High Sens C-Reactive Protein 13.48 H B-Natriuretic Peptide Total Protein Albumin Carcinoembryonic Ag Urine Color Urine Appearance Urine pH Ur Specific [place] Urine Protein Urine Glucose (UA) Urine Ketones Urine Blood Urine Nitrite Ur Leukocyte Esterase Influenza Type A (EZE) Influenza Type A (PCR) Influenza Type B (EZE) Influenza Type B (PCR) Influenza A & B Note RSV RNA Qual (PCR) SARS-CoV-2 RNA (RT-PCR) Blood Type Antibody Screen Antibody Identification PREETHI, Polyspecific Positive PREETHI Work-up Enhanced Crossmatch Blood Bank Comment 05/16/23 05/17/23 05/18/23 17:02 06:17 06:34 WBC 18.3 H 19.2 H RBC 3.34 L 3.26 L Hgb 9.3 L 9.4 L Hct 28.5 L 27.5 L MCV 85.3 84.4 MCH 27.8 28.8 MCHC 32.6 34.2 RDW 14.7 14.9 Plt Count 513 H 499 H MPV 10.6 10.2 Immature Gran % (Auto) Neut % (Auto) Lymph % (Auto) [place] % (Auto) Eos % (Auto) Baso % (Auto) Lymph # (Auto) [place] # (Auto) Eos # (Auto) Baso # (Auto) Abs Immat Gran (auto) Absolute Neuts (auto) Absolute Nucleated RBC 0.000 0.000 Nucleated RBC % (auto) 0.0 0.0 ESR PT 15.3 H INR 1.3 H D-Dimer High Sensitivty Sodium Potassium Chloride Carbon Dioxide Anion Gap BUN Creatinine Estim Creat Clear Calc Estimated GFR Random Glucose Lactic Acid Calcium Magnesium Iron TIBC % Saturation Unsat Iron Binding Ferritin Total Bilirubin Direct Bilirubin AST ALT Alkaline Phosphatase Lactate Dehydrogenase Troponin I High Sens C-Reactive Protein B-Natriuretic Peptide Total Protein Albumin Carcinoembryonic Ag Urine Color Urine Appearance Urine pH Ur Specific [place] Urine Protein Urine Glucose (UA) Urine Ketones Urine Blood Urine Nitrite Ur Leukocyte Esterase Influenza Type A (EZE) Influenza Type A (PCR) Influenza Type B (EZE) Influenza Type B (PCR) Influenza A & B Note RSV RNA Qual (PCR) SARS-CoV-2 RNA (RT-PCR) Blood Type Antibody Screen Antibody Identification PREETHI, Polyspecific Positive PREETHI Work-up Enhanced Crossmatch Blood Bank Comment Airway Mallampati Class: III TM Dist: <=3cm Neck ROM: Limited Heart: rrr Lungs: cta Assessment and Plan Assessment Anesthesia Assessment: Anesthesia Plan Discussed and Chart Reviewed Final Anesthetic Review Family History of Problems with Anesthesia: No History of Problems with Anesthesia: No ASA Class: III Final Preanesthetic Review: No Changes in Pt Med Stat, Meds/Allgs Chart Reviewed, Consent Obtained/Reviewed and Anes Risks/Benef Reviewed Patient Risk: Intermediate Procedure Risk: Low Anesthetic Plan Anesthetic Plan: GA Disposition: Standard PACU
--- NOTE | 2023-05-18 07:36 | MHC.SHP ---
Pre-Procedural Eval Section A - 24 Hr Update-Section A only Date of Service: 05/18/23 The patient is an INPATIENT: Yes Section B - Complete if H&P > 30 days Chief Complaint: heart valve infection ? Allergies: Allergies Allergy/AdvReac Type Severity Reaction Status Date / Time hydrocodone [From Vicodin] Allergy Vomiting Verified 05/11/23 15:07 oxycodone [From Percocet] Allergy Vomiting Verified 05/11/23 15:07 shellfish derived Allergy Anaphylaxis Verified 05/15/23 13:33 Plan I have reviewed the history and physical and performed a pertinent physical examination on my patient. No changes have occurred unless specified. Time Spent With Patient Time: Total time managing care of this patient today ____ minutes.
--- NOTE | 2023-05-18 09:46 | PM.OP ---
Brief Operative Note Date of Service: 05/18/23 Pre-op diagnosis: lung mass, mediastinal lymphadenopathy Post-op diagnosis: other Procedure: Lung cancer Surgeon: Daniele Flowers MD Anesthesia: GLMA Was an Certified Pediatric Nurse Practitioner used for this Procedure?: No Estimated blood loss (mL): 2 Pathology: other (4R TBNA) Condition: stable Disposition: same day
--- NOTE | 2023-05-18 11:39 | OP_ITS ---
DATE OF SERVICE: 05/18/2023 SURGEON: Daniele Flowers MD PREOPERATIVE DIAGNOSIS: POSTOPERATIVE DIAGNOSIS: PROCEDURE PERFORMED: Endobronchial Ultrasound bronchoscopy with TBNA station 4R and bronchoscopy with washings ESTIMATED BLOOD LOSS: COMPLICATIONS: None. The patient will restart the Lovenox today and if she is not having any bleeding, she can start Eliquis tomorrow. ANESTHESIA: LMA. ASSISTANTS: SPECIMENS: ASA: 4. PREOPERATIVE DIAGNOSES: Mediastinal lymphadenopathy, lung mass. POSTOPERATIVE DIAGNOSES: Lung cancer. BALANCE STAFF INSPECTOR: None. DESCRIPTION OF PROCEDURE: After the patient was adequately sedated, LMA in placed. The endobronchial ultrasound bronchoscopy (EBUS) was introduced into the LMA into the level of larynx. The larynx appeared to be normal. There was a little bit of blood-tinged sputum right in the vocal cords prior to the procedure suggesting some degree of hemoptysis. The patient then received lidocaine. After the lidocaine, the bronchoscope was then navigated passed the vocal cords to the level of the trachea. Trachea mucosa appeared normal. Using the ultrasound from the EBUS, we could navigate and evaluate the lymph nodes. The mediastinal lymph nodes especially 4R measuring more than 3 cm in size. The stations covering were smaller with vasculature measuring about a cm and did have some smaller station 11R lymph nodes as well. Using the 22-gauge needle, ultrasound guided transbronchial needle aspirations were selected from the station 4R. Pathology was present and documented malignant cells in the specimens. Therefore, we did an additional total 5 passes that were collected and sent for cytology. Minimal bleeding noted, easily cleared and no evidence of any active bleeding at the end of the needle sampling. The patient did have some bleeding from the lower lobe. The bronchoscope was then removed and replaced with a regular bronchoscopy. The regular bronchoscopy was introduced via the larynx to the vocal cords, through the vocal cords to level of the trachea. The tracheobronchial tree was examined up to the subsegmental level. The patient did have some bleeding noted from the right lower lobe. Small segments was minimal amount and it was clearly cleared out with ice saline. No evidence of any active bleeding during the procedure. The bronchial washings were collected from the right lower lobe, sent for gram stain and culture especially because of her history of pneumonia. No endobronchial lesions noted. No endobronchial masses. No foreign bodies noted. The bronchoscope was then removed. The total endoscopic time was approximately 40 minutes. The patient tolerated the procedure well. Vital signs were stable throughout the procedure. She is going to get back to her hospital room to recovery. MD JULY Hager/MARY LOU / [id number] MTDD
[2023-05-18] MEDS: Enoxaparin Sodium 60 MG/0.6 ML SYRINGE SUBCUT ×2 (12:04→22:46)
--- NOTE | 2023-05-18 12:09 | MHC.CM.PN ---
EMR reviewed and per MD rounds, pt is not medically cleared for D/C due to bronchoscopy today, pt anticipated to be cleared for D/C home tomorrow. CM will continue to follow.
--- NOTE | 2023-05-18 13:49 | P.PNIM_ITS ---
Subjective Subjective Date of Service: 05/18/23 Interval History: seen and examined this morning follow up for PE, DVT had endobronchial ultrasound bronchoscopy with biopsy this morning no shortness of breath Review of Systems Review of Systems: Yes all other systems are reviewed and are negative Constitutional Constitutional: Denies chills and Denies fever(s) Cardiovascular Cardiovascular: Denies chest pain, Denies palpitations and Denies dyspnea Respiratory Respiratory: Denies dyspnea Endocrine Endocrine: Denies palpitations Physical Exam 2 Vital Signs: Vital Signs: Last Vital Signs Temp 98.4 F 05/18/23 11:55 Pulse 96 05/18/23 11:55 Resp 16 05/18/23 11:55 BP 119/72 05/18/23 11:55 Pulse Ox 95 05/18/23 11:55 O2 Del Method Nasal Cannula 05/18/23 11:55 O2 Flow Rate 2 05/18/23 09:52 BMI result Body Mass Index 22.7 Const: General: cooperative, comfortable, no acute distress, alert and awake Nutritional Appearance: average body habitus Orientation/consciousness: p atient oriented x3 Resp: Effort & Inspection: normal respiratory effort, able to speak in complete sentences, no respiratory distress and no use of accessory muscles A uscultation: clear to auscultation bilaterally Cardio: Rate: regular rate GI: Inspection: No distended Palpation (GI): Soft to palpation and nontender Neuro: General: patient oriented x3, moves all extremities and CN's II-XI intact bilaterally Extrem: General: Yes no pedal edema Objective Data Active Medications Acetaminophen (Acetaminophen 325 Mg Tablet) 650 mg PO Q6H PRN PRN Reason: Pain, Mild (Pain Scale 1-3) Last Admin: 05/17/23 18:37 Dose: 650 mg Documented By: VINOD Albuterol Sulfate (Albuterol Sulfate 90 Mcg 8 Gm Inhaler) 2 puff INHALE Q4H PRN PRN Reason: Shortness Of Breath Or Wheezing Last Admin: 05/17/23 18:36 Dose: 2 puff Documented By: VINOD [place] Butter/Zinc Oxide ([place] Butter/Zinc Oxide Supp.Rect) 1 supp [place] BID ABHAY Last Admin: 05/18/23 07:10 Dose: Not Given Documented By: VINOD Non-Admin Reason: Patient in OR Docusate Sodium (Docusate Sodium 100 Mg Capsule) 100 mg PO BEDTIME ON LICENSE OF [facility] Last Admin: 05/17/23 21:41 Dose: Not Given Documented By: GEREMIAS Non-Admin Reason: Patient Refused Enoxaparin Sodium (Enoxaparin Sodium 60 Mg/0.6 Ml Syringe) 60 mg 1 mg/kg (60 mg) SUBCUT Q12H ON LICENSE OF [facility] Stop: 05/18/23 23:46 Last Admin: 05/18/23 12:04 Dose: 60 mg Documented By: VINOD Hydrocortisone (Hydrocortisone 2.5 % Rectal Cr 30 Gm Tube) 1 appl [place] BID ON LICENSE OF [facility] Last Admin: 05/18/23 07:10 Dose: Not Given Documented By: VINOD Non-Admin Reason: Patient in OR Melatonin (Melatonin 3 Mg Tablet) 6 mg PO BEDTIME PRN PRN Reason: Insomnia Metoprolol Tartrate (Metoprolol Tartrate 12.5 Mg Halftab) 12.5 mg PO BID ON LICENSE OF [facility]; Protocol Last Admin: 05/18/23 07:10 Dose: Not Given Documented By: VINOD Non-Admin Reason: Patient in OR Ondansetron HCl (Ondansetron Hcl 4 Mg/2 Ml Vial) 4 mg IVPUSH Q8H PRN PRN Reason: Nausea and Vomiting Ondansetron HCl (Ondansetron Hcl 4 Mg/2 Ml Vial) 4 mg IVPUSH ONCE PRN PRN Reason: Nausea and Vomiting Polyethylene Glycol (Polyethylene Glycol 3350 17 Gm Powd.Pack) 17 gm PO DAILY PRN PRN Reason: Constipation Sodium Chloride (0.9 % Sodium Chloride Flush 3 Ml Syringe) 3 ml IVFLUSH QSHIFT ON LICENSE OF [facility] Last Admin: 05/18/23 07:09 Dose: Not Given Documented By: VINOD Non-Admin Reason: Patient in OR Labs 05/18/23 06:34 05/13/23 06:33 Labs: Laboratory Results - last 24 hr 05/18/23 06:34 MCV 84.4 MCH 28.8 MCHC 34.2 RDW 14.9 Plt Count 499 H MPV 10.2 Absolute Nucleated RBC 0.000 Nucleated RBC % (auto) 0.0 Microbiology Microbiology Results: Microbiology 05/18/23 08:52 Gram Stain - Final Lung Right Lower Lobe Assessment and Plan (1) GIB (gastrointestinal bleeding): Status: Acute (2) Pulmonary emboli: Status: Acute (3) DVT (deep venous thrombosis): Status: Acute Plan 62-year-old female who presents to the emergency department for evaluation of fevers, chills and dyspnea. Acute submassive PE: Feels better, no chest pain, no palpitations s/p therapeutic Lovenox, noted to have bright red blood per rectum x2 on 05/14 therefore Lovenox discontinued echocardiogram showed EF 60-65%, indeterminate diastolic function low normal right ventricular systolic function, severely dilated left atrium, no mitral valve regurgitation, moderate mitral valve stenosis Noted to have right lower extremity DVT, no family history of clots quit smoking 36 years ago. IVC filter placed 05/15 by vascular surgery due to GI bleed Placed back on Lovenox 05/15 after colonoscopy showed no active bleed per pulmonology recommend to continue lovenox today and then if no bleeding transition to po Eliquis 05/19 Will start Eliquis 5 mg twice daily, case discussed with oncology, no need for loading dose acute lower GI bleed Underwent colonoscopy 05/15 showing internal hemorrhoids and diverticulosis no active bleeding was noted likely hemorrhoidal source. ok to resume anticoagulation per GI follow CBC/hemorrhoidal cream ordered/recommend to avoid straining if re-bleeding occurs, rec to consult surgery for possible hemorrhoidectomy Sepsis due to right sided pneumonia: Failed outpatient po abx. Sepsis resolved, No fevers, no cough, no shortness on breath blood culture negative times 48 hours, Lactic acid normal, elevated C-reactive protein and ESR WBC remains elevated, likely reactive s/p IV doxy and IV ceftriaxone x 4d, was transitioned to po doxycycline and completed course of antibiotics. Acute respiratory distress due to PE + PNA resolved no hypoxia noted. Acute right popliteal and bilateral calf vein DVT s/p IVC filter /and on Lovenox as above Elevated troponin: No chest pain, no palpitations, no worsening shortness of breath Elevated but flat 199.5 repeat 213.6, Likely in the setting of increased demand, no acute ischemic changes on EKG continue low-dose beta-blockers, echocardiogram as above no wall motion abnormality. Normocytic anemia: Hemoglobin stable, hold blood transfusion. Thyroid nodule on imaging: Being followed by stripper machine operator for right thyroid nodule at [facility] , recommend continued outpatient follow-up Enlarged mediastinal lymph nodes on imaging: Concern for malignancy, due to DVT and PE with no obvious cause, no sedentary lifestyle, no family history, question related to COVID infection dx week february /seen by Dr. Lowry from Oncology CT abdomen and pelvis showed no abnormality, renal ultrasound showed benign renal cyst pt underwent mediastinal node biopsy 05/18, bx, cytology pending Mild persistent Asthma: No acute exacerbation , Continue home inhalers. Sinus tachycardia improving on beta-elli DVT prophylaxis: Lovenox Full code Patient will require continued inpatient hospitalization for close hemodynamic monitoring (as above), and lymph node biopsy which is not possible in a lesser acute setting. Quality Stroke Does the patient have a stroke diagnosis?: No VTE Prior VTE?: No VTE Risk Level:: Medical - moderate - high VTE Device Contraindication: Treatment Not Indicated VTE Drug Contraindication: N/A - Med Ordered
[2023-05-18] MEDS: 0.9 % Sodium Chloride Flush 3 ML SYRINGE IVFLUSH ×2 (17:57→20:15)
[2023-05-18] MEDS: Metoprolol Tartrate 12.5 MG HALFTAB PO (20:13)
[2023-05-19 03:25] VITALS: BP 117/69; PULSE 65; RESP 18; TEMP 36.2; O2SAT 94
[2023-05-19 07:41] LABS: Hematocrit 28.3 % (37.0-47.0); Hemoglobin 9.4 g/dl (12.0-16.0); Mean Corpuscular HGB Conc 33.2 g/dl (31.0-35.0); Mean Corpuscular Hemoglobin 28.3 pg (27.0-33.0); Mean Corpuscular Volume 85.2 fL (80.0-98.0); Mean Platelet Volume 10.4 fL (9.4-12.3); Platelet Count 534 X10*3/uL (160-400); Red Blood Count 3.32 X10*6/uL (4.20-5.50); Red Cell Distribution Width 15.1 % (11.0-16.0); White Blood Count 21.7 X10*3/uL (4.8-10.8)
[2023-05-19 07:54] LABS: Anion Gap 14 (12-20); Blood Urea Nitrogen 13 mg/dL (9-16); Calcium 8.6 mg/dL (8.4-10.2); Carbon Dioxide 24 mmol/L (22-29); Chloride 104 mmol/L (96-108); Creatinine Clr Calc Pharmacy 73.9; Estimated Glomerular Filt Rate > 60; Glucose Random 88 mg/dL (60-115); Sodium 138 mmol/L (135-145)
[2023-05-19 07:57] VITALS: BP 128/70; PULSE 100; RESP 20; TEMP 36.6; O2SAT 95
--- NOTE | 2023-05-19 10:44 | HO.POSTANES ---
Post Anesthesia Evaluation Post Anesthesia Evaluation Date of Service: 05/18/23 Vital Signs: Vital Signs Temp Pulse Resp BP Pulse Ox O2 Del Method 05/19/23 07:57 97.9 F 100 20 128/70 95 Room Air 05/19/23 03:25 97.1 F 65 18 117/69 94 Room Air 05/18/23 23:28 97.3 F 90 18 112/66 94 Room Air Anesthesia: General Mental Status: Awake Pain Control: Satisfactory Nausea/Vomiting: None Hydration: Adequate Anesthesia-Related Issues: No Anes. Related Issues
[2023-05-19] MEDS: Apixaban 5 MG TABLET PO ×2 (10:45→20:32)
[2023-05-19] MEDS: Metoprolol Tartrate 12.5 MG HALFTAB PO ×2 (10:45→20:32)
[2023-05-19] MEDS: 0.9 % Sodium Chloride Flush 3 ML SYRINGE IVFLUSH ×3 (10:46→20:33)
[2023-05-19] MEDS: Hydrocortisone 2.5 % Rectal Cr 30 GM TUBE 1 APPL PR (10:49)
[2023-05-19] MEDS: Cocoa Butter/Zinc Oxide SUPP.RECT 1 SUPP PR (10:49)
[2023-05-19 11:21] VITALS: BP 112/55; PULSE 99; RESP 19; TEMP 36.6; O2SAT 96
--- NOTE | 2023-05-19 11:22 | P.PNIM_ITS ---
Subjective Subjective Date of Service: 05/19/23 Interval History: seen and examined this morning follow up for PE/DVT s/p bronch with bx yesterday no bleeding overnight, mild sob Review of Systems Review of Systems: Yes all other systems are reviewed and are negative Constitutional Constitutional: Denies chills and Denies fever(s) Cardiovascular Cardiovascular: Denies chest pain and Denies palpitations Gastrointestinal Gastrointestinal: Denies abdominal pain Endocrine Endocrine: Denies palpitations Physical Exam 2 Vital Signs: Vital Signs: Last Vital Signs Temp 97.9 F 05/19/23 07:57 Pulse 100 05/19/23 07:57 Resp 20 05/19/23 07:57 BP 128/70 05/19/23 07:57 Pulse Ox 95 05/19/23 07:57 O2 Del Method Room Air 05/19/23 07:57 O2 Flow Rate 2 05/18/23 09:52 BMI result Body Mass Index 22.7 Const: General: cooperative, comfortable, no acute distress, alert and awake Nutritional Appearance: average body habitus Orientation/consciousness: p atient oriented x3 Resp: Effort & Inspection: normal respiratory effort, able to speak in complete sentences, no respiratory distress and no use of accessory muscles A uscultation: clear to auscultation bilaterally Cardio: Rate: regular rate GI: Inspection: No distended Palpation (GI): Soft to palpation and nontender Neuro: General: patient oriented x3, moves all extremities and CN's II-XI intact bilaterally Extrem: Other: mild LUE edema, no warmth, tenderness or erythema General: Yes no pedal edema Objective Data Active Medications Acetaminophen (Acetaminophen 325 Mg Tablet) 650 mg PO Q6H PRN PRN Reason: Pain, Mild (Pain Scale 1-3) Last Admin: 05/17/23 18:37 Dose: 650 mg Documented By: VINOD Albuterol Sulfate (Albuterol Sulfate 90 Mcg 8 Gm Inhaler) 2 puff INHALE Q4H PRN PRN Reason: Shortness Of Breath Or Wheezing Last Admin: 05/17/23 18:36 Dose: 2 puff Documented By: VINOD Apixaban (Apixaban 5 Mg Tablet) 5 mg PO BID ABHAY Last Admin: 05/19/23 10:45 Dose: 5 mg Documented By: VINOD [place] Butter/Zinc Oxide ([place] Butter/Zinc Oxide Supp.Rect) 1 supp [place] BID [facility] Last Admin: 05/19/23 10:49 Dose: 1 supp Documented By: VINOD Docusate Sodium (Docusate Sodium 100 Mg Capsule) 100 mg PO BEDTIME [facility] Last Admin: 05/18/23 20:15 Dose: Not Given Documented By: BJ Non-Admin Reason: Patient Refused Hydrocortisone (Hydrocortisone 2.5 % Rectal Cr 30 Gm Tube) 1 appl [place] BID [facility] Last Admin: 05/19/23 10:49 Dose: 1 appl Documented By: VINOD Melatonin (Melatonin 3 Mg Tablet) 6 mg PO BEDTIME PRN PRN Reason: Insomnia Metoprolol Tartrate (Metoprolol Tartrate 12.5 Mg Halftab) 12.5 mg PO BID [facility]; Protocol Last Admin: 05/19/23 10:45 Dose: 12.5 mg Documented By: VINOD Ondansetron HCl (Ondansetron Hcl 4 Mg/2 Ml Vial) 4 mg IVPUSH Q8H PRN PRN Reason: Nausea and Vomiting Ondansetron HCl (Ondansetron Hcl 4 Mg/2 Ml Vial) 4 mg IVPUSH ONCE PRN PRN Reason: Nausea and Vomiting Polyethylene Glycol (Polyethylene Glycol 3350 17 Gm Powd.Pack) 17 gm PO DAILY PRN PRN Reason: Constipation Sodium Chloride (0.9 % Sodium Chloride Flush 3 Ml Syringe) 3 ml IVFLUSH QSHIFT [facility] Last Admin: 05/19/23 10:46 Dose: 3 ml Documented By: VINOD Labs 05/19/23 07:07 05/19/23 07:07 Labs: Laboratory Results - last 24 hr 05/19/23 07:07 MCV 85.2 MCH 28.3 MCHC 33.2 RDW 15.1 Plt Count 534 H MPV 10.4 Absolute Nucleated RBC 0.000 Nucleated RBC % (auto) 0.0 Anion Gap 14 Estim Creat Clear Calc 73.9 Estimated GFR > 60 Random Glucose 88 Calcium 8.6 Microbiology Microbiology Results: Microbiology 05/18/23 08:52 Gram Stain - Final Lung Right Lower Lobe Routine Culture - Preliminary Culture in progress. Assessment and Plan (1) GIB (gastrointestinal bleeding): Status: Acute (2) Mediastinal mass: Status: Acute (3) Pulmonary emboli: Status: Acute (4) DVT (deep venous thrombosis): Status: Acute Plan 62-year-old female who presents to the emergency department for evaluation of fevers, chills and dyspnea. Acute submassive PE: Feels better, no chest pain, no palpitations s/p therapeutic Lovenox, noted to have bright red blood per rectum x2 on 05/14 therefore Lovenox discontinued echocardiogram showed EF 60-65%, indeterminate diastolic function low normal right ventricular systolic function, severely dilated left atrium, no mitral valve regurgitation, moderate mitral valve stenosis Noted to have right lower extremity DVT, no family history of clots quit smoking 36 years ago. IVC filter placed 05/15 by vascular surgery due to GI bleed Placed back on Lovenox 05/15 after colonoscopy showed no active bleed transitioned to po Eliquis 05/19 Will start Eliquis 5 mg twice daily, case discussed with oncology, no need for loading dose left arm swelling US pending acute lower GI bleed Underwent colonoscopy 05/15 showing internal hemorrhoids and diverticulosis no active bleeding was noted likely hemorrhoidal source. ok to resume anticoagulation per GI follow CBC/hemorrhoidal cream ordered/recommend to avoid straining if re-bleeding occurs, rec to consult surgery for possible hemorrhoidectomy Sepsis due to right sided pneumonia: Failed outpatient po abx. Sepsis resolved, No fevers, no cough, no shortness on breath blood culture negative times 48 hours, Lactic acid normal, elevated C-reactive protein and ESR WBC remains elevated, likely reactive s/p IV doxy and IV ceftriaxone x 4d, was transitioned to po doxycycline and completed course of antibiotics. Acute respiratory distress due to PE + PNA resolved no hypoxia noted. Acute right popliteal and bilateral calf vein DVT s/p IVC filter /and on Lovenox as above Elevated troponin: No chest pain, no palpitations, no worsening shortness of breath Elevated but flat 199.5 repeat 213.6, Likely in the setting of increased demand, no acute ischemic changes on EKG continue low-dose beta-blockers, echocardiogram as above no wall motion abnormality. Normocytic anemia: Hemoglobin stable, hold blood transfusion. 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 Lowry from Oncology CT abdomen and pelvis showed no abnormality, renal ultrasound showed benign renal cyst pt underwent mediastinal node biopsy 05/18, bx, cytology pending Mild persistent Asthma: No acute exacerbation , Continue home inhalers. Sinus tachycardia improving on beta-elli DVT prophylaxis: Lovenox Full code Patient will require continued inpatient hospitalization for close hemodynamic monitoring Quality Stroke Does the patient have a stroke diagnosis?: No VTE Prior VTE?: No VTE Risk Level:: Medical - moderate - high VTE Device Contraindication: Treatment Not Indicated VTE Drug Contraindication: N/A - Med Ordered
[2023-05-19 15:12] VITALS: BP 107/59; PULSE 100; RESP 20; TEMP 36.6; O2SAT 99
[2023-05-19] MEDS: Albuterol Sulfate 90 MCG 8 GM INHALER 2 PUFF INHALE ×2 (15:46→19:22)
[2023-05-19 20:00] VITALS: BP 127/67; PULSE 98; RESP 18; TEMP 36.8; O2SAT 94
[2023-05-19 23:30] VITALS: BP 129/76; PULSE 94; RESP 18; TEMP 37.1; O2SAT 93
[2023-05-20 04:00] VITALS: BP 121/70; PULSE 99; RESP 18; TEMP 36.7; O2SAT 91
[2023-05-20 07:38] LABS: Hematocrit 28.1 % (37.0-47.0); Hemoglobin 9.4 g/dl (12.0-16.0); Mean Corpuscular HGB Conc 33.5 g/dl (31.0-35.0); Mean Corpuscular Hemoglobin 28.6 pg (27.0-33.0); Mean Corpuscular Volume 85.4 fL (80.0-98.0); Mean Platelet Volume 10.1 fL (9.4-12.3); Platelet Count 443 X10*3/uL (160-400); Red Blood Count 3.29 X10*6/uL (4.20-5.50); White Blood Count 19.7 X10*3/uL (4.8-10.8)
[2023-05-20 08:00] VITALS: BP 129/73; PULSE 82; RESP 20; TEMP 36.5; O2SAT 95
[2023-05-20] MEDS: Metoprolol Tartrate 12.5 MG HALFTAB PO ×2 (09:00→19:52)
[2023-05-20] MEDS: 0.9 % Sodium Chloride Flush 3 ML SYRINGE IVFLUSH ×2 (09:00→23:28)
[2023-05-20] MEDS: Apixaban 5 MG TABLET PO ×2 (09:00→19:52)
[2023-05-20] MEDS: Cocoa Butter/Zinc Oxide SUPP.RECT 1 SUPP PR ×2 (09:00→19:52)
[2023-05-20 11:37] VITALS: BP 119/67; PULSE 92; RESP 20; TEMP 36.4; O2SAT 96
--- NOTE | 2023-05-20 11:48 | P.PNIM_ITS ---
Subjective Subjective Date of Service: 05/20/23 Interval History: seen and examined this morning follow up for PE/DVT left arm swelling improving, some sob with ambulation intermittent palpitations some atrial tachycardia this am no rectal bleeding Review of Systems Review of Systems: Yes all other systems are reviewed and are negative Constitutional Constitutional: Denies chills and Denies fever(s) ENT Ears, Nose, Mouth, and Throat: Denies dizziness Cardiovascular Cardiovascular: Denies chest pain Respiratory Respiratory: Denies cough Gastrointestinal Gastrointestinal: Denies abdominal pain Neurologic Neurologic: Denies dizziness Physical Exam 2 Vital Signs: Vital Signs: Last Vital Signs Temp 97.5 F 05/20/23 11:37 Pulse 92 05/20/23 11:37 Resp 20 05/20/23 11:37 BP 119/67 05/20/23 11:37 Pulse Ox 96 05/20/23 11:37 O2 Del Method Room Air 05/20/23 11:37 O2 Flow Rate 2 05/18/23 09:52 BMI result Body Mass Index 22.7 Const: General: cooperative, comfortable, no acute distress, alert and awake Nutritional Appearance: average body habitus Orientation/consciousness: p atient oriented x3 Resp: Effort & Inspection: normal respiratory effort, able to speak in complete sentences, no respiratory distress and no use of accessory muscles A uscultation: clear to auscultation bilaterally Cardio: Rate: regular rate GI: Inspection: No distended Palpation (GI): Soft to palpation and nontender Neuro: General: patient oriented x3, moves all extremities and CN's II-XI intact bilaterally Extrem: Other: improving LUE edema, no warmth, tenderness or erythema General: Yes no pedal edema Objective Data Active Medications Acetaminophen (Acetaminophen 325 Mg Tablet) 650 mg PO Q6H PRN PRN Reason: Pain, Mild (Pain Scale 1-3) Last Admin: 05/17/23 18:37 Dose: 650 mg Documented By: VINOD Albuterol Sulfate (Albuterol Sulfate 90 Mcg 8 Gm Inhaler) 2 puff INHALE Q4H PRN PRN Reason: Shortness Of Breath Or Wheezing Last Admin: 05/19/23 19:22 Dose: 2 puff Documented By: VINOD Apixaban (Apixaban 5 Mg Tablet) 5 mg PO BID ABHAY Last Admin: 05/20/23 09:00 Dose: 5 mg Documented By: VINOD [place] Butter/Zinc Oxide ([place] Butter/Zinc Oxide Supp.Rect) 1 supp [place] BID [facility] Last Admin: 05/20/23 09:00 Dose: 1 supp Documented By: VINOD Docusate Sodium (Docusate Sodium 100 Mg Capsule) 100 mg PO BEDTIME [facility] Last Admin: 05/19/23 20:08 Dose: Not Given Documented By: BJ Non-Admin Reason: Patient Refused Hydrocortisone (Hydrocortisone 2.5 % Rectal Cr 30 Gm Tube) 1 appl [place] BID [facility] Last Admin: 05/20/23 09:00 Dose: Not Given Documented By: VINOD Non-Admin Reason: Patient Refused Melatonin (Melatonin 3 Mg Tablet) 6 mg PO BEDTIME PRN PRN Reason: Insomnia Metoprolol Tartrate (Metoprolol Tartrate 12.5 Mg Halftab) 12.5 mg PO BID [facility]; Protocol Last Admin: 05/20/23 09:00 Dose: 12.5 mg Documented By: VINOD Ondansetron HCl (Ondansetron Hcl 4 Mg/2 Ml Vial) 4 mg IVPUSH Q8H PRN PRN Reason: Nausea and Vomiting Ondansetron HCl (Ondansetron Hcl 4 Mg/2 Ml Vial) 4 mg IVPUSH ONCE PRN PRN Reason: Nausea and Vomiting Polyethylene Glycol (Polyethylene Glycol 3350 17 Gm Powd.Pack) 17 gm PO DAILY PRN PRN Reason: Constipation Sodium Chloride (0.9 % Sodium Chloride Flush 3 Ml Syringe) 3 ml IVFLUSH QSHIFT [facility] Last Admin: 05/20/23 09:00 Dose: 3 ml Documented By: VINOD Labs 05/20/23 07:08 05/19/23 07:07 Labs: Laboratory Results - last 24 hr 05/20/23 07:08 MCV 85.4 MCH 28.6 MCHC 33.5 RDW 15.0 Plt Count 443 H MPV 10.1 Absolute Nucleated RBC 0.000 Nucleated RBC % (auto) 0.0 Microbiology Microbiology Results: Microbiology 05/18/23 08:52 Gram Stain - Final Lung Right Lower Lobe Routine Culture - Final Assessment and Plan (1) Pulmonary emboli: Status: Acute (2) DVT (deep venous thrombosis): Status: Acute Plan 62-year-old female who presents to the emergency department for evaluation of fevers, chills and dyspnea. Acute submassive PE/bl LE DVT: improving, some intermittent sob, palpitations s/p therapeutic Lovenox, noted to have bright red blood per rectum x2 on 05/14 therefore Lovenox discontinued echocardiogram showed EF 60-65%, indeterminate diastolic function low normal right ventricular systolic function, severely dilated left atrium, no mitral valve regurgitation, moderate mitral valve stenosis Noted to have right lower extremity DVT, no family history of clots quit smoking 36 years ago. IVC filter placed 05/15 by vascular surgery due to GI bleed Placed back on Lovenox 05/15 after colonoscopy showed no active bleed (internal hemorrhoids likely cause of bleeding) transitioned to po Eliquis 05/19 - Eliquis 5 mg twice daily, case discussed with oncology, no need for loading dose Acute right popliteal and bilateral calf vein DVT s/p IVC filter /and on Eliquis as above left arm swelling improving US pending Enlarged mediastinal lymph nodes on imaging: Concern for malignancy, due to DVT and PE with no obvious cause, no sedentary lifestyle, no family history, question related to COVID infection dx week of February /seen by Dr. Lowry from Oncology CT abdomen and pelvis showed no abnormality, renal ultrasound showed benign renal cyst pt underwent mediastinal node biopsy 05/18, Pathology was present and documented malignant cells in the specimens official bx, cytology pending Sinus tachycardia improving but with some atrial tachycardia follow on tele continue beta-elli acute lower GI bleed Underwent colonoscopy 05/15 showing internal hemorrhoids and diverticulosis no active bleeding was noted likely hemorrhoidal source. ok to resume anticoagulation per GI follow CBC/hemorrhoidal cream ordered/recommend to avoid straining if re-bleeding occurs, rec to consult surgery for possible hemorrhoidectomy Sepsis due to right sided pneumonia: Failed outpatient po abx. Sepsis resolved, No fevers, no cough, no shortness on breath blood culture negative times 48 hours, Lactic acid normal, elevated C-reactive protein and ESR WBC remains elevated, likely reactive s/p IV doxy and IV ceftriaxone x 4d, was transitioned to po doxycycline and completed course of antibiotics. Acute respiratory distress due to PE + PNA resolved no hypoxia noted. Elevated troponin: No chest pain, no palpitations, no worsening shortness of breath Elevated but flat 199.5 repeat 213.6, Likely in the setting of increased demand, no acute ischemic changes on EKG continue low-dose beta-blockers, echocardiogram as above no wall motion abnormality. Normocytic anemia: Hemoglobin stable, hold blood transfusion. 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 DVT prophylaxis: Eliquis Full code Patient will require continued inpatient hospitalization for close hemodynamic monitoring Quality Stroke Does the patient have a stroke diagnosis?: No VTE Prior VTE?: No VTE Risk Level:: Medical - moderate - high VTE Device Contraindication: Treatment Not Indicated VTE Drug Contraindication: N/A - Med Ordered
[2023-05-20 15:14] VITALS: BP 130/69; PULSE 99; RESP 20; TEMP 36.6; O2SAT 97
[2023-05-20 19:43] VITALS: BP 149/78; PULSE 107; RESP 20; TEMP 36.7; O2SAT 95
[2023-05-20] MEDS: Hydrocortisone 2.5 % Rectal Cr 30 GM TUBE 1 APPL PR (19:54)
[2023-05-20 23:20] VITALS: BP 139/81; PULSE 108; RESP 20; TEMP 36.6; O2SAT 93
[2023-05-21 03:19] VITALS: BP 127/75; PULSE 93; RESP 20; TEMP 37.3; O2SAT 95
[2023-05-21 07:00] VITALS: O2SAT 94
[2023-05-21 07:33] VITALS: PULSE 106; RESP 16; TEMP 36.7; O2SAT 94
[2023-05-21] MEDS: 0.9 % Sodium Chloride Flush 3 ML SYRINGE IVFLUSH (08:21)
[2023-05-21] MEDS: Metoprolol Tartrate 12.5 MG HALFTAB PO (08:21)
[2023-05-21] MEDS: Apixaban 5 MG TABLET PO (08:21)
[2023-05-21] MEDS: Cocoa Butter/Zinc Oxide SUPP.RECT 1 SUPP PR (08:21)
--- NOTE | 2023-05-21 11:11 | MHC.CM.PN ---
Patient has been medically cleared for dc to home today, self care.
--- NOTE | 2023-05-21 12:42 | P.DS_ITS ---
DS: Providers Provider Date of Service: 05/21/23 Date of admission: 05/11/23 19:15 Primary care physician: Unknown Physician Consults: 05/13/23 15:04 Consult to Hematology / Oncology Routine Consulting Provider: Moreno Lowry Reason for consultation: mediastinal LN Has provider been notified: Yes Consult to Pulmonology Routine Consulting Provider: [facility] Pul[facility] Reason for consultation: mediastinal LN Has provider been notified: No 05/14/23 10:38 Consult to Gastroenterology Routine Consulting Provider: Kapil Hfuf Reason for consultation: lgi bleed on lovenox Has provider been notified: No 05/14/23 15:55 Consult to Vascular Surgery Routine Consulting Provider: Ben Oneil Reason for consultation: ivc filter Has provider been notified: No DS: Diagnosis Discharge Diagnosis (1) Acute pulmonary embolus: Status: Acute DS: Summary Hospital Course Hospital Course: History of presenting illness: Date of Service: 05/11/23 Chief Complaint: Dyspnea This is a 62-year-old female with pertinent history of asthma not on home oxygen, sinus tachycardia on beta-elli, history of mitral valve repair in 2017 who presents to the emergency department for evaluation of chills and dyspnea. Patient states that she has been having symptoms for the last 3-4 weeks. She has been having productive cough with yellowish sputum production. Also has been having associated chills. Endorses dyspnea which is worse with exertion. No orthopnea or PND. No wheezing. Patient states she is compliant with home inhaler. Patient was seen outpatient and got blood work done about 1 week ago where white count was found to be elevated. She states that her neighbor is a nurse practitioner and she started p.o. antibiotics on the neighbor's recommendation. Patient does not remember the name but took 2 separate courses of p.o. antibiotics without any relief. Also has been having bilateral calf pain that started 1 week ago. No history of DVT/PE or blood clots. No chest discomfort, palpitations, abdominal pain, changes in urinary or bowel habits. In the emergency department, imaging with right-sided PE, right-sided pneumonia and DVT. WBC found to be elevated. Hospital course: 62-year-old female presented to emergency department for evaluation of fevers, chills and dyspnea and diagnosed with : Acute submassive PE/bl LE DVT admitted to intermediate care unit treated with therapeutic Lovenox but noted to have bright red blood per rectum x2 on 05/14 therefore Lovenox discontinued, patient seen by Gastroenterology and underwent colonoscopy that showed no active bleed, but showed internal hemorrhoids likely cause of bleeding therefore patient placed back on Lovenox and was monitored closely with frequent CBC monitoring patient noted to have no recurrent bleed H&H remains stable, patient placed on hemorrhoidal cream and stool softeners, echocardiogram showed EF 60-65%, indeterminate diastolic function, low normal right ventricular systolic function, severely dilated left atrium, no mitral valve regurgitation, moderate mitral valve stenosis, patient underwent IVC filter placement on 05/15 of vascular surgery, now being discharged home on Eliquis 5 mg twice daily patient was seen and evaluated by Oncology and recommended to have continued outpatient follow-up, patient was noted to have enlarged mediastinal lymph node on CT imaging due to concern for malignancy underwent bronchoscopy and mediastinal node biopsy by Dr. Flowers on 05/18, final report of pathology pending patient is recommended outpatient follow-up with Dr. Lowry. Patient noted to have mild sinus tachycardia, she remained asymptomatic and continued on home dose of beta-blockers, she also developed left arm swelling likely due to superficial thrombophlebitis and nonocclusive thrombus in the brachial veins, left arm swelling improved prior to discharge continue Eliquis. Acute right popliteal and bilateral calf vein DVT on Eliquis 5 mg b.i.d. Sepsis due to right sided pneumonia, all features of sepsis resolved blood cultures x2 negative, patient has elevated WBC likely reactive ,finished course of antibiotics. Acute respiratory distress due to PE + PNA resolved no hypoxia noted. 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 Time Attestation Discharge coordination time: Greater than 30 minutes Quality: Safe Use of Opioids Does Pt have an Active Cancer Diagnosis on the Problem List?: No Quality: Stroke Does the patient have a stroke diagnosis?: No Physical Exam Vital Signs: Vital Signs: Last Vital Signs Temp 98.1 F 02/26/24 07:33 Pulse 106 H 05/21/23 07:33 Resp 16 05/21/23 07:33 BP 127/75 05/21/23 03:19 Pulse Ox 94 05/21/23 07:33 O2 Del Method Room Air 05/21/23 07:33 O2 Flow Rate 2 05/18/23 09:52 BMI result Body Mass Index 22.7 Const: Other: General A xox3, resting comfortably in no acute distress. Neck supple no JVD. CVS regular rate rhythm, Respiratory lungs clear to auscultation, no respiratory distress, no wheeze, no rhonchi. Gastrointestinal abdomen soft, non tender, bowel sounds audible, no guarding , no rigidity. Extremities no lower extremity edema, No calf tenderness. Left upper extremity mild swelling antecubital fossa, no redness, no tenderness. Neuro non focal Skin no rash Psych appropriate affect DS: Data Data Completed and Pending Pending studies at discharge: Pending at discharge 05/18/23 08:48 Cytology [PTH] Stat Discharge Plan Discharge Anticipated Discharge Date/Time: 05/21/23 10:49 Patient Disposition: Home, Self-Care Discharge Diagnosis: Acute pulmonary embolism Acute bilateral lower extremity DVT Enlarged mediastinal lymph node Acute lower GI bleed Referrals: Physician,Unknown J [Primary Care Provider] - 1 Week Discharge Medications: New polyethylene glycol 3350 17 gram Powder In Packet 17 g PO DAILY PRN (Reason: Constipation) Qty: 30 0RF hydrocortisone [Proctozone-HC] 2.5 % Cream With Perineal Applicator 1 appl MO BID Qty: 30 0RF Eliquis 5 mg Tablet 5 mg PO BID Qty: 60 0RF Continued albuterol sulfate [Ventolin HFA] 90 mcg/actuation Hfa Aerosol Inhaler 2 puff INHALATION Q4-6H PRN (Reason: Shortness Of Breath Or Wheezing) metoprolol tartrate 25 mg Tablet 12.5 mg PO BID budesonide-formoterol [Symbicort] 160-4.5 mcg/actuation Hfa Aerosol Inhaler 2 puff INHALATION BID Discontinued levofloxacin 500 mg Tablet 500 mg PO DAILY Patient Comments: received on the for a 10 day supply per pharmacy Discharge Orders: Discharge Order (Routine); Ordered 05/21/23 Ordered By: Deya Scott Diet: Advance to usual diet Activity on Discharge: As tolerated Stand Alone Forms: Patient Portal Discharge page Care Plan Goals: Bilateral PE and DVT take Eliquis 5 mg 1 tablet twice daily Avoid constipation use hemorrhoidal cream 5 more days, take stool softeners if noted to have hard stools Ambulate as tolerated Return to check with recurrent shortness of breath, chest pain or palpitations Returned to check with GI bleed Health Concerns: Continue all home medications as before Pending labs pathology report from lymph node biopsy Plan of Treatment: Outpatient follow-up with oncologist Dr. Lowry call for appointment. Outpatient follow-up with PCP. Assessment: as above Discharge Date/Time: 05/21/23 13:56
== END 2023-05-21 13:56 | disposition home or self-care (01) | DRG 710 ==
LOC: HO.ED 21:38 → HO.EDOVER 05-12 04:16 → HO.IMC 05-12 12:32
PROVIDERS: Hospitalist; Internal Medicine Gastroenterology; Internal Medicine Medical Oncology; Physician Assistant; Physician Assistant Medical; Surgery Vascular Surgery; Admitting Provider Student in an Organized Health Care Education/Training Program; Emergency Provider Internal Medicine; Visit Provider Hospitalist
PROC: 06H03DZ Insertion of Intraluminal Device into Inferior Vena Cava, Percutaneous Approach (ICD-10-PCS; principal; 2023-05-15 08:00)
PROC: 0DJD8ZZ Inspection of Lower Intestinal Tract, Via Natural or Artificial Opening Endoscopic (ICD-10-PCS; CPT 45378; principal; 2023-05-15 15:00)
PROC: 07B74ZX Excision of Thorax Lymphatic, Percutaneous Endoscopic Approach, Diagnostic (ICD-10-PCS; principal; 2023-05-18 08:00)
DX: A41.9 Sepsis, unspecified organism (principal); I26.94 Multiple subsegmental thrombotic pulmonary emboli without acute cor pulmonale; C77.1 Secondary and unspecified malignant neoplasm of intrathoracic lymph nodes; I82.431 Acute embolism and thrombosis of right popliteal vein; K57.31 Diverticulosis of large intestine without perforation or abscess with bleeding; I27.20 Pulmonary hypertension, unspecified; J18.9 Pneumonia, unspecified organism; C34.31 Malignant neoplasm of lower lobe, right bronchus or lung; I82.451 Acute embolism and thrombosis of right peroneal vein; I82.442 Acute embolism and thrombosis of left tibial vein; K64.8 Other hemorrhoids; R06.03 Acute respiratory distress; I80.8 Phlebitis and thrombophlebitis of other sites; D63.0 Anemia in neoplastic disease; I05.0 Rheumatic mitral stenosis; I47.19 Other supraventricular tachycardia; R59.0 Localized enlarged lymph nodes; E04.1 Nontoxic single thyroid nodule; J45.30 Mild persistent asthma, uncomplicated; Z20.822 Contact with and (suspected) exposure to COVID-19; Z87.891 Personal history of nicotine dependence; Z79.51 Long term (current) use of inhaled steroids; Z79.899 Other long term (current) drug therapy
CPT/HCPCS: 0241U; 32555; 36415; 36600; 37191; 70450; 70496; 70498; 70553; 71045; 71046; 71250; 71275; 74177; 76775; 80048; 80053; 80061; 80076; 80202; 80307; 81001; 81003; 82140; 82378; 82550; 82565; 82728; 82803; 82947; 83540; 83605; 83615; 83690; 83735; 83880; 84100; 84145; 84155; 84439; 84443; 84484; 84550; 85025; 85027; 85379; 85384; 85610; 85652; 85730; 86140; 86850; 86870; 86880; 86900; 86901; 86920; 86921; 87040; 87070; 87073; 87205; 87449; 87502; 87640; 87641; 87899; 88112; 88172; 88173; 88177; 88305; 88341; 88342; 89051; 92526; 92610; 93005; 93306; 93308; 93970; 93971; 94640; 94664; 97110; 97162; 97166; 97530; 97535; 99285; A9585; C1769; C1880; J0171; J0692; J0696; J1100; J1596; J1650; J1720; J1940; J2250; J2371; J2704; J3370; J3371; Q9967

== ENCOUNTER → 2023-05-11 15:09 | Outpatient (BNV) | payer OTHER, SELFPAY | PROVIDERS: Visit Provider Internal Medicine Cardiovascular Disease | DX: R00.0 Tachycardia, unspecified (principal); I49.3 Ventricular premature depolarization | CPT/HCPCS: 93010 ==

== ENCOUNTER → 2023-05-11 17:40 | Outpatient (BNV) | payer OTHER, SELFPAY | PROVIDERS: Emergency Provider Internal Medicine; Visit Provider Student in an Organized Health Care Education/Training Program | DX: I26.99 Other pulmonary embolism without acute cor pulmonale (principal) | CPT/HCPCS: 99223; 99232; 99233; 99238 ==

== ENCOUNTER 2023-05-11 19:15 | Outpatient (BNV) | payer OTHER, SELFPAY | END 2023-05-12 12:00 | PROVIDERS: Admitting Provider Student in an Organized Health Care Education/Training Program; Emergency Provider Internal Medicine; Visit Provider Internal Medicine Cardiovascular Disease | DX: I26.99 Other pulmonary embolism without acute cor pulmonale (principal); I34.2 Nonrheumatic mitral (valve) stenosis | CPT/HCPCS: 93306 ==

== ENCOUNTER → 2023-05-11 19:15 | Outpatient (BNV) | payer OTHER, SELFPAY | PROVIDERS: Admitting Provider Student in an Organized Health Care Education/Training Program; Emergency Provider Internal Medicine; Visit Provider Hospitalist | DX: R91.8 Other nonspecific abnormal finding of lung field (principal); R59.0 Localized enlarged lymph nodes; J18.9 Pneumonia, unspecified organism | CPT/HCPCS: 31653; 99223; 99233 ==

== ENCOUNTER → 2023-05-11 19:15 | Outpatient (BNV) | payer OTHER, SELFPAY | PROVIDERS: Admitting Provider Student in an Organized Health Care Education/Training Program; Emergency Provider Internal Medicine; Visit Provider Internal Medicine Medical Oncology | DX: I26.99 Other pulmonary embolism without acute cor pulmonale (principal); I82.412 Acute embolism and thrombosis of left femoral vein; I82.431 Acute embolism and thrombosis of right popliteal vein | CPT/HCPCS: 99222; 99232 ==

== ENCOUNTER → 2023-05-11 19:15 | Outpatient (BNV) | payer OTHER, SELFPAY | PROVIDERS: Admitting Provider Student in an Organized Health Care Education/Training Program; Emergency Provider Internal Medicine; Visit Provider Surgery Vascular Surgery | DX: I82.409 Acute embolism and thrombosis of unspecified deep veins of unspecified lower extremity (principal); I26.99 Other pulmonary embolism without acute cor pulmonale | CPT/HCPCS: 37191; 99222; 99232 ==

== ENCOUNTER → 2023-05-22 11:44 | Outpatient (BNV) | payer OTHER, SELFPAY | PROVIDERS: PCP Nurse Practitioner Family; Visit Provider Internal Medicine Medical Oncology | DX: C34.90 Malignant neoplasm of unspecified part of unspecified bronchus or lung (principal) | CPT/HCPCS: 99213; 99214 ==

== ENCOUNTER 2023-05-22 16:40 | Inpatient (IN) | payer OTHER, SELFPAY ==
--- NOTE | ~2023-05-22 | XR_ITS ---
EXAMINATION: XR CHEST CLINICAL INFORMATION: Dyspnea COMPARISON: 05/24/2023 TECHNIQUE: Frontal view of the chest was obtained. FINDINGS: Lung volumes are symmetric. There is redemonstrated prominence of the central vasculature and diffuse reticular opacification bilaterally, suspicious for vascular congestion and interstitial edema. Small pleural effusions are noted. The cardiomediastinal silhouette is stable. Redemonstrated right paratracheal adenopathy/mass, better delineated on recent CT. Calcification is present at the aortic arch. Sternal wires are present. Mitral prosthesis noted. No acute osseous findings are seen. XR/XR chest 1V IMPRESSION: Findings consistent with vascular congestion and interstitial edema, similar to prior along with small pleural effusions. Redemonstrated right paratracheal adenopathy/mass, better delineated on recent CT.
--- NOTE | ~2023-05-22 | US_ITS ---
EXAMINATION: ULTRASOUND-GUIDED THORACENTESIS CLINICAL INFORMATION: Pleural effusion COMPARISON: None available. TECHNIQUE/FINDINGS: Preliminary ultrasound demonstrates moderate-large right pleural effusion with no obvious loculations. A site was selected and the right back was sterilely prepped and draped. The pleural space was accessed with a 4 [place] [employer] centesis catheter. 1000 mL of yellow/jeff fluid was drained. The catheter was removed and a dressing was applied. The patient tolerated procedure well. US/US thoracentesis IMPRESSION: Right thoracentesis.
--- NOTE | ~2023-05-22 | CT_ITS ---
EXAMINATION: CT CHEST WITHOUT CONTRAST CLINICAL INFORMATION: Worsening consolidation COMPARISON: Chest radiograph from 05/22/2023, CT angiography chest from 05/11/2023 TECHNIQUE: Multidetector volumetric CT imaging of the chest was done. Axial MIP volume rendering provided. Sagittal and coronal reformatted images were obtained. This CT examination was performed using dose optimization techniques as appropriate, variously including the following: *Automated exposure control *Adjustment of mA and/or kV according to patient size (this includes techniques or standardized protocols for targeted exams where dose is matched to indication/reason for exam; i.e. extremities or head) *Use of iterative reconstruction technique DLP: 206 mGy-cm FINDINGS: LUNGS/PLEURA: Increased right pleural effusion now moderate to large in size with subjacent atelectasis. New small left pleural effusion with subjacent atelectasis. Respiratory motion artifact limits evaluation. Intralobular septal thickening. Stable pulmonary nodules the largest in the right upper lobe measuring 8 mm (series 5, image 182). No new enlarged or suspicious pulmonary nodules or masses are noted. Central airways are patent. No pneumothorax. MEDIASTINUM: Heart is enlarged. Trace pericardial effusion. Aorta is nonaneurysmal and demonstrates atherosclerotic calcifications. Main pulmonary artery borderline enlarged suggesting pulmonary arterial hypertension. Redemonstration of mediastinal lymphadenopathy greatest in the right paratracheal region measuring up to 6.2 cm previously measuring up to 5.0 cm. Redemonstrated right thyroid nodule measuring 3.8 x 2.7 cm. Mitral valve replacement. Coronary artery calcifications are noted. AXILLA: Bilateral axillary lymphadenopathy measuring up to 1.2 cm in short axis. UPPER ABDOMEN: 6 mm splenule. Previously identified right hepatic lesion is less conspicuous on current examination. OSSEOUS STRUCTURES: Sternotomy wires multilevel degenerative changes of the thoracolumbar spine. CT/CT chest wo IV con IMPRESSION: 1. Increased right pleural effusion now moderate to large in size with subjacent atelectasis. 2. New small left pleural effusion with subjacent atelectasis. 3. Stable pulmonary nodules the largest in the right upper lobe measuring 8 mm. Continued follow-up as per Fleischner criteria. No new enlarged or suspicious pulmonary nodules or masses are noted. 4. Redemonstration of mediastinal lymphadenopathy greatest in the right paratracheal region measuring up to 6.2 cm previously measuring up to 5.0 cm. Bilateral axillary lymphadenopathy measuring up to 1.2 cm in short axis. 5. Redemonstrated right thyroid nodule measuring 3.8 x 2.7 cm. If clinically warranted consider further evaluation with dedicated thyroid ultrasound. 6. Main pulmonary artery borderline enlarged suggesting elements of pulmonary arterial hypertension. According to the UPDATED 2017 Fleischner Society recommendations, the advised follow-up imaging for multiple solid nodules, the largest measuring 6 mm or greater, is: HIGH RISK PATIENT: CT at 3-6 months, then at 18-24 months.
--- NOTE | ~2023-05-22 | XR_ITS ---
EXAMINATION: XR CHEST CLINICAL INFORMATION: Shortness of breath COMPARISON: Chest x-ray May 15, 2023. CT chest May 23, 2023 TECHNIQUE: Frontal portable view of the chest was obtained. 1921 hours FINDINGS: Status post median sternotomy. Status post cardiac valve repair. Prominent superior mediastinum again noted with bulge of the right paramedian stripe the patient's known mediastinal lymphadenopathy. There is persistent extensive pulmonary vascular congestion increased lung markings due to interstitial edema. There are now patchy airspace opacities likely due to developing pulmonary edema, worsening since prior chest x-ray May 15, 2023. Blunting of costophrenic angles due to bilateral pleural effusions similar prior examinations. XR/XR chest 1V IMPRESSION: Worsening congestive heart failure with pulmonary edema. Persistent bilateral pleural effusions.
--- NOTE | ~2023-05-22 | CT_ITS ---
EXAMINATION: CT ANGIOGRAM HEAD CT ANGIOGRAM NECK CLINICAL INFORMATION: Reason for Exam confusion, stroke protocol, abnormal MRI brain COMPARISON: CT chest without contrast 05/23/2023, same day MRI brain without contrast TECHNIQUE: Initial noncontrast adventure guide imaging of the head and neck was performed. Noncontrast head CT was also performed. Test bolus sequences followed by intravenous administration 70 mL of Omnipaque 350. Helical imaging was performed in the axial plane from the aortic arch to the skull vertex. Delayed postcontrast imaging of the head was also performed. The data was processed at the certified ophthalmic technologist workstation for generation of MIP sequences. Angled MIPs and volume rendered reformatted images were also generated at an offline 3D workstation. Stenoses are assessed in accordance with NASCET criteria unless otherwise indicated. DLP: 2446.24 mGy-cm This CT examination was performed using dose optimization techniques as appropriate, variously including the following: *Automated exposure control. *Adjustment of mA and/or kV according to patient size (this includes techniques or standardized protocols for targeted exams where dose is matched to indication/reason for exam; i.e. extremities or head). *Use of iterative reconstruction technique. FINDINGS: CT Head: There are bilateral hypodensities in the centrum semiovale corresponding to regions of acute suspected watershed ischemia. There is no evidence of acute intracranial hemorrhage or edematous territorial infarction. There is no abnormal attenuation within the brain parenchyma. Krishna-white matter differentiation is preserved. The ventricles are normal in size and configuration. No evidence for obstructive hydrocephalus. No abnormal mass effect or midline shift. No extra-axial fluid collections. No pathologic intra-axial enhancement or regional oligemia. No acute soft tissue or osseous abnormalities. Small dependent secretions in the left sphenoid sinus. CT Neck: Stable large right hemithyroid nodule with slight leftward deviation of the trachea as described previously. The remaining cervical soft tissues are within normal limits. No significant abnormalities of the cervical spine. CT Upper Chest: Stable findings compared to recent CT of the chest from 05/23/2023 including right greater than left pleural effusions, bilateral dependent atelectasis, interlobular septal thickening, partially visualized bulky mediastinal and right supraclavicular lymphadenopathy. Sequela median sternotomy. Neck CTA: CT of the neck is technically limited secondary to extensive venous reflux of injected intravenous contrast material which results in obscuring streak artifact. Conventional three-vessel left-sided aortic arch. There is mild calcified atherosclerotic disease involving the left subclavian artery origin without significant vessel narrowing. The left subclavian artery as it exits the thoracic inlet is obscured due to streak artifact. The bilateral common and internal carotid arteries are widely patent. The vertebral artery origins are patent. Significantly limited assessment of the V2 and V3 segments of the vertebral arteries which remain grossly patent. Brain CTA: Intracranial Internal Carotid Arteries: No focal stenosis or occlusion. Right Anterior Cerebral Artery: Normal A1 segment. Normal opacification of the distal JNOG segments. Left Anterior Cerebral Artery: Normal A1 segment. Normal opacification of the distal JONG segments. Anterior Communicating Artery: Normal. Right Middle Cerebral Artery: Normal M1 segment of the MCA without focal stenosis or occlusion. Normal arborization of the distal segments. Left Middle Cerebral Artery: Normal M1 segment of the MCA without focal stenosis or occlusion. Normal arborization of the distal segments. Right Vertebral Artery: Normal V4 segment. Left Vertebral Artery: Normal V4 segment. Basilar Artery: Normal without focal stenosis or occlusion. Normal appearance of the proximal superior cerebellar arteries. Right Posterior Cerebral Artery: Normal P1 segment. Normal opacification of the distal AQUACULTURAL WORKER SUPERVISOR segments. Left Posterior Cerebral Artery: Normal P1 segment. Normal opacification of the distal [employer] WORKER SUPERVISOR segments. Normal opacification of the superior sagittal, straight, transverse, and sigmoid sinuses. CT/CT angio head neck stroke IMPRESSION: 1. No new acute intracranial abnormality. Hypodensities involving the bilateral centrum semiovale corresponding to regions of evolving acute suspected watershed ischemia, the full extent of which is better assessed on preceding MRI. 2. Technically limited CTA of the neck secondary to extensive venous reflux of injected contrast which largely obscures the cervical vertebral arteries. Within this limitation, no arterial high-grade stenosis or occlusion is identified. 3. No intracranial or high-grade stenosis or large vessel occlusion 4. Stable findings in the chest and lower neck as detailed above and described on recent CT of the chest. Above impression was communicated to Dr. Sayda Calix on 05/24/2023 7:41 PM
--- NOTE | ~2023-05-22 | MR_ITS ---
EXAMINATION: MR BRAIN WITHOUT AND WITH CONTRAST CLINICAL INFORMATION: Encephalopathy. Evaluate for intracranial metastatic disease. COMPARISON: CT chest 05/23/2023. CT head 05/22/2023. TECHNIQUE: Multiplanar MR imaging of the brain was performed without contrast. FINDINGS: There are multiple tiny foci of restricted diffusion involving both cerebral hemispheres, cerebellum, thalami, and splenium of corpus callosum. There is a tiny focus of susceptibility artifact located within the occipital horn of the left lateral ventricle with no definite corresponding hyperdensity seen on recent CT imaging possibly representing chronic changes of an old intraventricular hemorrhage. Intracranial vascular flow voids are grossly maintained. Postcontrast images reveal no abnormal intracranial mass or enhancement. There is no intracranial mass effect or midline shift. Lateral and third ventricles are normal. No hydrocephalus. Midline structures including the cervicomedullary junction are normal. No acute bone marrow signal changes. There is a trace right mastoid effusion. Mild paranasal sinus disease primarily within the ethmoid air cells. Globes and orbits are symmetric. MR/MR head/brain wo/w con IMPRESSION: There are multiple tiny acute embolic or watershed infarcts involving both cerebral hemispheres, cerebellum, thalami, and splenium of corpus callosum. These findings are scattered upon numerous chronic small vessel ischemic changes within the periventricular white matter. No evidence of acute hemorrhage. No abnormal intracranial mass or enhancement. There is a tiny focus of susceptibility artifact located within the occipital horn of the left lateral ventricle that may represent chronic changes of an old intraventricular hemorrhage.
--- NOTE | ~2023-05-22 | CT_ITS ---
EXAMINATION: CT HEAD WITHOUT CONTRAST CLINICAL INFORMATION: Altered mental status. COMPARISON: None TECHNIQUE: Contiguous axial imaging was performed from the skull base to vertex without intravenous administration of contrast. This CT examination was performed using dose optimization techniques as appropriate, variously including the following: *Automated exposure control *Adjustment of mA and/or kV according to patient size (this includes techniques or standardized protocols for targeted exams where dose is matched to indication/reason for exam; i.e. extremities or head) *Use of iterative reconstruction technique DLP: 657 mGy-cm FINDINGS: There is no evidence of acute intracranial hemorrhage or edematous territorial infarction. A few foci of hypoattenuation in the periventricular and deep white matter are consistent with mild microangiopathy. Krishna-white matter differentiation is preserved. Proportional prominence of the ventricles and sulcal spaces. No evidence for obstructive hydrocephalus. No abnormal mass effect or midline shift. No extra-axial fluid collections. No acute soft tissue or osseous abnormalities. Inspissated mucous secretions in the left sphenoidal sinus. No air-fluid levels. The mastoids and middle ear cavities are clear. CT/CT head/brain wo IV con IMPRESSION: No evidence of acute intracranial hemorrhage or edematous territorial infarction.
--- NOTE | ~2023-05-22 | XR_ITS ---
EXAMINATION: XR CHEST CLINICAL INFORMATION: Tachypnea COMPARISON: Previous chest CT from earlier the same day and chest x-ray from yesterday TECHNIQUE: Frontal view of the chest was obtained. FINDINGS: Cardiac silhouette does not appear enlarged. Heart valve ring and median sternotomy wires noted. Mediastinal lymphadenopathy appears unchanged. Pulmonary venous redistribution and increased perihilar markings are questionable mild pulmonary edema. Denser atelectasis or consolidation at the right lung base small to moderate right pleural effusion and very small left pleural effusion. No pneumo thorax. XR/XR chest 1V IMPRESSION: Question mild pulmonary edema. Denser atelectasis or consolidation at the right lung base. Bilateral pleural effusions, right greater than left. No pneumothorax.
--- NOTE | ~2023-05-22 | XR_ITS ---
EXAMINATION: XR CHEST CLINICAL INFORMATION: Evaluate for CHF. COMPARISON: 05/26/2023 TECHNIQUE: Frontal view of the chest was obtained. FINDINGS: Interval improvement in appearance of interstitial edema. There are persistent bilateral pleural effusions with basilar consolidation. Pulmonary vasculature remains prominent. Cardiomediastinal contour is unchanged. XR/XR chest 1V IMPRESSION: Interval improvement in interstitial edema.
--- NOTE | ~2023-05-22 | XR_ITS ---
EXAMINATION: XR CHEST CLINICAL INFORMATION: Hypoxia. Syncope. Rule out pneumonia. COMPARISON: Previous chest x-ray 05/11/2023 TECHNIQUE: Frontal view of the chest was obtained. FINDINGS: Cardiac silhouette does not appear enlarged. Heart valve ring and median sternotomy wires. Enlarged right mediastinal paratracheal adenopathy unchanged. Increasing atelectasis or consolidation at the right lung base and increasing right pleural effusion. The left lung is clear. No left pleural effusion. No pneumothorax. XR/XR chest 1V IMPRESSION: Increasing atelectasis or consolidation at the right lung base and increasing right pleural effusion.
--- NOTE | 2023-05-22 16:45 | ECG_ITS ---
Test Reason : SYNCOPE Blood Pressure : / mmHG Vent. Rate : 107 BPM Atrial Rate : 107 BPM P-R Int : 140 ms QRS Dur : 076 ms QT Int : 340 ms P-R-T Axes : 045 004 057 degrees QTc Int : 453 ms Artifact in tracing Sinus tachycardia with Premature supraventricular complexes Otherwise normal ECG When compared with ECG of 11-MAY-2023 15:29, Premature ventricular complexes are no longer Present Premature supraventricular complexes are now Present Referred By: Generic ED Physician Electronically Signed By:REGINALDO TORREZ
[2023-05-22 16:46] VITALS: BP 127/73; PULSE 106; RESP 18; TEMP 36.8; O2SAT 93; BMI 22.2
--- NOTE | 2023-05-22 17:27 | ED_ITS ---
HPI - Syncope General Chief Complaint: Syncope Stated Complaint: can't walk/discharged yesterday Time Seen by Provider: 05/22/23 17:23 Source: patient Mode of arrival: wheelchair Limitations: no limitations History of Present Illness HPI narrative: 62-year-old female with pertinent history of asthma not on home oxygen, sinus tachycardia on beta-elli, history of mitral valve repair in 2017 who was admitted to this hospital from 05/11/2023 until 05/21/2023 for acute subsegmental right middle and right lower lobes pulmonary emboli in the right middle and right lower lobes, right-sided pneumonia and bilateral DVTs following initially treated with Lovenox, patient then developed lower GI bleed which was felt to be secondary to hemorrhoids based on colonoscopy, H&H remained stable, IVC filter placement on 05/15/23, enlarged mediastinal lymph node on CT imaging due to concern for malignancy underwent bronchoscopy and mediastinal node biopsy by Dr. Flowers on 05/18/23 with follow-up with Dr. Lowry, discharged home on Eliquis 5 mg b.i.d.,elevated troponin but flat troponin 199.5 on admission repeat 213.6, likely in the setting of increased demand, no acute ischemic changes on EKG, patient had no chest pain or shortness of breath, echocardiogram showed no wall motion. According to the patient's family and neighbor who is the patient's PCP, when they took the patient home yesterday she was very weak and had difficulty getting her out of the car and into the house. Since being home she has had difficulty getting out of bed and having trouble walking to the bathroom secondary to her weakness. Her sister describes the patient's ability to walk is very limited and states that her legs were like ?rubber ?whenever she tries to stand. The patient states that she did not walk around in the hospital and spent most the time in bed. She was able to get out of the bed and go to the bathroom without difficulty. Since being home she has had no appetite and has had very little to eat and drink over the last 24 hours. She had 1 episode of orange loose stool with no blood in the stool. She came to the hospital today to be evaluated by our oncologist, Dr. Lowry and was told that she has adenocarcinoma of the lung. Patient was sent to [facility] for blood work, they were having difficulty drawing blood on her and then she had a syncopal episode in the phlebotomy chair, she did not fall out of the chair. According to ER staff that responded to the rapid response, the patient's O2 saturation was 88% on room air, here in the emergency department her O2 saturation was 92% on room air and she is currently on 2 L via nasal cannula. Related Data Home Medications Medication Instructions Recorded Confirmed albuterol sulfate 90 mcg/actuation 2 puff inhalation Q4-6H PRN 05/12/23 05/22/23 aerosol inhaler (Ventolin HFA) Shortness Of Breath Or Wheezing budesonide-formoterol HFA 160 2 puff inhalation BID 05/12/23 05/22/23 mcg-4.5 mcg/actuation aerosol inhaler (Symbicort) metoprolol tartrate 25 mg tablet 12.5 mg PO BID 05/12/23 05/22/23 fluticasone propionate 50 1 spray intranasal DAILY 05/22/23 05/22/23 mcg/actuation nasal spray,suspension Previous Rx's Medication Instructions Recorded apixaban 5 mg tablet (Eliquis) 5 mg PO BID #60 tabs 05/21/23 hydrocortisone 2.5 % topical cream 1 appl MD BID #30 grams 05/21/23 with perineal applicator (Proctozone-HC) polyethylene glycol 3350 17 gram 17 g PO DAILY PRN Constipation #30 05/21/23 oral powder packet ea Allergies Allergy/AdvReac Type Severity Reaction Status Date / Time hydrocodone [From Vicodin] Allergy Vomiting Verified 05/22/23 16:46 oxycodone [From Percocet] Allergy Vomiting Verified 05/22/23 16:46 shellfish derived Allergy Anaphylaxis Verified 05/22/23 16:46 Review of Systems 2 Review of Systems: Yes all other systems are reviewed and are negative PMF Past Medical History Medical History Family history of thyroid disease Bilateral cataracts Sinus tachycardia Asthma Surgical History S/P IVC filter History of tonsillectomy History of open heart surgery Family History Family History Mother Leukemia Maternal Aunt Lung cancer Ovarian cancer Social History Social History Household Members: Family Household Members Other:: sister Housing: House Do you presently have visiting nurse or other home services: No Comment: Commode near bed. Pt gait and balance are steady. Per protocol extra safety Patient Tobacco Use Status: Former Tobacco user Smoked in Last 30 Days: No Use of substances other than those prescribed or required for medical reasons: No Advance Directives: Yes Advance Directives on File: Yes Advance Directives Date on File: 05/22/23 Patient : No service: No Physical Exam 2 Vital Signs: Vital Signs: Last Vital Signs Temp 98.8 F 05/22/23 19:20 Pulse 111 H 05/22/23 19:20 Resp 20 05/22/23 19:20 BP 125/73 05/22/23 19:20 Pulse Ox 99 05/22/23 18:58 O2 Del Method Nasal Cannula 05/22/23 19:20 O2 Flow Rate 2 05/22/23 19:20 Oxygen Flow Rate 2 05/22/23 18:58 BMI result Body Mass Index 22.2 Vital signs did reveal an elevated heart rate of 106 otherwise unremarkable Exam General: Awake, alert in no distress, patient does appear to be weak, she was not able to pull herself up in the bed and required assistance to hold her up while I was listening to her lungs. Head: Normocephalic, atraumatic EENT: PERRL, Lids normal, sclera normal, conjunctiva normal, nose normal , ears normal, throat without erythema or exudates Neck: Supple, no adenopathy Lung: breath sounds symmetric, no wheezing, rales or rhonchi Chest: symmetric movement, nontender Heart: regular rate and rhythm, normal S1, S2 no murmurs or rubs Abdomen: soft, non-tender, nondistended, normal bowel sounds Back: no vertebral tenderness, no CVAT Extremities: no deformities, moves all extremities symmetrically Skin: no rashes, no lesion, normal color and warmth Neuro: Awake, alert, oriented, normal speech, cranial nerves intact, moves all extremities symmetrically, gait was not tested Psych: Pleasant, cooperative Medications Administered Discontinued Medications Generic Name Dose Route Start Last Admin Trade Name Freq PRN Reason Stop Dose Admin Sodium Chloride 1,000 mls @ 999 mls/hr 05/22/23 17:50 05/22/23 20:26 Ns IV 05/22/23 18:50 Infused .Q1H1M STA Infusion Medical Decision Making Medical Decision Making [facility] Narrative: 62-year-old female with pertinent history of asthma not on home oxygen, sinus tachycardia on beta-elli, history of mitral valve repair in 2017 who was admitted to this hospital from 05/11/2023 until 05/21/2023 for acute subsegmental right middle and right lower lobes pulmonary emboli in the right middle and right lower lobes, right-sided pneumonia and bilateral DVTs, developed lower GI bleed which was felt to be secondary to hemorrhoids based on colonoscopy, IVC filter placement on 05/15/23, enlarged mediastinal lymph node on CT imaging consistent with adenocarcinoma of the lung. According to the patient's sister and PCP, patient was very weak when she was discharged yesterday, had difficulty getting into the house and stayed mainly in bed, she has had no appetite this had very little food or fluid to drink the last 24 hours, whenever she stands her legs are weak and she has not able to walk. Patient was seen today by our oncologist, Dr. Lowry on was sent to phlebotomy where she had a syncopal episode while they were trying to draw her blood. Reported that her O2 saturation was 88% at the time of her syncope. In the emergency department O2 saturation is 92% on room air, she is tachycardic, exam is consistent with generalized weakness otherwise was unremarkable 20:30 Differential diagnosis: ?Includes but is not limited to myocardial infarction, myocardial ischemia, arrhythmia, anemia, electrolyte abnormality, deconditioning, C difficile colitis, pneumonia Following evaluation was ordered: CBC, CMP, CK, PT/INR, PTT, urinalysis, troponin, BNP, lipase, ethanol, urine drug screen, COVID-19, influenza, RSV Patient was initially treated with the following: IV insert, oxygen 2 L via nasal cannula, normal saline x1 L Course: 20:30 My interpretation patient's laboratory evaluation is as follows: WBC elevated 26,900 with 93 neutrophils and 3 lymphocytes. Normocytic anemia with an H&H of 10.7 and 32.2-this is increased compared to 05/20/2023 when the H&H was 9.4 and 28.1. Patient's EKG did not reveal any acute ischemic or injury pattern. I will repeat the patient's troponin at 22:15 hours. Chest x-ray does reveal increased right lower lobe infiltrate with an effusion. Patient denied shortness of breath or pleuritic chest pain. Given the patient's elevated white blood cell count and change in her chest x- ray, patient will be treated for possible pneumonia with cefepime 2 g IV and vancomycin 1500 mg IV. I did discuss the patient's presentation with the covering hospitalist, Dr. Calix the patient will be admitted for further management. Lab Data 05/22/23 19:15 05/22/23 19:15 Labs: Lab Results 05/22/23 05/22/23 Range/Units 19:13 19:15 WBC 26.9 H (4.8-10.8) X10*3/uL RBC 3.77 L (4.20-5.50) X10*6/uL Hgb 10.7 L (12.0-16.0) g/dl Hct 32.2 L (37.0-47.0) % MCV 85.4 (80.0-98.0) fL MCH 28.4 (27.0-33.0) pg MCHC 33.2 (31.0-35.0) g/dl RDW 15.2 (11.0-16.0) % Plt Count 332 D (160-400) X10*3/uL MPV 9.7 (9.4-12.3) fL Immature Gran % (Auto) 0.9 H (0.0-0.4) % Neut % (Auto) 93.1 H (45-73) % Lymph % (Auto) 3.0 L (20-40) % [place] % (Auto) 2.7 (2-11) % Eos % (Auto) 0.1 (0-4) % Baso % (Auto) 0.2 (0-2) % Lymph # (Auto) 0.8 L (1.2-4.9) X10*3/uL [place] # (Auto) 0.7 (0.1-1.2) X10*3/uL Eos # (Auto) 0.0 (0.0-0.4) X10*3/uL Baso # (Auto) 0.1 (0.0-0.2) X10*3/uL Abs Immat Gran (auto) 0.24 H (0.00-0.03) X10*3/uL Absolute Neuts (auto) 25.0 H (2.0-8.3) x10*3/uL Absolute Nucleated RBC 0.000 (0.0-0.012) X10*3/uL Nucleated RBC % (auto) 0.0 (0.0-0.2) /100WBC Smear Tech's Comments VERIFIED Sodium 132 L (135-145) mmol/L Potassium 4.3 (3.3-5.1) mmol/L Chloride 101 (96-108) mmol/L Carbon Dioxide 22 (22-29) mmol/L Anion Gap 13 (12-20) BUN 12 (9-16) mg/dL Creatinine 0.70 (0.5-1.4) mg/dL Estim Creat Clear Calc 78.9 Estimated GFR > 60 Random Glucose 118 H (60-115) mg/dL Calcium 8.9 (8.4-10.2) mg/dL Total Bilirubin 0.4 (0.0-1.0) mg/dL AST 32 H (5-31) U/L ALT 30 (0-31) U/L Alkaline Phosphatase 141 H (39-117) U/L Total Creatine Kinase 45 (26-140) U/L Troponin I High Sens 360.7 H* D (<3.5-17.0) ng/L B-Natriuretic Peptide 227 H (<100) pg/mL Total Protein 7.5 (6.5-8.0) g/dL Albumin 3.0 L (3.5-5.0) g/dL Lipase 30 (8-78) U/L Urine Color Yellow Urine Appearance Cloudy Urine pH 6.5 (5.0-9.0) Ur Specific [place] 1.020 (1.005-1.025) Urine Protein 30 (1+) H (Neg-Trace) mg/dL Urine Glucose (UA) Negative (Negative) mg/dL Urine Ketones 15 (Negative) mg/dL Urine Blood Negative (Negative) Urine Nitrite Negative (Negative) Ur Leukocyte Esterase Trace H (Negative) Urine RBC 0-2 (0-2) /HPF Urine WBC 0-5 (0-5) /HPF Ur Squamous Epith Cells 3-5 (0-2) /HPF Urine Bacteria None Seen (None Seen) Hyaline Casts 3-5 (0-2) /LPF Urine Opiates Screen Not Detected (Not Detect) Urine Fentanyl Screen Not Detected (Not Detect) Ur Barbiturates Screen Not Detected (Not Detect) Ur Phencyclidine Scrn Not Detected (Not Detect) Ur Amphetamines Screen Not Detected (Not Detect) U Benzodiazepines Scrn Not Detected (Not Detect) Urine Cocaine Screen Not Detected (Not Detect) U Marijuana (THC) Screen Not Detected (Not Detect) Ethyl Alcohol < 10 mg/dL Influenza Type A (PCR) NEGATIVE (Negative) Influenza Type B (PCR) NEGATIVE (Negative) RSV RNA Qual (PCR) NEGATIVE (Negative) SARS-CoV-2 RNA (RT-PCR) NEGATIVE (Negative) Blood Type O Positive Independent Interpretation I performed an independent interpretation of an: EKG Interpretation: My independent interpretation patient's 12 EKG done at 16:51 hours is as follows: Sinus tachycardia with a rate of 107, normal MD interval, QRS duration QTC interval, no ST segment elevation, no ST segment depression inverted T-wave in V1 and V2, no PACs, no PVCs. Compared to EKG dated 05/11/2023 at 15:29 hours, patient had frequent PVCs on the previous EKG, inverted T-wave in V1 was present, new in V2. Radiology Impression Discussion of test interpretation with radiology: I have reviewed the radiologist's reading. Radiologist Impression: XR chest 1 v IMPRESSION: Increasing atelectasis or consolidation at the right lung base and increasing right pleural effusion. Dictated By: Latesha Gallo MD Critical Care Time Critical Care Time Critical Care Time: Yes Total Critical Care Time: 45 Attestation: Critical Care: The patient was critically ill with a high probability of imminent or life threatening deterioration. I spent greater than 30 minutes of discontinuous time evaluating the patient,delivering critical care at the bedside, discussing and evaluating pertinent data with consultants. Critical care time does not include time spent performing separately billable procedures or teaching. Total time spent performing critical care was 45 minutes. Discharge Plan Discharge Patient Disposition: Admitted As Inpatient Prescriptions: No Action fluticasone propionate [Flonase] 50 mcg/actuation [place],Suspension 1 spray INTRANASAL DAILY Rx Instructions: administer into each nostril albuterol sulfate [Ventolin HFA] 90 mcg/actuation Hfa Aerosol Inhaler 2 puff INHALATION Q4-6H PRN (Reason: Shortness Of Breath Or Wheezing) metoprolol tartrate 25 mg Tablet 12.5 mg PO BID budesonide-formoterol [Symbicort] 160-4.5 mcg/actuation Hfa Aerosol Inhaler 2 puff INHALATION BID polyethylene glycol 3350 17 gram Powder In Packet 17 g PO DAILY PRN (Reason: Constipation) Qty: 30 0RF hydrocortisone [Proctozone-HC] 2.5 % Cream With Perineal Applicator 1 appl MD BID Qty: 30 0RF Eliquis 5 mg Tablet 5 mg PO BID Qty: 60 0RF
[2023-05-22 18:58] VITALS: BP 127/81; PULSE 115; RESP 18; O2SAT 99
[2023-05-22 19:20] VITALS: BP 125/73; PULSE 111; RESP 20; TEMP 37.1
[2023-05-22] MEDS: 0.9 % Sodium Chloride 1,000 ML 999 ML IV (19:22)
--- NOTE | 2023-05-22 19:25 | MHC.EDTECH ---
THIS PCT ASSUMED CARE OF PATIENT AT 1900 ,VITALS TAKEN BLOOD DRAWN INCLUDING TYPE AND SCREEN ,FLU/COVID SWAB AND URINE SAMPLE ALL SENT TO LAB ,PATIENT BELONINGS LIST DONE AND PER SARAH GRIFFIN IN PLACE .
[2023-05-22 19:28] LABS: Basophils Absolute Auto 0.1 X10*3/uL (0.0-0.2); Basophils Percent Auto 0.2 % (0-2); Eosinophils Percent Auto 0.1 % (0-4); Hematocrit 32.2 % (37.0-47.0); Hemoglobin 10.7 g/dl (12.0-16.0); Imm Gran Abs Auto 0.24 X10*3/uL (0.00-0.03); Imm Gran Pct Auto 0.9 % (0.0-0.4); Lymphocytes Absolute Auto 0.8 X10*3/uL (1.2-4.9); MANUAL DIFF FLAG SCAN; Mean Corpuscular HGB Conc 33.2 g/dl (31.0-35.0); Mean Corpuscular Hemoglobin 28.4 pg (27.0-33.0); Mean Corpuscular Volume 85.4 fL (80.0-98.0); Mean Platelet Volume 9.7 fL (9.4-12.3); Monocytes Absolute Auto 0.7 X10*3/uL (0.1-1.2); Monocytes Percent Auto 2.7 % (2-11); Neutrophils Percent Auto 93.1 % (45-73); Platelet Count 332 X10*3/uL (160-400); Red Blood Count 3.77 X10*6/uL (4.20-5.50); Red Cell Distribution Width 15.2 % (11.0-16.0); SCAN SMEAR FLAG 1; White Blood Count 26.9 X10*3/uL (4.8-10.8)
[2023-05-22 19:34] LABS: Appearance Urine Cloudy; Color Urine Yellow; Glucose Urine UA Negative (Negative); Leukocyte Esterase Urine Trace (Negative); Nitrite Urine Negative (Negative); PH 6.5 (5.0-9.0); UMIC TRIGGER UACC YES; Urine Blood Negative (Negative); Urine Ketones 15 mg/dL (Negative); Urine Protein 30 (1+) mg/dL (Neg-Trace)
[2023-05-22 19:35] LABS: INTERNATIONAL NORM RATIO 1.7 (0.9-1.1); Prothrombin Time 20.6 SEC (11.1-13.3)
[2023-05-22 19:38] LABS: Partial Thromboplastin Time 28.3 SEC (26.0-36.8)
[2023-05-22 19:39] LABS: Alanine Aminotransferase 30 U/L (0-31); Alkaline Phosphatase 141 U/L (39-117); Anion Gap 13 (12-20); Aspartate Amino Transferase 32 U/L (5-31); Bilirubin Total 0.4 mg/dL (0.0-1.0); Blood Urea Nitrogen 12 mg/dL (9-16); Calcium 8.9 mg/dL (8.4-10.2); Carbon Dioxide 22 mmol/L (22-29); Chloride 101 mmol/L (96-108); Creatinine Clr Calc Pharmacy 78.9; Estimated Glomerular Filt Rate > 60; Ethanol < 10 mg/dL; Glucose Random 118 mg/dL (60-115); Lipase 30 U/L (8-78); Potassium 4.3 mmol/L (3.3-5.1); Sodium 132 mmol/L (135-145); Total Protein 7.5 g/dL (6.5-8.0)
[2023-05-22 19:40] LABS: Amphetamine Screen Urine Not Detected (Not Detect); Barbiturates, Urine Not Detected (Not Detect); Benzodiazepines Screen Urine Not Detected (Not Detect); Cannabinoid Screen Urine Not Detected (Not Detect); Cocaine Screen Urine Not Detected (Not Detect); Fentanyl, urine Not Detected (Not Detect); Opiate Screen Urine Not Detected (Not Detect); Phencyclidine Screen Urine Not Detected (Not Detect)
[2023-05-22 19:46] LABS: Bacteria Urine None Seen (None Seen); RBC Urine 0-2 /HPF (0-2); WBC Urine 0-5 /HPF (0-5)
[2023-05-22 19:47] LABS: B Type Natriuretic Peptide 227 pg/mL (<100); Troponin-I High Sensitivity 360.7 ng/L (<3.5-17.0)
[2023-05-22 19:57] LABS: Influenza A PCR NEGATIVE (Negative); Influenza B PCR NEGATIVE (Negative); Resp Syncy Virus RNA Qual PCR NEGATIVE (Negative); SARS COV2 PCR INHOUSE NEGATIVE (Negative)
[2023-05-22 20:16] LABS: SLIDE REVIEW VERIFIED
--- NOTE | 2023-05-22 20:31 | MHC.EDTECH ---
LACTIC ACID AND BOTH SETS OF BLOOD CULTURE DRAWN AND SENT TO LAB .
--- NOTE | 2023-05-22 20:48 | PHA.MEDREC ---
Pharmacy Consult ? Medication Reconciliation Pharmacy has completed the medication reconciliation. Patient just discharge yesterday 05/21/23. Patient with new prescriptions for Apixaban, Miralax and Hydrocortisone [place]. Kayli Nye, WandyD
[2023-05-22 20:52] LABS: Lactic Acid 1.1 mmol/L (0.5-2.0)
[2023-05-22] MEDS: 0.9 % Sodium Chloride 1,000 ML 150 ML IVCONT (20:55)
[2023-05-22] MEDS: cefEPime HCl 2 GM in 0.9 % Sodium Chloride 50 ML IV (20:55)
--- NOTE | 2023-05-22 21:17 | P.HPHOSP_ITS ---
History of Present Illness Date of Service: 05/22/23 Attending physician on admission: Gail Calix Chief Complaint: syncope 62-year-old female with pertinent history of asthma not on home oxygen, sinus tachycardia on beta-elli, history of mitral valve repair in 2017, recently diagnosed with adenocarcinoma of the lung with recent admission for pulmonary embolus started on Eliquis complicated by hemorrhoidal bleed with resumption of Eliquis per GI on discharge 05/20, presented to the ED from hematology following a vasovagal syncopal episode during lab draw earlier today. Outpatient response was called and patient was transferred to the ED for further evaluation. Patient's sister and friend are at bedside who report patient became pale and she does report feeling lightheaded before syncopizing. There was no head strike. Family also reports productive cough and weakness. Also seems dazed per pt and family, though is oriented x3. Initial vitals prior to ED revealed hypoxia to 88% and was placed on 2L supplemental O2 but is now maintaining oximetry 96-98% on room air. She is tachycardic to 115, vitals otherwise stable. She is afebrile. She has a worsening leukocytosis of 26.9 (WBC was 19.7 on discharge on 05/20). Renal function baseline, electrolyte levels normal except for sodium 132. INR 1.7, PT 20.6. Total CK 45. Initial troponin 360.7, repeat pending (trop 05/11 213.6, likely due to r demand from PE, echo 05/12 negative for any regional wall motion abnormality with normal LV systolic function with EF 60-65%, diastolic function indeterminate, low normal right ventricular systolic function, normal right atrial pressures, mild pulmonary hypertension present). BNP 227. Urinalysis unremarkable. Urine tox screen negative. Negative for COVID-19, influenza, RSV. Chest x-ray shows increasing atelectasis/consolidation of the right lung base with increased right pleural effusion compared to prior imaging studies. She denies any fevers, chills, sore throat, congestion, abdominal pain, nausea, vomiting, melena, hematochezia, epistaxis, urinary symptoms, dyspnea, ongoing lightheadedness, palpitations, or chest pain. She has reported increased weakness with difficulty with ambulation that has been persistent for several weeks but has worsened since discharge. In the ED, given IV cefepime and IV NS. Review of Systems 2 Review of Systems: Constitutional - Awake and Alert, No apparent distress Eyes - PERRLA, EOMI Cardiovascular - S1S2, RRR, No edema Respiratory - Normal lung expansion, Normal respiratory effort, No respiratory distress, diminished RLL, crackles LLL Gastrointestinal - NT / ND; +BS; No rebound or guarding Extremities - no calf tenderness bilaterally, no swelling Skin - Warm/Dry Neurological - Alert & oriented x3, slow to respond, family filling in ROS, CN II-XII in tact Psychological - Appropriate affect [facility] Medical History (Updated 05/22/23 @ 21:30 by BANDAR Meade) Adenocarcinoma of lung GIB (gastrointestinal bleeding) Mediastinal mass Pulmonary emboli Family history of thyroid disease Bilateral cataracts Sinus tachycardia Asthma Family History Mother Leukemia Maternal Aunt Lung cancer Ovarian cancer Surgical History S/P IVC filter History of tonsillectomy History of open heart surgery Social History Household Members: Family Household Members Other:: sister Housing: House Do you presently have visiting nurse or other home services: No Comment: Commode near bed. Pt gait and balance are steady. Per protocol extra safety Patient Tobacco Use Status: Former Tobacco user Smoked in Last 30 Days: No Use of substances other than those prescribed or required for medical reasons: No Advance Directives: Yes Advance Directives on File: Yes Advance Directives Date on File: 05/22/23 Patient : No service: No Meds Allergies Allergy/AdvReac Type Severity Reaction Status Date / Time hydrocodone [From Vicodin] Allergy Vomiting Verified 05/22/23 16:46 oxycodone [From Percocet] Allergy Vomiting Verified 05/22/23 16:46 shellfish derived Allergy Anaphylaxis Verified 05/22/23 16:46 Active Medications: Current Medications Acetaminophen (Acetaminophen 325 Mg Tablet) 650 mg PO Q6H PRN PRN Reason: Pain, Mild (Pain Scale 1-3) Albuterol Sulfate (Albuterol Sulfate 90 Mcg 8 Gm Inhaler) 2 puff INHALE Q4-6H PRN PRN Reason: Shortness Of Breath Or Wheezing Apixaban (Apixaban 5 Mg Tablet) 5 mg PO BID [facility] Fluticasone Propionate (Fluticasone Propionate Nasal 16 Gm [place]) 1 spray NOSTRIL-B DAILY PRN PRN Reason: Congestion Hydrocortisone (Hydrocortisone 2.5 % Rectal Cr 30 Gm Tube) 1 appl ID BID [facility] Vancomycin HCl 1,500 mg/ (Sodium Chloride) 500 mls @ 333.333 mls/hr IV ONCE ONE Stop: 05/22/23 21:56 Sodium Chloride (Ns) 1,000 mls @ 80 mls/hr IVCONT .[id number] [facility] Last Admin: 05/22/23 20:55 Dose: 150 mls/hr Metoprolol Tartrate (Metoprolol Tartrate 12.5 Mg Halftab) 12.5 mg PO BID [facility]; Protocol Non-Formulary Medication (Budesonide-Formoterol [Symbicort]) 2 puff INHALE BID [facility] Ondansetron HCl (Ondansetron Hcl 4 Mg/2 Ml Vial) 4 mg IVPUSH Q8H PRN PRN Reason: Nausea and Vomiting Polyethylene Glycol (Polyethylene Glycol 3350 17 Gm Powd.Pack) 17 gm PO DAILY PRN PRN Reason: Constipation Senna (Sennosides 8.6 Mg Tablet) 17.2 mg PO BEDTIME PRN PRN Reason: Constipation Sodium Chloride (0.9 % Sodium Chloride Flush 3 Ml Syringe) 3 ml IVFLUSH QSHIFT [facility] Home Medications Medication Instructions Recorded Confirmed Last Taken Type albuterol sulfate 90 mcg/actuation 2 puff inhalation Q4-6H PRN 05/12/23 05/22/23 Unknown History aerosol inhaler (Ventolin HFA) Shortness Of Breath Or Wheezing budesonide-formoterol HFA 160 2 puff inhalation BID 05/12/23 05/22/23 Unknown History mcg-4.5 mcg/actuation aerosol inhaler (Symbicort) metoprolol tartrate 25 mg tablet 12.5 mg PO BID 05/12/23 05/22/23 Unknown History fluticasone propionate 50 1 spray intranasal DAILY PRN 05/22/23 05/22/23 Unknown History mcg/actuation nasal Congestion spray,suspension Physical Exam 2 Vital Signs and Narrative: Vital Signs: Last Vital Signs Temp 98.8 F 05/22/23 19:20 Pulse 111 H 05/22/23 19:20 Resp 20 05/22/23 19:20 BP 125/73 05/22/23 19:20 Pulse Ox 99 05/22/23 18:58 O2 Del Method Nasal Cannula 05/22/23 19:20 O2 Flow Rate 2 05/22/23 19:20 Oxygen Flow Rate 2 05/22/23 18:58 BMI result Body Mass Index 22.2 Results Labs 05/22/23 19:15 05/22/23 19:15 Labs: Laboratory Results - last 24 hr 05/22/23 05/22/23 05/22/23 19:13 19:15 20:28 MCV 85.4 MCH 28.4 MCHC 33.2 RDW 15.2 Plt Count 332 D MPV 9.7 Immature Gran % (Auto) 0.9 H Neut % (Auto) 93.1 H Lymph % (Auto) 3.0 L [place] % (Auto) 2.7 Eos % (Auto) 0.1 Baso % (Auto) 0.2 Lymph # (Auto) 0.8 L [place] # (Auto) 0.7 Eos # (Auto) 0.0 Baso # (Auto) 0.1 Abs Immat Gran (auto) 0.24 H Absolute Neuts (auto) 25.0 H Absolute Nucleated RBC 0.000 Nucleated RBC % (auto) 0.0 Smear Tech's Comments VERIFIED PT 20.6 H D INR 1.7 H APTT 28.3 Anion Gap 13 Estim Creat Clear Calc 78.9 Estimated GFR > 60 Random Glucose 118 H Lactic Acid 1.1 Calcium 8.9 Total Bilirubin 0.4 AST 32 H ALT 30 Alkaline Phosphatase 141 H Total Creatine Kinase 45 Troponin I High Sens 360.7 H* D B-Natriuretic Peptide 227 H Total Protein 7.5 Albumin 3.0 L Lipase 30 Urine Color Yellow Urine Appearance Cloudy Urine pH 6.5 Ur Specific Pierce 1.020 Urine Protein 30 (1+) H Urine Glucose (UA) Negative Urine Ketones 15 Urine Blood Negative Urine Nitrite Negative Ur Leukocyte Esterase Trace H Urine RBC 0-2 Urine WBC 0-5 Ur Squamous Epith Cells 3-5 Urine Bacteria None Seen Hyaline Casts 3-5 Urine Opiates Screen Not Detected Urine Fentanyl Screen Not Detected Ur Barbiturates Screen Not Detected Ur Phencyclidine Scrn Not Detected Ur Amphetamines Screen Not Detected U Benzodiazepines Scrn Not Detected Urine Cocaine Screen Not Detected U Marijuana (THC) Screen Not Detected Ethyl Alcohol < 10 Influenza Type A (PCR) NEGATIVE Influenza Type B (PCR) NEGATIVE RSV RNA Qual (PCR) NEGATIVE SARS-CoV-2 RNA (RT-PCR) NEGATIVE Blood Type O Positive Antibody Screen NEGATIVE Imaging Radiologist's Impressions: Impressions Chest X-Ray 05/22/23 18:03 IMPRESSION: Increasing atelectasis or consolidation at the right lung base and increasing right pleural effusion. 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 Patient will be admitted for further management of worsening RLL pneumonia with associated acute metabolic encephalopathy and weakness #Worsening acute RLL pneumonia with associated pleural effusion -IV cefepime and vanco -strep pneumo antigen, Legionella antigen, sputum culture, and MRSA nasal swab pending -symptomatic management -follow CBC, cultures -PT eval due to weakness # acute metabolic encephalopathy -likely related to infection as above. Continue antibiotics -check head CT -monitor mentation # adenocarcinoma of the lung -recently diagnosed with hospital discharge 05/20, not yet initiated on therapy -oncology consult # pulmonary embolism/BLE DVT -diagnosed 05/11 -continue Eliquis # elevated troponins -likely demand in setting of pulmonary embolus -echo 05/12- for regional wall motion abnormality with normal LV systolic function, mildly reduced right ventricle systolic function, mild pulmonary hypertension # recent GI bleed -Eliquis briefly held, however found to be related to hemorrhoidal bleed and Eliquis was resumed on discharge 05/20 -continue Anusol # moderate persistent asthma -no acute exacerbation -continue maintenance inhalers, albuterol p.r.n. # sinus tachycardia -chronic, continue metoprolol DVT prophylaxis-Eliquis Full code Patient requires inpatient stay at least 2 midnights for management of worsening acute right lower lobe pneumonia with associated metabolic encephalopathy and weakness requiring IV antibiotics, close monitoring of mentation, and physical therapy evaluation and possible placement to short-term rehab Quality Stroke Does the patient have a stroke diagnosis?: No VTE Prior VTE?: No VTE Risk Level:: Medical - moderate - high VTE Device Contraindication: Treatment Not Indicated VTE Drug Contraindication: N/A - Med Ordered
[2023-05-22] MEDS: vancomycin HCL 1,500 MG in 0.9 % Sodium Chloride 500 ML 333.33 MG IV (21:30)
[2023-05-22] MEDS: Apixaban 5 MG TABLET PO (21:30)
[2023-05-22] MEDS: Metoprolol Tartrate 12.5 MG HALFTAB PO (21:30)
--- NOTE | 2023-05-22 21:39 | PHA.PROG ---
Admission Date/Time: Indication: PNA Weight in k.2 kg Adjusted body weight in K.64 kg [place] body weight in K.6 Obesity Dosing Indication % IBW: 104% Serum Creatinine - Last 168 Hours 05/22/23 19:15 Creatinine 0.70 Estimated CrCl and GFR - Last 168 Hours 05/22/23 19:15 Estim Creat Clear Calc 78.9 Estimated GFR > 60 Vancomycin Loading Dose: 1500 mg Current Vancomycin Dosing Regimen: 750 mg Q12H Date and Time for next Vancomycin Level to be drawn: @ 0800 Pharmacist Comments on Vancomycin Plan: Patient received an adequate load dose in the ER 05/22 @ 2130 Maintenance dose vancomcyin 750 mg Q12H is scheduled to start 05/23 @ 1000. Predicted AUC 448 with a trough of 14.1 Level will be drawn prior to 4th dose Pharmacy will monitor renal function daily. Kayli Nye, Cheikh Vancomycin dosing will take advantage of [employer] as a clinical decision support tool that uses Bayesian modeling to calculate individual patient's pharmacokinetic parameters and forecast the patient's drug concentration time course with the target goal AUC 24 range of 400 - 600 mg/L/hr.
[2023-05-22] MEDS: 0.9 % Sodium Chloride 1,000 ML 80 ML IVCONT (22:00)
[2023-05-22 22:41] VITALS: BP 128/77; PULSE 96; RESP 20; TEMP 37.2; O2SAT 100
--- NOTE | 2023-05-22 22:41 | MHC.EDTECH ---
Patient repeated trop drawn and mrsa swab collected and sent [facility]uel lab. Patient was reposition and boosted up in bed .
[2023-05-22 23:06] LABS: Troponin-I High Sensitivity 334.1 ng/L (<3.5-17.0)
[2023-05-22] MEDS: hydrOXYzine HCL 25 MG TABLET PO (23:29)
[2023-05-23] VITALS (13 sets, daily range): BP systolic 112–172; BP diastolic 73–99; PULSE 96–128; RESP 16–32; TEMP 36.4–38.1; O2SAT 91–100; BMI 21.9
--- NOTE | 2023-05-23 01:32 | MHC.EDTECH ---
PATIENT WAS CLEAN UP ,NEW PURE PLACE ,BEDDING CHANGE ,VITALS TAKEN AND URINE SAMPLE COLLECTED AND SENT TO LAB ,PT DRANK SIPS OF MADDIE MIKAELA .
--- NOTE | 2023-05-23 01:36 | MHC.EDTECH ---
PATIENT VERY RESTLESS ,WAS REPOSITION AND BOOSTED UP IN BED ,PATIENT REQUESTING SOMETHING TO HELP HER RELAX ,[facility]
[2023-05-23] MEDS: LORazepam 0.5 MG TABLET PO (01:47)
--- NOTE | 2023-05-23 03:32 | PC.NURSE ---
Error in charting - this RN titrated IVF from 150 to 80/hr at 2200 on 05/22, charting error corrected by Pharmacy, new IVF order entered and charted on.
[2023-05-23] MEDS: cefEPime HCl 2 GM in 0.9 % Sodium Chloride 50 ML IV ×3 (05:51→22:02)
[2023-05-23 06:00] LABS: Basophils Absolute Auto 0.1 X10*3/uL (0.0-0.2); Basophils Percent Auto 0.3 % (0-2); Eosinophils Percent Auto 0.1 % (0-4); Hematocrit 26.4 % (37.0-47.0); Hemoglobin 8.8 g/dl (12.0-16.0); Imm Gran Abs Auto 0.23 X10*3/uL (0.00-0.03); Imm Gran Pct Auto 0.9 % (0.0-0.4); Lymphocytes Percent Auto 4.1 % (20-40); MANUAL DIFF FLAG SCAN; Mean Corpuscular HGB Conc 33.3 g/dl (31.0-35.0); Mean Corpuscular Hemoglobin 28.2 pg (27.0-33.0); Mean Corpuscular Volume 84.6 fL (80.0-98.0); Mean Platelet Volume 10.1 fL (9.4-12.3); Monocytes Absolute Auto 0.9 X10*3/uL (0.1-1.2); Monocytes Percent Auto 3.6 % (2-11); Neutrophils Absolute Auto 22.9 x10*3/uL (2.0-8.3); Platelet Count 280 X10*3/uL (160-400); Red Blood Count 3.12 X10*6/uL (4.20-5.50); Red Cell Distribution Width 15.4 % (11.0-16.0); SCAN SMEAR FLAG 1; White Blood Count 25.2 X10*3/uL (4.8-10.8)
[2023-05-23 06:16] LABS: Anion Gap 12 (12-20); Blood Urea Nitrogen 10 mg/dL (9-16); Calcium 7.7 mg/dL (8.4-10.2); Carbon Dioxide 19 mmol/L (22-29); Chloride 105 mmol/L (96-108); Creatinine Clr Calc Pharmacy 86.3; Estimated Glomerular Filt Rate > 60; Glucose Random 105 mg/dL (60-115); Sodium 132 mmol/L (135-145)
--- NOTE | 2023-05-23 06:34 | HE.PHANOTE ---
Re: Vanco Due to patient's renal function continue dose of 750mg Q12H, next trough due at 0800.
--- NOTE | 2023-05-23 07:19 | MHC.EDTECH ---
Given breakfast tray but Pt stated she does not want to eat at this time.
[2023-05-23] MEDS: Fluticasone/Vilanterol 200/25 BLST.W.DEV 1 PUFF INHALE (07:24)
[2023-05-23 08:21] LABS: SLIDE REVIEW VERIFIED
[2023-05-23] MEDS: Apixaban 5 MG TABLET PO (09:21)
[2023-05-23] MEDS: Metoprolol Tartrate 12.5 MG HALFTAB PO ×2 (09:21→15:10)
[2023-05-23] MEDS: vancomycin HCL 750 MG in 0.9 % Sodium Chloride 250 ML 265 MG IV ×2 (09:25→22:41)
--- NOTE | 2023-05-23 09:26 | PC.NURSE ---
Pt booked for Medsurge level of care. Due to pt's recent admit for PE, elevated troponin and tachycardia, RN advocated for pt to be placed on Medtele. Spoke with Shreya Flowers APRN who agreed and will change orders.
--- NOTE | 2023-05-23 10:13 | HO.PM.IMPN ---
Subjective Subjective Date of Service: 05/23/23 Review of Systems Follow up weakness pleural effusion no pain feeling tired Physical Exam Vital Signs: Vital Signs: Last Vital Signs Temp 98.8 F 05/23/23 06:52 Pulse 108 H 05/23/23 09:20 Resp 26 H 05/23/23 09:20 BP 137/75 05/23/23 09:20 Pulse Ox 96 05/23/23 09:20 O2 Del Method Nasal Cannula 05/23/23 09:20 O2 Flow Rate 2 05/23/23 09:20 Oxygen Flow Rate 2 05/22/23 18:58 BMI result Body Mass Index 22.2 Appearing in no acute distress lung sounds are clear to auscultation heart regular rate rhythm, clear S1, S2 positive bowel sounds, abdomen is soft, nontender neuro patient is alert x3, no focal deficits Objective Data Active Medications Acetaminophen (Acetaminophen 325 Mg Tablet) 650 mg PO Q6H PRN PRN Reason: Pain, Mild (Pain Scale 1-3) Albuterol Sulfate (Albuterol Sulfate 90 Mcg 8 Gm Inhaler) 2 puff INHALE Q4H PRN PRN Reason: Shortness Of Breath Or Wheezing Apixaban (Apixaban 5 Mg Tablet) 5 mg PO BID [facility] Last Admin: 05/23/23 09:21 Dose: 5 mg Documented By: MAUIRCIO Fluticasone Propionate (Fluticasone Propionate Nasal 16 Gm [place]) 1 spray NOSTRIL-B DAILY PRN PRN Reason: Congestion Fluticasone/Vilanterol (Fluticasone/Vilanterol 200/25 Blst.W.Dev) 1 puff INHALE RDAILY [facility] Last Admin: 05/23/23 07:24 Dose: 1 puff Documented By: JAIRO Hydrocortisone (Hydrocortisone 2.5 % Rectal Cr 30 Gm Tube) 1 appl [place] BID [facility] Last Admin: 05/23/23 08:55 Dose: Not Given Documented By: MAURICIO Non-Admin Reason: Med Not Available Cefepime HCl 2 gm/ Sodium (Chloride) 50 mls @ 100 mls/hr IV Q8H [facility] Last Infusion: 05/23/23 06:22 Dose: Infused Documented By: SAHIL Vancomycin HCl 750 mg/ Sodium (Chloride) 265 mls @ 265 mls/hr IV Q12H [facility] Last Admin: 05/23/23 09:25 Dose: 265 mls/hr Documented By: MAURICIO Sodium Chloride (Ns) 1,000 mls @ 150 mls/hr IVCONT .Q6H40M [facility] Last Admin: 05/22/23 22:00 Dose: 80 mls/hr Documented By: SAHIL Metoprolol Tartrate (Metoprolol Tartrate 12.5 Mg Halftab) 12.5 mg PO BID [facility]; Protocol Last Admin: 05/23/23 09:21 Dose: 12.5 mg Documented By: MAURICIO Ondansetron HCl (Ondansetron Hcl 4 Mg/2 Ml Vial) 4 mg IVPUSH Q8H PRN PRN Reason: Nausea and Vomiting Pharmacy Consult (Consult Rx Vancomycin Dosing) 1 each MISCELLANE DAILY PRN PRN Reason: Consult order Polyethylene Glycol (Polyethylene Glycol 3350 17 Gm Powd.Pack) 17 gm PO DAILY PRN PRN Reason: Constipation Senna (Sennosides 8.6 Mg Tablet) 17.2 mg PO BEDTIME PRN PRN Reason: Constipation Sodium Chloride (0.9 % Sodium Chloride Flush 3 Ml Syringe) 3 ml IVFLUSH QSHIFT [facility] Last Admin: 05/23/23 08:55 Dose: Not Given Documented By: MAURICIO Non-Admin Reason: IV Running Labs 05/23/23 05:36 05/23/23 05:36 Labs: Laboratory Results - last 24 hr 05/22/23 05/22/23 05/22/23 19:13 19:15 20:28 MCV 85.4 MCH 28.4 MCHC 33.2 RDW 15.2 Plt Count 332 D MPV 9.7 Immature Gran % (Auto) 0.9 H Neut % (Auto) 93.1 H Lymph % (Auto) 3.[address] [place] % (Auto) 2.7 Eos % (Auto) 0.1 Baso % (Auto) 0.2 Lymph # (Auto) 0.[address] [place] # (Auto) 0.7 Eos # (Auto) 0.0 Baso # (Auto) 0.1 Abs Immat Gran (auto) 0.24 H Absolute Neuts (auto) 25.0 H Absolute Nucleated RBC 0.000 Nucleated RBC % (auto) 0.0 Smear Tech's Comments VERIFIED PT 20.6 H D INR 1.7 H APTT 28.3 Anion Gap 13 Estim Creat Clear Calc 78.9 Estimated GFR > 60 Random Glucose 118 H Lactic Acid 1.1 Calcium 8.9 Total Bilirubin 0.4 AST 32 H ALT 30 Alkaline Phosphatase 141 H Total Creatine Kinase 45 Troponin I High Sens 360.7 H* D B-Natriuretic Peptide 227 H Total Protein 7.5 Albumin 3.0 L Lipase 30 Urine Color Yellow Urine Appearance Cloudy Urine pH 6.5 Ur Specific [place] 1.020 Urine Protein 30 (1+) H Urine Glucose (UA) Negative Urine Ketones 15 Urine Blood Negative Urine Nitrite Negative Ur Leukocyte Esterase Trace H Urine RBC 0-2 Urine WBC 0-5 Ur Squamous Epith Cells 3-5 Urine Bacteria None Seen Hyaline Casts 3-5 Urine Opiates Screen Not Detected Urine Fentanyl Screen Not Detected Ur Barbiturates Screen Not Detected Ur Phencyclidine Scrn Not Detected Ur Amphetamines Screen Not Detected U Benzodiazepines Scrn Not Detected Urine Cocaine Screen Not Detected U Marijuana (THC) Screen Not Detected Ethyl Alcohol < 10 Influenza Type A (PCR) NEGATIVE Influenza Type B (PCR) NEGATIVE RSV RNA Qual (PCR) NEGATIVE SARS-CoV-2 RNA (RT-PCR) NEGATIVE Blood Type O Positive Antibody Screen NEGATIVE Enhanced Crossmatch See Detail 05/22/23 05/23/23 22:38 05:36 MCV 84.6 MCH 28.2 MCHC 33.3 RDW 15.4 Plt Count 280 MPV 10.1 Immature Gran % (Auto) 0.9 H Neut % (Auto) 91.0 H Lymph % (Auto) 4.[address] [place] % (Auto) 3.6 Eos % (Auto) 0.1 Baso % (Auto) 0.3 Lymph # (Auto) 1.[address] # (Auto) 0.9 Eos # (Auto) 0.0 Baso # (Auto) 0.1 Abs Immat Gran (auto) 0.23 H Absolute Neuts (auto) 22.9 H Absolute Nucleated RBC 0.000 Nucleated RBC % (auto) 0.0 Smear Tech's Comments VERIFIED PT INR APTT Anion Gap 12 Estim Creat Clear Calc 86.3 Estimated GFR > 60 Random Glucose 105 Lactic Acid Calcium 7.7 L D Total Bilirubin AST ALT Alkaline Phosphatase Total Creatine Kinase Troponin I High Sens 334.1 H* B-Natriuretic Peptide Total Protein Albumin Lipase Urine Color Urine Appearance Urine pH Ur Specific [place] Urine Protein Urine Glucose (UA) Urine Ketones Urine Blood Urine Nitrite Ur Leukocyte Esterase Urine RBC Urine WBC Ur Squamous Epith Cells Urine Bacteria Hyaline Casts Urine Opiates Screen Urine Fentanyl Screen Ur Barbiturates Screen Ur Phencyclidine Scrn Ur Amphetamines Screen U Benzodiazepines Scrn Urine Cocaine Screen U Marijuana (THC) Screen Ethyl Alcohol Influenza Type A (PCR) Influenza Type B (PCR) RSV RNA Qual (PCR) SARS-CoV-2 RNA (RT-PCR) Blood Type Antibody Screen Enhanced Crossmatch Assessment and Plan (1) Mediastinal mass: Status: Acute (2) Pulmonary emboli: Status: Acute Plan 62-year-old female with pertinent history of asthma not on home oxygen, sinus tachycardia on beta-elli, history of mitral valve repair in 2017, recently diagnosed with adenocarcinoma of the lung with recent admission for pulmonary embolus started on Eliquis complicated by hemorrhoidal bleed with resumption of Eliquis per GI on discharge 05/20, presented to the ED from hematology following a vasovagal syncopal episode during lab draw earlier today. Patient will be admitted for further management of worsening RLL pneumonia with associated acute metabolic encephalopathy and weakness Acute hypoxic respiratory failure secondary to worsening right side pleural effusion started on IV cefepime and vanco for possible pna ? post obstructive strep pneumo antigen, Legionella antigen, sputum culture, and MRSA nasal swab pending plan for therapeutic and diagnostic thoracentesis Eliquis held, last dose 05/23/23 0900 Continue oxygen therapy, titrate to oxygen saturation greater than 91% on room air Acute metabolic encephalopathy likely related to infection as above. Continue antibiotics No evidence of acute intracranial abnormality on head CT Better mentation today Adenocarcinoma of pulmonary origin Bronchoscopy 05/18/2023 New diagnosis, not yet initiated on therapy, oncology following Pulmonary embolism/BLE DVT diagnosed 05/11 s/p IVC filter 05/15/23 hold Eliquis for Thoracentesis Elevated troponins likely demand in setting of pulmonary embolus echo 05/12 rwma with normal LV systolic function, mildly reduced right ventricle systolic function, mild pulmonary hypertension Moderate persistent asthma no acute exacerbation continue maintenance inhalers, albuterol p.r.n. Sinus tachycardia chronic, continue metoprolol DVT prophylaxis-Eliquis on hold for thoracentesis Attending Dr. Escobedo Full code continue hospital stay for management of worsening acute right lower lobe pneumonia with associated metabolic encephalopathy and weakness requiring IV antibiotics, close monitoring of mentation, and physical therapy evaluation and possible placement to short-term rehab Quality Stroke Does the patient have a stroke diagnosis?: No VTE Prior VTE?: No VTE Risk Level:: Medical - moderate - high VTE Device Contraindication: Treatment Not Indicated VTE Drug Contraindication: N/A - Med Ordered
--- NOTE | 2023-05-23 10:35 | MHC.EDTECH ---
Pt found to be incontinent of urine. Pt changed, cleaned and repositioned with laser/electro optics technician Jennifer. New purewick placed. Call sagastume within reach.
[2023-05-23 12:31] LABS: Total Protein 7.2 g/dL (6.5-8.0)
[2023-05-23 12:36] LABS: Lactate Dehydrogenase 566 U/L (122-220)
--- NOTE | 2023-05-23 13:52 | PC.NURSE ---
Pt has baseline tachycardia (on 12.5mg lopressor bid, was given this am) but her HR has been sustaining ST 120's. Shreya Flowers APRN made aware.
--- NOTE | 2023-05-23 13:56 | MHC.EDTECH ---
Pt found to be slightly incontinent and needing to be repositioned. Pt also found to be warm and sweating, rectal temp done (100.6F, Denise RN aware) Bedding change done by t/w and Jennifer (spanish medical interpreter), new purewick placed. Pt repositioned. Vital signs taken, Denise RN also aware of vitals. Pt declined to eat lunch and/or a drink at this time.
[2023-05-23 14:10] LABS: MRSA Nasal PCR NEGATIVE (Negative); SA Nasal PCR NEGATIVE (Negative)
--- NOTE | 2023-05-23 14:42 | MHC.EDTECH ---
Pt repositioned in bed. Purewick reapplied. Pt is dry.
--- NOTE | 2023-05-23 15:02 | PC.NURSE ---
Respiratory at bedside to evaluate patient's breathing.
--- NOTE | 2023-05-23 16:19 | PC.NURSE ---
Patient returned from Thoracentesis procedure and according to Rosalia NICK they pulled off 1,000 ml of fluid and fluid sent for testing. Patient does feel that her breathing is a little easier. VSS see flow sheet
[2023-05-23 16:55] LABS: RBC Pleural Fluid 0.002 X10*6/uL; WBC Pleural Fluid 0.735 X10*3/uL
[2023-05-23 17:55] LABS: BF Shift QC OK YES; Lymphocytes Pleural Fluid 50 %; Monocytes Pleural Fluid 9 %; Neutrophils Pleural Fluid 37 %; Other Cells Plerual Fl 4 %
[2023-05-23] MEDS: 0.9 % Sodium Chloride Flush 3 ML SYRINGE IVFLUSH ×2 (19:04→22:43)
[2023-05-23 20:14] LABS: Venous Blood Gas Refer to POC result
[2023-05-23 20:15] LABS: VBG Base Excess -0.9 mmol/L; VBG HCO3 20 mmol/L (22-26); VBG pCO2 22 mmHg; VBG pH 7.55 (7.32-7.43); VBG pO2 125 mmHg
[2023-05-23] MEDS: Metoprolol Tartrate 25 MG TABLET PO (22:01)
[2023-05-23] MEDS: Hydrocortisone 2.5 % Rectal Cr 30 GM TUBE 1 APPL PR (22:02)
[2023-05-23] MEDS: 0.9 % Sodium Chloride 1,000 ML 150 ML IVCONT (22:02)
[2023-05-23 22:33] LABS: Glucose, Whole Blood 94 mg/dL (60-115)
[2023-05-24] VITALS (12 sets, daily range): BP systolic 111–144; BP diastolic 76–96; PULSE 111–126; RESP 18–32; TEMP 36.7–38; O2SAT 28–100
[2023-05-24] MEDS: cefEPime HCl 2 GM in 0.9 % Sodium Chloride 50 ML IV ×3 (05:21→21:16)
[2023-05-24] MEDS: Fluticasone/Vilanterol 200/25 BLST.W.DEV 1 PUFF INHALE (08:09)
[2023-05-24 08:14] LABS: Basophils Absolute Auto 0.1 X10*3/uL (0.0-0.2); Basophils Percent Auto 0.2 % (0-2); Eosinophils Percent Auto 0.1 % (0-4); Hemoglobin 9.4 g/dl (12.0-16.0); Imm Gran Abs Auto 0.21 X10*3/uL (0.00-0.03); Imm Gran Pct Auto 0.8 % (0.0-0.4); Lymphocytes Percent Auto 3.5 % (20-40); MANUAL DIFF FLAG SCAN; Mean Corpuscular HGB Conc 34.8 g/dl (31.0-35.0); Mean Corpuscular Hemoglobin 28.7 pg (27.0-33.0); Mean Corpuscular Volume 82.3 fL (80.0-98.0); Mean Platelet Volume 10.4 fL (9.4-12.3); Monocytes Absolute Auto 0.9 X10*3/uL (0.1-1.2); Monocytes Percent Auto 3.4 % (2-11); Neutrophils Absolute Auto 25.2 x10*3/uL (2.0-8.3); Platelet Count 292 X10*3/uL (160-400); Red Blood Count 3.28 X10*6/uL (4.20-5.50); Red Cell Distribution Width 15.2 % (11.0-16.0); SCAN SMEAR FLAG 1; White Blood Count 27.4 X10*3/uL (4.8-10.8)
[2023-05-24 08:23] LABS: Vancomycin Trough 11.4 mcg/mL (10.0-20.0)
[2023-05-24 08:25] LABS: Anion Gap 17 (12-20); Blood Urea Nitrogen 12 mg/dL (9-16); Calcium 8.1 mg/dL (8.4-10.2); Carbon Dioxide 17 mmol/L (22-29); Chloride 103 mmol/L (96-108); Creatinine Clr Calc Pharmacy 81.3; Estimated Glomerular Filt Rate > 60; Glucose Random 109 mg/dL (60-115); Magnesium 1.9 mg/dL (1.6-2.6); Potassium 3.8 mmol/L (3.3-5.1); Sodium 133 mmol/L (135-145)
[2023-05-24] MEDS: Apixaban 5 MG TABLET PO ×2 (08:49→21:15)
[2023-05-24] MEDS: Hydrocortisone 2.5 % Rectal Cr 30 GM TUBE 1 APPL PR (08:49)
[2023-05-24] MEDS: 0.9 % Sodium Chloride Flush 3 ML SYRINGE IVFLUSH ×2 (08:50→14:24)
[2023-05-24] MEDS: Metoprolol Tartrate 25 MG TABLET PO ×2 (08:50→21:15)
--- NOTE | 2023-05-24 08:58 | HE.PHANOTE ---
RE: VANCO DOSING Trough came back as 11.4. Based on patient's renal function and indication, dose increases to 1000 mg q12h (predictec AUC 534 and trough 16.2) starting @1000 on 05/24/23. Next random is scheduled @0800 on 05/25/23.
[2023-05-24 09:46] LABS: Alanine Aminotransferase 22 U/L (0-31); Albumin Level 2.8 g/dL (3.5-5.0); Alkaline Phosphatase 124 U/L (39-117); Aspartate Amino Transferase 35 U/L (5-31); Bilirubin Direct 0.3 mg/dL (0.0-0.5); Bilirubin Total 0.6 mg/dL (0.0-1.0); Total Protein 6.7 g/dL (6.5-8.0)
[2023-05-24 10:13] LABS: SLIDE REVIEW VERIFIED
[2023-05-24] MEDS: vancomycin HCL 1,000 MG in 0.9 % Sodium Chloride 250 ML 270 MG IV ×2 (10:30→22:51)
--- NOTE | 2023-05-24 10:57 | MHC.CM.PN ---
Pt is independent, no home health services or med equipment, HCP is on file: sister, Vicki Gutierres, PCP is out of [facility] in [facility]. CM to follow and assist with DC plan.
[2023-05-24 11:51] LABS: Ammonia 30 umol/L (13-55)
[2023-05-24] MEDS: LORazepam 0.5 MG TABLET PO (12:11)
--- NOTE | 2023-05-24 12:38 | P.PNIM_ITS ---
Subjective Subjective Date of Service: 05/24/23 Interval History: seen and examined this morning follow up for pneumonia, pleural effusion, encephalopathy patient awake, alert but remains confused. unable to obtain reliable ROS Neurologic Neurologic: Reports confusion Psychiatric Psychiatric: Reports confusion Physical Exam 2 Vital Signs: Vital Signs: Last Vital Signs Temp 98.8 F 05/24/23 11:42 Pulse 113 H 05/24/23 11:42 Resp 20 05/24/23 11:42 BP 139/87 05/24/23 11:42 Pulse Ox 96 05/24/23 11:42 O2 Del Method Nasal Cannula 05/24/23 11:42 O2 Flow Rate 1 05/24/23 11:42 Oxygen Flow Rate 2 05/22/23 18:58 BMI result Body Mass Index 21.9 Const: Other: appears somewhat anxious General: alert, awake and confusion Nutritional Appearance: average body habitus Orientation/consciousness: confusion Resp: Effort & Inspection: able to speak in complete sentences, no respiratory distress and no use of accessory muscles Auscultation: clear to auscultation bilaterally Cardio: Rate: tachycardic GI: Inspection: No distended Palpation (GI): Soft to palpation and nontender Neuro: Other: no focal deficits appreciated General: moves all extremities, CN's II-XI intact bilaterally and confusion Extrem: General: Yes no pedal edema Objective Data Active Medications Acetaminophen (Acetaminophen 325 Mg Tablet) 650 mg PO Q6H PRN PRN Reason: Pain, Mild (Pain Scale 1-3) Albuterol Sulfate (Albuterol Sulfate 90 Mcg 8 Gm Inhaler) 2 puff INHALE Q4H PRN PRN Reason: Shortness Of Breath Or Wheezing Apixaban (Apixaban 5 Mg Tablet) 5 mg PO BID [facility] Last Admin: 05/24/23 08:49 Dose: 5 mg Documented By: KT Fluticasone Propionate (Fluticasone Propionate Nasal 16 Gm [place]) 1 spray NOSTRIL-B DAILY PRN PRN Reason: Congestion Fluticasone/Vilanterol (Fluticasone/Vilanterol 200/25 Blst.W.Dev) 1 puff INHALE RDAILY [facility] Last Admin: 05/24/23 08:09 Dose: 1 puff Documented By: JAIRO Hydrocortisone (Hydrocortisone 2.5 % Rectal Cr 30 Gm Tube) 1 appl ID BID [facility] Last Admin: 05/24/23 08:49 Dose: 1 appl Documented By: KT Cefepime HCl 2 gm/ Sodium (Chloride) 50 mls @ 100 mls/hr IV Q8H [facility] Last Infusion: 05/24/23 05:55 Dose: Infused Documented By: DARRION Vancomycin HCl 1,000 mg/ (Sodium Chloride) 270 mls @ 270 mls/hr IV Q12H [facility] Last Infusion: 05/24/23 11:49 Dose: Infused Documented By: KT Metoprolol Tartrate (Metoprolol Tartrate 25 Mg Tablet) 25 mg PO BID [facility]; Protocol Last Admin: 05/24/23 08:50 Dose: 25 mg Documented By: KT Ondansetron HCl (Ondansetron Hcl 4 Mg/2 Ml Vial) 4 mg IVPUSH Q8H PRN PRN Reason: Nausea and Vomiting Pharmacy Consult (Consult Rx Vancomycin Dosing) 1 each MISCELLANE DAILY PRN PRN Reason: Consult order Polyethylene Glycol (Polyethylene Glycol 3350 17 Gm Powd.Pack) 17 gm PO DAILY PRN PRN Reason: Constipation Senna (Sennosides 8.6 Mg Tablet) 17.2 mg PO BEDTIME PRN PRN Reason: Constipation Sodium Chloride (0.9 % Sodium Chloride Flush 3 Ml Syringe) 3 ml IVFLUSH QSHIFT [facility] Last Admin: 05/24/23 08:50 Dose: 3 ml Documented By: KT Labs 05/24/23 08:02 05/24/23 08:02 Labs: Laboratory Results - last 24 hr 05/22/23 05/22/23 05/23/23 19:15 22:38 20:09 MCV MCH MCHC RDW Plt Count MPV Immature Gran % (Auto) Neut % (Auto) Lymph % (Auto) [place] % (Auto) Eos % (Auto) Baso % (Auto) Lymph # (Auto) [place] # (Auto) Eos # (Auto) Baso # (Auto) Abs Immat Gran (auto) Absolute Neuts (auto) Absolute Nucleated RBC Nucleated RBC % (auto) Smear Tech's Comments VBG pH 7.55 H VBG pCO2 22 VBG pO2 125 VBG HCO3 20 L VBG O2 Saturation 100.0 VBG Base Excess -0.9 Anion Gap Estim Creat Clear Calc Estimated GFR POC Glucose Random Glucose Calcium Magnesium Total Bilirubin Direct Bilirubin AST ALT Alkaline Phosphatase Ammonia Total Protein Albumin Peritoneal WBC Peritoneal RBC Periton Neutrophils Periton Lymphocytes Peritoneal Monocytes Peritoneal Eosinophils Peritoneal Basophils Peritoneal Other Cells Pleural WBC Pleural RBC Pleural Neutrophils Pleural Lymphocytes Pleural Monocytes Pleural Other Cells Nasal Screen MRSA (PCR) NEGATIVE Nasal S. aureus Screen NEGATIVE Nasal MRSA/S.aureus Interp SEE NOTE Vancomycin Trough Positive [facility] Work-up IgG=Pos [id number] A 05/23/23 05/23/23 05/24/23 22:29 Unknown 08:02 MCV 82.3 MCH 28.7 MCHC 34.8 RDW 15.2 Plt Count 292 MPV 10.4 Immature Gran % (Auto) 0.8 H Neut % (Auto) 92.0 H Lymph % (Auto) 3.5 L [place] % (Auto) 3.4 Eos % (Auto) 0.1 Baso % (Auto) 0.2 Lymph # (Auto) 1.0 L [place] # (Auto) 0.9 Eos # (Auto) 0.0 Baso # (Auto) 0.1 Abs Immat Gran (auto) 0.21 H Absolute Neuts (auto) 25.2 H Absolute Nucleated RBC 0.000 Nucleated RBC % (auto) 0.0 Smear Tech's Comments VERIFIED VBG pH VBG pCO2 VBG pO2 VBG HCO3 VBG O2 Saturation VBG Base Excess Anion Gap 17 Estim Creat Clear Calc 81.3 Estimated GFR > 60 POC Glucose 94 Random Glucose 109 Calcium 8.1 L Magnesium 1.9 Total Bilirubin 0.6 Direct Bilirubin 0.3 AST 35 H ALT 22 Alkaline Phosphatase 124 H Ammonia Total Protein 6.7 Albumin 2.8 L Peritoneal WBC Cancelled Peritoneal RBC Cancelled Periton Neutrophils Cancelled Periton Lymphocytes Cancelled Peritoneal Monocytes Cancelled Peritoneal Eosinophils Cancelled Peritoneal Basophils Cancelled Peritoneal Other Cells Cancelled Pleural WBC 0.735 Pleural RBC 0.002 Pleural Neutrophils 37 Pleural Lymphocytes 50 Pleural Monocytes 9 Pleural Other Cells 4 Nasal Screen MRSA (PCR) Nasal S. aureus Screen Nasal MRSA/S.aureus Interp Vancomycin Trough 11.4 Positive [facility] Work-up 05/24/23 11:41 MCV MCH MCHC RDW Plt Count MPV Immature Gran % (Auto) Neut % (Auto) Lymph % (Auto) [place] % (Auto) Eos % (Auto) Baso % (Auto) Lymph # (Auto) [place] # (Auto) Eos # (Auto) Baso # (Auto) Abs Immat Gran (auto) Absolute Neuts (auto) Absolute Nucleated RBC Nucleated RBC % (auto) Smear Tech's Comments VBG pH VBG pCO2 VBG pO2 VBG HCO3 VBG O2 Saturation VBG Base Excess Anion Gap Estim Creat Clear Calc Estimated GFR POC Glucose Random Glucose Calcium Magnesium Total Bilirubin Direct Bilirubin AST ALT Alkaline Phosphatase Ammonia 30 Total Protein Albumin Peritoneal WBC Peritoneal RBC Periton Neutrophils Periton Lymphocytes Peritoneal Monocytes Peritoneal Eosinophils Peritoneal Basophils Peritoneal Other Cells Pleural WBC Pleural RBC Pleural Neutrophils Pleural Lymphocytes Pleural Monocytes Pleural Other Cells Nasal Screen MRSA (PCR) Nasal S. aureus Screen Nasal MRSA/S.aureus Interp Vancomycin Trough Positive [facility] Work-up Microbiology Microbiology Results: Microbiology 05/23/23 Unknown Gram Stain - Final Pleura Anaerobic Culture - Preliminary Body Fluid Culture - Preliminary No growth to date. 05/22/23 20:28 Blood Culture - Preliminary Blood - Venous No growth after 24 hours. 05/22/23 20:31 Blood Culture - Preliminary Blood - Venous No growth after 24 hours. Assessment and Plan (1) Mediastinal mass: Status: Acute (2) Pulmonary emboli: Status: Acute (3) Adenocarcinoma of lung: Status: Acute Plan 62-year-old female with pertinent history of asthma not on home oxygen, sinus tachycardia on beta-elli, history of mitral valve repair in 2017, recently diagnosed with adenocarcinoma of the lung with recent admission for pulmonary embolus started on Eliquis complicated by hemorrhoidal bleed with resumption of Eliquis per GI on discharge 05/20, presented to the ED from hematology following a vasovagal syncopal episode during lab draw earlier today. Patient will be admitted for further management of worsening RLL pneumonia with associated acute metabolic encephalopathy and weakness Acute hypoxic respiratory failure secondary to worsening right side pleural effusion started on IV cefepime and vanco for possible pna ? post obstructive strep pneumo antigen, Legionella antigen, sputum culture, and MRSA nasal swab pending s/p thoracentesis 05/23 with removal of 1L of fluid Continue oxygen therapy, titrate to oxygen saturation greater than 91% on room air blood cultures negative to date Acute metabolic encephalopathy likely related to infection as above renal function, LFTs, ammonia level wnl No evidence of acute intracranial abnormality on head CT given underlying cancer, will obtain brain MRI to eval for brain mets Adenocarcinoma of pulmonary origin Bronchoscopy 05/18/2023 New diagnosis, not yet initiated on therapy, oncology following Pulmonary embolism/BLE DVT diagnosed 05/11 s/p IVC filter 05/15/23 continue Eliquis Elevated troponins likely demand in setting of pulmonary embolus echo 05/12 rwma with normal LV systolic function, mildly reduced right ventricle systolic function, mild pulmonary hypertension Moderate persistent asthma no acute exacerbation continue maintenance inhalers, albuterol p.r.n. Sinus tachycardia chronic, continue metoprolol remains tachycardic despite increase in metoprolol will check thyroid function given underlying thyroid nodule being worked up as outpatient DVT prophylaxis-Eliquis on hold for thoracentesis Attending Dr. Escobedo Full code continue hospital stay for management of worsening acute right lower lobe pneumonia with associated metabolic encephalopathy and weakness requiring IV antibiotics, close monitoring of mentation, and physical therapy evaluation and possible placement to short-term rehab Quality Stroke Does the patient have a stroke diagnosis?: No VTE Prior VTE?: No VTE Risk Level:: Medical - moderate - high VTE Device Contraindication: Treatment Not Indicated VTE Drug Contraindication: N/A - Med Ordered
[2023-05-24] MEDS: gadobutroL 7.5 ML VIAL IVPUSH (13:03)
[2023-05-24 13:24] LABS: TSH reflex Free T4 2.15 uIU/mL (0.32-4.0)
--- NOTE | 2023-05-24 15:00 | CA_ITS ---
Transthoracic Echocardiogram Patient (Last, First, Middle): Woo Marks Marie Gender: Female Date of : 1960 Age: 62 Procedure Date: 05/24/2023 Procedure Type: Transthoracic Echocardiogram Location: [facility] – [place], [place] Height: 170. cm Weight: 63.05 kg BSA: 1.73 m2 Heart Rate: bpm BP: 139 / 87 mmHg Database Technician: LOU Referring MD: Hattie PORTILLO Symptoms: stoke protocol Study Quality: Fair/Limite with Bubble ECG Rhythm: Tachycardia Conclusions: - There is no evidence of interatrial shunt by agitated saline. Findings Atria There is no evidence of interatrial shunt by agitated saline. (rest and valsalva). Prior Study Comparison No significant change compared to prior study dated: 05/12/2023. Updated in Other Vendor System with Status of Final Denny Shen MD electronically signed on 05/25/2023 7:24:50 AM with status of Final
[2023-05-24 16:03] LABS: Cholesterol 175 mg/dL (<200); HDL Cholesterol 35 mg/dL (>40); LDL Cholesterol Calculated 123 mg/dL (<100); Triglycerides 86 mg/dL (<150)
--- NOTE | 2023-05-24 16:22 | MHC.STROKE ---
Notified of MRI finding by Hattie PORTILLO. BANDAR Franklin states that MRI was done due to altered mental status and hx of lung CA to rule out mets to the brain. Dr. Rosa notified of consult and evaluated patient. Please see neurology note Pt is awake, oriented to name. Left sided weakness noted in both arm and leg. Slight droop noted to left eye. Pt is speaking clearly. Smile symmetrical, tongue midline. Pt is currently receiving Eliquis for hx of PE and DVT. Neuro recommendations include: CTA head/neck and to remain on the Eliquis. Primary RN completed nursing swallow evaluation.
--- NOTE | 2023-05-24 16:22 | PM.NEUROCN ---
History of Present Illness Data of Consult Service Date: 05/24/23 Primary Care Provider: Vicki Yanez NP HPI Reason for consult: Strokes 62 years old woman with diagnosis of adenocarcinoma and pulmonary embolism. She probably also had IVC filter place. She was admitted in hospital with change in mental status. An MRI of brain was done today that revealed findings prompting this consultation. She denied any headache. There was no recent headache or fever or chills. Review of Systems Review of Systems: No recent cold or flu-like illness PMFSH Past Medical History Medical History (Updated 05/24/23 @ 16:25 by Samanta Rosa MD) Adenocarcinoma of lung GIB (gastrointestinal bleeding) Mediastinal mass Pulmonary emboli Family history of thyroid disease Bilateral cataracts Sinus tachycardia Asthma Family History Family History Mother Leukemia Maternal Aunt Lung cancer Ovarian cancer Surgical History Surgical History S/P IVC filter History of tonsillectomy History of open heart surgery Social History Social History Household Members: Other Household Members Other:: SISTER Housing: House Do you presently have visiting nurse or other home services: No Comment: Commode near bed. Pt gait and balance are steady. Per protocol extra safety Patient Tobacco Use Status: Former Tobacco user e-Cigarette/Vaping Use: Never Used Second Hand Smoke Exposure: No Advance Directives Date on File: 05/22/23 service: No Meds Allergies Allergy/AdvReac Type Severity Reaction Status Date / Time hydrocodone [From Vicodin] Allergy Vomiting Verified 05/22/23 16:46 oxycodone [From Percocet] Allergy Vomiting Verified 05/22/23 16:46 shellfish derived Allergy Anaphylaxis Verified 05/22/23 16:46 Active Medications: Current Medications Acetaminophen (Acetaminophen 325 Mg Tablet) 650 mg PO Q6H PRN PRN Reason: Pain, Mild (Pain Scale 1-3) Albuterol Sulfate (Albuterol Sulfate 90 Mcg 8 Gm Inhaler) 2 puff INHALE Q4H PRN PRN Reason: Shortness Of Breath Or Wheezing Apixaban (Apixaban 5 Mg Tablet) 5 mg PO BID [facility] Last Admin: 05/24/23 08:49 Dose: 5 mg Atorvastatin Calcium (Atorvastatin Calcium 40 Mg Tablet) 40 mg PO BEDTIME [facility] Fluticasone Propionate (Fluticasone Propionate Nasal 16 Gm [place]) 1 spray NOSTRIL-B DAILY PRN PRN Reason: Congestion Fluticasone/Vilanterol (Fluticasone/Vilanterol 200/25 Blst.W.Dev) 1 puff INHALE RDAILY [facility] Last Admin: 05/24/23 08:09 Dose: 1 puff Hydrocortisone (Hydrocortisone 2.5 % Rectal Cr 30 Gm Tube) 1 appl NC BID [facility] Last Admin: 05/24/23 08:49 Dose: 1 appl Cefepime HCl 2 gm/ Sodium (Chloride) 50 mls @ 100 mls/hr IV Q8H [facility] Last Infusion: 05/24/23 15:07 Dose: Infused Vancomycin HCl 1,000 mg/ (Sodium Chloride) 270 mls @ 270 mls/hr IV Q12H [facility] Last Infusion: 05/24/23 11:49 Dose: Infused Metoprolol Tartrate (Metoprolol Tartrate 25 Mg Tablet) 25 mg PO BID [facility]; Protocol Last Admin: 05/24/23 08:50 Dose: 25 mg Ondansetron HCl (Ondansetron Hcl 4 Mg/2 Ml Vial) 4 mg IVPUSH Q8H PRN PRN Reason: Nausea and Vomiting Pharmacy Consult (Consult Rx Vancomycin Dosing) 1 each MISCELLANE DAILY PRN PRN Reason: Consult order Polyethylene Glycol (Polyethylene Glycol 3350 17 Gm Powd.Pack) 17 gm PO DAILY PRN PRN Reason: Constipation Senna (Sennosides 8.6 Mg Tablet) 17.2 mg PO BEDTIME PRN PRN Reason: Constipation Sodium Chloride (0.9 % Sodium Chloride Flush 3 Ml Syringe) 3 ml IVFLUSH QSHIFT [facility] Last Admin: 05/24/23 14:24 Dose: 3 ml Home Medications Medication Instructions Recorded Confirmed Last Taken Type albuterol sulfate 90 mcg/actuation 2 puff inhalation Q4-6H PRN 05/12/23 05/22/23 Unknown History aerosol inhaler (Ventolin HFA) Shortness Of Breath Or Wheezing budesonide-formoterol HFA 160 2 puff inhalation BID 05/12/23 05/22/23 Unknown History mcg-4.5 mcg/actuation aerosol inhaler (Symbicort) metoprolol tartrate 25 mg tablet 12.5 mg PO BID 05/12/23 05/22/23 Unknown History fluticasone propionate 50 1 spray intranasal DAILY PRN 05/22/23 05/22/23 Unknown History mcg/actuation nasal Congestion spray,suspension Physical Exam Vital Signs: Vital Signs: Last Vital Signs Temp 100.4 F 05/24/23 15:38 Pulse 125 H 05/24/23 15:38 Resp 20 05/24/23 15:38 BP 138/86 05/24/23 15:38 Pulse Ox 97 05/24/23 15:38 O2 Del Method Nasal Cannula 05/24/23 15:38 O2 Flow Rate 2 05/24/23 15:38 Oxygen Flow Rate 2 05/22/23 18:58 BMI result Body Mass Index 21.9 Neuro: Other: She is alert and awake somewhat spacey with flat affect. She was able to answer simple questions and able to follow simple commands but when I asked her to show me her left hand she could not. She was able to raise a right hand up but not much of her left hand. Face was flat. Visual johnson seem to be okay. Plantars were flat spontaneity and fluency of speech were decreased. Results Labs 05/24/23 08:02 05/24/23 08:02 Labs: Short CBC 05/24/23 Range/Units 08:02 WBC 27.4 H (4.8-10.8) X10*3/uL Hgb 9.4 L (12.0-16.0) g/dl Hct 27.0 L (37.0-47.0) % Plt Count 292 (160-400) X10*3/uL BMP 05/24/23 08:02 Sodium 133 L Potassium 3.8 Chloride 103 Carbon Dioxide 17 L BUN 12 Creatinine 0.68 Calcium 8.1 L Liver Function 05/24/23 Range/Units 08:02 Total Bilirubin 0.6 (0.0-1.0) mg/dL Direct Bilirubin 0.3 (0.0-0.5) mg/dL AST 35 H (5-31) U/L ALT 22 (0-31) U/L Alkaline Phosphatase 124 H (39-117) U/L Albumin 2.8 L (3.5-5.0) g/dL Her MRI of brain revealed numerous area of restricted diffusion in anterior posterior circulation on both sides, many of them in border zone areas of JONG MCA territory there was no enhancement Microbiology Microbiology Results: Microbiology 05/23/23 Unknown Pleura Gram Stain - Final 05/23/23 Unknown Pleura Anaerobic Culture - Preliminary 05/23/23 Unknown Pleura Body Fluid Culture - Preliminary No growth to date. 05/22/23 20:28 Blood - Venous Blood Culture - Preliminary No growth after 24 hours. 05/22/23 20:31 Blood - Venous Blood Culture - Preliminary No growth after 24 hours. Assessment and Plan (1) Multiple cerebral infarctions: Status: Acute 62 years old woman with multiple bilateral subacute cerebral infarcts both in anterior posterior circulation and many of them in border zone area. Both frontal lobes are affected, left more than right. Exact etiology of these infarcts was unclear. Differential diagnosis included cardiomyopathy or cardiac source of embolism but she was not known to have cardiomyopathy. Hypercoagulable/hyperviscosity syndrome is another possibility. Because of border zone nature of many of these lesions, I would suggest obtaining CTA of brain and neck to look at her vasculature. She was already anticoagulated, which could continue. Otherwise there is no specific treatment. Procedures Date of Service Date of Service: 05/24/23
[2023-05-24 17:56] LABS: ABG Base Excess -2.7 mmol/L; ABG HCO3 17 mmol/L (22-26); ABG pCO2 20 mmHg (32-45); ABG pH 7.54 (7.35-7.45); ABG pO2 82 mmHg (83-108)
--- NOTE | 2023-05-24 18:22 | PM.HEMONCCN ---
Subjective - Subjective Chief complaint: Consult for: Mrw-xkvnd-[id number] lung carcinoma. Patient: known to practice within the last 3 years Consult date: 05/24/23 Requesting Physician: Shreya Flowers. Primary Care Provider: Vicki Yanez NP Family Provider: Beau. 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 BILATERAL DVT AND PE. MENTAL STATUS CHANGES: Infarcts in the brain. HPI - Consult Narrative Reason for consult: Consult for: Vkx-[id number] lung carcinoma of the mediastinum. Bilateral DVT and PE. Narrative: Woo Marks is a 62 year old unfortunate lady, she was recently admitted to the hospital. HPI: She initially had some cold symptoms for about a week. Sore throat cough and sinus symptoms. She had a fever, had some sweats x3. She has been tired but has a busy work schedule. She had some night sweats x3. She had a great appetite up until 2 weeks ago when it declined. Couple of weeks ago her appetite declined she thinks she may have lost 4-5 lb. She noted pain in her right foot a week ago. She felt she had plantar fasciitis. Then the back of her legs started feeling sore. She then had bilateral leg pain. No obvious swelling. Sunday she noted right-sided pleuritic chest pain. She presented to the emergency department for evaluation of chills and dyspnea. Patient states that she has been having symptoms for the last 3-4 weeks. She has been having productive cough with yellowish sputum production. Also has been having associated chills. Endorses dyspnea which is worse with exertion. No orthopnea or PND. No wheezing. She also has a dog and a sister has a CT could be allergic. Patient states she is compliant with home inhaler. Pt was seen outpatient and got blood work done about 1 week ago where white count was found to be elevated. She states that her neighbor is a nurse practitioner and she started p.o. antibiotics on the neighbor's recommendation. Patient does not remember the name but took 2 separate courses of p.o. antibiotics without any relief. Also has been having bilateral calf pain that started 1 week ago. No history of DVT/PE or blood clots. No chest discomfort, palpitations, abdominal pain, changes in urinary or bowel habits. CT scan angiogram of the chest revealed: Subsegmental pulmonary emboli in the right middle and right lower lobes. Atelectasis or small infiltrates in the right lower lobe, right middle lobe and inferior segment of the lingula. Small right pleural effusion. Abnormal enlarged mediastinal lymph nodes, worrisome for neoplastic process. Large right thyroid nodule. Given size of nodule, ultrasound follow-up recommended. Small pulmonary nodules. 1 cm liver lesion. WBC found to be elevated. She was started on subcu therapeutic Lovenox. On day 2 she was noted to have bright red blood per rectum x 2 therefore Lovenox discontinued. She was seen by Gastroenterology and underwent colonoscopy that showed no active bleed, but showed internal hemorrhoids likely cause of bleeding. Patient placed back on Lovenox and was monitored closely with frequent CBC monitoring. She was noted to have no recurrent bleed H&H remains stable.She was given hemorrhoidal cream and stool softeners. Echocardiogram showed EF 60-65%, indeterminate diastolic function, low normal right ventricular systolic function, severely dilated left atrium, no mitral valve regurgitation, moderate mitral valve stenosis, She underwent IVC filter placement on 05/15 by vascular surgery. She was discharged home on Eliquis 5 mg twice daily. She was noted to have enlarged mediastinal lymph node on CT imaging. concern wasfor malignancy. She underwent bronchoscopy and mediastinal node biopsy by Dr. Flowers on 05/18. Final report of pathology: Adenocarcinoma. The plan was to proceed with further staging workup including: MRI of the brain. PET scan. To wait for the complete pathology reports including molecular testing to recommend further treatment: Chemo/immunotherapy. However, her legs have been rather weak, since she went home. As she was getting labs drawn she had a vasovagal episode. She was admitted to the hospital. She was noted have a pleural effusion. She underwent thoracentesis. She has had some mental status changes overnight. Review of Systems - Constitutional Reports system reviewed and no additional complaints, except as documented, Reports fatigue - Eyes Reports system reviewed and no additional complaints, except as documented, Reports blurry vision - ENT Reports system reviewed and no additional complaints, except as documented - Cardiovascular Reports system reviewed and no additional complaints, except as documented, Reports generalized swelling - Respiratory Reports no additional respiratory complaints, Reports chest congestion, Reports dyspnea on exertion - Gastrointestinal Reports system reviewed and no additional complaints, except as documented, Reports change in bowel habits - Genitourinary Reports no additional female genitourinary complaints - Musculoskeletal Reports system reviewed and no additional complaints, except as documented - Integumentary/Breasts Skin/Breast: Reports no additional skin complaints - Neurologic Reports confusion - Psychiatric Reports system reviewed and no additional complaints, except as documented, Reports anxiety - Endocrine Reports no additional endocrine complaints - Hematologic/Lymphatic Reports system reviewed and no additional complaints, except as documented, Denies easy bruising - Allergic/Immunologic Reports system reviewed and no additional complaints, except as documented PMFSH Medical History: Medical History (Last Reviewed 05/25/23 @ 09:56 by Minda Shields OTR-L) Adenocarcinoma of lung Asthma Bilateral cataracts Family history of thyroid disease GIB (gastrointestinal bleeding) Mediastinal mass Pulmonary emboli Sinus tachycardia Functional capacity: wheelchair bound Patient : No Family History: Family History (Last Reviewed 05/22/23 @ 18:19 by Qasim Joaquin MD) Mother Leukemia Maternal Aunt Lung cancer Ovarian cancer Surgical History: Surgical History (Last Reviewed 05/25/23 @ 09:56 by Minda Shields, OTR-L) History of open heart surgery History of tonsillectomy S/P IVC filter Social History: Social History (Last Reviewed 05/22/23 @ 18:19 by Qasim Joaquin MD) Living Situation History: Household Members: Other Household Members Other:: SISTER Housing: House Do you presently have visiting nurse or other home services: No Tobacco History: Patient Tobacco Use Status: Former Tobacco user e-Cigarette/Vaping Use: Never Used Second Hand Smoke Exposure: No Advance Directives: Advance Directives Date on File: 05/22/23 Occupation Assessmet: service: No Home Medications and Allergies Current Medications: Current Medications Acetaminophen (Acetaminophen 325 Mg Tablet) 650 mg PO Q6H PRN PRN Reason: Pain, Mild (Pain Scale 1-3) Albuterol Sulfate (Albuterol Sulfate 90 Mcg 8 Gm Inhaler) 2 puff INHALE Q4H PRN PRN Reason: Shortness Of Breath Or Wheezing Apixaban (Apixaban 5 Mg Tablet) 5 mg PO BID [facility] Last Admin: 05/24/23 08:49 Dose: 5 mg Atorvastatin Calcium (Atorvastatin Calcium 40 Mg Tablet) 40 mg PO BEDTIME [facility] Fluticasone Propionate (Fluticasone Propionate Nasal 16 Gm [place]) 1 spray NOSTRIL-B DAILY PRN PRN Reason: Congestion Fluticasone/Vilanterol (Fluticasone/Vilanterol 200/25 Blst.W.Dev) 1 puff INHALE RDAILY [facility] Last Admin: 05/24/23 08:09 Dose: 1 puff Hydrocortisone (Hydrocortisone 2.5 % Rectal Cr 30 Gm Tube) 1 appl MS BID [facility] Last Admin: 05/24/23 08:49 Dose: 1 appl Cefepime HCl 2 gm/ Sodium (Chloride) 50 mls @ 100 mls/hr IV Q8H [facility] Last Infusion: 05/24/23 15:07 Dose: Infused Vancomycin HCl 1,000 mg/ (Sodium Chloride) 270 mls @ 270 mls/hr IV Q12H [facility] Last Infusion: 05/24/23 11:49 Dose: Infused Metoprolol Tartrate (Metoprolol Tartrate 25 Mg Tablet) 25 mg PO BID [facility]; Protocol Last Admin: 05/24/23 08:50 Dose: 25 mg Ondansetron HCl (Ondansetron Hcl 4 Mg/2 Ml Vial) 4 mg IVPUSH Q8H PRN PRN Reason: Nausea and Vomiting Pharmacy Consult (Consult Rx Vancomycin Dosing) 1 each MISCELLANE DAILY PRN PRN Reason: Consult order Polyethylene Glycol (Polyethylene Glycol 3350 17 Gm Powd.Pack) 17 gm PO DAILY PRN PRN Reason: Constipation Senna (Sennosides 8.6 Mg Tablet) 17.2 mg PO BEDTIME PRN PRN Reason: Constipation Sodium Chloride (0.9 % Sodium Chloride Flush 3 Ml Syringe) 3 ml IVFLUSH QSHIFT [facility] Last Admin: 05/24/23 14:24 Dose: 3 ml Home Medications Medication Instructions Recorded Confirmed Type albuterol sulfate 90 mcg/actuation 2 puff inhalation Q4-6H PRN 05/12/23 05/22/23 History aerosol inhaler (Ventolin HFA) Shortness Of Breath Or Wheezing budesonide-formoterol HFA 160 2 puff inhalation BID 05/12/23 05/22/23 History mcg-4.5 mcg/actuation aerosol inhaler (Symbicort) metoprolol tartrate 25 mg tablet 12.5 mg PO BID 05/12/23 05/22/23 History fluticasone propionate 50 1 spray intranasal DAILY PRN 05/22/23 05/22/23 History mcg/actuation nasal Congestion spray,suspension Allergies Allergy/AdvReac Type Severity Reaction Status Date / Time hydrocodone [From Vicodin] Allergy Vomiting Verified 05/22/23 16:46 oxycodone [From Percocet] Allergy Vomiting Verified 05/22/23 16:46 shellfish derived Allergy Anaphylaxis Verified 05/22/23 16:46 Physical Exam Vital signs: Vital Signs Temp 100.4 F 05/24/23 15:38 Pulse 125 H 05/24/23 15:38 Resp 32 H 05/24/23 18:18 BP 138/86 05/24/23 15:38 Pulse Ox 97 05/24/23 15:38 O2 Del Method Nasal Cannula 05/24/23 15:38 O2 Flow Rate 2 05/24/23 15:38 Intake & Output 05/23/23 05/24/23 05/24/23 18:59 06:59 18:59 Intake Total 1315 / 2452.5 1137.5 / 2452.5 320 / 320 Output Total 600 / 900 300 / 900 100 / 100 Balance 715 / 1552.5 837.5 / 1552.5 220 / 220 Urine Output (Average ml/kg/hr) 0.78 0.39 0.13 Intake: Intake, Oral Amount 680 / 680 0 / 0 Intake, IV Amount 1315 / 1772.5 457.5 / 1772.5 320 / 320 cefEPime HCl 2 gm In 0.9 % 50 / 150 100 / 150 50 / 50 Sodium Chloride 50 ml @ 100 mls /hr IV Q8H [facility] Rx#:[id number] vancomycin HCL 1,000 mg In 0.9 270 / 270 % Sodium Chloride 250 ml @ 270 mls/hr IV Q12H [facility] Rx#: [id number] vancomycin HCL 750 mg In 0.9 % 265 / 530 265 / 530 Sodium Chloride 250 ml @ 265 mls/hr IV Q12H [facility] Rx#: [id number] 0.9 % Sodium Chloride 1,000 ml 1000 / 1092.5 92.5 / 1092.5 @ 150 mls/hr IVCONT .Q6H40M [facility] Rx#:[id number] Output: Output, Urine Amount 600 / 900 300 / 900 100 / 100 Other: Breakfast % Eaten 0% Lunch % Eaten 0% Number of Incontinent Voids 2 2 Number of Bowel Movements 0 Urine purewick Urine Color Yellow Weight 63.5 kg Weight in Grams [id number] Weight 63.5 kg - Constitutional Present: moderate distress - Routine HEENT Exam Head: Present: normocephalic Eye: Present: normal appearance ENT: Present: mucous membranes moist - Routine Neck Exam Present: supple - Routine Respiratory Exam Present: decreased breath sounds, CTAB - Routine Cardiovascular Exam Cardiovascular: Present: RRR, S1, S2 - Routine Abdominal Exam Present: soft, nontender - Routine Extremities Exam Present: pedal edema Hem/Onc Consult Result - Labs CBC & Chem 7: 05/27/23 09:28 05/27/23 09:28 Labs: Short CBC 05/24/23 Range/Units 08:02 WBC 27.4 H (4.8-10.8) X10*3/uL Hgb 9.4 L (12.0-16.0) g/dl Hct 27.0 L (37.0-47.0) % Plt Count 292 (160-400) X10*3/uL BMP 05/24/23 08:02 Sodium 133 L Potassium 3.8 Chloride 103 Carbon Dioxide 17 L BUN 12 Creatinine 0.68 Calcium 8.1 L Liver Function 05/24/23 Range/Units 08:02 Total Bilirubin 0.6 (0.0-1.0) mg/dL Direct Bilirubin 0.3 (0.0-0.5) mg/dL AST 35 H (5-31) U/L ALT 22 (0-31) U/L Alkaline Phosphatase 124 H (39-117) U/L Albumin 2.8 L (3.5-5.0) g/dL Assessment and Plan Patient Active problem list reviewed?: Yes (1) Adenocarcinoma of lung Status: Acute Assessment and plan: 62-year-old unfortunately, with recent diagnosis of adenocarcinoma of the lung. She had presented with bilateral DVT and PE, recently. She was noted to have enlarged mediastinal lymph node on CT imaging. concern was for malignancy. She underwent bronchoscopy and mediastinal node biopsy by Dr. Flowers on 05/18. Final report of pathology: Adenocarcinoma. She was noted to have a GI bleed. She underwent IVC filter placement on 05/15 by vascular surgery. She was discharged home on Eliquis 5 mg twice daily. The plan was to proceed with further staging workup including: MRI of the brain. PET scan. To wait for the complete pathology reports including molecular testing to recommend further treatment: Chemo/immunotherapy. However, her legs were rather weak, As she was getting labs drawn she had a vasovagal episode. She was admitted to the hospital. She was noted have a pleural effusion. She underwent thoracentesis. She has had some mental status changes overnight. MRI of the brain from today: There are multiple tiny acute embolic or watershed infarcts involving both cerebral hemispheres, cerebellum, thalami, and splenium of corpus callosum. These findings are scattered upon numerous chronic small vessel ischemic changes within the periventricular white matter. No evidence of acute hemorrhage. No abnormal intracranial mass or enhancement. There is a tiny focus of susceptibility artifact located within the occipital horn of the left lateral ventricle that may represent chronic changes of an old intraventricular hemorrhage. Differential diagnosis: 1. Embolic infarcts. 2. Hypercoagulable state from malignancy. 3. DIC. 4. Carcinomatous Meningitis. She has been seen by Neurology. PLAN: Will check a DIC screen. The plan is to proceed with CTA of head and neck, for further evaluation. Will continue her on anticoagulation for now. Can switch her over to Lovenox. Thank you for the consult, Will follow along with you, CC: - Time Spent With Patient Time Spent with Patient (in minutes): 30
[2023-05-24 18:52] LABS: ABG Refer to POC result
[2023-05-24 18:55] LABS: Alanine Aminotransferase 22 U/L (0-31); Albumin Level 2.7 g/dL (3.5-5.0); Alkaline Phosphatase 122 U/L (39-117); Anion Gap 16 (12-20); Aspartate Amino Transferase 33 U/L (5-31); Bilirubin Total 0.5 mg/dL (0.0-1.0); Blood Urea Nitrogen 15 mg/dL (9-16); Calcium 8.3 mg/dL (8.4-10.2); Carbon Dioxide 15 mmol/L (22-29); Chloride 105 mmol/L (96-108); Creatinine Clr Calc Pharmacy 81.3; Estimated Glomerular Filt Rate > 60; Glucose Random 118 mg/dL (60-115); Potassium 4.3 mmol/L (3.3-5.1); Sodium 132 mmol/L (135-145); Total Protein 6.7 g/dL (6.5-8.0); Uric Acid 3.6 mg/dL (2.4-5.7)
[2023-05-24] MEDS: iohexoL 350 MG/ML 100 ML INFUS..BTL 70 ML IV (19:26)
--- NOTE | 2023-05-24 20:03 | P.CONCC_ITS ---
History of Present Illness Data of Consult Service Date: 05/24/23 Requesting physician: Hattie Franklin Primary Care Provider: Vicki Yanez NP HPI Reason for consult: Confusion, weakness, tachypnea The patient is a 62-year-old female with pertinent history of asthma not on home oxygen, sinus tachycardia on beta-elli, history of mitral valve repair in 2017, recently diagnosed on 05/18/2023 with adenocarcinoma of the lung with recent admission for pulmonary embolus started on Eliquis complicated by hemorrhoidal bleed with resumption of Eliquis per GI on discharge. She was presented to the Ed on 05/22/2023 following a vasovagal syncopal episode during lab draw and admitted with acute right lower lobe pneumonia with associated metabolic encephalopathy and weakness. She was started on IV cefepime and vanco for possible pna ? post obstructive, and underwent a thoracentesis 05/23 with removal of 1L of fluid. Brain MRI today revealed multiple tiny acute embolic or watershed infarcts involving both cerebral hemispheres, cerebellum, thalami, and splenium of corpus callosum. Head and Neck CT showed no new acute intracranial abnormality. ABG showed a pH of 7.54, pCO2 20, pO2 82, HCO3 17.? On my exam the patient was lethargic but oriented x 2, following commands. She complained of generalized weakness but? moved all extremities. CN's II-XI intact bilaterally. Respiratory rate 18 with prolonged expiration, able to speak in complete sentences, O2 sat 99 on 1LNC. Lung sounds diminished in the right base but otherwise clear to auscultation. HR 123-128. Abdomen soft, non-tender to palpation. Adequate urinary output.? At this point, I do not believe the patient requires ICU level of care. ABG results appear to be metabolic in nature. I will check a lactic acid level and Free T4 and add a Bicarb drip. Case discussed with Dr. Calix who will monitor the patient on Med-Tele.? Patient's care was discussed in detail with Dr. Yepez.? He is aware of all the above as well as the plan of care for this patient. Review of Systems 2 Review of Systems: Yes all other systems are reviewed and are negative PMFSH Past Medical History Medical History (Updated 05/24/23 @ 16:25 by Samanta Rosa MD) Adenocarcinoma of lung GIB (gastrointestinal bleeding) Mediastinal mass Pulmonary emboli Family history of thyroid disease Bilateral cataracts Sinus tachycardia Asthma Family History Family History Mother Leukemia Maternal Aunt Lung cancer Ovarian cancer Surgical History Surgical History S/P IVC filter History of tonsillectomy History of open heart surgery Social History Social History Household Members: Other Household Members Other:: SISTER Housing: House Do you presently have visiting nurse or other home services: No Comment: Commode near bed. Pt gait and balance are steady. Per protocol extra safety Patient Tobacco Use Status: Former Tobacco user e-Cigarette/Vaping Use: Never Used Second Hand Smoke Exposure: No Advance Directives Date on File: 05/22/23 service: No Meds Allergies Allergy/AdvReac Type Severity Reaction Status Date / Time hydrocodone [From Vicodin] Allergy Vomiting Verified 05/22/23 16:46 oxycodone [From Percocet] Allergy Vomiting Verified 05/22/23 16:46 shellfish derived Allergy Anaphylaxis Verified 05/22/23 16:46 Active Medications: Current Medications Acetaminophen (Acetaminophen 325 Mg Tablet) 650 mg PO Q6H PRN PRN Reason: Pain, Mild (Pain Scale 1-3) Albuterol Sulfate (Albuterol Sulfate 90 Mcg 8 Gm Inhaler) 2 puff INHALE Q4H PRN PRN Reason: Shortness Of Breath Or Wheezing Apixaban (Apixaban 5 Mg Tablet) 5 mg PO BID [facility] Last Admin: 05/24/23 08:49 Dose: 5 mg Atorvastatin Calcium (Atorvastatin Calcium 40 Mg Tablet) 40 mg PO BEDTIME [facility] Fluticasone Propionate (Fluticasone Propionate Nasal 16 Gm [place]) 1 spray NOSTRIL-B DAILY PRN PRN Reason: Congestion Fluticasone/Vilanterol (Fluticasone/Vilanterol 200/25 Blst.W.Dev) 1 puff INHALE RDAILY [facility] Last Admin: 05/24/23 08:09 Dose: 1 puff Hydrocortisone (Hydrocortisone 2.5 % Rectal Cr 30 Gm Tube) 1 appl ID BID [facility] Last Admin: 05/24/23 08:49 Dose: 1 appl Cefepime HCl 2 gm/ Sodium (Chloride) 50 mls @ 100 mls/hr IV Q8H [facility] Last Infusion: 05/24/23 15:07 Dose: Infused Vancomycin HCl 1,000 mg/ (Sodium Chloride) 270 mls @ 270 mls/hr IV Q12H [facility] Last Infusion: 05/24/23 11:49 Dose: Infused Metoprolol Tartrate (Metoprolol Tartrate 25 Mg Tablet) 25 mg PO BID [facility]; Protocol Last Admin: 05/24/23 08:50 Dose: 25 mg Ondansetron HCl (Ondansetron Hcl 4 Mg/2 Ml Vial) 4 mg IVPUSH Q8H PRN PRN Reason: Nausea and Vomiting Pharmacy Consult (Consult Rx Vancomycin Dosing) 1 each MISCELLANE DAILY PRN PRN Reason: Consult order Polyethylene Glycol (Polyethylene Glycol 3350 17 Gm Powd.Pack) 17 gm PO DAILY PRN PRN Reason: Constipation Senna (Sennosides 8.6 Mg Tablet) 17.2 mg PO BEDTIME PRN PRN Reason: Constipation Sodium Chloride (0.9 % Sodium Chloride Flush 3 Ml Syringe) [facility] Last Admin: 05/24/23 14:24 Dose: 3 ml Home Medications Medication Instructions Recorded Confirmed Last Taken Type albuterol sulfate 90 mcg/actuation 2 puff inhalation Q4-6H PRN 05/12/23 05/22/23 Unknown History aerosol inhaler (Ventolin HFA) Shortness Of Breath Or Wheezing budesonide-formoterol HFA 160 2 puff inhalation BID 05/12/23 05/22/23 Unknown History mcg-4.5 mcg/actuation aerosol inhaler (Symbicort) metoprolol tartrate 25 mg tablet 12.5 mg PO BID 05/12/23 05/22/23 Unknown History fluticasone propionate 50 1 spray intranasal DAILY PRN 05/22/23 05/22/23 Unknown History mcg/actuation nasal Congestion spray,suspension Physical Exam 2 Vital Signs: Vital Signs: Last Vital Signs Temp 98.4 F 05/24/23 18:15 Pulse 123 H 05/24/23 18:15 Resp 32 H 05/24/23 18:18 BP 125/83 05/24/23 18:15 Pulse Ox 98 05/24/23 18:15 O2 Del Method Nasal Cannula 05/24/23 18:15 O2 Flow Rate 2 05/24/23 18:15 Oxygen Flow Rate 2 05/22/23 18:58 BMI result Body Mass Index 21.9 Const: General: cooperative, no acute distress and lethargic O rientation/consciousness: oriented to person, oriented to place and lethargic Resp: Effort & Inspection: able to speak in complete sentences, no respiratory distress and prolonged expiratory phase Auscultation: diminished lung sounds on the right in the lower lung johnson Cardio: Rate: tachycardic GI: Palpation (GI): Soft to palpation and nontender Auscultation: normal bowel sounds Neuro: General: oriented to person and oriented to place Cranial nerves: Y es CN's II-XII intact bilaterally Extrem: General: No edema Results Labs 05/24/23 08:02 05/24/23 18:25 Labs: Short CBC 05/24/23 Range/Units 08:02 WBC 27.4 H (4.8-10.8) X10*3/uL Hgb 9.4 L (12.0-16.0) g/dl Hct 27.0 L (37.0-47.0) % Plt Count 292 (160-400) X10*3/uL BMP 05/24/23 05/24/23 08:02 18:25 Sodium 133 L 132 L Potassium 3.8 4.3 Chloride 103 105 Carbon Dioxide 17 L 15 L BUN 12 15 Creatinine 0.68 0.68 Calcium 8.1 L 8.3 L Liver Function 05/24/23 05/24/23 Range/Units 08:02 18:25 Total Bilirubin 0.6 0.5 (0.0-1.0) mg/dL Direct Bilirubin 0.3 (0.0-0.5) mg/dL AST 35 H 33 H (5-31) U/L ALT 22 22 (0-31) U/L Alkaline Phosphatase 124 H 122 H (39-117) U/L Albumin 2.8 L 2.7 L (3.5-5.0) g/dL Microbiology Microbiology Results: Microbiology 05/23/23 Unknown Pleura Gram Stain - Final 05/23/23 Unknown [facility]ura Anaerobic Culture - Preliminary 05/23/23 Unknown [facility] Body Fluid Culture - Preliminary No growth to date. 05/22/23 20:28 Blood - Venous Blood Culture - Preliminary No growth after 24 hours. 05/22/23 20:31 Blood - Venous Blood Culture - Preliminary No growth after 24 hours. Assessment and Plan (1) Multiple cerebral infarctions: Status: Acute 62 years old woman with multiple bilateral subacute cerebral infarcts both in anterior posterior circulation and many of them in border zone area. Both frontal lobes are affected, left more than right. Exact etiology of these infarcts was unclear. Differential diagnosis included cardiomyopathy or cardiac source of embolism but she was not known to have cardiomyopathy. Hypercoagulable/hyperviscosity syndrome is another possibility. Because of border zone nature of many of these lesions, I would suggest obtaining CTA of brain and neck to look at her vasculature. She was already anticoagulated, which could continue. Otherwise there is no specific treatment. 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
[2023-05-24 20:18] LABS: Free T4 (Free Thyroxine) 1.07 ng/dL (0.71-1.85)
[2023-05-24 20:43] LABS: Fibrinogen 441 MG/DL (259-690); INTERNATIONAL NORM RATIO 2.3 (0.9-1.1); Prothrombin Time 27.8 SEC (11.1-13.3)
[2023-05-24 20:45] LABS: Partial Thromboplastin Time 30.6 SEC (26.0-36.8)
[2023-05-24 20:46] LABS: Lactic Acid 1.4 mmol/L (0.5-2.0)
[2023-05-24 21:05] LABS: D Dimer High Sensitivity 14502 NG/ML
[2023-05-24] MEDS: Atorvastatin Calcium 40 MG TABLET PO (21:15)
[2023-05-24] MEDS: Acetaminophen 325 MG TABLET 650 MG PO (22:06)
[2023-05-24] MEDS: Sodium Bicarbonate 8.4% 150 MEQ in Dextrose 5 % 850 ML 50 MEQ IV (22:43)
[2023-05-25] VITALS (8 sets, daily range): BP systolic 105–146; BP diastolic 59–91; PULSE 98–117; RESP 18–20; TEMP 36.2–37.7; O2SAT 91–98
[2023-05-25 02:05] LABS: Venous Blood Gas Refer to POC result
[2023-05-25 03:14] LABS: VBG Base Excess -1.7 mmol/L; VBG HCO3 20 mmol/L (22-26); VBG pCO2 25 mmHg; VBG pO2 132 mmHg
[2023-05-25 03:15] LABS: Venous Blood Gas Refer to POC result
[2023-05-25 03:17] LABS: VBG Base Excess -2.7 mmol/L; VBG HCO3 19 mmol/L (22-26); VBG pCO2 24 mmHg; VBG pH 7.49 (7.32-7.43); VBG pO2 168 mmHg
[2023-05-25] MEDS: cefEPime HCl 2 GM in 0.9 % Sodium Chloride 50 ML IV ×3 (05:19→20:40)
[2023-05-25 08:16] LABS: Basophils Absolute Auto 0.1 X10*3/uL (0.0-0.2); Basophils Percent Auto 0.3 % (0-2); Eosinophils Percent Auto 0.1 % (0-4); Hematocrit 28.9 % (37.0-47.0); Hemoglobin 9.5 g/dl (12.0-16.0); Imm Gran Pct Auto 1.2 % (0.0-0.4); MANUAL DIFF FLAG SCAN; Mean Corpuscular HGB Conc 32.9 g/dl (31.0-35.0); Mean Corpuscular Volume 85.3 fL (80.0-98.0); Monocytes Absolute Auto 0.9 X10*3/uL (0.1-1.2); Monocytes Percent Auto 3.6 % (2-11); Neutrophils Absolute Auto 22.9 x10*3/uL (2.0-8.3); Neutrophils Percent Auto 90.8 % (45-73); Platelet Count 286 X10*3/uL (160-400); Red Blood Count 3.39 X10*6/uL (4.20-5.50); Red Cell Distribution Width 15.5 % (11.0-16.0); SCAN SMEAR FLAG 1; White Blood Count 25.3 X10*3/uL (4.8-10.8)
[2023-05-25] MEDS: Apixaban 5 MG TABLET PO (08:24)
[2023-05-25] MEDS: Metoprolol Tartrate 25 MG TABLET PO ×2 (08:24→20:40)
[2023-05-25] MEDS: 0.9 % Sodium Chloride Flush 3 ML SYRINGE IVFLUSH ×2 (08:24→13:40)
[2023-05-25] MEDS: Acetaminophen 325 MG TABLET 650 MG PO ×2 (08:26→13:40)
[2023-05-25 08:27] LABS: Vancomycin Random 8.1 mcg/mL (15-20)
[2023-05-25 08:32] LABS: Anion Gap 14 (12-20); Blood Urea Nitrogen 18 mg/dL (9-16); Calcium 8.5 mg/dL (8.4-10.2); Carbon Dioxide 20 mmol/L (22-29); Chloride 103 mmol/L (96-108); Creatinine Clr Calc Pharmacy 81.3; Estimated Glomerular Filt Rate > 60; Glucose Random 120 mg/dL (60-115); Magnesium 2.3 mg/dL (1.6-2.6); Potassium 3.7 mmol/L (3.3-5.1); Sodium 133 mmol/L (135-145)
[2023-05-25 08:33] LABS: SLIDE REVIEW VERIFIED
--- NOTE | 2023-05-25 08:44 | HE.PHANOTE ---
RE: VANCO DOSING Trough came back as 8.1. Dose is increased to 1250 mg q12h (predicted AUC 549 and trough 14.9) starting @1000 on 05/25/23. Next random scheduled for 05/26/23 @0800.
[2023-05-25] MEDS: Fluticasone/Vilanterol 200/25 BLST.W.DEV 1 PUFF INHALE (08:50)
[2023-05-25 09:10] LABS: B Type Natriuretic Peptide 561 pg/mL (<100)
[2023-05-25] MEDS: vancomycin HCL 1,250 MG in 0.9 % Sodium Chloride 250 ML 166.67 MG IV ×2 (10:02→22:52)
--- NOTE | 2023-05-25 10:28 | P.CONCA_ITS ---
History of Present Illness History of Present Illness Date of Service: 05/25/23 Chief complaint: Pneumonia, weakness Narrative: This is a cardiology consultation regarding tachycardia and to at rest cardiac issues. Patient states that she generally follows a [facility]. She has a history of mitral valve repair about 5 years ago. Was apparently done for regurgitation and she was not symptomatic but it was done to avoid any future issues. Suspect she might have had asymptomatic chronic severe mitral regurgitation leading to repair. Otherwise, she states that she is generally healthy and did not really have any issues till a few weeks back. She was recently hospitalized and diagnosed with pulmonary embolism as well as lung cancer. Current admissions because of a vasovagal type syncopal episode during lab draw that led to the hospitalization. Patient has essentially been tachycardic since admission. 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 We have been asked to address any potential cardiac components. Review of Systems 2 Review of Systems: Yes all other systems are reviewed and are negative Constitutional: Constitutional: Reports as per HPI and Reports no additional constitutional complaints Eyes: Eyes: Reports as per HPI and Denies no additional eye complaints ENT: Denies system reviewed and no additional complaints, except as documented and Reports as per HPI Cardiovascular: Cardiovascular: Reports as per HPI, Reports no additional cardiovascular complaints, Denies acrocyanosis, Denies cool extremities, Denies chest pain, Denies leg edema, Denies lightheadedness, Denies palpitations and Denies dyspnea Respiratory: Respiratory: Reports as per HPI, Denies no additional respiratory complaints and Denies dyspnea Gastrointestinal: Gastrointestinal: Reports as per HPI and Denies no additional gastrointestinal complaints Genitourinary: Genitourinary: Reports as per HPI Musculoskeletal: Musculoskeletal: Reports no additional musculoskeletal complaints and Reports as per HPI Integumentary/Breasts: Skin/Breast: Reports system reviewed and no additional complaints, except as docu Neurologic: Reports system reviewed and no additional complaints, except as documented and Reports as per HPI Psychiatric: Psychiatric: Reports no additional psychiatric complaints and Reports as per HPI Endocrine: Endocrine: Reports no additional endocrine complaints, Reports as per HPI and Denies palpitations Hematologic/Lymphatic: Hematologic/Lymphatic: Reports no additional hematologic/lymphatic complaints and Reports as per HPI Allergic/Immunologic: Allergic/Immunologic: Reports no additional allergic/immunologic complaints and Reports as per HPI [facility] Past Medical History Medical History Adenocarcinoma of lung GIB (gastrointestinal bleeding) Mediastinal mass Pulmonary emboli Family history of thyroid disease Bilateral cataracts Sinus tachycardia Asthma Family History Family History Mother Leukemia Maternal Aunt Lung cancer Ovarian cancer Surgical History Surgical History (Updated 05/25/23 @ 11:10 by Denny Shen MD) S/P IVC filter History of tonsillectomy History of open heart surgery Social History Social History Household Members: Other Household Members Other:: SISTER Housing: House Do you presently have visiting nurse or other home services: No Comment: Commode near bed. Pt gait and balance are steady. Per protocol extra safety Patient Tobacco Use Status: Former Tobacco user e-Cigarette/Vaping Use: Never Used Second Hand Smoke Exposure: No Advance Directives Date on File: 05/22/23 service: No Meds Allergies Allergy/AdvReac Type Severity Reaction Status Date / Time hydrocodone [From Vicodin] Allergy Vomiting Verified 05/22/23 16:46 oxycodone [From Percocet] Allergy Vomiting Verified 05/22/23 16:46 shellfish derived Allergy Anaphylaxis Verified 05/22/23 16:46 Active Medications: Current Medications Acetaminophen (Acetaminophen 325 Mg Tablet) 650 mg PO Q6H PRN PRN Reason: Pain, Mild (Pain Scale 1-3) Last Admin: 05/25/23 08:26 Dose: 650 mg Albuterol Sulfate (Albuterol Sulfate 90 Mcg 8 Gm Inhaler) 2 puff INHALE Q4H PRN PRN Reason: Shortness Of Breath Or Wheezing Apixaban (Apixaban 5 Mg Tablet) 5 mg PO BID ABHAY Last Admin: 05/25/23 08:24 Dose: 5 mg Atorvastatin Calcium (Atorvastatin Calcium 40 Mg Tablet) 40 mg PO BEDTIME ABHAY Last Admin: 05/24/23 21:15 Dose: 40 mg Fluticasone Propionate (Fluticasone Propionate Nasal 16 Gm [place]) 1 spray NOSTRIL-B DAILY PRN PRN Reason: Congestion Fluticasone/Vilanterol (Fluticasone/Vilanterol 200/25 Blst.W.Dev) 1 puff INHALE RDAILY [facility] Last Admin: 05/25/23 08:50 Dose: 1 puff Hydrocortisone (Hydrocortisone 2.5 % Rectal Cr 30 Gm Tube) 1 appl MT BID [facility] Last Admin: 05/24/23 21:35 Dose: Not Given Cefepime HCl 2 gm/ Sodium (Chloride) 50 mls @ 100 mls/hr IV Q8H [facility] Last Infusion: 05/25/23 05:52 Dose: Infused Sodium Bicarbonate 150 meq/ (Dextrose) 1,000 mls @ 50 mls/hr IV .Q20H [facility] Last Admin: 05/24/23 22:43 Dose: 50 mls/hr Vancomycin HCl 1,250 mg/ (Sodium Chloride) 250 mls @ 166.667 mls/hr IV Q12H [facility] Last Admin: 05/25/23 10:02 Dose: 166.67 mls/hr Metoprolol Tartrate (Metoprolol Tartrate 25 Mg Tablet) 25 mg PO BID [facility]; Protocol Last Admin: 05/25/23 08:24 Dose: 25 mg Ondansetron HCl (Ondansetron Hcl 4 Mg/2 Ml Vial) 4 mg IVPUSH Q8H PRN PRN Reason: Nausea and Vomiting Pharmacy Consult (Consult Rx Vancomycin Dosing) 1 each MISCELLANE DAILY PRN PRN Reason: Consult order Polyethylene Glycol (Polyethylene Glycol 3350 17 Gm Powd.Pack) 17 gm PO DAILY PRN PRN Reason: Constipation Senna (Sennosides 8.6 Mg Tablet) 17.2 mg PO BEDTIME PRN PRN Reason: Constipation Sodium Chloride (0.9 % Sodium Chloride Flush 3 Ml Syringe) 3 ml IVFLUSH QSHIFT [facility] Last Admin: 05/25/23 08:24 Dose: 3 ml Home Medications Medication Instructions Recorded Confirmed Last Taken Type albuterol sulfate 90 mcg/actuation 2 puff inhalation Q4-6H PRN 05/12/23 05/22/23 Unknown History aerosol inhaler (Ventolin HFA) Shortness Of Breath Or Wheezing budesonide-formoterol HFA 160 2 puff inhalation BID 05/12/23 05/22/23 Unknown History mcg-4.5 mcg/actuation aerosol inhaler (Symbicort) metoprolol tartrate 25 mg tablet 12.5 mg PO BID 05/12/23 05/22/23 Unknown History fluticasone propionate 50 1 spray intranasal DAILY PRN 05/22/23 05/22/23 Unknown History mcg/actuation nasal Congestion spray,suspension Physical Exam 2 Vital Signs: Vital Signs: Last Vital Signs Temp 98.0 F 05/25/23 07:17 Pulse 105 H 05/25/23 09:43 Resp 18 05/25/23 08:51 BP 109/59 L 05/25/23 07:17 Pulse Ox 96 05/25/23 07:17 O2 Del Method Nasal Cannula 05/25/23 07:17 O2 Flow Rate 2 05/25/23 07:17 Oxygen Flow Rate 2 05/22/23 18:58 BMI result Body Mass Index 21.9 Const: General: comfortable and no acute distress O rientation/consciousness: patient oriented x3 HEENT: Other: Unremarkable Head: Yes normal to inspection Neck: Neck: Yes normal visual inspection Chest: Chest palpation & inspection: normal inspection of the chest Resp: Auscultation: clear to auscultation bilaterally Cardio: Palpation: normal PMI Heart sounds: S1 normal heart sound present, S2 normal heart sound present, no gallops, Murmur heart sound present systolic II/ and no rubs GI: Palpation (GI): Soft to palpation Back/Spine/Pelvis: Other: unremarkable Skin: General skin exam: no rashes or lesions noted Neuro: General: patient oriented x3 Extrem: General: Yes normal to inspection Psych: Mental Status: mental status grossly normal Objective Labs and Meds 05/25/23 07:50 05/25/23 07:50 Lab results: Laboratory Results - last 24 hr 05/24/23 05/24/23 05/24/23 08:02 11:41 17:49 WBC RBC Hgb Hct MCV MCH MCHC RDW Plt Count MPV Immature Gran % (Auto) Neut % (Auto) Lymph % (Auto) [place] % (Auto) Eos % (Auto) Baso % (Auto) Lymph # (Auto) [place] # (Auto) Eos # (Auto) Baso # (Auto) Abs Immat Gran (auto) Absolute Neuts (auto) Absolute Nucleated RBC Nucleated RBC % (auto) Smear Tech's Comments Hold Purple Top PT INR APTT Fibrinogen D-Dimer High Sensitivty O2 Saturation 97.0 ABG pH at Pt Temp 7.54 H ABG pCO2 at Pt Temp 20 L* ABG pO2 at Pt Temp 82 L ABG HCO3 17 L ABG Base Excess (Actual) -2.7 VBG pH VBG pCO2 VBG pO2 VBG HCO3 VBG O2 Saturation VBG Base Excess Sodium Potassium Chloride Carbon Dioxide Anion Gap BUN Creatinine Estim Creat Clear Calc Estimated GFR Random Glucose Lactic Acid Uric Acid Calcium Phosphorus Magnesium Total Bilirubin AST ALT Alkaline Phosphatase Ammonia 30 B-Natriuretic Peptide Total Protein Albumin Triglycerides 86 Cholesterol 175 LDL Cholesterol, Calc 123 H HDL Cholesterol 35 L TSH 2.15 Free T4 Random Vancomycin 05/24/23 05/24/23 05/25/23 18:25 20:27 02:02 WBC RBC Hgb Hct MCV MCH MCHC RDW Plt Count MPV Immature Gran % (Auto) Neut % (Auto) Lymph % (Auto) [place] % (Auto) Eos % (Auto) Baso % (Auto) Lymph # (Auto) [place] # (Auto) Eos # (Auto) Baso # (Auto) Abs Immat Gran (auto) Absolute Neuts (auto) Absolute Nucleated RBC Nucleated RBC % (auto) Smear Tech's Comments Hold Purple Top SEE NOTE PT 27.8 H D INR 2.3 H APTT 30.6 Fibrinogen 441 D-Dimer High Sensitivty 62478 O2 Saturation ABG pH at Pt Temp ABG pCO2 at Pt Temp ABG pO2 at Pt Temp ABG HCO3 ABG Base Excess (Actual) VBG pH 7.50 H VBG pCO2 25 VBG pO2 132 VBG HCO3 20 L VBG O2 Saturation 100.0 VBG Base Excess -1.7 Sodium 132 L Potassium 4.3 Chloride 105 Carbon Dioxide 15 L Anion Gap 16 BUN 15 Creatinine 0.68 Estim Creat Clear Calc 81.3 Estimated GFR > 60 Random Glucose 118 H Lactic Acid 1.4 Uric Acid 3.6 Calcium 8.3 L Phosphorus 2.0 L Magnesium Total Bilirubin 0.5 AST 33 H ALT 22 Alkaline Phosphatase 122 H Ammonia B-Natriuretic Peptide Total Protein 6.7 Albumin 2.7 L Triglycerides Cholesterol LDL Cholesterol, Calc HDL Cholesterol TSH Free T4 1.07 Random Vancomycin 05/25/23 05/25/23 03:11 07:50 WBC 25.3 H RBC 3.39 L Hgb 9.5 L Hct 28.9 L MCV 85.3 MCH 28.0 MCHC 32.9 RDW 15.5 Plt Count 286 MPV 11.0 Immature Gran % (Auto) 1.2 H Neut % (Auto) 90.8 H Lymph % (Auto) 4.0 L [place] % (Auto) 3.6 Eos % (Auto) 0.1 Baso % (Auto) 0.3 Lymph # (Auto) 1.0 L [place] # (Auto) 0.9 Eos # (Auto) 0.0 Baso # (Auto) 0.1 Abs Immat Gran (auto) 0.30 H Absolute Neuts (auto) 22.9 H Absolute Nucleated RBC 0.000 Nucleated RBC % (auto) 0.0 Smear Tech's Comments VERIFIED Hold Purple Top PT INR APTT Fibrinogen D-Dimer High Sensitivty O2 Saturation ABG pH at Pt Temp ABG pCO2 at Pt Temp ABG pO2 at Pt Temp ABG HCO3 ABG Base Excess (Actual) VBG pH 7.49 H VBG pCO2 24 VBG pO2 168 VBG HCO3 19 L VBG O2 Saturation 100.0 VBG Base Excess -2.7 Sodium 133 L Potassium 3.7 Chloride 103 Carbon Dioxide 20 L Anion Gap 14 BUN 18 H Creatinine 0.68 Estim Creat Clear Calc 81.3 Estimated GFR > 60 Random Glucose 120 H Lactic Acid Uric Acid Calcium 8.5 Phosphorus 2.0 L Magnesium 2.3 Total Bilirubin AST ALT Alkaline Phosphatase Ammonia B-Natriuretic Peptide 561 H Total Protein Albumin Triglycerides Cholesterol LDL Cholesterol, Calc HDL Cholesterol TSH Free T4 Random Vancomycin 8.1 L ECG Interpretation: EKG with sinus tachycardia at 107/Min. No clear ischemic findings or other major pathology. Imaging Radiologist's impression: Impressions Brain MRI 05/24/23 13:20 IMPRESSION: There are multiple tiny acute embolic or watershed infarcts involving both cerebral hemispheres, cerebellum, thalami, and splenium of corpus callosum. These findings are scattered upon numerous chronic small vessel ischemic changes within the periventricular white matter. No evidence of acute hemorrhage. No abnormal intracranial mass or enhancement. There is a tiny focus of susceptibility artifact located within the occipital horn of the left lateral ventricle that may represent chronic changes of an old intraventricular hemorrhage. Chest X-Ray 05/24/23 19:23 IMPRESSION: Worsening congestive heart failure with pulmonary edema. Persistent bilateral pleural effusions. Head/Neck CTA 05/24/23 19:26 IMPRESSION: 1. No new acute intracranial abnormality. Hypodensities involving the bilateral centrum semiovale corresponding to regions of evolving acute suspected watershed ischemia, the full extent of which is better assessed on preceding MRI. 2. Technically limited CTA of the neck secondary to extensive venous reflux of injected contrast which largely obscures the cervical vertebral arteries. Within this limitation, no arterial high-grade stenosis or occlusion is identified. 3. No intracranial or high-grade stenosis or large vessel occlusion 4. Stable findings in the chest and lower neck as detailed above and described on recent CT of the chest. Above impression was communicated to Dr. 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 EKG shows sinus tachycardia. In the echocardiogram, LVEF is preserved. Mitral valve is difficult to assess as she is quite tachycardic. The gradients are elevated but that is in the setting of significant sinus tachycardia. Hence difficult to assess for mitral stenosis. Any case, unlikely that has playing a role in the current situation. In the bubble study part, no evidence of any shunting seen even with Valsalva. In the absence of any intracardiac shunting, unlikely that there is any [id number] shunting of thrombotic material to cause stroke. Also she has no atrial fibrillation history and hence that is less likely to play a role too. Suspect embolic strokes could be just from her prothrombotic state. Anticoagulation will need to be discussed with Hematology and planned appropriately. No specific management for the increased gradients across the mitral valve as that has not causing any problems at this time. Again, that was in the setting of tachycardia. Consider scanning chest again to see if she has recurrent pulmonary embolism in spite of the anticoagulation which could explain her tachycardia. Troponin elevation in the setting of ongoing medical issues and do not have any specific significance. Could have components of right heart strain. Do not think this has any ACS relevance. Discussed with Hattie Franklin. Discussed with daughter as well as other family at the bedside. Procedures Date of Service Date of Service: 05/25/23
--- NOTE | 2023-05-25 11:05 | HO.PM.IMPN ---
Subjective Subjective Date of Service: 05/25/23 Interval History: seen and examined this morning follow up for encephalopathy, lung ca, embolic strokes remains confused today, able to follow commands; denies sob, reports dry cough. full ROS difficult due to confusion Neurologic Neurologic: Reports confusion Psychiatric Psychiatric: Reports confusion Physical Exam Vital Signs: Vital Signs: Last Vital Signs Temp 98.0 F 05/25/23 07:17 Pulse 105 H 05/25/23 09:43 Resp 18 05/25/23 08:51 BP 109/59 L 05/25/23 07:17 Pulse Ox 96 05/25/23 07:17 O2 Del Method Nasal Cannula 05/25/23 07:17 O2 Flow Rate 2 05/25/23 07:17 Oxygen Flow Rate 2 05/22/23 18:58 BMI result Body Mass Index 21.9 Const: General: alert, awake and confusion Nutritional Appearance: average body habitus Orientation/consciousness: oriented to person and confusion Resp: Other: crackles left base Effort & Inspection: normal respiratory effort, no respiratory distress and no use of accessory muscles Cardio: Rate: tachycardic GI: Inspection: No distended Palpation (GI): Soft to palpation and nontender Neuro: Other: able to follow commands, moves all extremities, appears weak globally, no focal weakness. tongue midline, face symmetrical General: oriented to person and confusion Extrem: General: Yes no pedal edema Objective Data Active Medications Acetaminophen (Acetaminophen 325 Mg Tablet) 650 mg PO Q6H PRN PRN Reason: Pain, Mild (Pain Scale 1-3) Last Admin: 05/25/23 08:26 Dose: 650 mg Documented By: JAY Albuterol Sulfate (Albuterol Sulfate 90 Mcg 8 Gm Inhaler) 2 puff INHALE Q4H PRN PRN Reason: Shortness Of Breath Or Wheezing Atorvastatin Calcium (Atorvastatin Calcium 40 Mg Tablet) 40 mg PO BEDTIME [facility] Last Admin: 05/24/23 21:15 Dose: 40 mg Documented By: BROUziel Enoxaparin Sodium (Enoxaparin Sodium 60 Mg/0.6 Ml Syringe) 60 mg 1 mg/kg (60 mg) SUBCUT Q12H [facility] Fluticasone Propionate (Fluticasone Propionate Nasal 16 Gm [place]) 1 spray NOSTRIL-B DAILY PRN PRN Reason: Congestion Fluticasone/Vilanterol (Fluticasone/Vilanterol 200/25 Blst.W.Dev) 1 puff INHALE RDAILY [facility] Last Admin: 05/25/23 08:50 Dose: 1 puff Documented By: ANDRIY Hydrocortisone (Hydrocortisone 2.5 % Rectal Cr 30 Gm Tube) 1 appl [place] BID [facility] Last Admin: 05/24/23 21:35 Dose: Not Given Documented By: GEREMIAS Non-Admin Reason: Patient Refused Cefepime HCl 2 gm/ Sodium (Chloride) 50 mls @ 100 mls/hr IV Q8H [facility] Last Infusion: 05/25/23 05:52 Dose: Infused Documented By: GEREMIAS Sodium Bicarbonate 150 meq/ (Dextrose) 1,000 mls @ 50 mls/hr IV .Q20H [facility] Last Admin: 05/24/23 22:43 Dose: 50 mls/hr Documented By: GEREMIAS Vancomycin HCl 1,250 mg/ (Sodium Chloride) 250 mls @ 166.667 mls/hr IV Q12H [facility] Last Admin: 05/25/23 10:02 Dose: 166.67 mls/hr Documented By: JAY Metoprolol Tartrate (Metoprolol Tartrate 25 Mg Tablet) 25 mg PO BID [facility]; Protocol Last Admin: 05/25/23 08:24 Dose: 25 mg Documented By: JAY Ondansetron HCl (Ondansetron Hcl 4 Mg/2 Ml Vial) 4 mg IVPUSH Q8H PRN PRN Reason: Nausea and Vomiting Pharmacy Consult (Consult Rx Vancomycin Dosing) 1 each MISCELLANE DAILY PRN PRN Reason: Consult order Polyethylene Glycol (Polyethylene Glycol 3350 17 Gm Powd.Pack) 17 gm PO DAILY PRN PRN Reason: Constipation Senna (Sennosides 8.6 Mg Tablet) 17.2 mg PO BEDTIME PRN PRN Reason: Constipation Sodium Chloride (0.9 % Sodium Chloride Flush 3 Ml Syringe) 3 ml IVFLUSH QSHIFT [facility] Last Admin: 05/25/23 08:24 Dose: 3 ml Documented By: JAY Labs 05/25/23 07:50 05/25/23 07:50 Labs: Laboratory Results - last 24 hr 05/24/23 05/24/23 05/24/23 08:02 11:41 17:49 MCV MCH MCHC RDW Plt Count MPV Immature Gran % (Auto) Neut % (Auto) Lymph % (Auto) Williamson % (Auto) Eos % (Auto) Baso % (Auto) Lymph # (Auto) Williamson # (Auto) Eos # (Auto) Baso # (Auto) Abs Immat Gran (auto) Absolute Neuts (auto) Absolute Nucleated RBC Nucleated RBC % (auto) Smear Tech's Comments Hold Purple Top PT INR APTT Fibrinogen D-Dimer High Sensitivty O2 Saturation 97.0 ABG pH at Pt Temp 7.54 H ABG pCO2 at Pt Temp 20 L* ABG pO2 at Pt Temp 82 L ABG HCO3 17 L ABG Base Excess (Actual) -2.7 VBG pH VBG pCO2 VBG pO2 VBG HCO3 VBG O2 Saturation VBG Base Excess Anion Gap Estim Creat Clear Calc Estimated GFR Random Glucose Lactic Acid Uric Acid Calcium Phosphorus Magnesium Total Bilirubin AST ALT Alkaline Phosphatase Ammonia 30 B-Natriuretic Peptide Total Protein Albumin Triglycerides 86 Cholesterol 175 LDL Cholesterol, Calc 123 H HDL Cholesterol 35 L TSH 2.15 Free T4 Random Vancomycin 05/24/23 05/24/23 05/25/23 18:25 20:27 02:02 MCV MCH MCHC RDW Plt Count MPV Immature Gran % (Auto) Neut % (Auto) Lymph % (Auto) Williamson % (Auto) Eos % (Auto) Baso % (Auto) Lymph # (Auto) Williamson # (Auto) Eos # (Auto) Baso # (Auto) Abs Immat Gran (auto) Absolute Neuts (auto) Absolute Nucleated RBC Nucleated RBC % (auto) Smear Tech's Comments Hold Purple Top SEE NOTE PT 27.8 H D INR 2.3 H APTT 30.6 Fibrinogen 441 D-Dimer High Sensitivty 93927 O2 Saturation ABG pH at Pt Temp ABG pCO2 at Pt Temp ABG pO2 at Pt Temp ABG HCO3 ABG Base Excess (Actual) VBG pH 7.50 H VBG pCO2 25 VBG pO2 132 VBG HCO3 20 L VBG O2 Saturation 100.0 VBG Base Excess -1.7 Anion Gap 16 Estim Creat Clear Calc 81.3 Estimated GFR > 60 Random Glucose 118 H Lactic Acid 1.4 Uric Acid 3.6 Calcium 8.3 L Phosphorus 2.0 L Magnesium Total Bilirubin 0.5 AST 33 H ALT 22 Alkaline Phosphatase 122 H Ammonia B-Natriuretic Peptide Total Protein 6.7 Albumin 2.7 L Triglycerides Cholesterol LDL Cholesterol, Calc HDL Cholesterol TSH Free T4 1.07 Random Vancomycin 05/25/23 05/25/23 03:11 07:50 MCV 85.3 MCH 28.0 MCHC 32.9 RDW 15.5 Plt Count 286 MPV 11.0 Immature Gran % (Auto) 1.2 H Neut % (Auto) 90.8 H Lymph % (Auto) 4.0 L Williamson % (Auto) 3.6 Eos % (Auto) 0.1 Baso % (Auto) 0.3 Lymph # (Auto) 1.0 L Williamson # (Auto) 0.9 Eos # (Auto) 0.0 Baso # (Auto) 0.1 Abs Immat Gran (auto) 0.30 H Absolute Neuts (auto) 22.9 H Absolute Nucleated RBC 0.000 Nucleated RBC % (auto) 0.0 Smear Tech's Comments VERIFIED Hold Purple Top PT INR APTT Fibrinogen D-Dimer High Sensitivty O2 Saturation ABG pH at Pt Temp ABG pCO2 at Pt Temp ABG pO2 at Pt Temp ABG HCO3 ABG Base Excess (Actual) VBG pH 7.49 H VBG pCO2 24 VBG pO2 168 VBG HCO3 19 L VBG O2 Saturation 100.0 VBG Base Excess -2.7 Anion Gap 14 Estim Creat Clear Calc 81.3 Estimated GFR > 60 Random Glucose 120 H Lactic Acid Uric Acid Calcium 8.5 Phosphorus 2.0 L Magnesium 2.3 Total Bilirubin AST ALT Alkaline Phosphatase Ammonia B-Natriuretic Peptide 561 H Total Protein Albumin Triglycerides Cholesterol LDL Cholesterol, Calc HDL Cholesterol TSH Free T4 Random Vancomycin 8.1 L Microbiology Microbiology Results: Microbiology 05/23/23 Unknown Gram Stain - Final Pleura Anaerobic Culture - Preliminary No growth to date. Body Fluid Culture - Preliminary No growth to date. 05/22/23 20:28 Blood Culture - Preliminary Blood - Venous No growth after 48 hours. 05/22/23 20:31 Blood Culture - Preliminary Blood - Venous No growth after 48 hours. Assessment and Plan (1) Pulmonary emboli: Status: Acute (2) Multiple cerebral infarctions: Status: Acute (3) Adenocarcinoma of lung: Status: Acute Plan 62-year-old female with pertinent history of asthma not on home oxygen, sinus tachycardia on beta-elli, history of mitral valve repair in 2017, recently diagnosed with adenocarcinoma of the lung with recent admission for pulmonary embolus started on Eliquis complicated by hemorrhoidal bleed with resumption of Eliquis per GI on discharge 05/20, presented to the ED from hematology following a vasovagal syncopal episode during lab draw earlier today. Patient will be admitted for further management of worsening RLL pneumonia with associated acute metabolic encephalopathy and weakness Multiple subacute infarcts due to ongoing encephalopathy, brain MRI was obtained and shows multiple bilateral subacute cerebral infarcts both in anterior posterior circulation and many of them in border zone area. Both frontal lobes are affected, left more than right. 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 post obstructive strep pneumo antigen, Legionella antigen pending, sputum culture unremarkable s/p thoracentesis 05/23 with removal of 1L of fluid Continue oxygen therapy, titrate to oxygen saturation greater than 91% on room air blood cultures negative to date Acute metabolic encephalopathy likely multifactorial due to strokes, underlying cancer, PE and pneumonia renal function, LFTs, ammonia level wnl Adenocarcinoma of pulmonary origin Bronchoscopy 05/18/2023 New diagnosis, not yet initiated on therapy oncology following pulmonary edema new on cxr, BNP elevated cardiology consult pending echo from last ECHO with preserved EF Pulmonary embolism/BLE DVT diagnosed 05/11 s/p IVC filter 05/15/23 has been treated with Eliquis, will change to therapeutic lovenox Sinus tachycardia chronic, continue metoprolol remains tachycardic despite increase in metoprolol thyroid function wnl Elevated troponins likely demand in setting of pulmonary embolus echo 05/12 rwnv with normal LV systolic function, mildly reduced right ventricle systolic function, mild pulmonary hypertension Moderate persistent asthma no acute exacerbation continue maintenance inhalers, albuterol p.r.n. DVT prophylaxis-Eliquis being transitioned to therapeutic lovenox Attending Dr. Escobedo Full code continue hospital stay for management of worsening acute right lower lobe pneumonia with associated metabolic encephalopathy, stroke, close monitoring of mentation, and physical therapy evaluation and possible placement to short-term rehab Quality Stroke Does the patient have a stroke diagnosis?: No VTE Prior VTE?: No VTE Risk Level:: Medical - moderate - high VTE Device Contraindication: Treatment Not Indicated VTE Drug Contraindication: N/A - Med Ordered
[2023-05-25] MEDS: Potassium Phosphate/NS 15 MMOL/250 ML PLAST..BAG 62.5 MMOL IV (13:40)
[2023-05-25] MEDS: traMADoL HCL 50 MG TABLET 25 MG PO (13:43)
--- NOTE | 2023-05-25 14:37 | MHC.SL.SWA ---
Speech Pathologist Impression: Risk of aspiration, oropharyngeal dysphagia Risk of Aspiration Due to: Neurological Condition History of Pneumonia Dysphasia Diet Status: No changes at this time Liquid Consistency and Strategies for Safe Swallow: Liquid Intake Recommendation: Thin Liquid Intake Strategies: Small Sips Solid Food Consistency: Dietary Recommendations: Chopped/Advanced (NDD3) Additional Modifications to Solid Foods: Recommend START on CHOPPED/ADVANCED (NDD3) diet and THIN liquids, pills CRUSHED in PUREE. Patient continues to require total 1:1 assistance feeding. Minimize distractions during meal time and provide cues as needed. Oral Medication Intake: Crushed with Puree Please contact the pharmacy regarding appropriate crushable or liquid drug formulations that are available whenever modified delivery is recommended. Compensatory Strategies and Precautions to be Taken for Safe Swallow: Sitting Upright (90 deg) Double Swallow Small Bites and Sips Alternate Liquids/Solids Rate of Ingestion Change Oral Check Avoid Specific Foods Supervision While Eating and Drinking for Safe Swallow: Total Assistance (1:1) Foods to Avoid: Hard, dry, or crunchy foods Swallowing Recommended Treatments: Compens. Strategy Educat. Recommendation for Speech: Inpatient Speech Therapy Comment: NURSE CONSULTANT will continue to follow during inpatient stay. Frequency/Duration: M-F PRN Date Range for Service Req: Timeline to reassess: Nuclear Operations Specialist Clinican/Clinical Fellow: No Supervisory Statement: I have reviewed and agree with the student/clinical fellow's documentation: N/A Speech Language Pathologist: Bethany Kessler M.A., [facility])-NURSE CONSULTANT
[2023-05-25] MEDS: Sodium Bicarbonate 8.4% 150 MEQ in Dextrose 5 % 850 ML 50 MEQ IV (16:52)
[2023-05-25] MEDS: Enoxaparin Sodium 60 MG/0.6 ML SYRINGE SUBCUT (20:39)
[2023-05-25] MEDS: Atorvastatin Calcium 40 MG TABLET PO (20:40)
[2023-05-26] VITALS (8 sets, daily range): BP systolic 105–154; BP diastolic 61–95; PULSE 76–115; RESP 16–24; TEMP 36.2–37; O2SAT 90–98
[2023-05-26 04:04] LABS: Venous Blood Gas Refer to POC result
[2023-05-26 04:07] LABS: VBG Base Excess 3.4 mmol/L; VBG HCO3 25 mmol/L (22-26); VBG pCO2 29 mmHg; VBG pH 7.54 (7.32-7.43); VBG pO2 67 mmHg
[2023-05-26] MEDS: Albuterol/Iprat 2.5/0.5MG 3 ML AMPUL.NEB INHALE (04:49)
[2023-05-26] MEDS: cefEPime HCl 2 GM in 0.9 % Sodium Chloride 50 ML IV ×3 (05:11→20:02)
[2023-05-26 07:38] LABS: Basophils Absolute Auto 0.1 X10*3/uL (0.0-0.2); Basophils Percent Auto 0.2 % (0-2); Eosinophils Percent Auto 0.1 % (0-4); Hematocrit 25.9 % (37.0-47.0); Hemoglobin 8.6 g/dl (12.0-16.0); Imm Gran Abs Auto 0.27 X10*3/uL (0.00-0.03); Imm Gran Pct Auto 0.8 % (0.0-0.4); Lymphocytes Absolute Auto 0.9 X10*3/uL (1.2-4.9); Lymphocytes Percent Auto 2.7 % (20-40); MANUAL DIFF FLAG SCAN; Mean Corpuscular HGB Conc 33.2 g/dl (31.0-35.0); Mean Corpuscular Hemoglobin 27.7 pg (27.0-33.0); Mean Corpuscular Volume 83.5 fL (80.0-98.0); Mean Platelet Volume 10.6 fL (9.4-12.3); Neutrophils Absolute Auto 29.9 x10*3/uL (2.0-8.3); Neutrophils Percent Auto 93.2 % (45-73); Platelet Count 344 X10*3/uL (160-400); Red Cell Distribution Width 15.5 % (11.0-16.0); SCAN SMEAR FLAG 1
--- NOTE | 2023-05-26 07:42 | PC.NURSE ---
pt alert to person only, fine crackles noted at bases with expiratory wheezing noted and tachypneic. CXR, VBG obtained per md orders. PRN duoneb given. order placed for morphine IV x 1 to be given. Spoke with pt's sister who states that pt is allergic to morphine. Morphine not administered at this time. Updated with Dr. Calix and pharmacist.
[2023-05-26 07:51] LABS: Vancomycin Random 20.4 mcg/mL (15-20)
[2023-05-26 07:52] LABS: Anion Gap 15 (12-20); Blood Urea Nitrogen 24 mg/dL (9-16); Calcium 8.5 mg/dL (8.4-10.2); Carbon Dioxide 24 mmol/L (22-29); Chloride 101 mmol/L (96-108); Creatinine Clr Calc Pharmacy 78.9; Estimated Glomerular Filt Rate > 60; Glucose Random 180 mg/dL (60-115); Phosphorus 2.7 mg/dL (2.7-4.5); Potassium 3.9 mmol/L (3.3-5.1); Sodium 136 mmol/L (135-145)
[2023-05-26] MEDS: Fluticasone/Vilanterol 200/25 BLST.W.DEV 1 PUFF INHALE (08:05)
--- NOTE | 2023-05-26 08:09 | HE.PHANOTE ---
VANCO DOSING BASED ON SCR AND TROUGH OF 20.4. DOSE DECREASED TO 1000 Q 12. NEXT LEVEL 05/26 @ 0900
[2023-05-26 08:19] LABS: SLIDE REVIEW VERIFIED
[2023-05-26] MEDS: Metoprolol Tartrate 25 MG TABLET PO ×2 (09:09→20:04)
[2023-05-26] MEDS: Enoxaparin Sodium 60 MG/0.6 ML SYRINGE SUBCUT ×2 (09:10→20:04)
[2023-05-26] MEDS: 0.9 % Sodium Chloride Flush 3 ML SYRINGE IVFLUSH ×3 (09:10→23:51)
[2023-05-26] MEDS: Furosemide 40 MG/4 ML VIAL IVPUSH (09:10)
[2023-05-26] MEDS: Hydrocortisone 2.5 % Rectal Cr 30 GM TUBE 1 APPL PR ×2 (09:11→20:04)
--- NOTE | 2023-05-26 11:32 | HO.PM.IMPN ---
Subjective Subjective Date of Service: 05/26/23 Interval History: seen and examined this morning follow up for encephalopathy, lung ca, embolic strokes able to follow commands; denies sob, reports dry cough. full ROS difficult due to confusion Neurologic Neurologic: Reports confusion Psychiatric Psychiatric: Reports confusion Physical Exam Vital Signs: Vital Signs: Last Vital Signs Temp 97.5 F 05/26/23 11:23 Pulse 105 H 05/26/23 11:23 Resp 20 05/26/23 11:23 BP 116/66 05/26/23 11:23 Pulse Ox 98 05/26/23 11:23 O2 Del Method Nasal Cannula 05/26/23 11:23 O2 Flow Rate 2 05/26/23 11:23 Oxygen Flow Rate 2 05/22/23 18:58 BMI result Body Mass Index 21.9 Appearing in no acute distress lung sounds are clear to auscultation heart regular rate rhythm, clear S1, S2 positive bowel sounds, abdomen is soft, nontender neuro patient is alert x3, no focal deficits Const: General: confusion Orientation/consciousness: confusion Neuro: General: confusion Objective Data Active Medications Acetaminophen (Acetaminophen 325 Mg Tablet) 650 mg PO Q6H PRN PRN Reason: Pain, Mild (Pain Scale 1-3) Last Admin: 05/25/23 13:40 Dose: 650 mg Documented By: RONEL Albuterol Sulfate (Albuterol Sulfate 90 Mcg 8 Gm Inhaler) 2 puff INHALE Q4H PRN PRN Reason: Shortness Of Breath Or Wheezing Albuterol/Ipratropium (Albuterol/Iprat 2.5/0.5mg 3 Ml Ampul.Neb) 3 ml INHALE Q4H PRN PRN Reason: Wheezing Last Admin: 05/26/23 04:49 Dose: 3 ml Documented By: ROBERT Atorvastatin Calcium (Atorvastatin Calcium 40 Mg Tablet) 40 mg PO BEDTIME [facility] Last Admin: 05/25/23 20:40 Dose: 40 mg Documented By: RICK Diphenhydramine HCl (Diphenhydramine Hcl 50 Mg/Ml Vial) 25 mg IVPUSH Q4H PRN PRN Reason: allergy Enoxaparin Sodium (Enoxaparin Sodium 60 Mg/0.6 Ml Syringe) 60 mg 1 mg/kg (60 mg) SUBCUT Q12H [facility] Last Admin: 05/26/23 09:10 Dose: 60 mg Documented By: EUGENIO Fluticasone Propionate (Fluticasone Propionate Nasal 16 Gm [place]) 1 spray NOSTRIL-B DAILY PRN PRN Reason: Congestion Fluticasone/Vilanterol (Fluticasone/Vilanterol 200/25 Blst.W.Dev) 1 puff INHALE RDAILY [facility] Last Admin: 05/26/23 08:05 Dose: 1 puff Documented By: JAIRO Hydrocortisone (Hydrocortisone 2.5 % Rectal Cr 30 Gm Tube) 1 appl [place] BID [facility] Last Admin: 05/26/23 09:11 Dose: 1 appl Documented By: EUGENIO Cefepime HCl 2 gm/ Sodium (Chloride) 50 mls @ 100 mls/hr IV Q8H [facility] Last Infusion: 05/26/23 05:41 Dose: Infused Documented By: RICK Sodium Bicarbonate 150 meq/ (Dextrose) 1,000 mls @ 50 mls/hr IV .Q20H [facility] Last Infusion: 05/26/23 08:35 Dose: 0 mls/hr Documented By: EUGENIO Vancomycin HCl 1,000 mg/ (Sodium Chloride) 270 mls @ 270 mls/hr IV Q12H [facility] Metoprolol Tartrate (Metoprolol Tartrate 25 Mg Tablet) 25 mg PO BID [facility]; Protocol Last Admin: 05/26/23 09:09 Dose: 25 mg Documented By: EUGENIO Ondansetron HCl (Ondansetron Hcl 4 Mg/2 Ml Vial) 4 mg IVPUSH Q8H PRN PRN Reason: Nausea and Vomiting Pharmacy Consult (Consult Rx Vancomycin Dosing) 1 each MISCELLANE DAILY PRN PRN Reason: Consult order Polyethylene Glycol (Polyethylene Glycol 3350 17 Gm Powd.Pack) 17 gm PO DAILY PRN PRN Reason: Constipation Senna (Sennosides 8.6 Mg Tablet) 17.2 mg PO BEDTIME PRN PRN Reason: Constipation Sodium Chloride (0.9 % Sodium Chloride Flush 3 Ml Syringe) 3 ml IVFLUSH QSHIFT [facility] Last Admin: 05/26/23 09:10 Dose: 3 ml Documented By: EUGENIO Tramadol HCl (Tramadol Hcl 50 Mg Tablet) 25 mg PO Q6H PRN PRN Reason: Pain, Moderate(Pain Scale 4-6) Last Admin: 05/25/23 13:43 Dose: 25 mg Documented By: RONEL Labs 05/26/23 07:27 05/26/23 07:27 Labs: Laboratory Results - last 24 hr 05/26/23 05/26/23 05/26/23 03:59 07:27 07:29 MCV 83.5 MCH 27.7 MCHC 33.2 RDW 15.5 Plt Count 344 MPV 10.6 Immature Gran % (Auto) 0.8 H Neut % (Auto) 93.2 H Lymph % (Auto) 2.7 L [place] % (Auto) 3.0 Eos % (Auto) 0.1 Baso % (Auto) 0.2 Lymph # (Auto) 0.9 L [place] # (Auto) 1.0 Eos # (Auto) 0.0 Baso # (Auto) 0.1 Abs Immat Gran (auto) 0.27 H Absolute Neuts (auto) 29.9 H Absolute Nucleated RBC 0.000 Nucleated RBC % (auto) 0.0 Smear Tech's Comments VERIFIED VBG pH 7.54 H VBG pCO2 29 VBG pO2 67 VBG HCO3 25 VBG O2 Saturation 95.0 VBG Base Excess 3.4 Anion Gap 15 Estim Creat Clear Calc 78.9 Estimated GFR > 60 Random Glucose 180 H Calcium 8.5 Phosphorus 2.7 Random Vancomycin 20.4 H Microbiology Microbiology Results: Microbiology 05/23/23 Unknown Gram Stain - Final Pleura Anaerobic Culture - Preliminary No growth to date. Body Fluid Culture - Final No growth after 2 days Assessment and Plan (1) Pulmonary emboli: Status: Acute (2) Multiple cerebral infarctions: Status: Acute (3) Adenocarcinoma of lung: Status: Acute Plan 62-year-old female with pertinent history of asthma not on home oxygen, sinus tachycardia on beta-elli, history of mitral valve repair in 2017, recently diagnosed with adenocarcinoma of the lung with recent admission for pulmonary embolus started on Eliquis complicated by hemorrhoidal bleed with resumption of Eliquis per GI on discharge 05/20, presented to the ED from hematology following a vasovagal syncopal episode during lab draw earlier today. Patient will be admitted for further management of worsening RLL pneumonia with associated acute metabolic encephalopathy and weakness Pulmonary edema with tachypnea ? CHF new on cxr, BNP elevated echo from last ECHO with preserved EF stop IV fluids Give lasix 40 mg BID follow intake and output closely Multiple subacute infarcts due to ongoing encephalopathy, brain MRI was obtained and shows multiple bilateral subacute cerebral infarcts both in anterior posterior circulation and many of them in border zone area. Both frontal lobes are affected, left more than right. 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 post obstructive strep pneumo antigen, Legionella antigen pending, sputum culture unremarkable s/p thoracentesis 05/23 with removal of 1L of fluid Continue oxygen therapy, titrate to oxygen saturation greater than 91% on room air blood cultures negative to date Acute metabolic encephalopathy likely multifactorial due to strokes, underlying cancer, PE and pneumonia renal function, LFTs, ammonia level wnl Adenocarcinoma of pulmonary origin Bronchoscopy 05/18/2023 New diagnosis, not yet initiated on therapy oncology following Pulmonary embolism/BLE DVT diagnosed 05/11 s/p IVC filter 05/15/23 has been treated with Eliquis, will change to therapeutic lovenox Sinus tachycardia chronic, continue metoprolol remains tachycardic despite increase in metoprolol thyroid function wnl Elevated troponins likely demand in setting of pulmonary embolus echo 05/12 rwma with normal LV systolic function, mildly reduced right ventricle systolic function, mild pulmonary hypertension Moderate persistent asthma no acute exacerbation continue maintenance inhalers, albuterol p.r.n. DVT prophylaxis-Eliquis being transitioned to therapeutic lovenox Attending Dr. Fall Full code continue hospital stay for management of worsening acute right lower lobe pneumonia with associated metabolic encephalopathy, stroke, close monitoring of mentation, and physical therapy evaluation and possible placement to short-term rehab Quality Stroke Does the patient have a stroke diagnosis?: No VTE Prior VTE?: No VTE Risk Level:: Medical - moderate - high VTE Device Contraindication: Treatment Not Indicated VTE Drug Contraindication: N/A - Med Ordered
[2023-05-26] MEDS: vancomycin HCL 1,000 MG in 0.9 % Sodium Chloride 250 ML 270 MG IV ×2 (11:38→22:17)
[2023-05-26] MEDS: Furosemide 20 MG/2 ML VIAL IVPUSH (17:29)
[2023-05-26] MEDS: Atorvastatin Calcium 40 MG TABLET PO (20:04)
[2023-05-27] VITALS (7 sets, daily range): BP systolic 108–133; BP diastolic 63–81; PULSE 83–104; RESP 18–22; TEMP 36.5–36.8; O2SAT 90–99
[2023-05-27 05:07] LABS: Strep Pneumo Ag urine Not Detected (Not Detected)
[2023-05-27] MEDS: cefEPime HCl 2 GM in 0.9 % Sodium Chloride 50 ML IV ×3 (05:30→20:18)
[2023-05-27 06:51] LABS: Creatinine Clr Calc Pharmacy 76.8; Estimated Glomerular Filt Rate > 60
[2023-05-27] MEDS: Fluticasone/Vilanterol 200/25 BLST.W.DEV 1 PUFF INHALE (08:16)
[2023-05-27] MEDS: Enoxaparin Sodium 60 MG/0.6 ML SYRINGE SUBCUT ×2 (09:04→20:28)
[2023-05-27] MEDS: Metoprolol Tartrate 25 MG TABLET PO ×2 (09:04→20:29)
[2023-05-27] MEDS: 0.9 % Sodium Chloride Flush 3 ML SYRINGE IVFLUSH ×3 (09:04→20:31)
[2023-05-27] MEDS: Furosemide 20 MG/2 ML VIAL IVPUSH ×2 (09:04→18:05)
[2023-05-27 09:44] LABS: Basophils Absolute Auto 0.1 X10*3/uL (0.0-0.2); Basophils Percent Auto 0.3 % (0-2); Eosinophils Absolute Auto 0.1 X10*3/uL (0.0-0.4); Eosinophils Percent Auto 0.3 % (0-4); Hematocrit 28.4 % (37.0-47.0); Hemoglobin 9.2 g/dl (12.0-16.0); Imm Gran Abs Auto 0.16 X10*3/uL (0.00-0.03); Imm Gran Pct Auto 0.7 % (0.0-0.4); Lymphocytes Absolute Auto 1.4 X10*3/uL (1.2-4.9); Lymphocytes Percent Auto 5.9 % (20-40); MANUAL DIFF FLAG SCAN; Mean Corpuscular HGB Conc 32.4 g/dl (31.0-35.0); Mean Corpuscular Hemoglobin 27.9 pg (27.0-33.0); Mean Corpuscular Volume 86.1 fL (80.0-98.0); Mean Platelet Volume 10.9 fL (9.4-12.3); Monocytes Percent Auto 4.1 % (2-11); Neutrophils Absolute Auto 20.9 x10*3/uL (2.0-8.3); Neutrophils Percent Auto 88.7 % (45-73); Platelet Count 415 X10*3/uL (160-400); Red Cell Distribution Width 15.7 % (11.0-16.0); SCAN SMEAR FLAG 1; White Blood Count 23.6 X10*3/uL (4.8-10.8)
--- NOTE | 2023-05-27 09:52 | HO.PM.IMPN ---
Subjective Subjective Date of Service: 05/27/23 Interval History: seen and examined this morning follow up for encephalopathy, lung ca, embolic strokes able to follow commands; denies sob, reports dry cough. full ROS difficult due to confusion Neurologic Neurologic: Reports confusion Psychiatric Psychiatric: Reports confusion Physical Exam Vital Signs: Vital Signs: Last Vital Signs Temp 97.7 F 05/27/23 08:00 Pulse 83 05/27/23 08:17 Resp 18 05/27/23 08:17 BP 132/78 05/27/23 08:00 Pulse Ox 92 05/27/23 08:00 O2 Del Method Nasal Cannula 05/27/23 08:00 O2 Flow Rate 1 05/27/23 08:00 Oxygen Flow Rate 2 05/22/23 18:58 BMI result Body Mass Index 21.9 Const: General: confusion Orientation/consciousness: confusion Neuro: General: confusion Objective Data Active Medications Acetaminophen (Acetaminophen 325 Mg Tablet) 650 mg PO Q6H PRN PRN Reason: Pain, Mild (Pain Scale 1-3) Last Admin: 05/25/23 13:40 Dose: 650 mg Documented By: RONEL Albuterol Sulfate (Albuterol Sulfate 90 Mcg 8 Gm Inhaler) 2 puff INHALE Q4H PRN PRN Reason: Shortness Of Breath Or Wheezing Albuterol/Ipratropium (Albuterol/Iprat 2.5/0.5mg 3 Ml Ampul.Neb) 3 ml INHALE Q4H PRN PRN Reason: Wheezing Last Admin: 05/26/23 04:49 Dose: 3 ml Documented By: ROBERT Atorvastatin Calcium (Atorvastatin Calcium 40 Mg Tablet) 40 mg PO BEDTIME [facility] Last Admin: 05/26/23 20:04 Dose: 40 mg Documented By: HARVINDER Diphenhydramine HCl (Diphenhydramine Hcl 50 Mg/Ml Vial) 25 mg IVPUSH Q4H PRN PRN Reason: allergy Enoxaparin Sodium (Enoxaparin Sodium 60 Mg/0.6 Ml Syringe) 60 mg 1 mg/kg (60 mg) SUBCUT Q12H [facility] Last Admin: 05/27/23 09:04 Dose: 60 mg Documented By: EUGENIO Fluticasone Propionate (Fluticasone Propionate Nasal 16 Gm [place]) 1 spray NOSTRIL-B DAILY PRN PRN Reason: Congestion Fluticasone/Vilanterol (Fluticasone/Vilanterol 200/25 Blst.W.Dev) 1 puff INHALE RDAILY [facility] Last Admin: 05/27/23 08:16 Dose: 1 puff Documented By: VIKAS Furosemide (Furosemide 20 Mg/2 Ml Vial) 20 mg IVPUSH BID@0900,1800 [facility]; Protocol Last Admin: 05/27/23 09:04 Dose: 20 mg Documented By: EUGENIO Hydrocortisone (Hydrocortisone 2.5 % Rectal Cr 30 Gm Tube) 1 appl OK BID [facility] Last Admin: 05/26/23 20:04 Dose: 1 appl Documented By: HARVINDER Cefepime HCl 2 gm/ Sodium (Chloride) 50 mls @ 100 mls/hr IV Q8H [facility] Last Infusion: 05/27/23 07:09 Dose: Infused Documented By: EUGENIO Sodium Bicarbonate 150 meq/ (Dextrose) 1,000 mls @ 50 mls/hr IV .Q20H [facility] Last Infusion: 05/26/23 08:35 Dose: 0 mls/hr Documented By: EUGENIO Vancomycin HCl 1,000 mg/ (Sodium Chloride) 270 mls @ 270 mls/hr IV Q12H [facility] Last Infusion: 05/26/23 23:58 Dose: Infused Documented By: HERMAN Metoprolol Tartrate (Metoprolol Tartrate 25 Mg Tablet) 25 mg PO BID [facility]; Protocol Last Admin: 05/27/23 09:04 Dose: 25 mg Documented By: EUGENIO Ondansetron HCl (Ondansetron Hcl 4 Mg/2 Ml Vial) 4 mg IVPUSH Q8H PRN PRN Reason: Nausea and Vomiting Pharmacy Consult (Consult Rx Vancomycin Dosing) 1 each MISCELLANE DAILY PRN PRN Reason: Consult order Polyethylene Glycol (Polyethylene Glycol 3350 17 Gm Powd.Pack) 17 gm PO DAILY PRN PRN Reason: Constipation Senna (Sennosides 8.6 Mg Tablet) 17.2 mg PO BEDTIME PRN PRN Reason: Constipation Sodium Chloride (0.9 % Sodium Chloride Flush 3 Ml Syringe) 3 ml IVFLUSH QSHIFT [facility] Last Admin: 05/27/23 09:04 Dose: 3 ml Documented By: EUGENIO Tramadol HCl (Tramadol Hcl 50 Mg Tablet) 25 mg PO Q6H PRN PRN Reason: Pain, Moderate(Pain Scale 4-6) Last Admin: 05/25/23 13:43 Dose: 25 mg Documented By: RONEL Labs 05/27/23 09:28 05/27/23 09:28 Labs: Laboratory Results - last 24 hr 05/23/23 05/27/23 01:36 05:45 Hold Purple Top SEE NOTE Estim Creat Clear Calc 76.8 Estimated GFR > 60 Ur Strep pneumoniae Ag Not Detected Microbiology Microbiology Results: Microbiology 05/23/23 Unknown Gram Stain - Final Pleura Anaerobic Culture - Preliminary No growth to date. Body Fluid Culture - Final No growth after 2 days Assessment and Plan (1) Pulmonary emboli: Status: Acute (2) Multiple cerebral infarctions: Status: Acute (3) Adenocarcinoma of lung: Status: Acute Plan 62-year-old female with pertinent history of asthma not on home oxygen, sinus tachycardia on beta-elli, history of mitral valve repair in 2017, recently diagnosed with adenocarcinoma of the lung with recent admission for pulmonary embolus started on Eliquis complicated by hemorrhoidal bleed with resumption of Eliquis per GI on discharge 05/20, presented to the ED from hematology following a vasovagal syncopal episode during lab draw earlier today. Patient will be admitted for further management of worsening RLL pneumonia with associated acute metabolic encephalopathy and weakness Pulmonary edema with tachypnea ? CHF new on cxr, BNP elevated echo from last ECHO with preserved EF stop IV fluids Give lasix 40 mg BID follow intake and output closely Multiple subacute infarcts due to ongoing encephalopathy, brain MRI was obtained and shows multiple bilateral subacute cerebral infarcts both in anterior posterior circulation and many of them in border zone area. Both frontal lobes are affected, left more than right. 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 post obstructive strep pneumo antigen, Legionella antigen pending, sputum culture unremarkable s/p thoracentesis 05/23 with removal of 1L of fluid Continue oxygen therapy, titrate to oxygen saturation greater than 91% on room air blood cultures negative to date Acute metabolic encephalopathy likely multifactorial due to strokes, underlying cancer, PE and pneumonia renal function, LFTs, ammonia level wnl Adenocarcinoma of pulmonary origin Bronchoscopy 05/18/2023 New diagnosis, not yet initiated on therapy oncology following Pulmonary embolism/BLE DVT diagnosed 05/11 s/p IVC filter 05/15/23 has been treated with Eliquis, will change to therapeutic lovenox Sinus tachycardia chronic, continue metoprolol remains tachycardic despite increase in metoprolol thyroid function wnl Elevated troponins likely demand in setting of pulmonary embolus echo 05/12 rwma with normal LV systolic function, mildly reduced right ventricle systolic function, mild pulmonary hypertension Moderate persistent asthma no acute exacerbation continue maintenance inhalers, albuterol p.r.n. DVT prophylaxis-Eliquis being transitioned to therapeutic lovenox Attending Dr. Fall Full code continue hospital stay for management of worsening acute right lower lobe pneumonia with associated metabolic encephalopathy, stroke, close monitoring of mentation, and physical therapy evaluation and possible placement to short-term rehab Quality Stroke Does the patient have a stroke diagnosis?: No VTE Prior VTE?: No VTE Risk Level:: Medical - moderate - high VTE Device Contraindication: Treatment Not Indicated VTE Drug Contraindication: N/A - Med Ordered
[2023-05-27 10:02] LABS: Vancomycin Random 22.9 mcg/mL (15-20)
[2023-05-27 10:07] LABS: B Type Natriuretic Peptide 775 pg/mL (<100)
[2023-05-27 10:09] LABS: Alanine Aminotransferase 21 U/L (0-31); Albumin Level 2.8 g/dL (3.5-5.0); Alkaline Phosphatase 133 U/L (39-117); Anion Gap 15 (12-20); Aspartate Amino Transferase 33 U/L (5-31); Bilirubin Direct 0.2 mg/dL (0.0-0.5); Bilirubin Total 0.4 mg/dL (0.0-1.0); Blood Urea Nitrogen 26 mg/dL (9-16); Calcium 8.7 mg/dL (8.4-10.2); Carbon Dioxide 27 mmol/L (22-29); Chloride 99 mmol/L (96-108); Creatinine Clr Calc Pharmacy 76.8; Estimated Glomerular Filt Rate > 60; Glucose Random 114 mg/dL (60-115); Magnesium 2.3 mg/dL (1.6-2.6); Potassium 3.3 mmol/L (3.3-5.1); SLIDE REVIEW VERIFIED; Sodium 138 mmol/L (135-145)
--- NOTE | 2023-05-27 10:11 | HE.PHANOTE ---
Vanco Dosing Level supratherapeutic at 22.9 after decrease in dose yesterday. Will hold next dose to allow vancomycin to clear then decrease dose. Next dose vanco 750 mg q12H is scheduled to start 05/26 @ 2000. Predict AUC 431 with a trough of 15.1. Next level after two dose on 05/28 @ 1800. Kayli Nye, WandyD
[2023-05-27 10:25] LABS: Procalcitonin 0.62 ng/mL
[2023-05-27] MEDS: vancomycin HCL 750 MG in 0.9 % Sodium Chloride 250 ML 265 MG IV (20:28)
[2023-05-27] MEDS: Atorvastatin Calcium 40 MG TABLET PO (20:29)
[2023-05-28] VITALS (7 sets, daily range): BP systolic 114–136; BP diastolic 63–85; PULSE 77–106; RESP 17–20; TEMP 36.2–37.3; O2SAT 94–99
[2023-05-28] MEDS: cefEPime HCl 2 GM in 0.9 % Sodium Chloride 50 ML IV ×3 (04:36→19:59)
[2023-05-28] MEDS: Furosemide 20 MG/2 ML VIAL IVPUSH (08:04)
[2023-05-28] MEDS: Enoxaparin Sodium 60 MG/0.6 ML SYRINGE SUBCUT ×2 (08:04→19:59)
[2023-05-28] MEDS: vancomycin HCL 750 MG in 0.9 % Sodium Chloride 250 ML 265 MG IV (08:05)
[2023-05-28] MEDS: Metoprolol Tartrate 25 MG TABLET PO ×2 (08:05→19:59)
[2023-05-28] MEDS: 0.9 % Sodium Chloride Flush 3 ML SYRINGE IVFLUSH ×3 (08:05→20:01)
[2023-05-28] MEDS: Fluticasone/Vilanterol 200/25 BLST.W.DEV 1 PUFF INHALE (08:23)
--- NOTE | 2023-05-28 09:02 | P.PNIM_ITS ---
Subjective Subjective Date of Service: 05/28/23 Interval History: seen and examined this morning follow up for encephalopathy, lung ca, embolic strokes awake and alert Neurologic Neurologic: Reports confusion Psychiatric Psychiatric: Reports confusion Physical Exam 2 Vital Signs: Vital Signs: Last Vital Signs Temp 97.2 F 05/28/23 07:15 Pulse 77 05/28/23 08:23 Resp 18 05/28/23 08:23 BP 119/66 05/28/23 07:15 Pulse Ox 99 05/28/23 07:15 O2 Del Method Nasal Cannula 05/28/23 07:15 O2 Flow Rate 1 05/28/23 07:15 Oxygen Flow Rate 2 05/22/23 18:58 BMI result Body Mass Index 21.9 Appearing in no acute distress lung sounds are clear to auscultation heart regular rate rhythm, clear S1, S2 positive bowel sounds, abdomen is soft, nontender neuro patient is alert x3, no focal deficits Const: General: confusion Orientation/consciousness: confusion Neuro: General: confusion Objective Data Active Medications Acetaminophen (Acetaminophen 325 Mg Tablet) 650 mg PO Q6H PRN PRN Reason: Pain, Mild (Pain Scale 1-3) Last Admin: 05/25/23 13:40 Dose: 650 mg Documented By: RONEL Albuterol Sulfate (Albuterol Sulfate 90 Mcg 8 Gm Inhaler) 2 puff INHALE Q4H PRN PRN Reason: Shortness Of Breath Or Wheezing Albuterol/Ipratropium (Albuterol/Iprat 2.5/0.5mg 3 Ml Ampul.Neb) 3 ml INHALE Q4H PRN PRN Reason: Wheezing Last Admin: 05/26/23 04:49 Dose: 3 ml Documented By: ROBERT Atorvastatin Calcium (Atorvastatin Calcium 40 Mg Tablet) 40 mg PO BEDTIME [facility] Last Admin: 05/27/23 20:29 Dose: 40 mg Documented By: KYLAH Diphenhydramine HCl (Diphenhydramine Hcl 50 Mg/Ml Vial) 25 mg IVPUSH Q4H PRN PRN Reason: allergy Enoxaparin Sodium (Enoxaparin Sodium 60 Mg/0.6 Ml Syringe) 60 mg 1 mg/kg (60 mg) SUBCUT Q12H [facility] Last Admin: 05/28/23 08:04 Dose: 60 mg Documented By: FANTA Fluticasone Propionate (Fluticasone Propionate Nasal 16 Gm [place]) 1 spray NOSTRIL-B DAILY PRN PRN Reason: Congestion Fluticasone/Vilanterol (Fluticasone/Vilanterol 200/25 Blst.W.Dev) 1 puff INHALE RDAILY [facility] Last Admin: 05/28/23 08:23 Dose: 1 puff Documented By: ANDRIY Furosemide (Furosemide 20 Mg/2 Ml Vial) 20 mg IVPUSH BID@0900,1800 [facility]; Protocol Last Admin: 05/28/23 08:04 Dose: 20 mg Documented By: FANTA Hydrocortisone (Hydrocortisone 2.5 % Rectal Cr 30 Gm Tube) 1 appl RI BID [facility] Last Admin: 05/28/23 08:18 Dose: Not Given Documented By: FANTA Non-Admin Reason: Patient Refused Cefepime HCl 2 gm/ Sodium (Chloride) 50 mls @ 100 mls/hr IV Q8H [facility] Last Infusion: 05/28/23 05:09 Dose: Infused Documented By: KYLAH Vancomycin HCl 750 mg/ Sodium (Chloride) 265 mls @ 265 mls/hr IV Q12H [facility] Last Admin: 05/28/23 08:05 Dose: 265 mls/hr Documented By: FANTA Metoprolol Tartrate (Metoprolol Tartrate 25 Mg Tablet) 25 mg PO BID [facility]; Protocol Last Admin: 05/28/23 08:05 Dose: 25 mg Documented By: FANTA Ondansetron HCl (Ondansetron Hcl 4 Mg/2 Ml Vial) 4 mg IVPUSH Q8H PRN PRN Reason: Nausea and Vomiting Pharmacy Consult (Consult Rx Vancomycin Dosing) 1 each MISCELLANE DAILY PRN PRN Reason: Consult order Polyethylene Glycol (Polyethylene Glycol 3350 17 Gm Powd.Pack) 17 gm PO DAILY PRN PRN Reason: Constipation Senna (Sennosides 8.6 Mg Tablet) 17.2 mg PO BEDTIME PRN PRN Reason: Constipation Sodium Chloride (0.9 % Sodium Chloride Flush 3 Ml Syringe) 3 ml IVFLUSH QSHIFT [facility] Last Admin: 05/28/23 08:05 Dose: 3 ml Documented By: FANTA Tramadol HCl (Tramadol Hcl 50 Mg Tablet) 25 mg PO Q6H PRN PRN Reason: Pain, Moderate(Pain Scale 4-6) Last Admin: 05/25/23 13:43 Dose: 25 mg Documented By: RONEL Labs 05/27/23 09:28 05/27/23 09:28 Labs: Laboratory Results - last 24 hr 05/27/23 09:28 MCV 86.1 MCH 27.9 MCHC 32.4 RDW 15.7 Plt Count 415 H MPV 10.9 Immature Gran % (Auto) 0.7 H Neut % (Auto) 88.7 H Lymph % (Auto) 5.9 L [place] % (Auto) 4.1 Eos % (Auto) 0.3 Baso % (Auto) 0.3 Lymph # (Auto) 1.4 [place] # (Auto) 1.0 Eos # (Auto) 0.1 Baso # (Auto) 0.1 Abs Immat Gran (auto) 0.16 H Absolute Neuts (auto) 20.9 H Absolute Nucleated RBC 0.000 Nucleated RBC % (auto) 0.0 Smear Tech's Comments VERIFIED Anion Gap 15 Estim Creat Clear Calc 76.8 Estimated GFR > 60 Random Glucose 114 Calcium 8.7 Magnesium 2.3 Total Bilirubin 0.4 Direct Bilirubin 0.2 AST 33 H ALT 21 Alkaline Phosphatase 133 H B-Natriuretic Peptide 775 H Total Protein 7.0 Albumin 2.8 L Procalcitonin 0.62 Random Vancomycin 22.9 H Microbiology Microbiology Results: Microbiology 05/22/23 20:28 Blood Culture - Final Blood - Venous No growth after 5 days. 05/22/23 20:31 Blood Culture - Final Blood - Venous No growth after 5 days. 05/23/23 Unknown Gram Stain - Final Pleura Anaerobic Culture - Preliminary No growth to date. Body Fluid Culture - Final No growth after 2 days Assessment and Plan (1) Pulmonary emboli: Status: Acute (2) Multiple cerebral infarctions: Status: Acute (3) Adenocarcinoma of lung: Status: Acute Plan 62-year-old female with pertinent history of asthma not on home oxygen, sinus tachycardia on beta-elli, history of mitral valve repair in 2017, recently diagnosed with adenocarcinoma of the lung with recent admission for pulmonary embolus started on Eliquis complicated by hemorrhoidal bleed with resumption of Eliquis per GI on discharge 05/20, presented to the ED from hematology following a vasovagal syncopal episode during lab draw earlier today. Patient will be admitted for further management of worsening RLL pneumonia with associated acute metabolic encephalopathy and weakness HFpEF, acute last ECHO with preserved EF continue lasix 40 mg BID follow intake and output closely BNP still elevated cardiology to follow Multiple subacute infarcts due to ongoing encephalopathy, brain MRI was obtained and shows multiple bilateral subacute cerebral infarcts both in anterior posterior circulation and many of them in border zone area. Both frontal lobes are affected, left more than right. 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 post obstructive strep pneumo antigen neg, Legionella antigen pending, sputum culture unremarkable s/p thoracentesis 05/23 with removal of 1L of fluid Continue oxygen therapy, titrate to oxygen saturation greater than 91% on room air blood cultures negative to date Acute metabolic encephalopathy. Resolved likely multifactorial due to strokes, underlying cancer, PE and pneumonia renal function, LFTs, ammonia level wnl Adenocarcinoma of pulmonary origin Bronchoscopy 05/18/2023 New diagnosis, not yet initiated on therapy oncology following Pulmonary embolism/BLE DVT diagnosed 05/11 s/p IVC filter 05/15/23 has been treated with Eliquis, will change to therapeutic lovenox Sinus tachycardia chronic, continue metoprolol remains tachycardic despite increase in metoprolol thyroid function wnl Elevated troponins likely demand in setting of pulmonary embolus echo 05/12 rwma with normal LV systolic function, mildly reduced right ventricle systolic function, mild pulmonary hypertension Moderate persistent asthma no acute exacerbation continue maintenance inhalers, albuterol p.r.n. DVT prophylaxis-Eliquis being transitioned to therapeutic lovenox Attending Dr. Escobedo Full code DISPO plan for acute rehab when medically clear continue hospital stay for management of worsening acute right lower lobe pneumonia with associated metabolic encephalopathy, stroke, close monitoring of mentation, and physical therapy evaluation and possible placement to short-term rehab Quality Stroke Does the patient have a stroke diagnosis?: No VTE Prior VTE?: No VTE Risk Level:: Medical - moderate - high VTE Device Contraindication: Treatment Not Indicated VTE Drug Contraindication: N/A - Med Ordered
--- NOTE | 2023-05-28 09:26 | MHC.CM.PN ---
EMR REVIEWED, PER HOSPITALIST PT WILL BE CLEARED FOR TOMORROW AND [facility], CM HAS REQUESTED FACILITY GO FOR AUTH AND WILL CONT TO FOLLOW DC NEEDS.
--- NOTE | 2023-05-28 13:17 | MHC.SL.SWA ---
Speech Pathologist Impression: Risk of aspiration, oropharyngeal dysphagia Risk of Aspiration Due to: Neurological Condition History of Pneumonia Dysphasia Diet Status: Upgrade to chopped diet when medically cleared to advance from full liquid diet Liquid Consistency and Strategies for Safe Swallow: Liquid Intake Recommendation: Thin Liquid Intake Strategies: Small Sips Solid Food Consistency: Dietary Recommendations: Chopped/Advanced (NDD3) Additional Modifications to Solid Foods: Recommend CHOPPED/ADVANCED (NDD3) diet and THIN liquids, pills CRUSHED in PUREE. Patient continues to require total 1:1 assistance feeding. Minimize distractions during meal time and provide cues as needed. Oral Medication Intake: Crushed with Puree Please contact the pharmacy regarding appropriate crushable or liquid drug formulations that are available whenever modified delivery is recommended. Compensatory Strategies and Precautions to be Taken for Safe Swallow: Sitting Upright (90 deg) Double Swallow Small Bites and Sips Alternate Liquids/Solids Rate of Ingestion Change Oral Check Avoid Specific Foods Supervision While Eating and Drinking for Safe Swallow: Total Assistance (1:1) Foods to Avoid: Hard, dry, or crunchy foods, mixed consistencies Swallowing Recommended Treatments: Compens. Strategy Educat. Recommendation for Speech: Inpatient Speech Therapy Comment: [employer] will continue to follow during inpatient stay. Frequency/Duration: M-F PRN Date Range for Service Req: Timeline to reassess: Lead Press Operator Clinican/Clinical Fellow: No Supervisory Statement: I have reviewed and agree with the student/clinical fellow's documentation: N/A Speech Language Pathologist: Bethany Kessler M.A., [facility]-[employer]
--- NOTE | 2023-05-28 13:21 | PM.PNCARD ---
Subjective Subjective Date of Service: 05/28/23 Interval history: Seen and examined at bedside. Denying SOB. Physical Exam Vital Signs: Last Vital Signs Temp 97.2 F 05/28/23 11:19 Pulse 90 05/28/23 11:19 Resp 20 05/28/23 11:19 BP 119/72 05/28/23 11:19 Pulse Ox 97 05/28/23 11:19 O2 Del Method Nasal Cannula 05/28/23 11:19 O2 Flow Rate 1 05/28/23 11:19 Oxygen Flow Rate 2 05/22/23 18:58 BMI result Body Mass Index 21.9 GENERAL APPEARANCE: in no acute distress, pleasant. NECK: no carotid bruit, no jugular venous distention. SKIN: no suspicious lesions, warm and dry. HEART: no murmurs, regular rate and rhythm. LUNGS: clear to auscultation bilaterally. ABDOMEN: soft, nontender. EXTREMITIES: no edema. PERIPHERAL PULSES: equal. Objective Labs and Meds 05/27/23 09:28 05/28/23 14:05 Imaging Radiologist's impression: Impressions Chest X-Ray 05/28/23 10:10 IMPRESSION: Interval improvement in interstitial edema. Progress Note: A&P Assessment and plan (1) Pulmonary emboli: Status: Acute (2) Multiple cerebral infarctions: Status: Acute (3) H/O mitral valve repair: Status: Acute Plan [age] year female with hypercoagulable state and pulmonary embolism as well as stroke. She was also noticed to have interstitial edema. She has been on IV Lasix at this point. Clinically she appears to be euvolemic. I think she can be taken on the IV diuretics in can be changed to 40 mg p.o. Lasix. Continue anticoagulation before. Time Spent With Patient Time: Total time managing care of this patient today ____ minutes. Progress Note: Quality Stroke Does the patient have a stroke diagnosis?: No Procedures Date of Service Date of Service: 05/28/23
[2023-05-28 14:31] LABS: Creatinine Clr Calc Pharmacy 76.8; Estimated Glomerular Filt Rate > 60
[2023-05-28 18:38] LABS: Vancomycin Random 19.6 mcg/mL (15-20)
--- NOTE | 2023-05-28 19:13 | HE.PHANOTE ---
VANCO DOSE ADJUSTMENT BASED ON SCR OF 0.72 AND TROUGH OF 19.6. DOSE DECREASED TO 500 Q 12H. NEXT LEVEL 1900 ON 05/27
[2023-05-28] MEDS: Atorvastatin Calcium 40 MG TABLET PO (19:59)
[2023-05-28] MEDS: vancomycin HCL 500 MG in 0.9 % Sodium Chloride 100 ML 110 MG IV (20:52)
[2023-05-29] VITALS (7 sets, daily range): BP systolic 114–152; BP diastolic 64–81; PULSE 84–103; RESP 18–20; TEMP 36.1–37.1; O2SAT 92–96
[2023-05-29] MEDS: cefEPime HCl 2 GM in 0.9 % Sodium Chloride 50 ML IV ×3 (04:39→21:31)
[2023-05-29 06:36] LABS: Anion Gap 13 (12-20); Blood Urea Nitrogen 24 mg/dL (9-16); Calcium 8.4 mg/dL (8.4-10.2); Carbon Dioxide 28 mmol/L (22-29); Chloride 98 mmol/L (96-108); Creatinine Clr Calc Pharmacy 78.9; Estimated Glomerular Filt Rate > 60; Glucose Random 110 mg/dL (60-115); Potassium 3.4 mmol/L (3.3-5.1); Sodium 136 mmol/L (135-145)
[2023-05-29 06:47] LABS: B Type Natriuretic Peptide 326 pg/mL (<100)
[2023-05-29] MEDS: Fluticasone/Vilanterol 200/25 BLST.W.DEV 1 PUFF INHALE (08:14)
--- NOTE | 2023-05-29 08:53 | MHC.CM.PN ---
Addendum entered by Darby Ortiz RN 05/29/23 11:11: [facility] [place] INTERESTED AND ASKING QUESTIONS, [facility] OF [place] REVIEWING. Original Note: EMR REVIEWED, CM CONTACTED PT'S SITER/HCP KAROLINE AT 8:40AM NUMBER ON FILE TO DISCUSS DISPO AND SNF PREFERENCES PT HAS BEEN DECLINED BY 2/3 ACUTE REHABS AND TO DICSUSS SNF PREFERENCES, KAROLINE REPORTS SHE PREFERS A [place] [facility] SHE LIVES IN [place] AND PT IS 1:1 FOR FEEDS AND SHE COMES IN FOR MEALS 3XDAY TO FEED PT, BROAD SNF REFERRAL PLACED W/PLAN TO REVIEW BED OFFERS W/[facility] ONCE THEY COME IN, CM WILL CONT TO FOLLOW.
[2023-05-29] MEDS: Furosemide 40 MG TABLET PO (08:59)
[2023-05-29] MEDS: Metoprolol Tartrate 25 MG TABLET PO ×2 (08:59→22:15)
[2023-05-29] MEDS: Enoxaparin Sodium 60 MG/0.6 ML SYRINGE SUBCUT ×2 (08:59→21:30)
[2023-05-29] MEDS: 0.9 % Sodium Chloride Flush 3 ML SYRINGE IVFLUSH (09:00)
[2023-05-29] MEDS: vancomycin HCL 500 MG in 0.9 % Sodium Chloride 100 ML 110 MG IV (09:00)
--- NOTE | 2023-05-29 11:31 | HO.PM.IMPN ---
Subjective Subjective Date of Service: 05/29/23 Interval History: seen and examined this morning follow up for encephalopathy, lung ca, embolic strokes awake and alert Neurologic Neurologic: Reports confusion Psychiatric Psychiatric: Reports confusion Physical Exam Vital Signs: Vital Signs: Last Vital Signs Temp 97.0 F 05/29/23 11:12 Pulse 89 05/29/23 11:12 Resp 20 05/29/23 11:12 BP 114/65 05/29/23 11:12 Pulse Ox 95 05/29/23 11:12 O2 Del Method Room Air 05/29/23 11:12 O2 Flow Rate 1 05/29/23 03:23 Oxygen Flow Rate 2 05/22/23 18:58 BMI result Body Mass Index 21.9 Appearing in no acute distress lung sounds are clear to auscultation heart regular rate rhythm, clear S1, S2 positive bowel sounds, abdomen is soft, nontender neuro patient is alert x3, no focal deficits Const: General: confusion Orientation/consciousness: confusion Neuro: General: confusion Objective Data Active Medications Acetaminophen (Acetaminophen 325 Mg Tablet) 650 mg PO Q6H PRN PRN Reason: Pain, Mild (Pain Scale 1-3) Last Admin: 05/25/23 13:40 Dose: 650 mg Documented By: RONEL Albuterol Sulfate (Albuterol Sulfate 90 Mcg 8 Gm Inhaler) 2 puff INHALE Q4H PRN PRN Reason: Shortness Of Breath Or Wheezing Albuterol/Ipratropium (Albuterol/Iprat 2.5/0.5mg 3 Ml Ampul.Neb) 3 ml INHALE Q4H PRN PRN Reason: Wheezing Last Admin: 05/26/23 04:49 Dose: 3 ml Documented By: ROBERT Atorvastatin Calcium (Atorvastatin Calcium 40 Mg Tablet) 40 mg PO BEDTIME [facility] Last Admin: 05/28/23 19:59 Dose: 40 mg Documented By: KYLAH Diphenhydramine HCl (Diphenhydramine Hcl 50 Mg/Ml Vial) 25 mg IVPUSH Q4H PRN PRN Reason: allergy Enoxaparin Sodium (Enoxaparin Sodium 60 Mg/0.6 Ml Syringe) 60 mg 1 mg/kg (60 mg) SUBCUT Q12H [facility] Last Admin: 05/29/23 08:59 Dose: 60 mg Documented By: RONEL Fluticasone Propionate (Fluticasone Propionate Nasal 16 Gm [place]) 1 spray NOSTRIL-B DAILY PRN PRN Reason: Congestion Fluticasone/Vilanterol (Fluticasone/Vilanterol 200/25 Blst.W.Dev) 1 puff INHALE RDAILY [facility] Last Admin: 05/29/23 08:14 Dose: 1 puff Documented By: ANDRIY Furosemide (Furosemide 40 Mg Tablet) 40 mg PO DAILY [facility]; Protocol Last Admin: 05/29/23 08:59 Dose: 40 mg Documented By: RONEL Hydrocortisone (Hydrocortisone 2.5 % Rectal Cr 30 Gm Tube) 1 appl [place] BID [facility] Last Admin: 05/29/23 09:09 Dose: Not Given Documented By: FANTA Non-Admin Reason: Patient Refused Cefepime HCl 2 gm/ Sodium (Chloride) 50 mls @ 100 mls/hr IV Q8H [facility] Last Infusion: 05/29/23 05:21 Dose: Infused Documented By: KYLAH Vancomycin HCl 500 mg/ Sodium (Chloride) 110 mls @ 110 mls/hr IV Q12H [facility] Last Infusion: 05/29/23 10:15 Dose: Infused Documented By: FANTA Metoprolol Tartrate (Metoprolol Tartrate 25 Mg Tablet) 25 mg PO BID [facility]; Protocol Last Admin: 05/29/23 08:59 Dose: 25 mg Documented By: RONEL Ondansetron HCl (Ondansetron Hcl 4 Mg/2 Ml Vial) 4 mg IVPUSH Q8H PRN PRN Reason: Nausea and Vomiting Pharmacy Consult (Consult Rx Vancomycin Dosing) 1 each MISCELLANE DAILY PRN PRN Reason: Consult order Polyethylene Glycol (Polyethylene Glycol 3350 17 Gm Powd.Pack) 17 gm PO DAILY PRN PRN Reason: Constipation Senna (Sennosides 8.6 Mg Tablet) 17.2 mg PO BEDTIME PRN PRN Reason: Constipation Sodium Chloride (0.9 % Sodium Chloride Flush 3 Ml Syringe) 3 ml IVFLUSH QSHIFT [facility] Last Admin: 05/29/23 09:00 Dose: 3 ml Documented By: RONEL Tramadol HCl (Tramadol Hcl 50 Mg Tablet) 25 mg PO Q6H PRN PRN Reason: Pain, Moderate(Pain Scale 4-6) Last Admin: 05/25/23 13:43 Dose: 25 mg Documented By: RONEL Labs 05/27/23 09:28 05/29/23 06:01 Labs: Laboratory Results - last 24 hr 05/28/23 05/28/23 05/29/23 14:05 18:18 06:01 Anion Gap 13 Estim Creat Clear Calc 76.8 78.9 Estimated GFR > 60 > 60 Random Glucose 110 Calcium 8.4 B-Natriuretic Peptide 326 H Random Vancomycin 19.6 Microbiology Microbiology Results: Microbiology 05/23/23 Unknown Gram Stain - Final Pleura Anaerobic Culture - Final NO GROWTH AFTER 5 DAYS Body Fluid Culture - Final No growth after 2 days Assessment and Plan (1) Pulmonary emboli: Status: Acute (2) Multiple cerebral infarctions: Status: Acute (3) Adenocarcinoma of lung: Status: Acute Plan 62-year-old female with pertinent history of asthma not on home oxygen, sinus tachycardia on beta-elli, history of mitral valve repair in 2017, recently diagnosed with adenocarcinoma of the lung with recent admission for pulmonary embolus started on Eliquis complicated by hemorrhoidal bleed with resumption of Eliquis per GI on discharge 05/20, presented to the ED from hematology following a vasovagal syncopal episode during lab draw earlier today. Patient will be admitted for further management of worsening RLL pneumonia with associated acute metabolic encephalopathy and weakness Sinus tachycardia chronic, continue metoprolol 25mg BID remains tachycardic despite increase in metoprolol and some bursts of PAT thyroid function wnl cardiology following HFpEF, acute last ECHO with preserved EF Lasix 40 mg daily follow intake and output closely cardiology following Multiple subacute infarcts due to ongoing encephalopathy, brain MRI was obtained and shows multiple bilateral subacute cerebral infarcts both in anterior posterior circulation and many of them in border zone area. Both frontal lobes are affected, left more than right. 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 post obstructive strep pneumo antigen neg, Legionella antigen pending, sputum culture unremarkable s/p thoracentesis 05/23 with removal of 1L of fluid Continue oxygen therapy, titrate to oxygen saturation greater than 91% on room air blood cultures negative to date Acute metabolic encephalopathy. Resolved likely multifactorial due to strokes, underlying cancer, PE and pneumonia renal function, LFTs, ammonia level wnl Adenocarcinoma of pulmonary origin Bronchoscopy 05/18/2023 New diagnosis, not yet initiated on therapy oncology following Pulmonary embolism/BLE DVT diagnosed 05/11 s/p IVC filter 05/15/23 has been treated with Eliquis, will change to therapeutic lovenox Elevated troponins likely demand in setting of pulmonary embolus echo 05/12 rwwi with normal LV systolic function, mildly reduced right ventricle systolic function, mild pulmonary hypertension Moderate persistent asthma no acute exacerbation continue maintenance inhalers, albuterol p.r.n. DVT prophylaxis-Eliquis being transitioned to therapeutic lovenox Attending Dr. Escobedo Full code DISPO plan for STR when bed available continue hospital stay for safe disposition Quality Stroke Does the patient have a stroke diagnosis?: No VTE Prior VTE?: No VTE Risk Level:: Medical - moderate - high VTE Device Contraindication: Treatment Not Indicated VTE Drug Contraindication: N/A - Med Ordered
--- NOTE | 2023-05-29 13:35 | MHC.CM.PN ---
Addendum entered by Darby Ortiz RN 05/29/23 14:45: PT GIVES VERBAL CONSENT FOR CM TO WORK WITH KAROLINE HOWE IN REGARDS TO DC PLANNING, CM RECEIVED A MESSAGE FROM KAROLINE MCKINNON, [facility] FOR STR'S IF PT DOES NOT GET INTO [facility], CM WILL ADD TO SNF REFERRAL. Addendum entered by Darby Ortiz RN 05/29/23 14:10: [facility] REVIEWING, CM RECEIVED MESSAGE FROM [facility] THAT THEY ARE NOT CONTRACTED W/PT'S INSURANCE. Original Note: CM RECEIVED A CALL FROM PT'S PCP KAROLINE HOWE WHO IS PT'S NEIGHBOR/FRIEND AND SHE SAID SHE SPOKE TO PT/SISTER AND THEY NO LONGER WANT [facility] AND [facility] IS NOW PREFERRED W/[facility] 2ND CHOICE, REFERRAL EXPANDED TO [facility]
--- NOTE | 2023-05-29 15:28 | MHC.SL.DTX ---
Dysphagia Diet modifications: Last documented Solid diet consistencies: Chopped/Advanced (NDD3) Last documented Liquid consistency: Thin Changes made to current diet?: Yes Liquid Consistency and Strategies: Liquid Intake Recommendation: Thin Compensatory Strategies for Safe Swallow: Small Sips Compensatory Strategies for Safe Swallow(b): Sitting Upright (90 deg) Double Swallow Small Bites and Sips Alternate Liquids/Solids Rate of Ingestion Change Oral Check Avoid Specific Foods Solid Food Consistency: Dietary Recommendations: Grnd/Mech Altered (NDD2) Additional Modifications to Solids: Recommending DOWNGRADE to GROUND/MECH ALTERED SOLIDS (NDD2) and MAINTAIN THIN LIQUIDS. MEDS WHOLE with PUREE. Pt requires 1:1 FEEDING ASSISTANCE at this time. COD CLERK will continue to follow. Recommend OT assessment for feeding status. Oral Medication Intake: Crushed with Puree Strategies and Precautions to be Taken for Safe Swallow: Sitting Upright (90 deg) Double Swallow Small Bites and Sips Alternate Liquids/Solids Rate of Ingestion Change Oral Check Avoid Specific Foods Supervision While Eating and/Drinking: Total Assistance (1:1) Foods to Avoid: Hard, dry, or crunchy foods, mixed consistencies Swallowing Recommended Treatments: Compens. Strategy Educat. Recommendation for Speech: Inpatient Speech Therapy Comment: COD CLERK will continue to follow during inpatient stay. Frequency/Duration: M-F PRN Date Range for Service Req: Timeline to reassess: Additional Comments: Patient is admitted with encephalopathy, lung CA, embolic strokes. Patient has been on liquid diet over the weekend, per [employer], pt is more awake now. Patient's family does report patient was having some trouble swallowing on Sunday, but has since improved. Patient was being fed a tiramisu parfait by a family member. Treatment: Pt demonstrated significantly delayed oral preparation time with a Chopped/Advanced Solid. Pt unable to feed self food or liquids. Did not attempt when offered a cup or spoon. Pt tolerated Thin Liquids via straw when provided to her with no overt s/s of aspiration. Unclear if this is a regression of previous encounter given on-going issues. Assessment: Tractor Trailer Mechanic Clinican/Clinical Fellow: No Supervisory Statement: I have reviewed and agree with the student/clinical fellow's documentation: N/A Speech Language Pathologist: Titus Lim M.A., CCC-COD CLERK
[2023-05-29 20:23] LABS: Vancomycin Random 11.5 mcg/mL (15-20)
--- NOTE | 2023-05-29 20:39 | HE.PHANOTE ---
DERIC DSOE ADJUSTMENT BASED ON TROUGH OF 11.5 DOSE INCREASED TO 750 Q 12. NEXT LEVEL 05/29 @ 2100
[2023-05-29] MEDS: Atorvastatin Calcium 40 MG TABLET PO (22:16)
[2023-05-29] MEDS: vancomycin HCL 750 MG in 0.9 % Sodium Chloride 250 ML 265 MG IV (22:16)
[2023-05-29] MEDS: Hydrocortisone 2.5 % Rectal Cr 30 GM TUBE 1 APPL PR (22:16)
[2023-05-30] VITALS (7 sets, daily range): BP systolic 99–133; BP diastolic 65–78; PULSE 82–103; RESP 18–20; TEMP 36.1–37.3; O2SAT 95–99
[2023-05-30] MEDS: 0.9 % Sodium Chloride Flush 3 ML SYRINGE IVFLUSH ×4 (01:05→21:40)
[2023-05-30] MEDS: cefEPime HCl 2 GM in 0.9 % Sodium Chloride 50 ML IV (04:28)
[2023-05-30 08:13] LABS: Legionella Ag Urine Not Detected (Not Detected)
[2023-05-30] MEDS: Fluticasone/Vilanterol 200/25 BLST.W.DEV 1 PUFF INHALE (08:16)
--- NOTE | 2023-05-30 09:05 | P.PNIM_ITS ---
Subjective Subjective Date of Service: 05/30/23 Interval History: seen and examined this morning follow up for encephalopathy, lung ca, embolic strokes awake and alert Neurologic Neurologic: Reports confusion Psychiatric Psychiatric: Reports confusion Physical Exam 2 Vital Signs: Vital Signs: Last Vital Signs Temp 98.9 F 05/30/23 07:11 Pulse 93 05/30/23 08:17 Resp 18 05/30/23 08:17 BP 132/72 05/30/23 07:11 Pulse Ox 96 05/30/23 07:11 O2 Del Method Room Air 05/30/23 07:11 O2 Flow Rate 1 05/29/23 03:23 Oxygen Flow Rate 2 05/22/23 18:58 BMI result Body Mass Index 21.9 Appearing in no acute distress lung sounds are clear to auscultation heart regular rate rhythm, clear S1, S2 positive bowel sounds, abdomen is soft, nontender neuro patient is alert x3, no focal deficits Const: General: confusion Orientation/consciousness: confusion Neuro: General: confusion Objective Data Active Medications Acetaminophen (Acetaminophen 325 Mg Tablet) 650 mg PO Q6H PRN PRN Reason: Pain, Mild (Pain Scale 1-3) Last Admin: 05/25/23 13:40 Dose: 650 mg Documented By: RONEL Albuterol Sulfate (Albuterol Sulfate 90 Mcg 8 Gm Inhaler) 2 puff INHALE Q4H PRN PRN Reason: Shortness Of Breath Or Wheezing Albuterol/Ipratropium (Albuterol/Iprat 2.5/0.5mg 3 Ml Ampul.Neb) 3 ml INHALE Q4H PRN PRN Reason: Wheezing Last Admin: 05/26/23 04:49 Dose: 3 ml Documented By: ROBERT Atorvastatin Calcium (Atorvastatin Calcium 40 Mg Tablet) 40 mg PO BEDTIME [facility] Last Admin: 05/29/23 22:16 Dose: 40 mg Documented By: AVA Diphenhydramine HCl (Diphenhydramine Hcl 50 Mg/Ml Vial) 25 mg IVPUSH Q4H PRN PRN Reason: allergy Enoxaparin Sodium (Enoxaparin Sodium 60 Mg/0.6 Ml Syringe) 60 mg 1 mg/kg (60 mg) SUBCUT Q12H [facility] Last Admin: 05/29/23 21:30 Dose: 60 mg Documented By: AVA Fluticasone Propionate (Fluticasone Propionate Nasal 16 Gm [place]) 1 spray NOSTRIL-B DAILY PRN PRN Reason: Congestion Fluticasone/Vilanterol (Fluticasone/Vilanterol 200/25 Blst.W.Dev) 1 puff INHALE RDAILY [facility] Last Admin: 05/30/23 08:16 Dose: 1 puff Documented By: FRANSISCA Furosemide (Furosemide 40 Mg Tablet) 40 mg PO DAILY [facility]; Protocol Last Admin: 05/29/23 08:59 Dose: 40 mg Documented By: RONEL Hydrocortisone (Hydrocortisone 2.5 % Rectal Cr 30 Gm Tube) 1 appl [place] BID [facility] Last Admin: 05/29/23 22:16 Dose: 1 appl Documented By: AVA Cefepime HCl 2 gm/ Sodium (Chloride) 50 mls @ 100 mls/hr IV Q8H [facility] Last Infusion: 05/30/23 05:02 Dose: Infused Documented By: GLADIS Vancomycin HCl 750 mg/ Sodium (Chloride) 265 mls @ 265 mls/hr IV Q12H [facility] Last Infusion: 05/29/23 23:26 Dose: Infused Documented By: AVA Metoprolol Tartrate (Metoprolol Tartrate 25 Mg Tablet) 25 mg PO BID [facility]; Protocol Last Admin: 05/29/23 22:15 Dose: 25 mg Documented By: AVA Ondansetron HCl (Ondansetron Hcl 4 Mg/2 Ml Vial) 4 mg IVPUSH Q8H PRN PRN Reason: Nausea and Vomiting Pharmacy Consult (Consult Rx Vancomycin Dosing) 1 each MISCELLANE DAILY PRN PRN Reason: Consult order Polyethylene Glycol (Polyethylene Glycol 3350 17 Gm Powd.Pack) 17 gm PO DAILY PRN PRN Reason: Constipation Senna (Sennosides 8.6 Mg Tablet) 17.2 mg PO BEDTIME PRN PRN Reason: Constipation Sodium Chloride (0.9 % Sodium Chloride Flush 3 Ml Syringe) 3 ml IVFLUSH QSHIFT [facility] Last Admin: 05/30/23 01:05 Dose: 3 ml Documented By: GLADIS Tramadol HCl (Tramadol Hcl 50 Mg Tablet) 25 mg PO Q6H PRN PRN Reason: Pain, Moderate(Pain Scale 4-6) Last Admin: 05/25/23 13:43 Dose: 25 mg Documented By: RONEL Labs 05/27/23 09:28 05/29/23 06:01 Labs: Laboratory Results - last 24 hr 05/23/23 05/29/23 01:36 19:10 Random Vancomycin 11.5 L Ur L.pneumophila Ag Not Detected Microbiology Microbiology Results: Microbiology 05/23/23 Unknown Gram Stain - Final Pleura Anaerobic Culture - Final NO GROWTH AFTER 5 DAYS Body Fluid Culture - Final No growth after 2 days Assessment and Plan (1) Pulmonary emboli: Status: Acute (2) Multiple cerebral infarctions: Status: Acute (3) Adenocarcinoma of lung: Status: Acute Plan 62-year-old female with pertinent history of asthma not on home oxygen, sinus tachycardia on beta-elli, history of mitral valve repair in 2017, recently diagnosed with adenocarcinoma of the lung with recent admission for pulmonary embolus started on Eliquis complicated by hemorrhoidal bleed with resumption of Eliquis per GI on discharge 05/20, presented to the ED from hematology following a vasovagal syncopal episode during lab draw earlier today. Patient will be admitted for further management of worsening RLL pneumonia with associated acute metabolic encephalopathy and weakness Sinus tachycardia chronic, continue metoprolol 25mg BID some random bursts of PAT thyroid function wnl cardiology following HFpEF, acute last ECHO with preserved EF Lasix 40 mg daily follow intake and output closely cardiology following Multiple subacute infarcts brain MRI>multiple bilateral subacute cerebral infarcts both in anterior posterior circulation and many of them in border zone area. Both frontal lobes are affected, left more than right. 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 Resolved S/p 8 days of IV cefepime and vanco for pna strep pneumo, Legionella negative, sputum culture unremarkable s/p thoracentesis 05/23 with removal of 1L of fluid, cytology pending off oxygen blood cultures negative to date Acute metabolic encephalopathy. Resolved likely multifactorial due to strokes, underlying cancer, PE and pneumonia renal function, LFTs, ammonia level wnl Adenocarcinoma of pulmonary origin Bronchoscopy 05/18/2023 New diagnosis, not yet initiated on therapy Needs to follow up with oncology o/p Pulmonary embolism/BLE DVT diagnosed 05/11 s/p IVC filter 05/15/23 has been treated with Eliquis, changed to therapeutic lovenox Elevated troponins likely demand in setting of pulmonary embolus echo 05/12 rwma with normal LV systolic function, mildly reduced right ventricle systolic function, mild pulmonary hypertension Moderate persistent asthma no acute exacerbation continue maintenance inhalers, albuterol p.r.n. DVT prophylaxis-therapeutic lovenox Attending Dr. Escobedo Full code DISPO plan for STR when bed available continue hospital stay for safe disposition Quality Stroke Does the patient have a stroke diagnosis?: No VTE Prior VTE?: No VTE Risk Level:: Medical - moderate - high VTE Device Contraindication: Treatment Not Indicated VTE Drug Contraindication: N/A - Med Ordered
[2023-05-30] MEDS: Metoprolol Tartrate 25 MG TABLET PO ×2 (09:19→21:38)
[2023-05-30] MEDS: Furosemide 40 MG TABLET PO (09:19)
[2023-05-30] MEDS: Hydrocortisone 2.5 % Rectal Cr 30 GM TUBE 1 APPL PR ×2 (09:20→21:46)
[2023-05-30] MEDS: Enoxaparin Sodium 60 MG/0.6 ML SYRINGE SUBCUT ×2 (09:20→21:38)
[2023-05-30 09:57] LABS: Hematocrit 29.6 % (37.0-47.0); Hemoglobin 9.6 g/dl (12.0-16.0); Mean Corpuscular HGB Conc 32.4 g/dl (31.0-35.0); Mean Corpuscular Hemoglobin 27.7 pg (27.0-33.0); Mean Corpuscular Volume 85.5 fL (80.0-98.0); Mean Platelet Volume 10.4 fL (9.4-12.3); Platelet Count 462 X10*3/uL (160-400); Red Blood Count 3.46 X10*6/uL (4.20-5.50); Red Cell Distribution Width 15.7 % (11.0-16.0); White Blood Count 27.9 X10*3/uL (4.8-10.8)
--- NOTE | 2023-05-30 13:43 | MHC.SLORD ---
Speech Language Pathology Order Status: LICENSED INSURANCE AGENT spoke w/ patient and family at bedside. Patient refused PO trials. Patient presented w/ minimal language during visit; mostly looked at LICENSED INSURANCE AGENT, some head nodding, and verbal thank you. Family reports patient is confused when given options but able to answer Y/N questions. Patient and family agreeable to continue w/ ground solids at this time. Nursing reports patient presenting w/ delayed language and minimal words. Family reports patient was talking up a storm earlier on this date. LICENSED INSURANCE AGENT to continue to follow to monitor dysphagia and language.
--- NOTE | 2023-05-30 14:03 | MHC.CM.PN ---
CM continues to work on referrals to STR. Spoke to Vicki Yanez and she said that pt. has family is [facility], if referrals have to be made there. [facility] and [facility] are reviewing.
[2023-05-30 14:06] LABS: Creatinine Clr Calc Pharmacy 81.3; Estimated Glomerular Filt Rate > 60
[2023-05-30 19:39] LABS: Vancomycin Random 7.6 mcg/mL (15-20)
[2023-05-30] MEDS: Atorvastatin Calcium 40 MG TABLET PO (21:38)
[2023-05-31 03:24] VITALS: BP 106/68; PULSE 85; RESP 20; TEMP 36.2; O2SAT 98
[2023-05-31 07:00] VITALS: BP 136/73; PULSE 98; RESP 18; TEMP 36.6; O2SAT 97
[2023-05-31 07:08] LABS: Creatinine Clr Calc Pharmacy 92.1; Estimated Glomerular Filt Rate > 60
[2023-05-31] MEDS: Furosemide 40 MG TABLET PO (08:15)
[2023-05-31] MEDS: Metoprolol Tartrate 25 MG TABLET PO ×2 (08:15→17:36)
[2023-05-31] MEDS: Hydrocortisone 2.5 % Rectal Cr 30 GM TUBE 1 APPL PR ×2 (08:15→21:18)
[2023-05-31] MEDS: Enoxaparin Sodium 60 MG/0.6 ML SYRINGE SUBCUT ×2 (08:15→21:17)
[2023-05-31] MEDS: 0.9 % Sodium Chloride Flush 3 ML SYRINGE IVFLUSH ×3 (08:16→21:16)
--- NOTE | 2023-05-31 10:19 | MHC.CM.PN ---
[facility] REVIEWED, CM SPOKE W/PT/OT THIS AM WHO REPORTED PT HAS IMPROVED GREATLY AND FEEL SHE IS NOW APPROP FOR [place], [facility] UPDATED AND UPDATED CLINICALS SENT, [facility] IS NOW REVIEWING AND [facility] WILL FOLLOW FOR BED OFFER.
[2023-05-31 11:00] VITALS: BP 104/69; PULSE 97; RESP 18; TEMP 36.2; O2SAT 96
--- NOTE | 2023-05-31 11:29 | HO.PM.IMPN ---
Subjective Subjective Date of Service: 05/31/23 Interval History: seen and examined this morning follow up for stroke, encephalopathy, lung ca awake, alert; no sob Review of Systems Review of Systems: Yes all other systems are reviewed and are negative Constitutional Constitutional: Denies chills and Denies fever(s) Cardiovascular Cardiovascular: Denies chest pain, Denies palpitations and Denies dyspnea Respiratory Respiratory: Denies cough and Denies dyspnea Endocrine Endocrine: Denies palpitations Physical Exam Vital Signs: Vital Signs: Last Vital Signs Temp 97.2 F 05/31/23 11:00 Pulse 97 05/31/23 11:00 Resp 18 05/31/23 11:00 BP 104/69 05/31/23 11:00 Pulse Ox 96 05/31/23 11:00 O2 Del Method Room Air 05/31/23 11:00 O2 Flow Rate 1 05/31/23 07:00 Oxygen Flow Rate 2 05/22/23 18:58 BMI result Body Mass Index 21.9 Const: General: cooperative, comfortable, no acute distress, alert and awake Nutritional Appearance: average body habitus Orientation/consciousness: patient oriented x3 Resp: Other: no rales or rhonchi Effort & Inspection: normal respiratory effort, able to speak in complete sentences, no respiratory distress and no use of accessory muscles Cardio: Rate: regular rate GI: Inspection: No distended Palpation (GI): Soft to palpation and nontender Neuro: General: patient oriented x3 Extrem: General: Yes no pedal edema Objective Data Active Medications Acetaminophen (Acetaminophen 325 Mg Tablet) 650 mg PO Q6H PRN PRN Reason: Pain, Mild (Pain Scale 1-3) Last Admin: 05/25/23 13:40 Dose: 650 mg Documented By: RONEL Albuterol Sulfate (Albuterol Sulfate 90 Mcg 8 Gm Inhaler) 2 puff INHALE Q4H PRN PRN Reason: Shortness Of Breath Or Wheezing Albuterol/Ipratropium (Albuterol/Iprat 2.5/0.5mg 3 Ml Ampul.Neb) 3 ml INHALE Q4H PRN PRN Reason: Wheezing Last Admin: 05/26/23 04:49 Dose: 3 ml Documented By: ROBERT Atorvastatin Calcium (Atorvastatin Calcium 40 Mg Tablet) 40 mg PO BEDTIME ABHAY Last Admin: 03/06/24 21:38 Dose: 40 mg Documented By: MECHE Diphenhydramine HCl (Diphenhydramine Hcl 50 Mg/Ml Vial) 25 mg IVPUSH Q4H PRN PRN Reason: allergy Enoxaparin Sodium (Enoxaparin Sodium 60 Mg/0.6 Ml Syringe) 60 mg 1 mg/kg (60 mg) SUBCUT Q12H [facility] Last Admin: 05/31/23 08:15 Dose: 60 mg Documented By: MARBIN Fluticasone Propionate (Fluticasone Propionate Nasal 16 Gm [place]) 1 spray NOSTRIL-B DAILY PRN PRN Reason: Congestion Fluticasone/Vilanterol (Fluticasone/Vilanterol 200/25 Blst.W.Dev) 1 puff INHALE RDAILY [facility] Last Admin: 05/30/23 08:16 Dose: 1 puff Documented By: FRANSISCA Furosemide (Furosemide 40 Mg Tablet) 40 mg PO DAILY [facility]; Protocol Last Admin: 05/31/23 08:15 Dose: 40 mg Documented By: MARBIN Hydrocortisone (Hydrocortisone 2.5 % Rectal Cr 30 Gm Tube) 1 appl [place] BID [facility] Last Admin: 05/31/23 08:15 Dose: 1 appl Documented By: MARBIN Metoprolol Tartrate (Metoprolol Tartrate 25 Mg Tablet) 25 mg PO BID [facility]; Protocol Last Admin: 05/31/23 08:15 Dose: 25 mg Documented By: MARBIN Ondansetron HCl (Ondansetron Hcl 4 Mg/2 Ml Vial) 4 mg IVPUSH Q8H PRN PRN Reason: Nausea and Vomiting Polyethylene Glycol (Polyethylene Glycol 3350 17 Gm Powd.Pack) 17 gm PO DAILY PRN PRN Reason: Constipation Senna (Sennosides 8.6 Mg Tablet) 17.2 mg PO BEDTIME PRN PRN Reason: Constipation Sodium Chloride (0.9 % Sodium Chloride Flush 3 Ml Syringe) 3 ml IVFLUSH QSHIFT [facility] Last Admin: 05/31/23 08:16 Dose: 3 ml Documented By: MARBIN Labs 05/30/23 09:52 05/31/23 06:34 Labs: Laboratory Results - last 24 hr 05/30/23 05/30/23 05/31/23 13:06 19:14 06:34 Hold Purple Top SEE NOTE Estim Creat Clear Calc 81.3 92.1 Estimated GFR > 60 > 60 Random Vancomycin 7.6 L Assessment and Plan (1) Multiple cerebral infarctions: Status: Acute (2) Pulmonary emboli: Status: Acute (3) Adenocarcinoma of lung: Status: Acute Plan 62-year-old female with pertinent history of asthma not on home oxygen, sinus tachycardia on beta-elli, history of mitral valve repair in 2017, recently diagnosed with adenocarcinoma of the lung with recent admission for pulmonary embolus started on Eliquis complicated by hemorrhoidal bleed with resumption of Eliquis per GI on discharge 05/20, presented to the ED from hematology following a vasovagal syncopal episode during lab draw earlier today. Patient dmitted for further management of worsening RLL pneumonia with associated acute metabolic encephalopathy and weakness found to have multiple embolic infarcts Sinus tachycardia chronic, continue metoprolol 25mg BID some random bursts of PAT thyroid function wnl overall significantly improved since admission HFpEF, acute last ECHO with preserved EF Lasix 40 mg daily follow intake and output closely cardiology following Multiple subacute infarcts brain MRI>multiple bilateral subacute cerebral infarcts both in anterior posterior circulation and many of them in border zone area. Both frontal lobes are affected, left more than right. 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 Resolved S/p 8 days of IV cefepime and vanco for pna strep pneumo, Legionella negative, sputum culture unremarkable s/p thoracentesis 05/23 with removal of 1L of fluid, cytology pending, culture no growth off oxygen blood cultures negative to date Acute metabolic encephalopathy. Resolved likely multifactorial due to strokes, underlying cancer, PE and pneumonia renal function, LFTs, ammonia level wnl Adenocarcinoma of pulmonary origin Bronchoscopy 05/18/2023 New diagnosis, not yet initiated on therapy Needs to follow up with oncology o/p Pulmonary embolism/BLE DVT diagnosed 05/11 s/p IVC filter 05/15/23 previously treated with Eliquis, changed to therapeutic lovenox this admission Elevated troponins likely demand in setting of pulmonary embolus echo 05/12 rwma with normal LV systolic function, mildly reduced right ventricle systolic function, mild pulmonary hypertension Moderate persistent asthma no acute exacerbation continue maintenance inhalers, albuterol p.r.n. DVT prophylaxis-therapeutic lovenox Attending Dr. Escobedo Full code DISPO plan for STR when bed available continue hospital stay for safe disposition Quality Stroke Does the patient have a stroke diagnosis?: No VTE Prior VTE?: No VTE Risk Level:: Medical - moderate - high VTE Device Contraindication: Treatment Not Indicated VTE Drug Contraindication: N/A - Med Ordered
[2023-05-31 15:28] VITALS: BP 139/80; PULSE 88; RESP 18; TEMP 37.3; O2SAT 96
--- NOTE | 2023-05-31 15:36 | MHC.SL.SWA ---
Speech Pathologist Impression: Risk of Aspiration Due to: Neurological Condition History of Pneumonia Dysphasia Diet Status: Recommend continue GROUND/MECH ALTERED SOLIDS (NDD2) and MAINTAIN THIN LIQUIDS. MEDS WHOLE with PUREE. Pt requires 1:1 FEEDING ASSISTANCE at this time. CROP PRODUCTION ADVISOR will continue to follow. Liquid Consistency and Strategies for Safe Swallow: Liquid Intake Recommendation: Thin Liquid Intake Strategies: Small Sips Solid Food Consistency: Dietary Recommendations: Grnd/Mech Altered (NDD2) Additional Modifications to Solid Foods: . Pt requires 1:1 FEEDING ASSISTANCE at this time. Alternate liquids and solids. Add sauces and gravies and blend well. Oral Medication Intake: Whole with Puree Please contact the pharmacy regarding appropriate crushable or liquid drug formulations that are available whenever modified delivery is recommended. Compensatory Strategies and Precautions to be Taken for Safe Swallow: Sitting Upright (90 deg) Liquids from Cup Small Bites and Sips Alternate Liquids/Solids Oral Check Supervision While Eating and Drinking for Safe Swallow: Total Assistance (1:1) Foods to Avoid: Hard, dry, or crunchy foods, mixed consistencies Swallowing Recommended Treatments: Compens. Strategy Educat. Recommendation for Speech: Inpatient Speech Therapy Comment: Patient seen during lunch today. Patient was downgraded on 05/29/23 to ground mechanical diet as she evidenced difficulty on chopped diet with prolonged mastication and oral residual on this consistency. Patient today had tray with ground turkey, gravy and mashed potatoes, as well as a variety of thin liquids. Patient took bites of this consistency, producing a mildly prolonged period of mastication, timely swallow, no clinical signs of aspiration. Patient given some bites of the consistency in larger pieces, and more prolonged period of mastication noted, with oral residual evident after shallowed, cleared by a sip of liquid. Family member present during treatment reported that she had been doing fine on the ground diet and had not complaints, and then continued the meal with patient as CROP PRODUCTION ADVISOR left. Recommend no change, continue on Ground Mechanical (NDD2) with thin liquids, pills whole in puree. CROP PRODUCTION ADVISOR will continue to follow. Frequency/Duration: M-F PRN Date Range for Service Req: Timeline to reassess: Scrum Coach Clinican/Clinical Fellow: No Supervisory Statement: I have reviewed and agree with the student/clinical fellow's documentation: N/A Speech Language Pathologist: Darby Allen M.A., CCC-CROP PRODUCTION ADVISOR
[2023-05-31 19:37] VITALS: BP 107/64; PULSE 99; RESP 18; TEMP 36.1; O2SAT 94
[2023-05-31] MEDS: Atorvastatin Calcium 40 MG TABLET PO (21:17)
[2023-05-31 23:37] VITALS: BP 126/74; PULSE 93; RESP 18; TEMP 36.6; O2SAT 94
[2023-06-01] VITALS (9 sets, daily range): BP systolic 97–156; BP diastolic 54–86; PULSE 96–121; RESP 18–20; TEMP 36.1–37.7; O2SAT 93–99
[2023-06-01 06:32] LABS: Creatinine Clr Calc Pharmacy 87.7; Estimated Glomerular Filt Rate > 60
[2023-06-01] MEDS: Fluticasone/Vilanterol 200/25 BLST.W.DEV 1 PUFF INHALE (07:34)
[2023-06-01] MEDS: Furosemide 40 MG TABLET PO (08:19)
[2023-06-01] MEDS: Metoprolol Tartrate 25 MG TABLET PO (08:19)
[2023-06-01] MEDS: 0.9 % Sodium Chloride Flush 3 ML SYRINGE IVFLUSH ×3 (08:20→20:21)
[2023-06-01] MEDS: Enoxaparin Sodium 60 MG/0.6 ML SYRINGE SUBCUT ×2 (08:20→20:21)
[2023-06-01] MEDS: Hydrocortisone 2.5 % Rectal Cr 30 GM TUBE 1 APPL PR ×2 (08:21→20:22)
--- NOTE | 2023-06-01 10:54 | MHC.CM.PN ---
[facility] REVIEWED, [facility], [facility] REVIEWING AGAIN AND CM HAS REQUESTED [facility] REVIEW WELL, [facility] REF ALSO UPDATED TO INSURANCE CONTRACTED FACILITIES, BARRIER FOR PT IS INSURANCE PLAN [place] MEDICAID AND [place] DIAGNOSIS, CM WILL CONT TO FOLLOW.
--- NOTE | 2023-06-01 11:46 | MHC.SL.SWA ---
Speech Pathologist Impression: Risk of aspiration, oral phase dysphagia Risk of Aspiration Due to: Neurological Condition History of Pneumonia Dysphasia Diet Status: No change at this time Liquid Consistency and Strategies for Safe Swallow: Liquid Intake Recommendation: Thin Liquid Intake Strategies: Small Sips Solid Food Consistency: Dietary Recommendations: Grnd/Mech Altered (NDD2) Additional Modifications to Solid Foods: . Pt requires 1:1 FEEDING ASSISTANCE at this time. Alternate liquids and solids. Add sauces and gravies and blend well. Oral Medication Intake: Whole with Puree Please contact the pharmacy regarding appropriate crushable or liquid drug formulations that are available whenever modified delivery is recommended. Compensatory Strategies and Precautions to be Taken for Safe Swallow: Sitting Upright (90 deg) Liquids from Cup Small Bites and Sips Alternate Liquids/Solids Oral Check Supervision While Eating and Drinking for Safe Swallow: Total Assistance (1:1) Foods to Avoid: Hard, dry, or crunchy foods, mixed consistencies Swallowing Recommended Treatments: Compens. Strategy Educat. Recommendation for Speech: Inpatient Speech Therapy Comment: FLOWER PICKER will continue to follow during inpatient stay. Frequency/Duration: M-F PRN Date Range for Service Req: Timeline to reassess: Business Insurance Agent Clinican/Clinical Fellow: No Supervisory Statement: I have reviewed and agree with the student/clinical fellow's documentation: N/A Speech Language Pathologist: Bethany Kessler M.A., CCC-FLOWER PICKER
[2023-06-01 11:57] LABS: Hematocrit 30.9 % (37.0-47.0); Mean Corpuscular HGB Conc 32.4 g/dl (31.0-35.0); Mean Corpuscular Hemoglobin 28.1 pg (27.0-33.0); Mean Corpuscular Volume 86.8 fL (80.0-98.0); Mean Platelet Volume 10.5 fL (9.4-12.3); Platelet Count 533 X10*3/uL (160-400); Red Blood Count 3.56 X10*6/uL (4.20-5.50); Red Cell Distribution Width 15.6 % (11.0-16.0); White Blood Count 24.3 X10*3/uL (4.8-10.8)
--- NOTE | 2023-06-01 13:20 | MHC.CM.PN ---
PT AND FAMILY, SISTER KAROLINE AT BEDSIDE ACCEPTING BED OFFER AT [facility], AUTH PENDING, [facility] FOR TRANSPORT
--- NOTE | 2023-06-01 15:16 | HO.PM.IMPN ---
Subjective Subjective Date of Service: 06/01/23 Interval History: seen and examined this morning follow up for embolic stroke no overnight events Review of Systems Review of Systems: Yes all other systems are reviewed and are negative Constitutional Constitutional: Denies chills and Denies fever(s) Cardiovascular Cardiovascular: Denies chest pain, Denies palpitations and Denies dyspnea Respiratory Respiratory: Denies cough and Denies dyspnea Gastrointestinal Gastrointestinal: Denies abdominal pain Endocrine Endocrine: Denies palpitations Physical Exam Vital Signs: Vital Signs: Last Vital Signs Temp 98 F 06/01/23 11:54 Pulse 99 06/01/23 11:54 Resp 18 06/01/23 11:54 BP 156/70 H 06/01/23 11:54 Pulse Ox 99 06/01/23 11:54 O2 Del Method Room Air 06/01/23 11:54 O2 Flow Rate 1 05/31/23 07:00 Oxygen Flow Rate 2 05/22/23 18:58 BMI result Body Mass Index 21.9 Const: General: cooperative, comfortable, no acute distress, alert and awake Nutritional Appearance: average body habitus Resp: Effort & Inspection: normal respiratory effort, able to speak in complete sentences, no respiratory distress and no use of accessory muscles Cardio: Rate: regular rate GI: Inspection: No distended Palpation (GI): Soft to palpation and nontender Neuro: Other: able to follow commands, moves all extremities, appears weak globally, no focal weakness. tongue midline, face symmetrical General: moves all extremities Extrem: General: Yes no pedal edema Objective Data Active Medications Acetaminophen (Acetaminophen 325 Mg Tablet) 650 mg PO Q6H PRN PRN Reason: Pain, Mild (Pain Scale 1-3) Last Admin: 05/25/23 13:40 Dose: 650 mg Documented By: RONEL Albuterol Sulfate (Albuterol Sulfate 90 Mcg 8 Gm Inhaler) 2 puff INHALE Q4H PRN PRN Reason: Shortness Of Breath Or Wheezing Albuterol/Ipratropium (Albuterol/Iprat 2.5/0.5mg 3 Ml Ampul.Neb) 3 ml INHALE Q4H PRN PRN Reason: Wheezing Last Admin: 05/26/23 04:49 Dose: 3 ml Documented By: ROBERT Atorvastatin Calcium (Atorvastatin Calcium 40 Mg Tablet) 40 mg PO BEDTIME ABHAY Last Admin: 05/31/23 21:17 Dose: 40 mg Documented By: DARRION Diphenhydramine HCl (Diphenhydramine Hcl 50 Mg/Ml Vial) 25 mg IVPUSH Q4H PRN PRN Reason: allergy Enoxaparin Sodium (Enoxaparin Sodium 60 Mg/0.6 Ml Syringe) 60 mg 1 mg/kg (60 mg) SUBCUT Q12H [facility] Last Admin: 06/01/23 08:20 Dose: 60 mg Documented By: AMBER Fluticasone Propionate (Fluticasone Propionate Nasal 16 Gm [place]) 1 spray NOSTRIL-B DAILY PRN PRN Reason: Congestion Fluticasone/Vilanterol (Fluticasone/Vilanterol 200/25 Blst.W.Dev) 1 puff INHALE RDAILY [facility] Last Admin: 06/01/23 07:34 Dose: 1 puff Documented By: JAIRO Furosemide (Furosemide 40 Mg Tablet) 40 mg PO DAILY [facility]; Protocol Last Admin: 06/01/23 08:19 Dose: 40 mg Documented By: AMBER Hydrocortisone (Hydrocortisone 2.5 % Rectal Cr 30 Gm Tube) 1 appl [place] BID [facility] Last Admin: 06/01/23 08:21 Dose: 1 appl Documented By: AMBER Metoprolol Tartrate (Metoprolol Tartrate 12.5 Mg Halftab) 37.5 mg PO BID [facility]; Protocol Ondansetron HCl (Ondansetron Hcl 4 Mg/2 Ml Vial) 4 mg IVPUSH Q8H PRN PRN Reason: Nausea and Vomiting Polyethylene Glycol (Polyethylene Glycol 3350 17 Gm Powd.Pack) 17 gm PO DAILY PRN PRN Reason: Constipation Senna (Sennosides 8.6 Mg Tablet) 17.2 mg PO BEDTIME PRN PRN Reason: Constipation Sodium Chloride (0.9 % Sodium Chloride Flush 3 Ml Syringe) 3 ml IVFLUSH QSHIFT [facility] Last Admin: 06/01/23 08:20 Dose: 3 ml Documented By: AMBER Labs 06/01/23 11:47 06/01/23 05:52 Labs: Laboratory Results - last 24 hr 06/01/23 06/01/23 05:52 11:47 MCV 86.8 MCH 28.1 MCHC 32.4 RDW 15.6 Plt Count 533 H MPV 10.5 Absolute Nucleated RBC 0.000 Nucleated RBC % (auto) 0.0 Hold Purple Top SEE NOTE Estim Creat Clear Calc 87.7 Estimated GFR > 60 Assessment and Plan (1) Multiple cerebral infarctions: Status: Acute (2) Pulmonary emboli: Status: Acute (3) Adenocarcinoma of lung: Status: Acute Plan 62-year-old female with pertinent history of asthma not on home oxygen, sinus tachycardia on beta-elli, history of mitral valve repair in 2017, recently diagnosed with adenocarcinoma of the lung with recent admission for pulmonary embolus started on Eliquis complicated by hemorrhoidal bleed with resumption of Eliquis per GI on discharge 05/20, presented to the ED from hematology following a vasovagal syncopal episode during lab draw earlier today. Patient dmitted for further management of worsening RLL pneumonia with associated acute metabolic encephalopathy and weakness found to have multiple embolic infarcts Sinus tachycardia some random bursts of PAT thyroid function wnl will increase dose of BB overall significantly improved since admission HFpEF, acute last ECHO with preserved EF continue Lasix 40 mg daily follow intake and output closely cardiology following Multiple subacute infarcts brain MRI>multiple bilateral subacute cerebral infarcts both in anterior posterior circulation and many of them in border zone area. Both frontal lobes are affected, left more than right. 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 Resolved S/p 8 days of IV cefepime and vanco for pna strep pneumo, Legionella negative, sputum culture unremarkable s/p thoracentesis 05/23 with removal of 1L of fluid, cytology pending, culture no growth off oxygen blood cultures negative to date Acute metabolic encephalopathy. Resolved likely multifactorial due to strokes, underlying cancer, PE and pneumonia renal function, LFTs, ammonia level wnl Adenocarcinoma of pulmonary origin Bronchoscopy 05/18/2023 New diagnosis, not yet initiated on therapy Needs to follow up with oncology o/p Pulmonary embolism/BLE DVT diagnosed 05/11 s/p IVC filter 05/15/23 previously treated with Eliquis, changed to therapeutic lovenox this admission Elevated troponins likely demand in setting of pulmonary embolus echo 05/12 rwma with normal LV systolic function, mildly reduced right ventricle systolic function, mild pulmonary hypertension Moderate persistent asthma no acute exacerbation continue maintenance inhalers, albuterol p.r.n. DVT prophylaxis-therapeutic lovenox Attending Dr. Escobedo Full code DISPO plan for STR when bed available, tele monitoring for tachcyardia continue hospital stay for safe disposition Quality Stroke Does the patient have a stroke diagnosis?: No VTE Prior VTE?: No VTE Risk Level:: Medical - moderate - high VTE Device Contraindication: Treatment Not Indicated VTE Drug Contraindication: N/A - Med Ordered
[2023-06-01] MEDS: Atorvastatin Calcium 40 MG TABLET PO (20:21)
[2023-06-01] MEDS: Metoprolol Tartrate 12.5 MG HALFTAB 37.5 MG PO (20:21)
[2023-06-02] VITALS (7 sets, daily range): BP systolic 109–142; BP diastolic 66–82; PULSE 98–113; RESP 16–20; TEMP 36.2–36.8; O2SAT 93–97
[2023-06-02 07:24] LABS: Creatinine Clr Calc Pharmacy 86.3; Estimated Glomerular Filt Rate > 60
[2023-06-02] MEDS: Fluticasone/Vilanterol 200/25 BLST.W.DEV 1 PUFF INHALE (08:59)
[2023-06-02] MEDS: Metoprolol Tartrate 12.5 MG HALFTAB 37.5 MG PO ×2 (10:08→20:35)
[2023-06-02] MEDS: Furosemide 40 MG TABLET PO (10:09)
[2023-06-02] MEDS: Enoxaparin Sodium 60 MG/0.6 ML SYRINGE SUBCUT (10:09)
[2023-06-02] MEDS: 0.9 % Sodium Chloride Flush 3 ML SYRINGE IVFLUSH (10:12)
--- NOTE | 2023-06-02 10:46 | P.PNIM_ITS ---
Subjective Subjective Date of Service: 06/02/23 Interval History: seen and examined this morning follow up for embolic stroke no overnight events, pt seen eating breakfast, no new complaints Review of Systems Follow up weakness pleural effusion no pain Constitutional Constitutional: Denies chills and Denies fever(s) Cardiovascular Cardiovascular: Denies chest pain, Denies palpitations and Denies dyspnea Respiratory Respiratory: Denies cough and Denies dyspnea Gastrointestinal Gastrointestinal: Denies abdominal pain Neurologic Neurologic: Reports confusion Psychiatric Psychiatric: Reports confusion Endocrine Endocrine: Denies palpitations Physical Exam 2 Vital Signs: Vital Signs: Last Vital Signs Temp 97.6 F 06/02/23 07:39 Pulse 113 H 06/02/23 09:02 Resp 20 06/02/23 09:02 BP 135/77 06/02/23 07:39 Pulse Ox 97 06/02/23 07:39 O2 Del Method Room Air 06/02/23 07:39 O2 Flow Rate 1 05/31/23 07:00 Oxygen Flow Rate 2 05/22/23 18:58 BMI result Body Mass Index 21.9 Const: Other: appears somewhat anxious General: cooperative, comfortable, no acute distress, alert, awake and confusion Nutritional Appearance: average body habitus O rientation/consciousness: oriented to person, patient oriented x3 and confusion Resp: Other: no rales or rhonchi Effort & Inspection: normal respiratory effort, able to speak in complete sentences, no respiratory distress and no use of accessory muscles A uscultation: clear to auscultation bilaterally Cardio: Rate: regular rate and tachycardic GI: Inspection: No distended Palpation (GI): Soft to palpation and nontender Neuro: Other: able to follow commands, moves all extremities, appears weak globally, no focal weakness. tongue midline, face symmetrical General: oriented to person, patient oriented x3, moves all extremities, CN's II-XI intact bilaterally and confusion Extrem: General: Yes no pedal edema Objective Data Active Medications Acetaminophen (Acetaminophen 325 Mg Tablet) 650 mg PO Q6H PRN PRN Reason: Pain, Mild (Pain Scale 1-3) Last Admin: 05/25/23 13:40 Dose: 650 mg Documented By: RONEL Albuterol Sulfate (Albuterol Sulfate 90 Mcg 8 Gm Inhaler) 2 puff INHALE Q4H PRN PRN Reason: Shortness Of Breath Or Wheezing Atorvastatin Calcium (Atorvastatin Calcium 40 Mg Tablet) 40 mg PO BEDTIME [facility] Last Admin: 06/01/23 20:21 Dose: 40 mg Documented By: KALEB Diphenhydramine HCl (Diphenhydramine Hcl 50 Mg/Ml Vial) 25 mg IVPUSH Q4H PRN PRN Reason: allergy Enoxaparin Sodium (Enoxaparin Sodium 60 Mg/0.6 Ml Syringe) 60 mg 1 mg/kg (60 mg) SUBCUT Q12H [facility] Last Admin: 06/02/23 10:09 Dose: 60 mg Documented By: VINOD Fluticasone Propionate (Fluticasone Propionate Nasal 16 Gm [place]) 1 spray NOSTRIL-B DAILY PRN PRN Reason: Congestion Fluticasone/Vilanterol (Fluticasone/Vilanterol 200/25 Blst.W.Dev) 1 puff INHALE RDAILY [facility] Last Admin: 06/02/23 08:59 Dose: 1 puff Documented By: FRANSISCA Furosemide (Furosemide 40 Mg Tablet) 40 mg PO DAILY [facility]; Protocol Last Admin: 06/02/23 10:09 Dose: 40 mg Documented By: VINOD Hydrocortisone (Hydrocortisone 2.5 % Rectal Cr 30 Gm Tube) 1 appl ID BID [facility] Last Admin: 06/02/23 10:13 Dose: Not Given Documented By: VINOD Non-Admin Reason: Patient Refused Metoprolol Tartrate (Metoprolol Tartrate 12.5 Mg Halftab) 37.5 mg PO BID [facility]; Protocol Last Admin: 06/02/23 10:08 Dose: 37.5 mg Documented By: VINOD Ondansetron HCl (Ondansetron Hcl 4 Mg/2 Ml Vial) 4 mg IVPUSH Q8H PRN PRN Reason: Nausea and Vomiting Polyethylene Glycol (Polyethylene Glycol 3350 17 Gm Powd.Pack) 17 gm PO DAILY PRN PRN Reason: Constipation Senna (Sennosides 8.6 Mg Tablet) 17.2 mg PO BEDTIME PRN PRN Reason: Constipation Sodium Chloride (0.9 % Sodium Chloride Flush 3 Ml Syringe) 3 ml IVFLUSH QSHIFT [facility] Last Admin: 06/02/23 10:12 Dose: 3 ml Documented By: VINOD Labs 06/01/23 11:47 06/02/23 06:36 Labs: Laboratory Results - last 24 hr 06/01/23 06/02/23 11:47 06:36 MCV 86.8 MCH 28.1 MCHC 32.4 RDW 15.6 Plt Count 533 H MPV 10.5 Absolute Nucleated RBC 0.000 Nucleated RBC % (auto) 0.0 Hold Purple Top SEE NOTE Estim Creat Clear Calc 86.3 Estimated GFR > 60 Assessment and Plan (1) Multiple cerebral infarctions: Status: Acute Plan 62-year-old female with pertinent history of asthma not on home oxygen, sinus tachycardia on beta-elli, history of mitral valve repair in 2017, recently diagnosed with adenocarcinoma of the lung with recent admission for pulmonary embolus started on Eliquis complicated by hemorrhoidal bleed with resumption of Eliquis per GI on discharge 05/20, presented to the ED from hematology following a vasovagal syncopal episode during lab draw earlier today. Patient admitted for further management of worsening RLL pneumonia with associated acute metabolic encephalopathy and weakness found to have multiple embolic infarcts Multiple subacute infarcts brain MRI>multiple bilateral subacute cerebral infarcts both in anterior posterior circulation and many of them in border zone area. Both frontal lobes are affected, left more than right. 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 Resolved S/p 8 days of IV cefepime and vanco for pna strep pneumo, Legionella negative, sputum culture unremarkable s/p thoracentesis 05/23 with removal of 1L of fluid, cytology pending, culture no growth off oxygen blood cultures negative to date Acute metabolic encephalopathy. Resolved likely multifactorial due to strokes, underlying cancer, PE and pneumonia renal function, LFTs, ammonia level wnl Adenocarcinoma of pulmonary origin Bronchoscopy 05/18/2023 New diagnosis, not yet initiated on therapy Needs to follow up with oncology o/p Pulmonary embolism/BLE DVT diagnosed 05/11 s/p IVC filter 05/15/23 On eliquis Elevated troponins likely demand in setting of pulmonary embolus echo 05/12 rwma with normal LV systolic function, mildly reduced right ventricle systolic function, mild pulmonary hypertension Moderate persistent asthma no acute exacerbation continue maintenance inhalers, albuterol p.r.n. DVT prophylaxis-eliquis Full code DISPO plan for STR when bed available, tele monitoring for tachcyardia continue hospital stay for safe disposition Quality Stroke Does the patient have a stroke diagnosis?: No VTE Prior VTE?: No VTE Risk Level:: Medical - moderate - high VTE Device Contraindication: Treatment Not Indicated VTE Drug Contraindication: N/A - Med Ordered
[2023-06-02] MEDS: Apixaban 5 MG TABLET PO (20:35)
[2023-06-02] MEDS: Atorvastatin Calcium 40 MG TABLET PO (20:35)
[2023-06-03] VITALS (7 sets, daily range): BP systolic 101–137; BP diastolic 60–85; PULSE 72–114; RESP 16–20; TEMP 36.1–36.7; O2SAT 94–97
[2023-06-03] MEDS: Fluticasone/Vilanterol 200/25 BLST.W.DEV 1 PUFF INHALE (08:11)
[2023-06-03] MEDS: Metoprolol Tartrate 12.5 MG HALFTAB 37.5 MG PO ×2 (09:27→23:07)
[2023-06-03] MEDS: Apixaban 5 MG TABLET PO ×2 (09:27→23:07)
[2023-06-03] MEDS: Furosemide 40 MG TABLET PO (09:27)
[2023-06-03 09:52] LABS: Creatinine Clr Calc Pharmacy 87.7; Estimated Glomerular Filt Rate > 60
--- NOTE | 2023-06-03 12:25 | P.PNIM_ITS ---
Subjective Subjective Date of Service: 06/03/23 Interval History: seen and examined this morning follow up for embolic stroke no overnight events, pt seen eating breakfast, no new complaints Review of Systems Follow up weakness pleural effusion no pain Constitutional Constitutional: Denies chills and Denies fever(s) Cardiovascular Cardiovascular: Denies chest pain, Denies palpitations and Denies dyspnea Respiratory Respiratory: Denies cough and Denies dyspnea Gastrointestinal Gastrointestinal: Denies abdominal pain Neurologic Neurologic: Reports confusion Psychiatric Psychiatric: Reports confusion Endocrine Endocrine: Denies palpitations Physical Exam 2 Vital Signs: Vital Signs: Last Vital Signs Temp 98.1 F 06/03/23 11:51 Pulse 100 06/03/23 11:51 Resp 20 06/03/23 11:51 BP 105/60 06/03/23 11:51 Pulse Ox 97 06/03/23 11:51 O2 Del Method Room Air 06/03/23 11:51 O2 Flow Rate 1 05/31/23 07:00 Oxygen Flow Rate 2 05/22/23 18:58 BMI result Body Mass Index 21.9 Const: Other: appears somewhat anxious General: cooperative, comfortable, no acute distress, alert, awake and confusion Nutritional Appearance: average body habitus O rientation/consciousness: oriented to person, patient oriented x3 and confusion Resp: Other: no rales or rhonchi Effort & Inspection: normal respiratory effort, able to speak in complete sentences, no respiratory distress and no use of accessory muscles A uscultation: clear to auscultation bilaterally Cardio: Rate: regular rate and tachycardic GI: Inspection: No distended Palpation (GI): Soft to palpation and nontender Neuro: Other: able to follow commands, moves all extremities, appears weak globally, no focal weakness. tongue midline, face symmetrical General: oriented to person, patient oriented x3, moves all extremities, CN's II-XI intact bilaterally and confusion Extrem: General: Yes no pedal edema Objective Data Active Medications Acetaminophen (Acetaminophen 325 Mg Tablet) 650 mg PO Q6H PRN PRN Reason: Pain, Mild (Pain Scale 1-3) Last Admin: 05/25/23 13:40 Dose: 650 mg Documented By: RONEL Albuterol Sulfate (Albuterol Sulfate 90 Mcg 8 Gm Inhaler) 2 puff INHALE Q4H PRN PRN Reason: Shortness Of Breath Or Wheezing Apixaban (Apixaban 5 Mg Tablet) 5 mg PO BID [facility] Last Admin: 06/03/23 09:27 Dose: 5 mg Documented By: FANTA Atorvastatin Calcium (Atorvastatin Calcium 40 Mg Tablet) 40 mg PO BEDTIME [facility] Last Admin: 06/02/23 20:35 Dose: 40 mg Documented By: KALEB Diphenhydramine HCl (Diphenhydramine Hcl 50 Mg/Ml Vial) 25 mg IVPUSH Q4H PRN PRN Reason: allergy Fluticasone Propionate (Fluticasone Propionate Nasal 16 Gm [place]) 1 spray NOSTRIL-B DAILY PRN PRN Reason: Congestion Fluticasone/Vilanterol (Fluticasone/Vilanterol 200/25 Blst.W.Dev) 1 puff INHALE RDAILY [facility] Last Admin: 06/03/23 08:11 Dose: 1 puff Documented By: ANDRIY Furosemide (Furosemide 40 Mg Tablet) 40 mg PO DAILY [facility]; Protocol Last Admin: 06/03/23 09:27 Dose: 40 mg Documented By: FANTA Hydrocortisone (Hydrocortisone 2.5 % Rectal Cr 30 Gm Tube) 1 appl CA BID [facility] Last Admin: 06/03/23 09:27 Dose: Not Given Documented By: FANTA Non-Admin Reason: Patient Refused Metoprolol Tartrate (Metoprolol Tartrate 12.5 Mg Halftab) 37.5 mg PO BID [facility]; Protocol Last Admin: 06/03/23 09:27 Dose: 37.5 mg Documented By: FANTA Ondansetron HCl (Ondansetron Hcl 4 Mg/2 Ml Vial) 4 mg IVPUSH Q8H PRN PRN Reason: Nausea and Vomiting Polyethylene Glycol (Polyethylene Glycol 3350 17 Gm Powd.Pack) 17 gm PO DAILY PRN PRN Reason: Constipation Senna (Sennosides 8.6 Mg Tablet) 17.2 mg PO BEDTIME PRN PRN Reason: Constipation Sodium Chloride (0.9 % Sodium Chloride Flush 3 Ml Syringe) 3 ml IVFLUSH QSHIFT [facility] Last Admin: 06/03/23 09:27 Dose: Not Given Documented By: FANTA Non-Admin Reason: No Access Labs 06/01/23 11:47 06/03/23 08:55 Labs: Laboratory Results - last 24 hr 06/03/23 08:55 Estim Creat Clear Calc 87.7 Estimated GFR > 60 Assessment and Plan (1) Multiple cerebral infarctions: Status: Acute Plan 62-year-old female with pertinent history of asthma not on home oxygen, sinus tachycardia on beta-elli, history of mitral valve repair in 2016, recently diagnosed with adenocarcinoma of the lung with recent admission for pulmonary embolus started on Eliquis complicated by hemorrhoidal bleed with resumption of Eliquis per GI on discharge 05/20, presented to the ED from hematology following a vasovagal syncopal episode during lab draw earlier today. Patient admitted for further management of worsening RLL pneumonia with associated acute metabolic encephalopathy and weakness found to have multiple embolic infarcts Multiple subacute infarcts brain MRI>multiple bilateral subacute cerebral infarcts both in anterior posterior circulation and many of them in border zone area. Both frontal lobes are affected, left more than right. 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 Resolved S/p 8 days of IV cefepime and vanco for pna strep pneumo, Legionella negative, sputum culture unremarkable s/p thoracentesis 05/23 with removal of 1L of fluid, cytology without malignancy, culture no growth off oxygen blood cultures negative to date Acute metabolic encephalopathy. Resolved likely multifactorial due to strokes, underlying cancer, PE and pneumonia renal function, LFTs, ammonia level wnl Adenocarcinoma of pulmonary origin Bronchoscopy 05/18/2023 New diagnosis, not yet initiated on therapy Needs to follow up with oncology o/p Pulmonary embolism/BLE DVT diagnosed 05/11 s/p IVC filter 05/15/23 On eliquis Elevated troponins likely demand in setting of pulmonary embolus echo 05/12 rwma with normal LV systolic function, mildly reduced right ventricle systolic function, mild pulmonary hypertension Moderate persistent asthma no acute exacerbation continue maintenance inhalers, albuterol p.r.n. DVT prophylaxis-eliquleda Full code DISPO plan for STR when bed available, tele monitoring for tachcyardia continue hospital stay for safe disposition Quality Stroke Does the patient have a stroke diagnosis?: No VTE Prior VTE?: No VTE Risk Level:: Medical - moderate - high VTE Device Contraindication: Treatment Not Indicated VTE Drug Contraindication: N/A - Med Ordered
[2023-06-03] MEDS: Atorvastatin Calcium 40 MG TABLET PO (23:06)
[2023-06-04 04:00] VITALS: BP 129/72; PULSE 102; RESP 16; TEMP 37; O2SAT 94
[2023-06-04 06:46] LABS: Basophils Absolute Auto 0.1 X10*3/uL (0.0-0.2); Basophils Percent Auto 0.4 % (0-2); Eosinophils Absolute Auto 0.1 X10*3/uL (0.0-0.4); Eosinophils Percent Auto 0.2 % (0-4); Hemoglobin 9.1 g/dl (12.0-16.0); Imm Gran Abs Auto 0.26 X10*3/uL (0.00-0.03); Imm Gran Pct Auto 1.2 % (0.0-0.4); Lymphocytes Percent Auto 4.7 % (20-40); Mean Corpuscular HGB Conc 32.5 g/dl (31.0-35.0); Mean Corpuscular Hemoglobin 27.3 pg (27.0-33.0); Mean Corpuscular Volume 84.1 fL (80.0-98.0); Mean Platelet Volume 10.9 fL (9.4-12.3); Monocytes Percent Auto 4.8 % (2-11); Neutrophils Absolute Auto 18.5 x10*3/uL (2.0-8.3); Neutrophils Percent Auto 88.7 % (45-73); Platelet Count 461 X10*3/uL (160-400); Red Blood Count 3.33 X10*6/uL (4.20-5.50); Red Cell Distribution Width 15.5 % (11.0-16.0); White Blood Count 20.8 X10*3/uL (4.8-10.8)
[2023-06-04] MEDS: Fluticasone/Vilanterol 200/25 BLST.W.DEV 1 PUFF INHALE (07:48)
[2023-06-04 07:49] VITALS: BP 121/82; PULSE 106; RESP 20; TEMP 36.6; O2SAT 95
[2023-06-04 07:51] VITALS: PULSE 106; RESP 18; O2SAT 97
[2023-06-04 08:39] LABS: Anion Gap 17 (12-20)
[2023-06-04 08:47] LABS: Blood Urea Nitrogen 20 mg/dL (9-16); Calcium 8.7 mg/dL (8.4-10.2); Carbon Dioxide 21 mmol/L (22-29); Chloride 103 mmol/L (96-108); Creatinine Clr Calc Pharmacy 67.3; Estimated Glomerular Filt Rate > 60; Glucose Random 111 mg/dL (60-115); Potassium 4.6 mmol/L (3.3-5.1); Sodium 136 mmol/L (135-145)
--- NOTE | 2023-06-04 09:04 | P.PNIM_ITS ---
Subjective Subjective Date of Service: 06/04/23 Interval History: seen and examined this morning follow up for embolic stroke no overnight events, pt seen eating breakfast, no new complaints Review of Systems Follow up weakness pleural effusion no pain Constitutional Constitutional: Denies chills and Denies fever(s) Cardiovascular Cardiovascular: Denies chest pain, Denies palpitations and Denies dyspnea Respiratory Respiratory: Denies cough and Denies dyspnea Gastrointestinal Gastrointestinal: Denies abdominal pain Neurologic Neurologic: Reports confusion Psychiatric Psychiatric: Reports confusion Endocrine Endocrine: Denies palpitations Physical Exam 2 Vital Signs: Vital Signs: Last Vital Signs Temp 97.8 F 06/04/23 07:49 Pulse 106 H 06/04/23 07:51 Resp 18 06/04/23 07:51 BP 121/82 06/04/23 07:49 Pulse Ox 95 06/04/23 07:49 O2 Del Method Room Air 06/04/23 07:49 O2 Flow Rate 1 05/31/23 07:00 Oxygen Flow Rate 2 05/22/23 18:58 BMI result Body Mass Index 21.9 Appearing in no acute distress lung sounds are clear to auscultation heart regular rate rhythm, clear S1, S2 positive bowel sounds, abdomen is soft, nontender neuro patient is alert x3, no focal deficits Const: General: confusion Orientation/consciousness: confusion Neuro: General: confusion Objective Data Active Medications Acetaminophen (Acetaminophen 325 Mg Tablet) 650 mg PO Q6H PRN PRN Reason: Pain, Mild (Pain Scale 1-3) Last Admin: 05/25/23 13:40 Dose: 650 mg Documented By: RONEL Albuterol Sulfate (Albuterol Sulfate 90 Mcg 8 Gm Inhaler) 2 puff INHALE Q4H PRN PRN Reason: Shortness Of Breath Or Wheezing Apixaban (Apixaban 5 Mg Tablet) 5 mg PO BID [facility] Last Admin: 06/03/23 23:07 Dose: 5 mg Documented By: MECHE Atorvastatin Calcium (Atorvastatin Calcium 40 Mg Tablet) 40 mg PO BEDTIME [facility] Last Admin: 06/03/23 23:06 Dose: 40 mg Documented By: MECHE Diphenhydramine HCl (Diphenhydramine Hcl 50 Mg/Ml Vial) 25 mg IVPUSH Q4H PRN PRN Reason: allergy Fluticasone Propionate (Fluticasone Propionate Nasal 16 Gm [place]) 1 spray NOSTRIL-B DAILY PRN PRN Reason: Congestion Fluticasone/Vilanterol (Fluticasone/Vilanterol 200/25 Blst.W.Dev) 1 puff INHALE RDAILY [facility] Last Admin: 06/04/23 07:48 Dose: 1 puff Documented By: SUSIE Furosemide (Furosemide 40 Mg Tablet) 40 mg PO DAILY [facility]; Protocol Last Admin: 06/03/23 09:27 Dose: 40 mg Documented By: FANTA Hydrocortisone (Hydrocortisone 2.5 % Rectal Cr 30 Gm Tube) 1 appl AL BID [facility] Last Admin: 06/03/23 23:13 Dose: Not Given Documented By: MECHE Non-Admin Reason: Patient Refused Metoprolol Tartrate (Metoprolol Tartrate 12.5 Mg Halftab) 37.5 mg PO BID [facility]; Protocol Last Admin: 06/03/23 23:07 Dose: 37.5 mg Documented By: MECHE Ondansetron HCl (Ondansetron Hcl 4 Mg/2 Ml Vial) 4 mg IVPUSH Q8H PRN PRN Reason: Nausea and Vomiting Polyethylene Glycol (Polyethylene Glycol 3350 17 Gm Powd.Pack) 17 gm PO DAILY PRN PRN Reason: Constipation Senna (Sennosides 8.6 Mg Tablet) 17.2 mg PO BEDTIME PRN PRN Reason: Constipation Sodium Chloride (0.9 % Sodium Chloride Flush 3 Ml Syringe) 3 ml IVFLUSH QSHIFT [facility] Last Admin: 06/04/23 00:00 Dose: Not Given Documented By: MECHE Non-Admin Reason: no iv access Labs 06/04/23 06:19 06/04/23 08:07 Labs: Laboratory Results - last 24 hr 06/03/23 06/04/23 06/04/23 08:55 06:19 08:07 MCV 84.1 MCH 27.3 MCHC 32.5 RDW 15.5 Plt Count 461 H MPV 10.9 Immature Gran % (Auto) 1.2 H Neut % (Auto) 88.7 H Lymph % (Auto) 4.7 L [place] % (Auto) 4.8 Eos % (Auto) 0.2 Baso % (Auto) 0.4 Lymph # (Auto) 1.0 L [place] # (Auto) 1.0 Eos # (Auto) 0.1 Baso # (Auto) 0.1 Abs Immat Gran (auto) 0.26 H Absolute Neuts (auto) 18.5 H Absolute Nucleated RBC 0.000 Nucleated RBC % (auto) 0.0 Anion Gap 17 Estim Creat Clear Calc 87.7 67.3 Estimated GFR > 60 > 60 Random Glucose 111 Calcium 8.7 Assessment and Plan (1) Multiple cerebral infarctions: Status: Acute Plan 62-year-old female with pertinent history of asthma not on home oxygen, sinus tachycardia on beta-elli, history of mitral valve repair in 2017, recently diagnosed with adenocarcinoma of the lung with recent admission for pulmonary embolus started on Eliquis complicated by hemorrhoidal bleed with resumption of Eliquis per GI on discharge 05/20, presented to the ED from hematology following a vasovagal syncopal episode during lab draw earlier today. Patient admitted for further management of worsening RLL pneumonia with associated acute metabolic encephalopathy and weakness found to have multiple embolic infarcts Multiple subacute infarcts brain MRI>multiple bilateral subacute cerebral infarcts both in anterior posterior circulation and many of them in border zone area. Both frontal lobes are affected, left more than right. 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 Resolved S/p 8 days of IV cefepime and vanco for pna strep pneumo, Legionella negative, sputum culture unremarkable s/p thoracentesis 05/23 with removal of 1L of fluid, cytology without malignancy, culture no growth off oxygen blood cultures negative to date Acute metabolic encephalopathy. Resolved likely multifactorial due to strokes, underlying cancer, PE and pneumonia renal function, LFTs, ammonia level wnl Adenocarcinoma of pulmonary origin Bronchoscopy 05/18/2023 New diagnosis, not yet initiated on therapy Needs to follow up with oncology o/p Pulmonary embolism/BLE DVT diagnosed 05/11 s/p IVC filter 05/15/23 On dangelo Elevated troponins likely demand in setting of pulmonary embolus echo 05/12 rwma with normal LV systolic function, mildly reduced right ventricle systolic function, mild pulmonary hypertension Moderate persistent asthma no acute exacerbation continue maintenance inhalers, albuterol p.r.n. DVT prophylaxis-dangelo Attending Dr. Escobedo Full code DISPO plan for STR when bed available, tele monitoring for tachcyardia continue hospital stay for safe disposition Quality Stroke Does the patient have a stroke diagnosis?: No VTE Prior VTE?: No VTE Risk Level:: Medical - moderate - high VTE Device Contraindication: Treatment Not Indicated VTE Drug Contraindication: N/A - Med Ordered
--- NOTE | 2023-06-04 09:12 | MHC.CM.PN ---
Addendum entered by Darby Ortiz, RN 06/04/23 09:53: [facility] SET UP FOR 1PM, CM CONTACTED PT'S SISTER KAROLINE/HCP AT 9:50AM AND KAROLINE IS AGREEABLE TO DC PLAN. Original Note: CM RECEIVED MESSAGE FROM [facility] THAT THEY HAVE INSURANCE AUTH,C M TO SET UP TRANSPORT W/BRENT
[2023-06-04] MEDS: Furosemide 40 MG TABLET PO (09:48)
[2023-06-04] MEDS: Apixaban 5 MG TABLET PO (09:48)
[2023-06-04] MEDS: Metoprolol Tartrate 12.5 MG HALFTAB 37.5 MG PO (09:48)
[2023-06-04] MEDS: Hydrocortisone 2.5 % Rectal Cr 30 GM TUBE 1 APPL PR (09:55)
[2023-06-04 11:06] VITALS: BP 112/77; PULSE 94; RESP 16; TEMP 37.4; O2SAT 97
--- NOTE | 2023-06-04 11:57 | P.DS_ITS ---
DS: Providers Provider Date of Service: 06/04/23 Date of admission: 05/22/23 21:11 Primary care physician: Vicki Yanez NP Consults: 05/22/23 21:24 Consult to Hematology / Oncology Routine Consulting Provider: Moreno Lowry Reason for consultation: pneumonia, new dx adenocarcinoma lung 05/24/23 14:39 Consult to Neurology Routine Consulting Provider: [facility] Reason for consultation: stroke Has provider been notified: No 05/24/23 17:29 Consult to Critical Care Routine Consulting Provider: Dionisio Yepez Reason for consultation: respiratory failure, pleural effusion, stroke, acidosis Has provider been notified: No 05/25/23 08:48 Consult to Cardiology Routine Consulting Provider: [facility] Reason for consultation: tachycardia, pulm edema Has provider been notified: Yes DS: Diagnosis Discharge Diagnosis (1) Multiple cerebral infarctions: Status: Acute DS: Summary Hospital Course Hospital Course: 62-year-old female with pertinent history of asthma not on home oxygen, sinus tachycardia on beta-elli, history of mitral valve repair in 2017, recently diagnosed with adenocarcinoma of the lung with recent admission for pulmonary embolus started on Eliquis complicated by hemorrhoidal bleed with resumption of Eliquis per GI on discharge 05/20, presented to the ED from hematology following a vasovagal syncopal episode during lab draw earlier today. Outpatient response was called and patient was transferred to the ED for further evaluation. Patient's sister and friend are at bedside who report patient became pale and she does report feeling lightheaded before syncopizing. There was no head strike. Family also reports productive cough and weakness. Also seems dazed per pt and family, though is oriented x3. Initial vitals prior to ED revealed hypoxia to 88% and was placed on 2L supplemental O2 but is now maintaining oximetry 96-98% on room air. She is tachycardic to 115, vitals otherwise stable. She is afebrile. She has a worsening leukocytosis of 26.9 (WBC was 19.7 on discharge on 05/20). Renal function baseline, electrolyte levels normal except for sodium 132. INR 1.7, PT 20.6. Total CK 45. Initial troponin 360.7, repeat pending (trop 05/11 213.6, likely due to r demand from PE, echo 2/17 negative for any regional wall motion abnormality with normal LV systolic function with EF 60-65%, diastolic function indeterminate, low normal right ventricular systolic function, normal right atrial pressures, mild pulmonary hypertension present). BNP 227. Urinalysis unremarkable. Urine tox screen negative. Negative for COVID-19, influenza, RSV. Chest x-ray shows increasing atelectasis/consolidation of the right lung base with increased right pleural effusion compared to prior imaging studies. She denies any fevers, chills, sore throat, congestion, abdominal pain, nausea, vomiting, melena, hematochezia, epistaxis, urinary symptoms, dyspnea, ongoing lightheadedness, palpitations, or chest pain. She has reported increased weakness with difficulty with ambulation that has been persistent for several weeks but has worsened since discharge. In the ED, given IV cefepime 62-year-old woman treated for acute CVA, pleural effusion, hypoxia. Patient had vasovagal episode during lab draw while at Hematology office, outpatient response was ordered and patient was sent to the ER. In the ER patient was confused and seemed disoriented. Chest x-ray showed increased right pleural effusion. Head CT initially was negative for any acute intracranial abnormality the due to continued encephalopathy MRI was ordered and showed multiple tiny acute embolic/watershed infarcts involving both cerebral hemispheres, cerebellum, thalami and splenium of corpus callosum with numerous chronic small- vessel ischemic changes within the periventricular white matter without evidence of acute hemorrhage. Head and neck CTA negative for occlusion or stenosis. She was seen and evaluated by Neurology who suggested differential diagnosis of cardiomyopathy, cardiac source of embolism versus hypercoagulable state due to adenocarcinoma. Echocardiogram showed limited view with no intra-atrial shunting therefore likely secondary to hypercoagulable state. Patient continued on full anticoagulation with Eliquis as she had been for pulmonary embolus. She was started on statin. She was seen evaluated by Physical therapy who recommended short-term rehabilitation. Acute hypoxic respiratory failure secondary to right-sided pleural effusion. She had thoracentesis on 05/23/2023 with removal of 1 L of fluid, cytology without malignancy and culture with no growth. Patient is off oxygen, blood cultures have been negative to date. Strep pneumo, Legionella negative, sputum culture unremarkable. Patient was treated with 8 days of IV cefepime and vancomycin for probable post-obstructive pneumonia. She was noted to have sinus tachycardia with some random bursts of PAT. She had been on metoprolol and this was increased to 37.5 mg b.i.d. with better control of her heart rate. Overall significantly improved since admission. She had an episode during the hospitalization of acute heart failure with prese rved ejection fraction and was treated with IV Lasix this was likely related to IV fluid administration. She is currently euvolemic and transition to 40 mg of oral Lasix daily. Acute metabolic encephalopathy. Likely multifactorial due to stroke, infection/pneumonia. Resolved with treatment Adenocarcinoma of pulmonary origin. Recent diagnosis and therapy has not yet been initiated. Bronchoscopy on 05/18/2023. Patient needs follow-up with Oncology to determine what treatment will be initiated. Pulmonary embolism/BLE DVT. Diagnosed 05/11/2023, status post IV filter 05/15/2023. Continue on Eliquis Elevated troponins. Likely demand in setting of pulmonary embolus. No ischemic changes noted on EKG and no chest pain. Moderate persistent asthma. No exacerbation during hospitalization. Continue maintenance inhalers Time Attestation Discharge Coordination Time (in mins): 45 Quality: Safe Use of Opioids Does Pt have an Active Cancer Diagnosis on the Problem List?: No Quality: Stroke Does the patient have a stroke diagnosis?: No Physical Exam Vital Signs: Vital Signs: Last Vital Signs Temp 99.4 F 06/04/23 11:06 Pulse 94 06/04/23 11:06 Resp 16 06/04/23 11:06 BP 112/77 06/04/23 11:06 Pulse Ox 97 06/04/23 11:06 O2 Del Method Room Air 06/04/23 11:06 O2 Flow Rate 1 05/31/23 07:00 Oxygen Flow Rate 2 05/22/23 18:58 BMI result Body Mass Index 21.9 Appearing in no acute distress head is normocephalic atraumatic eyes pupils are PERRLA sclera is anicteric mouth throat mucous membranes are intact and moist neck is supple no lymphadenopathy, no JVD noted lung sounds are clear to auscultation heart regular rate rhythm, clear S1, S2 positive bowel sounds, abdomen is soft, nontender neuro patient is alert x3, no focal deficits Bed to chair, not much ambulation Starting to assist more in feeding DS: Data Data Completed and Pending Completed studies during hospitalization [Text1]: Pending at discharge 05/23/23 10:23 Cytology [PTH] Routine Procedures Drainage of Right Lower Lung Lobe, Via Natural or Artificial Opening Endoscopic, Diagnostic (05/11/23) Excision of Thorax Lymphatic, Percutaneous Endoscopic Approach, Diagnostic (05/11/23) Insertion of Intraluminal Device into Inferior Vena Cava, Percutaneous Approach (05/11/23) Inspection of Lower Intestinal Tract, Via Natural or Artificial Opening Endoscopic (05/11/23) Labs on day of discharge: Laboratory Results - last 24 hr 06/04/23 06/04/23 06:19 08:07 WBC 20.8 H RBC 3.33 L Hgb 9.1 L Hct 28.0 L MCV 84.1 MCH 27.3 MCHC 32.5 RDW 15.5 Plt Count 461 H MPV 10.9 Immature Gran % (Auto) 1.2 H Neut % (Auto) 88.7 H Lymph % (Auto) 4.7 L [place] % (Auto) 4.8 Eos % (Auto) 0.2 Baso % (Auto) 0.4 Lymph # (Auto) 1.0 L [place] # (Auto) 1.0 Eos # (Auto) 0.1 Baso # (Auto) 0.1 Abs Immat Gran (auto) 0.26 H Absolute Neuts (auto) 18.5 H Absolute Nucleated RBC 0.000 Nucleated RBC % (auto) 0.0 Sodium 136 Potassium 4.6 D Chloride 103 Carbon Dioxide 21 L Anion Gap 17 BUN 20 H Creatinine 0.82 Estim Creat Clear Calc 67.3 Estimated GFR > 60 Random Glucose 111 Calcium 8.7 Discharge Plan Discharge Anticipated Discharge Date/Time: 06/04/23 11:27 Patient Disposition: [facility] Discharge Diagnosis: Multiple bilateral subacute cerebral infarcts Sinus tachycardia Acute heart failure with preserved ejection fraction Acute hypoxic respiratory failure secondary to pleural effusion Acute metabolic encephalopathy Pulmonary embolism Adenocarcinoma of the lung [facility] [Other] - 1 Day (SHORT TERM REHAB) Vicki Yanez NP [Primary Care Provider] - 1 Week Discharge Medications: New furosemide 40 mg Tablet 40 mg PO DAILY Qty: 30 0RF Protocol: Hold for SBP< HOLD for SBP < : 90 atorvastatin 40 mg Tablet 40 mg PO BEDTIME Qty: 30 0RF nystatin 100,000 unit/mL Suspension 400,000 unit buccal QID 7 Days Qty: 112 0RF Continued fluticasone propionate 50 mcg/actuation [place],Suspension 1 spray INTRANASAL DAILY PRN (Reason: Congestion) Rx Instructions: administer into each nostril albuterol sulfate [Ventolin HFA] 90 mcg/actuation Hfa Aerosol Inhaler 2 puff INHALATION Q4-6H PRN (Reason: Shortness Of Breath Or Wheezing) metoprolol tartrate 25 mg Tablet 12.5 mg PO BID budesonide-formoterol [Symbicort] 160-4.5 mcg/actuation Hfa Aerosol Inhaler 2 puff INHALATION BID polyethylene glycol 3350 17 gram Powder In Packet 17 g PO DAILY PRN (Reason: Constipation) Qty: 30 0RF hydrocortisone [Proctozone-HC] 2.5 % Cream With Perineal Applicator 1 appl [place] BID Qty: 30 0RF Eliquis 5 mg Tablet 5 mg PO BID Qty: 60 0RF Discharge Orders: Discharge Order (Routine); Ordered 06/04/23 Ordered By: Shreya Flowers Diet: Advance to usual diet Activity on Discharge: As tolerated Stand Alone Forms: Patient Portal Discharge page Care Plan Goals: Transfer to rehabilitation for physical therapy Health Concerns: Multiple bilateral subacute cerebral infarcts Sinus tachycardia Acute heart failure with preserved ejection fraction Acute hypoxic respiratory failure secondary to pleural effusion Acute metabolic encephalopathy Pulmonary embolism Adenocarcinoma of the lung Plan of Treatment: Follow-up with primary care provider as needed Take all medications as prescribed Assessment: See discharge summary
--- NOTE | 2023-06-04 11:59 | MHC.SL.SWA ---
Speech Pathologist Impression: Oropharyngeal dysphagia Risk of Aspiration Due to: Neurological Condition History of Pneumonia Dysphasia Diet Status: No changes Liquid Consistency and Strategies for Safe Swallow: Liquid Intake Recommendation: Thin Liquid Intake Strategies: Small Sips Solid Food Consistency: Dietary Recommendations: Grnd/Mech Altered (NDD2) Additional Modifications to Solid Foods: . Pt requires 1:1 FEEDING ASSISTANCE at this time. Alternate liquids and solids. Add sauces and gravies and blend well. Oral Medication Intake: Whole with Puree Please contact the pharmacy regarding appropriate crushable or liquid drug formulations that are available whenever modified delivery is recommended. Compensatory Strategies and Precautions to be Taken for Safe Swallow: Sitting Upright (90 deg) Liquids from Cup Small Bites and Sips Alternate Liquids/Solids Oral Check Supervision While Eating and Drinking for Safe Swallow: Total Assistance (1:1) Foods to Avoid: Hard, dry, or crunchy foods, mixed consistencies Swallowing Recommended Treatments: Compens. Strategy Educat. Recommendation for Speech: Inpatient Speech Therapy Comment: BATCH ANALYST will continue to follow during inpatient stay. Frequency/Duration: M-F PRN Date Range for Service Req: Timeline to reassess: Garden Consultant Clinican/Clinical Fellow: No Supervisory Statement: I have reviewed and agree with the student/clinical fellow's documentation: N/A Speech Language Pathologist: Bethany Kessler M.A., CCC-BATCH ANALYST
[2023-06-04] MEDS: Nystatin Oral Susp 500,000 UNIT/5 ML ORAL.SUSP 400000 UNIT BUCCAL (12:33)
== END 2023-06-04 13:36 | disposition skilled nursing facility (03) | DRG 45 ==
LOC: HO.ED 20:37 → HO.EDOVER 21:41 → HO.IMC 05-23 19:25
PROVIDERS: Internal Medicine Medical Oncology; Nurse Practitioner Family; Physician Assistant Medical; Student in an Organized Health Care Education/Training Program; Admitting Provider Physician Assistant; Emergency Provider Emergency Medicine Emergency Medical Services; PCP Nurse Practitioner Family; Visit Provider Nurse Practitioner Acute Care
PROC: 0W993ZZ Drainage of Right Pleural Cavity, Percutaneous Approach (ICD-10-PCS; principal; 2023-05-23 15:30)
DX: I63.40 Cerebral infarction due to embolism of unspecified cerebral artery (principal); J96.01 Acute respiratory failure with hypoxia; G93.41 Metabolic encephalopathy; I50.31 Acute diastolic (congestive) heart failure; C77.1 Secondary and unspecified malignant neoplasm of intrathoracic lymph nodes; C34.90 Malignant neoplasm of unspecified part of unspecified bronchus or lung; D68.69 Other thrombophilia; I27.20 Pulmonary hypertension, unspecified; J18.9 Pneumonia, unspecified organism; J91.8 Pleural effusion in other conditions classified elsewhere; J45.40 Moderate persistent asthma, uncomplicated; R00.0 Tachycardia, unspecified; Z20.822 Contact with and (suspected) exposure to COVID-19; Z86.711 Personal history of pulmonary embolism; Z86.718 Personal history of other venous thrombosis and embolism; Z87.891 Personal history of nicotine dependence; Z79.01 Long term (current) use of anticoagulants; Z79.899 Other long term (current) drug therapy
CPT/HCPCS: 0241U; 32555; 36415; 36600; 70450; 70496; 70498; 70553; 71045; 71250; 80048; 80053; 80061; 80076; 80202; 80307; 81001; 82140; 82550; 82565; 82803; 82947; 83605; 83615; 83690; 83735; 83880; 84100; 84145; 84155; 84439; 84443; 84484; 84550; 85025; 85027; 85379; 85384; 85610; 85730; 86850; 86880; 86900; 86901; 86920; 86921; 87040; 87070; 87073; 87205; 87449; 87640; 87641; 87899; 88112; 88305; 88341; 88342; 89051; 92526; 92610; 93005; 93308; 94640; 94664; 97110; 97162; 97166; 97530; 97535; 99285; A9585; J0692; J1650; J1940; J3370; J3371; Q9967

== ENCOUNTER → 2023-05-22 16:45 | Outpatient (BNV) | payer OTHER, SELFPAY | PROVIDERS: Admitting Provider Physician Assistant; Emergency Provider Emergency Medicine Emergency Medical Services; PCP Nurse Practitioner Family; Visit Provider Internal Medicine | DX: R55 Syncope and collapse (principal) | CPT/HCPCS: 93010 ==

== ENCOUNTER 2023-05-22 21:11 | Outpatient (BNV) | payer OTHER, SELFPAY | END 2023-05-23 14:45 | PROVIDERS: Admitting Provider Physician Assistant; Emergency Provider Emergency Medicine Emergency Medical Services; PCP Nurse Practitioner Family; Visit Provider Student in an Organized Health Care Education/Training Program | DX: J90 Pleural effusion, not elsewhere classified (principal) | CPT/HCPCS: 32555 ==

== ENCOUNTER 2023-05-22 21:11 | Outpatient (BNV) | payer OTHER, SELFPAY | END 2023-05-24 15:00 | PROVIDERS: Admitting Provider Physician Assistant; Emergency Provider Emergency Medicine Emergency Medical Services; PCP Nurse Practitioner Family; Visit Provider Internal Medicine | DX: R00.0 Tachycardia, unspecified (principal) | CPT/HCPCS: 93308 ==

== ENCOUNTER → 2023-05-22 21:11 | Outpatient (BNV) | payer OTHER, SELFPAY | PROVIDERS: Admitting Provider Physician Assistant; Emergency Provider Emergency Medicine Emergency Medical Services; PCP Nurse Practitioner Family; Visit Provider Physician Assistant | DX: I63.9 Cerebral infarction, unspecified (principal); I26.09 Other pulmonary embolism with acute cor pulmonale; C34.90 Malignant neoplasm of unspecified part of unspecified bronchus or lung | CPT/HCPCS: 99223; 99231; 99232; 99233; 99239 ==

== ENCOUNTER → 2023-05-22 21:11 | Outpatient (BNV) | payer OTHER, SELFPAY | PROVIDERS: Admitting Provider Physician Assistant; Emergency Provider Emergency Medicine Emergency Medical Services; PCP Nurse Practitioner Family; Visit Provider Nurse Practitioner Family | DX: I63.9 Cerebral infarction, unspecified (principal); C34.90 Malignant neoplasm of unspecified part of unspecified bronchus or lung; R53.1 Weakness; J18.9 Pneumonia, unspecified organism; R00.0 Tachycardia, unspecified; D72.829 Elevated white blood cell count, unspecified | CPT/HCPCS: 99223 ==

== ENCOUNTER → 2023-05-22 21:11 | Outpatient (BNV) | payer OTHER, SELFPAY | PROVIDERS: Admitting Provider Physician Assistant; Emergency Provider Emergency Medicine Emergency Medical Services; PCP Nurse Practitioner Family; Visit Provider Internal Medicine | DX: I26.09 Other pulmonary embolism with acute cor pulmonale (principal); I63.9 Cerebral infarction, unspecified; Z98.890 Other specified postprocedural states | CPT/HCPCS: 99223; 99232 ==

== ENCOUNTER → 2023-05-22 21:11 | Outpatient (BNV) | payer OTHER, SELFPAY | PROVIDERS: Admitting Provider Physician Assistant; Emergency Provider Emergency Medicine Emergency Medical Services; PCP Nurse Practitioner Family; Visit Provider Internal Medicine Medical Oncology | DX: C34.90 Malignant neoplasm of unspecified part of unspecified bronchus or lung (principal); I26.09 Other pulmonary embolism with acute cor pulmonale; I63.9 Cerebral infarction, unspecified | CPT/HCPCS: 99222 ==

== ENCOUNTER → 2023-05-22 21:11 | Outpatient (BNV) | payer OTHER, SELFPAY | PROVIDERS: Admitting Provider Physician Assistant; Emergency Provider Emergency Medicine Emergency Medical Services; PCP Nurse Practitioner Family; Visit Provider Psychiatry & Neurology Neurology | DX: I63.40 Cerebral infarction due to embolism of unspecified cerebral artery (principal) | CPT/HCPCS: 99222 ==

== ENCOUNTER 2023-07-12 13:34 | Inpatient (IN) | payer OTHER, SELFPAY ==
[2023-07-12] VITALS (7 sets, daily range): BP systolic 92–112; BP diastolic 59–70; PULSE 90–104; RESP 16–22; TEMP 36.4–37.8; O2SAT 95–100; BMI 21.0
--- NOTE | ~2023-07-12 | CT_ITS ---
EXAMINATION: CT HEAD WITHOUT CONTRAST CLINICAL INFORMATION: Acute mental status change COMPARISON: Previous head CT most recent April 2023 and brain MRI April 2023 TECHNIQUE: Contiguous axial imaging was performed from the skull base to vertex without intravenous administration of contrast. This CT examination was performed using dose optimization techniques as appropriate, variously including the following: *Automated exposure control *Adjustment of mA and/or kV according to patient size (this includes techniques or standardized protocols for targeted exams where dose is matched to indication/reason for exam; i.e. extremities or head) *Use of iterative reconstruction technique DLP: 606 mGy-cm FINDINGS: There is no evidence of an extra-axial collection. There is no evidence of intra or extra-axial hemorrhage. The ventricles and extra-axial CSF spaces are slightly prominent suggestive of mild generalized atrophy. There is nonspecific periventricular white matter disease. There is new low attenuation seen in the left frontal periventricular white matter, question representing an infarct. There are additional smaller more superior bilateral periventricular frontoparietal infarcts probably similar to April 2023. No mass or mass effect. Review of bone windows is normal. No skull fracture. There is a inflammatory change in the sphenoid sinus. Paranasal sinuses, mastoid air cells and middle ears are otherwise clear. CT/CT head/brain wo IV con IMPRESSION: Generalized atrophy and nonspecific periventricular white matter disease. New low attenuation in the periventricular white matter of the left frontal lobe, probably representing a new infarct. Multiple old small more superior periventricular white matter infarcts in the bilateral frontal and parietal lobes probably unchanged from previous April 2023 imaging.
--- NOTE | ~2023-07-12 | XR_ITS ---
EXAMINATION: XR chest 1V CLINICAL INFORMATION: Dyspnea, shortness of breath COMPARISON: Prior chest x-ray 07/12/2023. TECHNIQUE: Single portable frontal view. Tubes and lines: None Lungs and pleura: Worsening of infiltrate now involving both upper lobes and perihilar regions. There are bilateral subpulmonic pleural effusion right more than left. Underlying pulmonary vascular congestion. Heart and mediastinum: Sternotomy wires of from prior thoracotomy unchanged, mediastinum is widened unchanged.. Bones/soft tissue: Skeletal structures included are normal for patient's age. XR/XR chest 1V IMPRESSION: 1. Worsening bilateral infiltrates. 2. Bilateral subpulmonic pleural effusions right more than left. 3. Underlying pulmonary vascular congestion. 4. Widened mediastinum unchanged.
--- NOTE | ~2023-07-12 | XR_ITS ---
EXAMINATION: XR CHEST CLINICAL INFORMATION: Cough. Dyspnea. COMPARISON: 05/28/2023 TECHNIQUE: Frontal view of the chest was obtained. FINDINGS: Again seen is leftward deviation of the trachea with a right sided of mediastinal mass corresponding to the known large substernal thyroid. Mkuyt-av-jhfqvozn size right and small left pleural effusions. New dense consolidation is present in the left midlung. Mild bibasilar atelectasis. No pneumothorax. Heart is normal in size. Status post cardiac valve repair and median sternotomy. Mild pulmonary venous congestion. No significant soft tissue edema. XR/XR chest 1V IMPRESSION: 1. New dense consolidation in the left midlung, concerning for pneumonia. 2. Sljtl-ia-zkzfaphv size right and small left pleural effusions with associated bibasilar atelectasis. Mild pulmonary venous congestion.
--- NOTE | ~2023-07-12 | XR_ITS ---
EXAMINATION: XR CHEST CLINICAL INFORMATION: Hypoxia COMPARISON: Previous chest x-ray from yesterday TECHNIQUE: Frontal view of the chest was obtained. FINDINGS: The cardiac and mediastinal contours are stable. Valve replacement ring and median sternotomy wires. Mediastinal adenopathy. Bilateral diffuse airspace disease, right greater than left. Denser consolidation with air bronchograms at the right lung base, increased. Bilateral pleural effusions, increased on the right. No pneumothorax. XR/XR chest 1V IMPRESSION: Worsening airspace disease and pleural effusion at the right lung base.
--- NOTE | ~2023-07-12 | CT_ITS ---
EXAMINATION: CT CHEST WITHOUT CONTRAST CLINICAL INFORMATION: Hypoxia COMPARISON: Chest radiograph earlier today CT chest 05/23/2023 TECHNIQUE: Multidetector volumetric CT imaging of the chest was done. Axial MIP volume rendering provided. Sagittal and coronal reformatted images were obtained. This CT examination was performed using dose optimization techniques as appropriate, variously including the following: *Automated exposure control *Adjustment of mA and/or kV according to patient size (this includes techniques or standardized protocols for targeted exams where dose is matched to indication/reason for exam; i.e. extremities or head) *Use of iterative reconstruction technique DLP: 277 mGy-cm FINDINGS: LUNGS AND PLEURA: Since the prior study, pleural effusions have increased in size as has the associated compressive prominently lower lobe atelectasis. There is also been progression of upper lobe perihilar branching infiltrates and peribronchial thickening . MEDIASTINUM: Again noted is marked mediastinal lymphadenopathy. The largest archie mass is right pretracheal which has decreased in size from 6 cm in AP dimension to 5.7 cm (2:20 compare prior 3:21). A preaortic lymph node has increased in size from 1.3 cm to 1.7 cm (2:25 compare prior 3:24). The heart is enlarged with the very large left atrium. A mitral valve prosthesis is present. CORONARY ARTERY CALCIFICATION: Mild AXILLA: No lymphadenopathy. UPPER ABDOMEN: A retrievable IVC filter is in place. An NG tube is present with its tip in the stomach. The liver is enlarged with decreased attenuation suggesting steatosis. Left adrenal gland is enlarged, increased when compared to prior. There is mild enlargement of the right adrenal gland also increased when compared to prior. A 0.9 cm hyperattenuating 72 Hounsfield unit Bosniak class 2 left renal cyst is unchanged and needs no additional imaging or follow-up. OSSEOUS STRUCTURES: Mild degenerative changes are present throughout the spine. Status post median sternotomy. CT/CT chest wo IV con IMPRESSION: 1. Increasing pleural effusions and compressive atelectasis. 2. Increasing perihilar branching infiltrates and peribronchial thickening. Findings may represent pulmonary edema but bilateral bronchopneumonia cannot be excluded. 3. Mediastinal lymphadenopathy with some nodes increasing in size and others decreasing in size. 4. Increasing adrenal enlargement. 5. Other incidental findings as described above. Fleischner guidelines were followed.
--- NOTE | ~2023-07-12 | XR_ITS ---
EXAMINATION: XR CHEST CLINICAL INFORMATION: Hypoxia COMPARISON: 07/14/2023 and selected images from priors TECHNIQUE: AP portable upright view of the chest was obtained. Patient rotated FINDINGS: Bulky mediastinal lymphadenopathy reidentified, predominating in the right paratracheal region. Status post median sternotomy with prosthetic aortic valve. Moderate right effusion and smaller left effusion reidentified. Perihilar airspace opacities again noted, slightly improved. Abnormal elevation of the right diaphragm. This likely reflects a subpulmonic effusion. Difficult to exclude phrenic nerve involvement by mediastinal adenopathy. Ultrasound of the right diaphragm with be helpful in this regard. XR/XR chest 1V IMPRESSION: Slight clearing of perihilar airspace opacities. Bulky mediastinal adenopathy. Moderate right and small left effusions persist.
--- NOTE | ~2023-07-12 | XR_ITS ---
EXAMINATION: XR CHEST CLINICAL INFORMATION: Status post ET tube placement COMPARISON: Multiple chest radiographs most recently 07/16/[address] about [address] chest 05/23/2023 TECHNIQUE: Frontal view of the chest was obtained. FINDINGS: Since the prior study, the patient has been intubated and the ET tube is seen at about the level of the kirill. An NG tube has been placed in good position. The heart is enlarged. A valve prosthesis is present. Large subpulmonic effusion on the right and right lower lobe atelectasis mimic elevation of the right hemidiaphragm. Mediastinal lymphadenopathy better appreciated on prior CT scan but large archie mass again seen abutting right mediastinum. Diffuse airspace disease is again seen however minimally improved when compared to the study from earlier today. XR/XR chest 1V IMPRESSION: 1. ET tube at the level of the kirill, not optimally seen because of overlying lines. This should probably be pulled back slightly.. 2. NG tube in good position. 3. Large right subpulmonic effusion and right lower lobe atelectasis. 4. Diffuse airspace disease minimally improved when compared to the study from earlier today.
--- NOTE | 2023-07-12 13:53 | ECG_ITS ---
Test Reason : DYSPNEA Blood Pressure : / mmHG Vent. Rate : 094 BPM Atrial Rate : 094 BPM P-R Int : 126 ms QRS Dur : 084 ms QT Int : 356 ms P-R-T Axes : 068 046 058 degrees QTc Int : 445 ms Artifact in tracing Sinus rhythm with Premature atrial complexes Nonspecific ST and T wave abnormality Abnormal ECG When compared with ECG of 22-MAY-2023 16:51, T wave inversion more evident in Anterior leads Referred By: Radha Moeller Electronically Signed By:REGINALDO TORREZ
--- NOTE | 2023-07-12 13:58 | ED.SOB ---
HPI - SOB/Dyspnea General Chief Complaint: General Medical Stated Complaint: AMS,DIFF BREATHING,BASELINE DEMENTIA PER EMS Source: patient, EMS and old records reviewed Mode of arrival: EMS Limitations: altered mental status History of Present Illness HPI Narrative: 62 yo female with recent admission for PE on eliquis, new dx of adenocarcinoma followed by Dr. Lowry, she has completed 1st infusion of pembrolizumab. She has become more anemic but they are waiting on port placement 07/16 and PET scan is scheduled for 07/16 at [facility]. Her recent dx has involved R sided effusion s/p thoracentesis, hypoxia, post obstructive pneumonia, DVT/PE with IVF filter in place, multiple cerebral infarctions from unclear source. She comes in from SNF today for c/o increased shortness of breath, soft blood pressures, and confusion from her baseline. Reportedly this was noted upon waking at 8am. The patient tells me she feels she is fine. SISTER ARRIVED - states Woo has not been well since the weekend and she asked for a chest xray and for her to be looked at. She is not sure of the results of the chest xray. She was notified after arrival in the ED that Woo was here being seen. MD elicited complaint: shortness of breath (AMS) Pertinent past history: pneumonia and HIV (adenocarcinoma of lung) Onset (ago): day(s) (today at 8am) Context: recent illness Timing: constant Severity: moderate Exacerbating factors: nothing Relieving factors: rest Known history of: recurrent pneumonia, PE and DVT Associated symptoms: cough and sputum production Treatment prior to arrival: none Related Data Home Medications ?Medication ?Instructions ?Recorded ?Confirmed albuterol sulfate 90 mcg/actuation 2 puff inhalation Q4-6H PRN 05/12/23 05/22/23 aerosol inhaler (Ventolin HFA) Shortness Of Breath Or Wheezing budesonide-formoterol HFA 160 2 puff inhalation BID 05/12/23 05/22/23 mcg-4.5 mcg/actuation aerosol inhaler (Symbicort) metoprolol tartrate 25 mg tablet 12.5 mg PO BID 05/12/23 05/22/23 fluticasone propionate 50 1 spray intranasal DAILY PRN 05/22/23 05/22/23 mcg/actuation nasal Congestion spray,suspension Previous Rx's ?Medication ?Instructions ?Recorded apixaban 5 mg tablet (Eliquis) 5 mg PO BID #60 tabs 05/21/23 hydrocortisone 2.5 % topical cream 1 appl NM BID #30 grams 05/21/23 with perineal applicator (Proctozone-HC) polyethylene glycol 3350 17 gram 17 g PO DAILY PRN Constipation #30 05/21/23 oral powder packet ea atorvastatin 40 mg tablet 40 mg PO BEDTIME #30 tabs 06/04/23 furosemide 40 mg tablet 40 mg PO DAILY #30 tabs 06/04/23 nystatin 100,000 unit/mL oral 400,000 unit (4 mL) buccal QID 7 06/04/23 suspension days #112 mL ondansetron 8 mg disintegrating 8 mg PO Q8H #50 tabs 06/28/23 tablet Allergies Allergy/AdvReac Type Severity Reaction Status Date / Time hydrocodone [From Vicodin] Allergy Vomiting Verified 07/12/23 14:23 oxycodone [From Percocet] Allergy Vomiting Verified 07/12/23 14:23 shellfish derived Allergy Anaphylaxis Verified 07/12/23 14:23 Review of Systems Review of Systems: Constitutional : No Fever, No Chills ENT/Mouth : No Hoarseness, No sore throat, No Rhinorrhea Eyes: No Redness, No Discharge, No Vision Changes Cardiovascular : No Chest Pain, positive SOB, no Dyspnea on Exertion, No Edema Respiratory : positive Cough, pos Sputum, positive Wheezing, Gastrointestinal : No Nausea, No Vomiting, No Diarrhea, No abdominal Pain Genitourinary : No Dysuria, No Hematuria Musculoskeletal : No joint pain, No Myalgias Skin : No rash Neuro : No Weakness, No Numbness, No Headache Psych : No anxiety, depression Heme/Lymph: No Bruising, No Bleeding Endocrine : No Polyuria, No Polydipsia All other systems reviewed and are negative PMFSH Past Medical History Attestation statement: The following information was validated with the patient. Source: old records reviewed Medical History Thyroid mass Adenocarcinoma of lung GIB (gastrointestinal bleeding) Mediastinal mass Pulmonary emboli Family history of thyroid disease Bilateral cataracts Sinus tachycardia Asthma Surgical History S/P IVC filter History of tonsillectomy History of open heart surgery Family History Family History Mother Leukemia Maternal Aunt Lung cancer Ovarian cancer Social History Social History Household Members: Other Household Members Other:: SISTER Housing: House Do you presently have visiting nurse or other home services: No Comment: Commode near bed. Pt gait and balance are steady. Per protocol extra safety Patient Tobacco Use Status: Former Tobacco user Smoked in Last 30 Days: No e-Cigarette/Vaping Use: Never Used Second Hand Smoke Exposure: No Use of substances other than those prescribed or required for medical reasons: No Advance Directives: Yes Advance Directives on File: Yes Advance Directives Date on File: 05/22/23 Patient : No service: No Physical Exam Vital Signs: Vital Signs: Last Vital Signs Temp 97.7 F 07/12/23 14:18 Pulse 91 07/12/23 14:47 Resp 20 07/12/23 14:47 BP 92/67 07/12/23 14:18 Pulse Ox 96 07/12/23 14:18 O2 Del Method Room Air 07/12/23 14:18 BMI result Body Mass Index 21.0 Appearance: Alert. Oriented to person and place. No acute distress. Eyes: Pupils equal, round and reactive to light. ENT: Pharynx normal. Neck: Normal inspection. Neck supple. CVS: Normal heart rate and rhythm. Pulses normal. Respiratory: No respiratory distress. Breath sounds diminished R base and L upper lung. She has a very coarse cough Abdomen: Soft and non-tender. Skin: Skin warm and dry. Normal skin color. Normal skin turgor. Extremities: No lower extremity edema. No calf ttp Neuro: Oriented X 2. No motor deficit. No sensory deficit. diffusely weak. Course Course Course Narrative: given CXR - fluids held - but BP is low will start on albumin and low dose lasix and started already on cefepime and vancomycin, BNP elevated as well. will replete K Reevaluation(s) Reevaluation #1: signed out to Dr. Mart pending CT head Dr. Lowry was notified of her return to the hospital Medications Administered Generic Name Dose Route Start Last Admin Trade Name Freq PRN Reason Stop Dose Admin Albumin Human 100 mls @ 100 mls/hr 07/12/23 15:23 07/12/23 15:33 Kedbumin 25 % IV 07/12/23 16:22 100 mls/hr ONCE ONE Administration Vancomycin HCl 1,500 mg/ 500 mls @ 333.333 mls/hr 07/12/23 15:27 07/12/23 15:33 Sodium Chloride IV 07/12/23 16:56 333.33 mls/hr ONCE ONE Administration Discontinued Medications Generic Name Dose Route Start Last Admin Trade Name Celine PRN Reason Stop Dose Admin Albuterol Sulfate 5 mg/ 0 mg 07/12/23 14:36 07/12/23 14:47 Albuterol/Ipratropium 3 ml INHALE 07/12/23 14:37 7.5 each ONCE ONE Administration Furosemide 20 mg 07/12/23 15:23 07/12/23 15:33 Furosemide 20 Mg/2 Ml Vial IVPUSH 07/12/23 15:24 20 mg ONCE ONE Administration Protocol Sodium Chloride 1,000 mls @ 999 mls/hr 07/12/23 14:00 07/12/23 15:42 Ns IV 07/12/23 15:00 Infused .Q1H1M ABHAY Infusion Cefepime HCl 1 gm/ Sodium 50 mls @ 100 mls/hr 07/12/23 13:52 07/12/23 15:43 Chloride IV 07/12/23 14:21 Infused ONCE ONE Infusion Medical Decision Making Medical Decision Making [facility] Narrative: 62 yo female with recent dx of lung adenocarcinoma due for port and PET on 07/16, DVT/PE on eliquis s/p IVC filter, multiple CVA infarction, pneumonia s/p one course of therapy with Dr. Lowry she comes in with c/o increased cough, dyspnea and confusion reportedly starting today by SNF. The patient cannot provide much history. Labs, cultures, CT head for mass/ICH ordered, EKG, empiric cefepime ordered. Differential Diagnosis Differential Diagnoses: The differential diagnosis associated with the presentation includes pneumonia, ICH, weakness, anemia, dehydration, cancer Admission/Observation Consideration of admission/observation: Escalation of care including admission/observation considered Lab Data [facility] Lab Attestation statement: I reviewed the patient's lab results. 07/12/23 15:07 07/12/23 14:46 Labs: Lab Results 04/18/24 04/18/24 04/18/24 Range/Units 14:46 14:50 15:07 WBC 30.6 H* (4.8-10.8) X10*3/uL RBC 3.01 L (4.20-5.50) X10*6/uL Hgb 7.6 L (12.0-16.0) g/dl Hct 24.4 L (37.0-47.0) % MCV 81.1 (80.0-98.0) fL MCH 25.2 L (27.0-33.0) pg MCHC 31.1 (31.0-35.0) g/dl RDW 18.8 H (11.0-16.0) % Plt Count 685 H (160-400) X10*3/uL MPV 9.2 L (9.4-12.3) fL VBG pH 7.51 H (7.32-7.43) VBG pCO2 46 mmHg VBG pO2 30 mmHg VBG HCO3 37 H (22-26) mmol/L VBG O2 Saturation 34.0 % VBG Base Excess 13.4 mmol/L Sodium 141 (135-145) mmol/L Potassium 3.2 L (3.3-5.1) mmol/L Chloride 97 (96-108) mmol/L Carbon Dioxide 33 H (22-29) mmol/L Anion Gap 14 (12-20) BUN 23 H (9-16) mg/dL Creatinine 0.78 (0.5-1.4) mg/dL Estim Creat Clear Calc 67.7 Estimated GFR > 60 Random Glucose 115 (60-115) mg/dL Lactic Acid 1.9 (0.5-2.0) mmol/L Calcium 8.8 (8.4-10.2) mg/dL Magnesium 2.2 (1.6-2.6) mg/dL Total Bilirubin 0.4 (0.0-1.0) mg/dL Direct Bilirubin 0.3 (0.0-0.5) mg/dL AST 38 H (5-31) U/L ALT 23 (0-31) U/L Alkaline Phosphatase 360 H (39-117) U/L Troponin I High Sens 12.0 D (<3.5-17.0) ng/L B-Natriuretic Peptide 668 H (<100) pg/mL Total Protein 7.3 (6.5-8.0) g/dL Albumin 2.5 L (3.5-5.0) g/dL Lipase 42 (8-78) U/L Procalcitonin 0.17 ng/mL ABG Data Attestation ABG: I personally reviewed and interpreted this ABG as follows: Independent Interpretation I performed an independent interpretation of an: EKG and Plain X-Ray (worsening mass and likely pneumonia) Interpretation: Rate: 94 Rhythm: NSR [place]: normal Normal P waves. Normal JEFFREY. Normal QRS complex. ST T wave : nonspecific ST T wave abnormalities no TICO qTC: 445 prior studies: The study has been interpreted contemporaneously by me. . Radiology Impression Discussion of test interpretation with radiology: I have reviewed the radiologist's reading. Independent Historian Clinical information obtained from an independent historian. History obtained from or confirmed by: EMS External Record Review External record reviewed: Inpatient record and Outpatient record Procedures Procedure Narrative Procedure Narrative: substernal, apical - dilated atria bilateral, decreased squeeze, R atria seems more dilated, no pericardial effusion. EJ/Peripheral Line Arm R: Time Out Performed: Yes Skin Cleansed in Sterile Fashion: Yes Size (gauge): 20 IV Secured and Dressing Applied: Yes Patient Tolerated Procedure: well and no complications Discharge Plan Discharge Clinical Impression: Encephalopathy acute, Pneumonia, Pleural effusion, Elevated white blood cell count, unspecified Patient Disposition: Still a Patient Prescriptions: No Action fluticasone propionate 50 mcg/actuation [place],Suspension 1 spray INTRANASAL DAILY PRN (Reason: Congestion) Rx Instructions: administer into each nostril ondansetron 8 mg Tablet,Disintegrating 8 mg PO Q8H Qty: 50 3RF furosemide 40 mg Tablet 40 mg PO DAILY Qty: 30 0RF Protocol: Hold for SBP< HOLD for SBP < : 90 atorvastatin 40 mg Tablet 40 mg PO BEDTIME Qty: 30 0RF nystatin 100,000 unit/mL Suspension 400,000 unit buccal QID 7 Days Qty: 112 0RF albuterol sulfate [Ventolin HFA] 90 mcg/actuation Hfa Aerosol Inhaler 2 puff INHALATION Q4-6H PRN (Reason: Shortness Of Breath Or Wheezing) metoprolol tartrate 25 mg Tablet 12.5 mg PO BID budesonide-formoterol [Symbicort] 160-4.5 mcg/actuation Hfa Aerosol Inhaler 2 puff INHALATION BID polyethylene glycol 3350 17 gram Powder In Packet 17 g PO DAILY PRN (Reason: Constipation) Qty: 30 0RF hydrocortisone [Proctozone-HC] 2.5 % Cream With Perineal Applicator 1 appl NM BID Qty: 30 0RF Eliquis 5 mg Tablet 5 mg PO BID Qty: 60 0RF Print Language: [place]
[2023-07-12] MEDS: Albuterol Sulfate 5 MG, Albuterol/Iprat 2.5/0.5MG 3 ML 3 ML INHALE (14:47)
[2023-07-12] MEDS: 0.9 % Sodium Chloride 1,000 ML 999 ML IV (14:53)
--- NOTE | 2023-07-12 14:54 | PC.NURSE ---
20g IV placed in right forarm via ultrasound by provider. Respiratory at bedside
[2023-07-12 14:56] LABS: VBG Base Excess 13.4 mmol/L; VBG HCO3 37 mmol/L (22-26); VBG pCO2 46 mmHg; VBG pH 7.51 (7.32-7.43); VBG pO2 30 mmHg
[2023-07-12 14:56] LABS: Venous Blood Gas Refer to POC result
[2023-07-12 15:06] LABS: Lactic Acid 1.9 mmol/L (0.5-2.0)
[2023-07-12] MEDS: cefEPime HCl 1 GM in 0.9 % Sodium Chloride 50 ML IV (15:08)
[2023-07-12 15:14] LABS: Basophils Absolute Auto 0.1 X10*3/uL (0.0-0.2); Basophils Percent Auto 0.2 % (0-2); Hematocrit 24.4 % (37.0-47.0); Hemoglobin 7.6 g/dl (12.0-16.0); Imm Gran Abs Auto 0.42 X10*3/uL (0.00-0.03); Imm Gran Pct Auto 1.4 % (0.0-0.4); Lymphocytes Absolute Auto 0.7 X10*3/uL (1.2-4.9); Lymphocytes Percent Auto 2.1 % (20-40); MANUAL DIFF FLAG SCAN; Mean Corpuscular HGB Conc 31.1 g/dl (31.0-35.0); Mean Corpuscular Hemoglobin 25.2 pg (27.0-33.0); Mean Corpuscular Volume 81.1 fL (80.0-98.0); Mean Platelet Volume 9.2 fL (9.4-12.3); Monocytes Absolute Auto 0.8 X10*3/uL (0.1-1.2); Monocytes Percent Auto 2.7 % (2-11); Neutrophils Absolute Auto 28.6 x10*3/uL (2.0-8.3); Neutrophils Percent Auto 93.6 % (45-73); Platelet Count 685 X10*3/uL (160-400); Red Blood Count 3.01 X10*6/uL (4.20-5.50); Red Cell Distribution Width 18.8 % (11.0-16.0); SCAN SMEAR FLAG 1
[2023-07-12 15:16] LABS: B Type Natriuretic Peptide 668 pg/mL (<100)
[2023-07-12 15:17] LABS: Alanine Aminotransferase 23 U/L (0-31); Albumin Level 2.5 g/dL (3.5-5.0); Alkaline Phosphatase 360 U/L (39-117); Anion Gap 14 (12-20); Aspartate Amino Transferase 38 U/L (5-31); Bilirubin Direct 0.3 mg/dL (0.0-0.5); Bilirubin Total 0.4 mg/dL (0.0-1.0); Blood Urea Nitrogen 23 mg/dL (9-16); Calcium 8.8 mg/dL (8.4-10.2); Carbon Dioxide 33 mmol/L (22-29); Chloride 97 mmol/L (96-108); Creatinine Clr Calc Pharmacy 67.7; Estimated Glomerular Filt Rate > 60; Glucose Random 115 mg/dL (60-115); Lipase 42 U/L (8-78); Magnesium 2.2 mg/dL (1.6-2.6); Potassium 3.2 mmol/L (3.3-5.1); Sodium 141 mmol/L (135-145); Total Protein 7.3 g/dL (6.5-8.0)
[2023-07-12 15:27] LABS: White Blood Count 30.6 X10*3/uL (4.8-10.8)
[2023-07-12 15:32] LABS: Procalcitonin 0.17 ng/mL
[2023-07-12] MEDS: vancomycin HCL 1,500 MG in 0.9 % Sodium Chloride 500 ML 333.33 MG IV (15:33)
[2023-07-12] MEDS: Furosemide 20 MG/2 ML VIAL IVPUSH (15:33)
[2023-07-12] MEDS: Albumin Human 25 % 100 ML IV (15:33)
[2023-07-12] MEDS: Potassium Chloride/H20 10 MEQ/100 ML PIGGYBACK 100 MEQ IV ×2 (16:07→17:45)
[2023-07-12 16:12] LABS: SLIDE REVIEW VERIFIED
[2023-07-12] MEDS: ALPRAZolam 0.25 MG TABLET PO ×2 (16:29→22:53)
[2023-07-12 16:30] LABS: Appearance Urine Clear; Color Urine Yellow; Glucose Urine UA Negative (Negative); Leukocyte Esterase Urine Small (1+) (Negative); Nitrite Urine Negative (Negative); PH 5.5 (5.0-9.0); Specific Gravity - Urine 1.015 (1.005-1.025); UMIC TRIGGER UACC YES; Urine Blood Negative (Negative); Urine Ketones Negative (Negative); Urine Protein Trace mg/dL (Neg-Trace)
[2023-07-12 16:33] LABS: Bacteria Urine None Seen (None Seen); Hyaline Casts Urine 0-2 /LPF (0-2); RBC Urine 0-2 /HPF (0-2); Squamous Epithelial Cell Urine 0-2 /HPF (0-2); UACC Culture Trigger YES
--- NOTE | 2023-07-12 16:48 | PC.NURSE ---
Patient medicated for anxierty per mar, family at bedside, resting quietly waiting for CT scan at this time.
--- NOTE | 2023-07-12 19:14 | PM.IMHP ---
History of Present Illness Date of Service: 07/12/23 Attending physician on admission: Ken Wan Chief Complaint: AMS and SOB Pt is a 62-year-old female with a PMH significant for?asthma not on home oxygen, sinus tachycardia on beta-elli, history of mitral valve repair in 2017, hx of non small cell carcinoma of lung followed by Dr. Lowry, hx of DVT of left upper extremity with PE on Eliquis, and hx of hemorrhoidal bleeding who [facility] of increased confusion, SOB, and soft BP for the past 3-4 days. Pt is somnolent but arousable at time of interview and exam, falling back asleep without fully answering questions. Is alert and oriented to self and place only, not to time or situation. HPI as thus obtained from chart and provider review and family friend who was at bedside. Patient is follow up with Dr. Lowry in oncology and last week finished 1st cycle of Keytruda. Patient has been apparently declining since then with increased productive cough, SOB, weakness and malaise, and increased confusion. Patient has also been having reduced appetite and intake of both fluids and solids. In the ED pt was afebrile and normotensive, but tachycardic up to 104 and tachypneic up to 22. Labs were significant for leukocytosis of 30.6, H&H of 7.6/24.4, potassium 3.2, bicarb 33, AST 38, alk-phos 360, BNP 668, albumin 2.5, and procalcitonin 0.17. UA negative for UTI. CXR showed new dense consolidation in left mid lung concerning for pneumonia, and small to moderate right side and small left pleural effusions with associated bibasilar atelectasis with mild pulmonary venous congestion. CT?of head showed new low attenuation in periventricular white matter of left frontal lobe, likely new infarct. 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 EKG demonstrated sinus rhythm with PACs and T-wave inversion in V3. Pt was treated with DuoNeb, IVF, furosemide, albumin, potassium chloride IV, alprazolam, cefepime, and vancomycin. Pt will be admitted to the hospital for treatment and further evaluation of acute respiratory failure in the setting of likely postobstructive pneumonia with sepsis secondary to non small-cell cancer as well as AMS in the setting of likely new CVA. Review of Systems Review of Systems: Unable to obtain due to pt's mentation [facility] Medical History Thyroid mass Adenocarcinoma of lung GIB (gastrointestinal bleeding) Mediastinal mass Pulmonary emboli Family history of thyroid disease Bilateral cataracts Sinus tachycardia Asthma Family History Mother Leukemia Maternal Aunt Lung cancer Ovarian cancer Surgical History S/P IVC filter History of tonsillectomy History of open heart surgery Social History Household Members: Other Household Members Other:: SISTER Housing: House Do you presently have visiting nurse or other home services: No Comment: Commode near bed. Pt gait and balance are steady. Per protocol extra safety Patient Tobacco Use Status: Former Tobacco user Smoked in Last 30 Days: No e-Cigarette/Vaping Use: Never Used Second Hand Smoke Exposure: No Use of substances other than those prescribed or required for medical reasons: No Advance Directives: Yes Advance Directives on File: Yes Advance Directives Date on File: 05/22/23 Patient : No service: No Meds Allergies Allergy/AdvReac Type Severity Reaction Status Date / Time hydrocodone [From Vicodin] Allergy Vomiting Verified 07/12/23 14:23 oxycodone [From Percocet] Allergy Vomiting Verified 07/12/23 14:23 shellfish derived Allergy Anaphylaxis Verified 07/12/23 14:23 Home Medications ?Medication ?Instructions ?Recorded ?Confirmed ?Last Taken ?Type albuterol sulfate 90 mcg/actuation 2 puff inhalation Q4H PRN 05/12/23 07/12/23 Unknown History aerosol inhaler (Ventolin HFA) Shortness Of Breath Or Wheezing budesonide-formoterol HFA 160 2 puff inhalation BID 05/12/23 07/12/23 Unknown History mcg-4.5 mcg/actuation aerosol inhaler (Symbicort) metoprolol tartrate 25 mg tablet 37.5 mg PO BID 05/12/23 07/12/23 Unknown History fluticasone propionate 50 1 spray intranasal DAILY PRN 05/22/23 07/12/23 Unknown History mcg/actuation nasal Congestion spray,suspension acetaminophen 325 mg tablet 650 mg PO Q4H PRN pain / fever 07/12/23 07/12/23 Unknown History bisacodyl 10 mg rectal suppository 10 mg RI DAILY PRN Constipation 07/12/23 07/12/23 Unknown History hydroxyzine HCl 10 mg tablet 10 mg PO BID PRN Anxiety 07/12/23 07/12/23 Unknown History melatonin 3 mg tablet 3 mg PO BEDTIME 07/12/23 07/12/23 Unknown History midodrine 10 mg tablet 10 mg PO BID 07/12/23 07/12/23 Unknown History sodium chloride 0.65 % nasal spray 1 spray intranasal DAILY Nose 07/12/23 07/12/23 Unknown History aerosol (Saline Nasal) Dryness sodium chloride 0.65 % nasal spray 1 spray intranasal Q8H PRN 07/12/23 07/12/23 Unknown History aerosol (Saline Nasal) Congestion Physical Exam Vital Signs and Narrative: Vital Signs: Last Vital Signs Temp 98.8 F 07/12/23 18:00 Pulse 100 07/12/23 18:00 Resp 20 07/12/23 18:00 BP 112/70 07/12/23 18:00 Pulse Ox 100 07/12/23 18:00 O2 Del Method Nasal Cannula 07/12/23 18:00 O2 Flow Rate 2 07/12/23 18:00 BMI result Body Mass Index 21.0 Constitutional: Somnolent but arousable, frail and ill-appearing. Mental Status: Oriented to person and place but not to time or situation. Eyes: Pupils are equal, round, and reactive to light. Ear, Nose, and Throat: Oropharynx clear, mucous membranes moist. Ears and nose without deformities. Trachea midline. Respiratory: Diffuse expiratory rhonchi bilaterally. Cardiovascular: S1, S2, tachycardic. Gastrointestinal: Abdomen soft, non-tender, non-distended. Normal bowel sounds. Neurologic: Pt too somnolent to participate fully in exam. Moves all extremities spontaneously. Global weakness noted. Skin: Warm, dry. Extremities: No edema. Psychiatric: Normal mood and affect. Results Labs 07/12/23 15:07 07/12/23 14:46 Labs: Laboratory Results - last 24 hr 07/12/23 07/12/23 07/12/23 14:46 14:50 15:07 MCV 81.1 MCH 25.2 L MCHC 31.1 RDW 18.8 H Plt Count 685 H MPV 9.2 L Immature Gran % (Auto) 1.4 H Neut % (Auto) 93.6 H Lymph % (Auto) 2.1 L [place] % (Auto) 2.7 Eos % (Auto) 0.0 Baso % (Auto) 0.2 Lymph # (Auto) 0.7 L [place] # (Auto) 0.8 Eos # (Auto) 0.0 Baso # (Auto) 0.1 Abs Immat Gran (auto) 0.42 H Absolute Neuts (auto) 28.6 H Absolute Nucleated RBC 0.000 Nucleated RBC % (auto) 0.0 Smear Tech's Comments VERIFIED VBG pH 7.51 H VBG pCO2 46 VBG pO2 30 VBG HCO3 37 H VBG O2 Saturation 34.0 VBG Base Excess 13.4 Anion Gap 14 Estim Creat Clear Calc 67.7 Estimated GFR > 60 Random Glucose 115 Lactic Acid 1.9 Calcium 8.8 Magnesium 2.2 Total Bilirubin 0.4 Direct Bilirubin 0.3 AST 38 H ALT 23 Alkaline Phosphatase 360 H Troponin I High Sens 12.0 D B-Natriuretic Peptide 668 H Total Protein 7.3 Albumin 2.5 L Lipase 42 Procalcitonin 0.17 Urine Color Urine Appearance Urine pH Ur Specific [place] Urine Protein Urine Glucose (UA) Urine Ketones Urine Blood Urine Nitrite Ur Leukocyte Esterase Urine RBC Urine WBC Ur Squamous Epith Cells Urine Bacteria Hyaline Casts 07/12/23 16:20 MCV MCH MCHC RDW Plt Count MPV Immature Gran % (Auto) Neut % (Auto) Lymph % (Auto) [place] % (Auto) Eos % (Auto) Baso % (Auto) Lymph # (Auto) [place] # (Auto) Eos # (Auto) Baso # (Auto) Abs Immat Gran (auto) Absolute Neuts (auto) Absolute Nucleated RBC Nucleated RBC % (auto) Smear Tech's Comments VBG pH VBG pCO2 VBG pO2 VBG HCO3 VBG O2 Saturation VBG Base Excess Anion Gap Estim Creat Clear Calc Estimated GFR Random Glucose Lactic Acid Calcium Magnesium Total Bilirubin Direct Bilirubin AST ALT Alkaline Phosphatase Troponin I High Sens B-Natriuretic Peptide Total Protein Albumin Lipase Procalcitonin Urine Color Yellow Urine Appearance Clear Urine pH 5.5 Ur Specific [place] 1.015 Urine Protein Trace Urine Glucose (UA) Negative Urine Ketones Negative Urine Blood Negative Urine Nitrite Negative Ur Leukocyte Esterase Small (1+) H Urine RBC 0-2 Urine WBC 6-10 H Ur Squamous Epith Cells 0-2 Urine Bacteria None Seen Hyaline Casts 0-2 Imaging Radiologist's Impressions: Impressions Chest X-Ray 07/12/23 14:10 IMPRESSION: 1. New dense consolidation in the left midlung, concerning for pneumonia. 2. Obacm-ha-zihcuheg size right and small left pleural effusions with associated bibasilar atelectasis. Mild pulmonary venous congestion. Head CT 07/12/23 17:27 IMPRESSION: Generalized atrophy and nonspecific periventricular white matter disease. New low attenuation in the periventricular white matter of the left frontal lobe, probably representing a new infarct. Multiple old small more superior periventricular white matter infarcts in the bilateral frontal and parietal lobes probably unchanged from previous April 2023 imaging. Assessment and Plan (1) Pneumonia: Qualifiers: Laterality: left Lung location: unspecified part of lung Pneumonia type: due to unspecified organism Qualified Code(s): J18.9 - Pneumonia, unspecified organism Status: Acute (2) CVA (cerebral vascular accident): Status: Acute Plan Pt is a 62-year-old female with a PMH significant for?asthma not on home oxygen, sinus tachycardia on beta-elli, history of mitral valve repair in 2017, hx of non small cell carcinoma of lung followed by Dr. Lowry, hx of DVT of left upper extremity with PE on Eliquis, and hx of hemorrhoidal bleeding who [facility] for evaluation of increased confusion, SOB, and soft BP for the past 3-4 days. Pt will be admitted to the hospital for treatment and further evaluation of acute respiratory failure in the setting of likely postobstructive pneumonia with sepsis secondary to non small-cell cancer as well as AMS in the setting of likely new CVA. Acute respiratory failure in the setting of pneumonia with sepsis Likely postobstructive secondary to [id number] lung cancer Patient with increased AMS, SOB, cough, CXR showing new dense consolidation in mid lung Patient meets sepsis criteria: Tachycardia, tachypnea, leukocytosis; lactic acid WNL at 1.9 Patient was started on broad-spectrum antibiotics in the ED Will treat with vancomycin and cefepime, started 07/12/2023 Titrate supplemental O2 >92, wean as tolerated Follow cultures Monitor respiratory status CVA Pt with AMS for past 3-4 days; unclear if any other deficits CT of head showing new low-attenuation in periventricular white matter of left frontal lobe, concerning for new infarct; also found multiple old small white matter infarcts Pt apparently has been compliant with Eliquis Etiology unclear: Cardiomyopathy/cardiac source vs hypercoagulability/hyperviscosity syndrome Will defer any additional imaging (CTA of head/neck, MRI) pending neurology input Neurology consult Monitor on telemetry Acute HFpEF exacerbation Pt with SOB, elevated BNP, CXR with pulmonary edema and bilateral pleural effusions Furosemide 40 mg IV daily Follow lytes, MG, I/O Will get echocardiogram Monitor on telemetry Hypokalemia, mild Potassium 3.2 at time of presentation Supplemented with IV potassium in the ED Follow BMP, supplement as warranted Non small cell lung cancer Follows with Dr. Lowry Finished 1st cycle of pembrolizumab last week Scheduled to get PET scan and Port-A-Cath placement at [facility] next week Heme/Onc consult Hypoalbuminemia Albumin 2.5 at time of presentation Likely secondary to reduced p.o. intake Patient given albumin in ED Anemia H&H stable at 7.6/24.4 Follow CBC, transfuse as necessary Diet Pt able to swallow small amounts of liquid to take pills but failed nurse swallow screen for larger amounts NPO pending speech bedside evaluation Aspiration precautions Hx of DVT/PE Continue Eliquis Chronic sinus tachycardia Continue metoprolol Hemorrhoids Hydrocortisone rectal cream b.i.d. Full Code Attending:?Dr. Dahl DVT Prophylaxis: On Eliquis Pt will require a hospitalization of at least two nights for treatment and further evaluation of acute respiratory failure in the setting of likely postobstructive pneumonia with sepsis secondary to non small-cell cancer as well as AMS in the setting of likely new CVA. Patient will require hospitalization for administration of IV antibiotics, supplemental oxygen, close monitoring of labs, H&H, and respiratory status, as well as specialist consultation with Neurology and Hematology/Oncology. Quality Stroke Does the patient have a stroke diagnosis?: Yes Reason for No Anti-thrombotic by Day Two: Contraindicated (Pt on Eliquis; outside of tNK therapeutic window.) VTE Prior VTE?: No VTE Risk Level:: Medical - moderate - high VTE Device Contraindication: Treatment Not Indicated VTE Drug Contraindication: N/A - Med Ordered
--- NOTE | 2023-07-12 20:40 | MHC.EDTECH ---
2000 rounding done ,vitals taken ,patient was inconient of urine and small amount of stool ,care was given by this pct and rn bryant ,Patient sister and friend at bedside ,Call sagastume within patient reach .
--- NOTE | 2023-07-12 22:27 | PHA.MEDREC ---
Pharmacy Consult ? Medication Reconciliation Pharmacy has completed the medication reconciliation. Called [facility] , received med list via fax.
[2023-07-12] MEDS: Apixaban 5 MG TABLET PO (22:54)
[2023-07-12] MEDS: Melatonin 3 MG TABLET 6 MG PO (22:54)
--- NOTE | 2023-07-12 22:57 | PHA.PROG ---
Admission Date/Time: July 12, 2023 22:11 Indication: respiratory infection Weight in k.967 kg Adjusted body weight in K.167 kg [place] body weight in Kg: Obesity Dosing Indication % IBW: BMI 21.0 kg/m^2 Serum Creatinine - Last 168 Hours 07/12/23 14:46 Creatinine 0.78 Estimated CrCl and GFR - Last 168 Hours 07/12/23 14:46 Estim Creat Clear Calc 67.7 Estimated GFR > 60 Vancomycin Loading Dose: 1500 mg x1 Current Vancomycin Dosing Regimen: 1500 mg Q24H Vancomycin Monitoring using AUC goal of 400 - 600 range with trough as surrogate marker: 523 Date and Time for next Vancomycin Level to be drawn: 07/13 @1400 Pharmacist Comments on Vancomycin Plan: Predicted trough 13.9, Vancomycin dosing will take advantage of [employer]ridge as a clinical decision support tool that uses Bayesian modeling to calculate individual patient's pharmacokinetic parameters and forecast the patient's drug concentration time course with the target goal AUC 24 range of 400 - 600 mg/L/hr.
[2023-07-12] MEDS: cefEPime HCl 2 GM in 0.9 % Sodium Chloride 50 ML IV (22:59)
--- NOTE | 2023-07-12 23:34 | MHC.EDTECH ---
0000 ROUNDING DONE ,VITALS TAKEN ,PATIENT AWAKE AND HER DAUGHTER AT BEDSIDE .
[2023-07-13] VITALS (14 sets, daily range): BP systolic 92–142; BP diastolic 57–84; PULSE 76–105; RESP 16–24; TEMP 36.2–36.8; O2SAT 94–100; BMI 19.4
--- NOTE | 2023-07-13 00:45 | PC.NURSE ---
Pt sleeping/resting with family member at the bedside. Reports feeling nauseas. Medicated as per MAY. Hydrocortisone perirectal cream not available in the pyxis. Nursing scenic arts supervisor states this medication is not available in any other pyxis within the hospital. [place] text sent to Dr. Dahl regarding medication beign unavailable. Dr. Dahl orders to follow up with pharmacy in the morning to see if medication is available.
[2023-07-13] MEDS: 0.9 % Sodium Chloride Flush 3 ML SYRINGE IVFLUSH ×3 (00:51→21:15)
[2023-07-13] MEDS: ondansetron HCL 4 MG/2 ML VIAL IVPUSH (00:51)
[2023-07-13 05:30] LABS: Hematocrit 22.3 % (37.0-47.0); Mean Corpuscular Hemoglobin 24.8 pg (27.0-33.0); Mean Corpuscular Volume 82.6 fL (80.0-98.0); Mean Platelet Volume 9.3 fL (9.4-12.3); Platelet Count 551 X10*3/uL (160-400); Red Cell Distribution Width 18.9 % (11.0-16.0); White Blood Count 24.8 X10*3/uL (4.8-10.8)
[2023-07-13 05:39] LABS: INTERNATIONAL NORM RATIO 2.5 (0.9-1.1); Prothrombin Time 30.3 SEC (11.1-13.3)
[2023-07-13 05:43] LABS: Anion Gap 11 (12-20); Blood Urea Nitrogen 22 mg/dL (9-16); Calcium 8.3 mg/dL (8.4-10.2); Carbon Dioxide 29 mmol/L (22-29); Chloride 101 mmol/L (96-108); Creatinine Clr Calc Pharmacy 66.1; Estimated Glomerular Filt Rate > 60; Glucose Random 97 mg/dL (60-115); Potassium 3.3 mmol/L (3.3-5.1); Sodium 138 mmol/L (135-145)
[2023-07-13 05:45] LABS: Hemoglobin 6.7 g/dl (12.0-16.0)
[2023-07-13] MEDS: cefEPime HCl 2 GM in 0.9 % Sodium Chloride 50 ML IV ×3 (06:14→22:25)
--- NOTE | 2023-07-13 07:00 | CA_ITS ---
Transthoracic Echocardiogram Patient (Last, First, Middle): Woo Marks Marie Gender: Female Date of : 1960 Age: 62 Procedure Date: 07/13/2023 Procedure Type: Transthoracic Echocardiogram [place] [facility] [place] [facility] [place]: 167.64 cm Weight: 58.97 kg BSA: 1.67 m2 Heart Rate: bpm BP: 107 / 65 mmHg Recordak Operator: TO Referring MD: Salina PORTILLO Symptoms: CHF exacerbation Study Quality: Fair/Contrast ECG Rhythm: Sinus Conclusions: - The left ventricular systolic function is low normal. The visually estimated ejection fraction is between 50-55%. - s/p mitral valve repair with suggestion of mitral stenosis and with moderate regurgitation. - Mild to moderate pulmonary hypertension is present. Findings Procedure Information Contrast agent, definity, is being given per protocol without apparent complications. Left Ventricle Normal left ventricular cavity size. There is normal left ventricular wall thickness. The left ventricular systolic function is low normal. The visually estimated ejection fraction is between 50-55%. There is no evidence of regional wall motion abnormalities. Diastolic function is indeterminate on the basis of available data. Right Ventricle Normal right ventricular cavity size. There is mildly decreased right ventricular systolic function. Atria The left atrium is severely dilated. The right atrium is normal in size. Aortic Valve There is a normal trileaflet aortic valve. There is no aortic valve stenosis. There is mild aortic valve regurgitation. Mitral Valve There is mild anterior and posterior mitral leaflet thickening. There is mild to moderate mitral valve regurgitation. s/p mitral valve repair. Elevated gradients across the mitral valve; mean 15 mm Hg at a HR between 80-90/Min. Mitral valve area by VTI 0.8 sq cm. Suggestive of mitral stenosis, probably severe. Pulmonic Valve There is trace pulmonic valve regurgitation. Tricuspid Valve There is mild tricuspid valve regurgitation. Mild to moderate pulmonary hypertension is present. Great Vessels The asc aorta is normal in size. Venous The inferior vena cava is mildly dilated and collapses less than 50% with inspiration. Pericardium/Pleural There is no evidence of pericardial effusion. Prior Study Comparison Changes noted compared to prior study dated: 05/12/2023. LVEF is slightly lower; mitral valve gradients higher, but there is also new mitral regurgitation. Recommendations, Care & Conclusions Consider a DAYLIN if clinically appropriate. Measurements 2D Linear Measurements IVSd: 0.77 0.6-0.9/0.6-1.0 cm LVIDd: 4.73 3.9-5.3/4.2-5.9 cm LVIDd Index: 2.83 2.4-3.2/2.2-3.1 cm/m2 LVIDs: 3.06 2.0-3.6 cm LVPWd: 0.79 0.7-1.1 cm LA Diam: 5.40 2.7-3.8/3.0-4.0 cm LAIDs Index: 3.23 1.5-2.3 cm/m2 LV Mass: 148.02 67-162/88-224 g LV Mass Index: 88.63 43-95/49-115 g/m2 LVOT Diam: 2.00 3.0+(-)1.3 cm 2D Systolic Function EF 4C: 49.30 >55% Mitral Valve MV VTI: 0.77 MV Pk Vipul: 2.79 MV Mn Vipul: 1.80 MV Pk Grad: 31.00 MV Mn Grad: 15.00 MV Pk E: 2.21 MV PK A: 1.71 MV Decel Time: 353.00 E/A: 1.30 E'Lateral: 3.26 E'Medial: 3.92 E/E' Med: 56.40 E/E' Lat: 67.80 PHT: 103.00 MVA PHT: 2.14 MVA Continuity: 0.82 Decel [place]: 6.27 MR Vol - PW Dopp: 34.32 MR VTI: 1.04 MR ERO: 33.00 MR Alias Vipul: 0.44 MR RAD: 0.70 Aortic Valve AoV Pk Vipul: 1.52 AoV Mn Vipul: 1.01 AoV VTI: 0.24 AoV Pk Grad: 9.00 Aov Mn Grad: 5.00 RASTA Cont.VTI: 2.63 LVOT LVOT Pk Vipul: 1.22 LVOT Mn Vipul: 0.80 LVOT VTI: 0.20 LVOT Pk Grad: 6.00 LVOT Mn Grad: 3.00 LVOT Diam: 2.00 LVOT Area: 3.14 Diastolic Function MV Pk E: 2.21 MV Pk A: 1.71 E/A: 1.30 E'Medial: 3.92 E/E' Med: 56.40 E' Laterial: 3.26 E/E' Lat: 67.80 Right Ventricle TAPSE (mm): 14.20 TVS' Vipul: 8.30 Tricuspid Valve TR Pk Vipul: 3.01 TR Pk Grad: 36.00 RA Press: 15.00 RVSP: 51.00 Great Vessels Aorta Sinus of Valsalva: 3.02 2.0-3.[address] [place]: 2.78 1.7-3.4 cm Ao Asc: 3.50 2.1-3.4 cm Updated in Other Vendor System with Status of Final Denny Shen MD electronically signed on 07/13/2023 12:37:56 PM with status of Final
[2023-07-13] MEDS: Albuterol/Iprat 2.5/0.5MG 3 ML AMPUL.NEB INHALE ×2 (07:48→12:12)
[2023-07-13] MEDS: hydrOXYzine HCL 10 MG TABLET PO ×2 (08:06→17:41)
--- NOTE | 2023-07-13 08:08 | PC.NURSE ---
patient is resting quietly in hospital bed, family at bedside. patient is awake and alert, VSS. patient prn hydroxyzine utilized for patient anxiety, medicated per MAR. patient is NPO status, tolerates small sips and medications.
[2023-07-13] MEDS: Metoprolol Tartrate 25 MG TABLET 37.5 MG PO (09:11)
[2023-07-13] MEDS: Apixaban 5 MG TABLET PO ×2 (09:12→21:10)
[2023-07-13] MEDS: Furosemide 40 MG/4 ML VIAL IVPUSH (09:12)
[2023-07-13] MEDS: Midodrine HCl 10 MG TABLET PO ×2 (09:12→21:10)
--- NOTE | 2023-07-13 09:21 | PM.HEMONCCN ---
Subjective - Subjective Chief complaint: Consult for rwc-qakfx-cvpi lung carcinoma. Patient: known to practice within the last 3 years Consult date: 07/13/23 Requesting Physician: Tyrell. Primary Care Provider: Unknown Physician Medical Summary: DIAGNOSIS: [id number] LUNG CARCINOMA. CURRENT THERAPY: Status post 1st cycle of pembrolizumab. HPI - Consult Narrative Reason for consult: Consult for: Jqy-ljecd-lovw lung carcinoma. Narrative: Woo Marks is a 62 year old lady with pnw-[id number]-lazd lung carcinoma, admitted last night with shortness of breath. PMH significant for?hx of DVT of left upper extremity with PE on Eliquis, who presented to the ED from [facility] for evaluation of increased confusion, SOB, and soft BP for the past 3-4 days. Pt is somnolent but arousable at time of interview and exam, falling back asleep without fully answering questions. Is alert and oriented to self and place only, not to time or situation. She was started on 1st cycle of Keytruda. She has been apparently declining since then with increased productive cough, SOB, weakness and malaise, and increased confusion. Her appetite has declined and so has intake of both fluids and solids. Here she was afebrile and normotensive, but tachycardic up to 104 and tachypneic up to 22. Labs were significant for leukocytosis of 30.6, H&H of 7.6/24.4, potassium 3.2, bicarb 33, AST 38, alk-phos 360, BNP 668, albumin 2.5, and procalcitonin 0.17. UA negative for UTI. CXR showed new dense consolidation in left mid lung concerning for pneumonia, and small to moderate right side and small left pleural effusions with associated bibasilar atelectasis with mild pulmonary venous congestion. CT?of head showed new low attenuation in periventricular white matter of left frontal lobe, likely new infarct. 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 EKG demonstrated sinus rhythm with PACs and T-wave inversion in V3. Pt was treated with DuoNeb, IVF, furosemide, albumin, potassium chloride IV, alprazolam, cefepime, and vancomycin. She was admitted to the hospital for further evaluation and management of acute respiratory failure in the setting of likely postobstructive pneumonia with sepsis secondary to non small-cell cancer as well as AMS in the setting of likely new CVA. Review of Systems Review of Systems: Patient feels rather fatigued. No headache but dizziness. Has had shortness of breath. Cough with sputum. Denies abdominal pain nausea vomiting heartburn. Bowels are working. No gross blood. [facility] [place] Medical History : Asthma not on home oxygen, Sinus tachycardia on beta-elli, history of mitral valve repair in 2017, Hx of non small cell carcinoma of lung, Hx of hemorrhoidal bleeding Thyroid mass Adenocarcinoma of lung GIB (gastrointestinal bleeding) Mediastinal mass Pulmonary emboli Family history of thyroid disease Bilateral cataracts Sinus tachycardia Asthma Family History: Mother Leukemia Maternal Aunt Lung cancer Ovarian cancer Review of Systems - Constitutional Reports system reviewed and no additional complaints, except as documented, Reports lack of energy, Reports malaise, Reports weight loss - Eyes Reports system reviewed and no additional complaints, except as documented - ENT Reports system reviewed and no additional complaints, except as documented - Cardiovascular Reports system reviewed and no additional complaints, except as documented - Respiratory Reports no additional respiratory complaints, Reports cough, Reports dyspnea on exertion - Gastrointestinal Reports system reviewed and no additional complaints, except as documented - Genitourinary Reports no additional female genitourinary complaints - Musculoskeletal Reports system reviewed and no additional complaints, except as documented - Integumentary/Breasts Skin/Breast: Reports no additional skin complaints - Neurologic Reports system reviewed and no additional complaints, except as documented - Psychiatric Reports system reviewed and no additional complaints, except as documented - Endocrine Reports no additional endocrine complaints - Hematologic/Lymphatic Reports system reviewed and no additional complaints, except as documented - Allergic/Immunologic Reports system reviewed and no additional complaints, except as documented Oncology Screenings - ECOG Performance Status ECOG Performance Status: 2 [facility] [place] Medical History: Medical History (Last Updated 07/13/23 @ 16:05 by Sofía Santillan MD) Adenocarcinoma of lung Asthma Bilateral cataracts Family history of thyroid disease GIB (gastrointestinal bleeding) Mediastinal mass Pulmonary emboli Sinus tachycardia Thyroid mass Functional capacity: wheelchair bound Patient : No Family History: Family History (Last Reviewed 07/12/23 @ 23:22 by BANDAR Dangelo) Mother Leukemia Maternal Aunt Lung cancer Ovarian cancer Surgical History: Surgical History (Last Reviewed 07/12/23 @ 23:22 by BANDAR Dangelo) History of open heart surgery History of tonsillectomy S/P IVC filter Social History: Social History (Last Reviewed 07/12/23 @ 23:22 by BANDAR Dangelo) Living Situation History: Household Members: Family Household Members Other:: SISTER Housing: House Do you presently have visiting nurse or other home services: No Alcohol History Details: 1. How often do you have a drink containing alcohol?: a. Never 3. How often do you have six or more drinks on one occasion?: a. Never AUDIT-C Alcohol total score: 0 Currently Displaying Signs/Symptoms of Alcohol Withdrawal: No Tobacco History: Patient Tobacco Use Status: Former Tobacco user Smoked in Last 30 Days: No e-Cigarette/Vaping Use: Never Used Second Hand Smoke Exposure: No Substance Use History: Use of substances other than those prescribed or required for medical reasons: No Currently Displaying Signs/Symptoms of Drug Intoxication Withdrawal: No Domestic Abuse History: Have you been hit, kicked, punched, or otherwise hurt by someone within the past year? If so, by whom?: No Do you feel safe in your current relationship?: Yes Is there a partner from a previous relationship who is making you feel unsafe now?: No Are you made to feel afraid or neglected: No Advance Directives: Advance Directives: Yes Advance Directives on File: Yes Advance Directives Date on File: 05/22/23 Homicidal Assessment: Do you have thoughts of harming others: None Do you have a plan to hurt others: No Plan Nutrition Assessment: Nutrition Risks: On aspiration precautions Patient : No : No Poor oral hygiene: No Occupation Assessmet: service: No Home Medications and Allergies Current Medications: Current Medications Acetaminophen (Acetaminophen 325 Mg Tablet) 650 mg PO Q6H PRN PRN Reason: Pain, Mild (Pain Scale 1-3) Albuterol Sulfate (Albuterol Sulfate 90 Mcg 8 Gm Inhaler) 2 puff INHALE Q4H PRN PRN Reason: Shortness Of Breath Or Wheezing Albuterol/Ipratropium (Albuterol/Iprat 2.5/0.5mg 3 Ml Ampul.Neb) 3 ml INHALE RQ4H WHILE AWAKE [facility] Last Admin: 07/13/23 07:48 Dose: 3 ml Apixaban (Apixaban 5 Mg Tablet) 5 mg PO BID [facility] Last Admin: 07/12/23 22:54 Dose: 5 mg Atorvastatin Calcium (Atorvastatin Calcium 40 Mg Tablet) 40 mg PO BEDTIME [facility] Bisacodyl (Bisacodyl 10 Mg Supp.Rect) 10 mg NJ DAILY PRN PRN Reason: Constipation Docusate Sodium (Docusate Sodium 100 Mg Capsule) 100 mg PO DAILY PRN PRN Reason: Constipation Fluticasone Propionate (Fluticasone Propionate Nasal 16 Gm Rush) 1 spray NOSTRIL-B DAILY PRN PRN Reason: Congestion Furosemide (Furosemide 40 Mg/4 Ml Vial) 40 mg IVPUSH DAILY [facility]; Protocol Hydrocortisone (Hydrocortisone 2.5 % Rectal Cr 30 Gm Tube) 1 appl NJ BID [facility] Last Admin: 07/13/23 00:44 Dose: Not Given Hydroxyzine HCl (Hydroxyzine Hcl 10 Mg Tablet) 10 mg PO BID PRN PRN Reason: Anxiety Last Admin: 07/13/23 08:06 Dose: 10 mg Cefepime HCl 2 gm/ Sodium (Chloride) 50 mls @ 100 mls/hr IV Q8H [facility] Last Infusion: 07/13/23 08:11 Dose: Infused Vancomycin HCl 1,500 mg/ (Sodium Chloride) 500 mls @ 333.333 mls/hr IV Q24H [facility] Melatonin (Melatonin 3 Mg Tablet) 6 mg PO BEDTIME PRN PRN Reason: Insomnia Last Admin: 07/12/23 22:54 Dose: 6 mg Metoprolol Tartrate (Metoprolol Tartrate 25 Mg Tablet) 37.5 mg PO BID [facility]; Protocol Midodrine (Midodrine Hcl 10 Mg Tablet) 10 mg PO BID [facility] Ondansetron HCl (Ondansetron Hcl 4 Mg/2 Ml Vial) 4 mg IVPUSH Q8H PRN PRN Reason: Nausea and Vomiting Last Admin: 07/13/23 00:51 Dose: 4 mg Pharmacy Consult (Consult Rx Vancomycin Dosing) 1 each MISCELLANE DAILY PRN PRN Reason: Consult order Sodium Chloride (0.9 % Sodium Chloride Flush 3 Ml Syringe) 3 ml IVFLUSH QSHIFT [facility] Last Admin: 07/13/23 08:11 Dose: Not Given Sodium Chloride (Sodium Chloride 0.65 % Nasal 44 Ml Sprbtl) 1 spray NOSTRIL-B DAILY [facility] Sodium Chloride (Sodium Chloride 0.65 % Nasal 44 Ml Sprbtl) 1 spray NOSTRIL-B Q8H PRN PRN Reason: Congestion Home Medications ?Medication ?Instructions ?Recorded ?Confirmed ?Type albuterol sulfate 90 mcg/actuation 2 puff inhalation Q4H PRN 05/12/23 07/12/23 History aerosol inhaler (Ventolin HFA) Shortness Of Breath Or Wheezing budesonide-formoterol HFA 160 2 puff inhalation BID 05/12/23 07/12/23 History mcg-4.5 mcg/actuation aerosol inhaler (Symbicort) metoprolol tartrate 25 mg tablet 37.5 mg PO BID 05/12/23 07/12/23 History fluticasone propionate 50 1 spray intranasal DAILY PRN 05/22/23 07/12/23 History mcg/actuation nasal Congestion spray,suspension acetaminophen 325 mg tablet 650 mg PO Q4H PRN pain / fever 07/12/23 07/12/23 History bisacodyl 10 mg rectal suppository 10 mg NJ DAILY PRN Constipation 07/12/23 07/12/23 History hydroxyzine HCl 10 mg tablet 10 mg PO BID PRN Anxiety 07/12/23 07/12/23 History melatonin 3 mg tablet 3 mg PO BEDTIME 07/12/23 07/12/23 History midodrine 10 mg tablet 10 mg PO BID 07/12/23 07/12/23 History sodium chloride 0.65 % nasal spray 1 spray intranasal DAILY Nose 07/12/23 07/12/23 History aerosol (Saline Nasal) Dryness sodium chloride 0.65 % nasal spray 1 spray intranasal Q8H PRN 07/12/23 07/12/23 History aerosol (Saline Nasal) Congestion hydrocortisone acetate 25 mg 25 mg NJ BID 07/14/23 07/14/23 History rectal suppository Allergies Allergy/AdvReac Type Severity Reaction Status Date / Time hydrocodone [From Vicodin] Allergy Vomiting Verified 07/12/23 14:23 oxycodone [From Percocet] Allergy Vomiting Verified 07/12/23 14:23 shellfish derived Allergy Anaphylaxis Verified 07/12/23 14:23 Physical Exam Vital signs: Vital Signs Temp 97.5 F 07/13/23 08:52 Pulse 105 H 07/13/23 08:52 Resp 20 07/13/23 08:52 BP 142/84 H 07/13/23 08:52 Pulse Ox 96 07/13/23 07:06 O2 Del Method Nasal Cannula 07/13/23 07:06 O2 Flow Rate 2 07/13/23 07:06 Intake & Output 07/12/23 07/13/23 07/13/23 18:59 06:59 18:59 Intake Total 1050 / 1100 50 / 1100 50 / 50 Output Total 0 / 0 Balance 1050 / 1100 50 / 1100 50 / 50 Urine Output (Average ml/kg/hr) 0.00 0.00 Intake: Intake, Oral Amount 0 / 0 Intake, IV Amount 1050 / 1100 50 / 1100 50 / 50 0.9 % Sodium Chloride 1,000 ml 200 / 200 @ 999 mls/hr IV .Q1H1M [facility] Rx#: [id number] Albumin Human 25 % 100 ml @ 100 100 / 100 mls/hr IV ONCE ONE Rx#: [id number] Potassium Chloride/H20 10 meq 200 / 200 In 100 ml @ 100 mls/hr IV Q1H [facility] Rx#:[id number] cefEPime HCl 1 gm In 0.9 % 50 / 50 Sodium Chloride 50 ml @ 100 mls /hr IV ONCE ONE Rx#:[id number] cefEPime HCl 2 gm In 0.9 % 50 / 50 50 / 50 Sodium Chloride 50 ml @ 100 mls /hr IV Q8H [facility] Rx#:[id number] vancomycin HCL 1,500 mg In 0.9 500 / 500 % Sodium Chloride 500 ml @ 333. 333 mls/hr IV ONCE ONE Rx#: [id number] Output: Output, Urine Amount 0 / 0 Other: Last Bowel Movement 07/12/23 Weight 58.967 kg 54.6 kg [place] Weight in Grams [address]22 Weight 54.6 kg - Constitutional Present: mild distress - Routine HEENT Exam Head: Present: normal inspection, normocephalic Eye: Present: normal appearance ENT: Present: mucous membranes moist - Routine Neck Exam Present: supple - Routine Respiratory Exam Present: decreased breath sounds - Routine Cardiovascular Exam Cardiovascular: Present: RRR, S1, S2 - Routine Abdominal Exam Present: soft, nontender Hem/Onc Consult Result - Labs CBC & Chem 7: 07/15/23 06:54 07/15/23 06:54 Labs: Short CBC 07/12/23 07/13/23 Range/Units 15:07 05:07 WBC 30.6 H* 24.8 H (4.8-10.8) X10*3/uL Hgb 7.6 L 6.7 L* (12.0-16.0) g/dl Hct 24.4 L 22.3 L (37.0-47.0) % Plt Count 685 H 551 H (160-400) X10*3/uL BMP 07/12/23 07/13/23 14:46 05:07 Sodium 141 138 Potassium 3.2 L 3.3 Chloride 97 101 Carbon Dioxide 33 H 29 BUN 23 H 22 H Creatinine 0.78 0.80 Calcium 8.8 8.3 L Liver Function 07/12/23 Range/Units 14:46 Total Bilirubin 0.4 (0.0-1.0) mg/dL Direct Bilirubin 0.3 (0.0-0.5) mg/dL AST 38 H (5-31) U/L ALT 23 (0-31) U/L Alkaline Phosphatase 360 H (39-117) U/L Albumin 2.5 L (3.5-5.0) g/dL Urine 07/12/23 Range/Units 16:20 Urine Color Yellow Urine Appearance Clear Urine pH 5.5 (5.0-9.0) Ur Specific [place] 1.015 (1.005-1.025) Urine Protein Trace (Neg-Trace) mg/dL Urine Glucose (UA) Negative (Negative) mg/dL Assessment and Plan Patient Active problem list reviewed?: Yes (1) Adenocarcinoma of lung Status: Acute Assessment and plan: Woo Marks is a 62 year old lady, referred for pulmonary embolism, DVT and mediastinal mass. She initially had some cold symptoms for about a week. Sore throat cough and sinus symptoms. She had a fever, had some sweats x3. She has been tired but has a busy work schedule. She had a great appetite up until 2 weeks ago when it declined. She noted pain in her right foot a week ago. She felt she had plantar fasciitis. Then the back of her legs started feeling sore. She then had bilateral leg pain. No obvious swelling. Sunday she noted right-sided pleuritic chest pain. She presented to the emergency department for evaluation of chills and dyspnea. Patient states that she has been having symptoms for the last 3-4 weeks. She has been having productive cough with yellowish sputum production. Also has been having associated chills. Endorses dyspnea which is worse with exertion. No orthopnea or PND. No wheezing. Patient states she is compliant with home inhaler. Patient was seen outpatient and got blood work done about 1 week ago where white count was found to be elevated. She states that her neighbor is a nurse practitioner and she started p.o. antibiotics on the neighbor's recommendation. Patient does not remember the name but took 2 separate courses of p.o. antibiotics without any relief. Also has been having bilateral calf pain that started 1 week ago. No history of DVT/PE or blood clots. No chest discomfort, palpitations, abdominal pain, changes in urinary or bowel habits. CT scan angiogram of the chest revealed: Subsegmental pulmonary emboli in the right middle and right lower lobes. Atelectasis or small infiltrates in the right lower lobe, right middle lobe and inferior segment of the lingula. Small right pleural effusion. Abnormal enlarged mediastinal lymph nodes, worrisome for neoplastic process. Large right thyroid nodule. Given size of nodule, ultrasound follow-up recommended. Small pulmonary nodules. 1 cm liver lesion. WBC found to be elevated. She was started on subcu therapeutic Lovenox. On day 2 she was noted to have bright red blood per rectum x 2 therefore Lovenox discontinued. She was seen by Gastroenterology and underwent colonoscopy that showed no active bleed, but showed internal hemorrhoids likely cause of bleeding. Patient placed back on Lovenox and was monitored closely with frequent CBC monitoring. She was noted to have no recurrent bleed H&H remains stable. She was given hemorrhoidal cream and stool softeners. She was treated for acute CVA, pleural effusion, hypoxia. In the ER patient was confused and seemed disoriented. Chest x-ray showed increased right pleural effusion. Head CT initially was negative for any acute intracranial abnormality the due to continued encephalopathy MRI was ordered and showed multiple tiny acute embolic/watershed infarcts involving both cerebral hemispheres, cerebellum, thalami and splenium of corpus callosum with numerous chronic small-vessel ischemic changes within the periventricular white matter without evidence of acute hemorrhage. Head and neck CTA negative for occlusion or stenosis. She was seen and evaluated by Neurology who suggested differential diagnosis of cardiomyopathy, cardiac source of embolism versus hypercoagulable state due to adenocarcinoma. Echocardiogram showed limited view with no intra-atrial shunting therefore likely secondary to hypercoagulable state. Patient continued on full anticoagulation with Eliquis as she had been for pulmonary embolus. She was seen evaluated by Physical therapy who recommended short-term rehabilitation. She was transferred to [facility]. The final molecular test results on the pathology: Revealed positive PD-L1. She was started on the pembrolizumab. Details of the regimen including potential side effects of hypersensitivity reaction, immune mediated reactions, nausea vomiting diarrhea, pancytopenia. Risk of infection need for antibiotics and blood transfusions were all addressed with her and her sister. They agreed to start. On 07/04, she completed the 1st cycle of pembrolizumab. She now presents with shortness of breath and fatigue along with cough. CXR showed: New dense consolidation in left mid lung concerning for pneumonia, and small to moderate right side and small left pleural effusions with associated bibasilar atelectasis with mild pulmonary venous congestion. CT?of head showed new low attenuation in periventricular white matter of left frontal lobe, likely new infarct. 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 She has been seen by neurology who feel there is no new infarcts, but chronic changes. Her shortness of breath is likely multifactorial, related to the pneumonia, anemia and pulmonary vascular congestion. PLAN: She has been started on broad-spectrum antibiotics for the pneumonia. She is being transfused. She is getting diuretics. Hopefully her acute condition will resolve. I had a detailed discussion with her daughter and sister. They were not too happy at the recent rehab place. The daughter lives in [place] so would like her mom to be closer to her. Case management is involved, iron to make that happen. Thank you for the consult, I will follow along with you, CC: Vicki Yanez. . - Time Spent With Patient Time Spent with Patient (in minutes): 30
--- NOTE | 2023-07-13 09:30 | MHC.CM.PN ---
cm attempted to meet w/pt however rn w/pt, cm to revisit.
--- NOTE | 2023-07-13 11:17 | MHC.SL.SWA ---
Speech Pathologist Impression: Risk of aspiration, oropharyngeal dysphagia Risk of Aspiration Due to: Medically Fragile Reduced Cognition Dysphasia Diet Status: START on NDD2/HTL Liquid Consistency and Strategies for Safe Swallow: Liquid Intake Recommendation: Honey Thick Liquid Intake Strategies: Small Sips No Straws Solid Food Consistency: Dietary Recommendations: Grnd/Mech Altered (NDD2) Additional Modifications to Solid Foods: Patient seen by ONCOLOGY ACCOUNT SPECIALIST this morning for bedside swallow exam. Note slow oral phase, mild delay in swallow trigger, and coughing on thinner consistencies. Recommend start on GROUND/MECH ALTERED diet (NDD2) for ease of mastication and HONEY THICK liquids (NO STRAWS), with pills to be given WHOLE in PUREE per patient's preference. Patient will need 1:1 assistance feeding and is recommended strict aspiration precautions given AMS and recent CVA. Notified team (RN, RD, MD) via [employer] Message. ONCOLOGY ACCOUNT SPECIALIST will continue to follow during inpatient stay. Oral Medication Intake: Whole with Puree Please contact the pharmacy regarding appropriate crushable or liquid drug formulations that are available whenever modified delivery is recommended. Compensatory Strategies and Precautions to be Taken for Safe Swallow: Sitting Upright (90 deg) Double Swallow No Straw Small Bites and Sips Rate of Ingestion Change Oral Check Avoid Specific Foods Supervision While Eating and Drinking for Safe Swallow: Total Assistance (1:1) Foods to Avoid: Mixed consistencies; sticky, dry, or hard to chew solids Swallowing Recommended Treatments: Compens. Strategy Educat. Recommendation for Speech: Inpatient Speech Therapy Frequency/Duration: M-F PRN Date Range for Service Req: Timeline to reassess: Sports Equipment Racker Clinican/Clinical Fellow: No Supervisory Statement: I have reviewed and agree with the student/clinical fellow's documentation: N/A Speech Language Pathologist: Bethany Kessler M.A., CCC-ONCOLOGY ACCOUNT SPECIALIST
--- NOTE | 2023-07-13 11:22 | P.CNNE_ITS ---
History of Present Illness Data of Consult Service Date: 07/13/23 Primary Care Provider: Unknown Physician HPI Reason for consult: Brain lesion 62 years old woman with adenocarcinoma being treated with chemotherapy. I 1st saw her in April when an MRI of brain revealed multiple bilateral anterior posterior circulation small areas of restricted diffusion. 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 She was put on anticoagulation. She had her 1st chemotherapy session few days ago and then developed cough and change in mental status and was transferred to hospital again. There was no sign of fever or seizure. Review of Systems 2 Review of Systems: Cough but that was also better. [facility] Past Medical History Medical History Thyroid mass Adenocarcinoma of lung GIB (gastrointestinal bleeding) Mediastinal mass Pulmonary emboli Family history of thyroid disease Bilateral cataracts Sinus tachycardia Asthma Family History Family History Mother Leukemia Maternal Aunt Lung cancer Ovarian cancer Surgical History Surgical History S/P IVC filter History of tonsillectomy History of open heart surgery Social History Social History Household Members: Family Household Members Other:: SISTER Housing: House Do you presently have visiting nurse or other home services: No Comment: Commode near bed. Pt gait and balance are steady. Per protocol extra safety Patient Tobacco Use Status: Former Tobacco user Smoked in Last 30 Days: No e-Cigarette/Vaping Use: Never Used Second Hand Smoke Exposure: No Use of substances other than those prescribed or required for medical reasons: No Have you been hit, kicked, punched, or otherwise hurt by someone within the past year? If so, by whom?: No Do you feel safe in your current relationship?: Yes Is there a partner from a previous relationship who is making you feel unsafe now?: No Are you made to feel afraid or neglected: No Advance Directives: Yes Advance Directives on File: Yes Advance Directives Date on File: 05/22/23 Do you have thoughts of harming others: None Do you have a plan to hurt others: No Plan Nutrition Risks: On aspiration precautions Patient : No : No Poor oral hygiene: No service: No Meds Allergies Allergy/AdvReac Type Severity Reaction Status Date / Time hydrocodone [From Vicodin] Allergy Vomiting Verified 07/12/23 14:23 oxycodone [From Percocet] Allergy Vomiting Verified 07/12/23 14:23 shellfish derived Allergy Anaphylaxis Verified 07/12/23 14:23 Active Medications: Current Medications Acetaminophen (Acetaminophen 325 Mg Tablet) 650 mg PO Q6H PRN PRN Reason: Pain, Mild (Pain Scale 1-3) Albuterol Sulfate (Albuterol Sulfate 90 Mcg 8 Gm Inhaler) 2 puff INHALE Q4H PRN PRN Reason: Shortness Of Breath Or Wheezing Albuterol/Ipratropium (Albuterol/Iprat 2.5/0.5mg 3 Ml Ampul.Neb) 3 ml INHALE RQ4H WHILE AWAKE [facility] Last Admin: 07/13/23 07:48 Dose: 3 ml Apixaban (Apixaban 5 Mg Tablet) 5 mg PO BID [facility] Last Admin: 07/13/23 09:12 Dose: 5 mg Atorvastatin Calcium (Atorvastatin Calcium 40 Mg Tablet) 40 mg PO BEDTIME [facility] Bisacodyl (Bisacodyl 10 Mg Supp.Rect) 10 mg NM DAILY PRN PRN Reason: Constipation Docusate Sodium (Docusate Sodium 100 Mg Capsule) 100 mg PO DAILY PRN PRN Reason: Constipation Fluticasone Propionate (Fluticasone Propionate Nasal 16 Gm [place]) 1 spray NOSTRIL-B DAILY PRN PRN Reason: Congestion Furosemide (Furosemide 40 Mg/4 Ml Vial) 40 mg IVPUSH DAILY [facility]; Protocol Last Admin: 07/13/23 09:12 Dose: 40 mg Hydrocortisone (Hydrocortisone 2.5 % Rectal Cr 30 Gm Tube) 1 appl NM BID [facility] Last Admin: 07/13/23 09:26 Dose: Not Given Hydroxyzine HCl (Hydroxyzine Hcl 10 Mg Tablet) 10 mg PO BID PRN PRN Reason: Anxiety Last Admin: 07/13/23 08:06 Dose: 10 mg Cefepime HCl 2 gm/ Sodium (Chloride) 50 mls @ 100 mls/hr IV Q8H [facility] Last Infusion: 07/13/23 08:11 Dose: Infused Vancomycin HCl 1,500 mg/ (Sodium Chloride) 500 mls @ 333.333 mls/hr IV Q24H [facility] Melatonin (Melatonin 3 Mg Tablet) 6 mg PO BEDTIME PRN PRN Reason: Insomnia Last Admin: 07/12/23 22:54 Dose: 6 mg Metoprolol Tartrate (Metoprolol Tartrate 25 Mg Tablet) 37.5 mg PO BID [facility]; Protocol Last Admin: 07/13/23 09:11 Dose: 37.5 mg Midodrine (Midodrine Hcl 10 Mg Tablet) 10 mg PO BID [facility] Last Admin: 07/13/23 09:12 Dose: 10 mg Ondansetron HCl (Ondansetron Hcl 4 Mg/2 Ml Vial) 4 mg IVPUSH Q8H PRN PRN Reason: Nausea and Vomiting Last Admin: 07/13/23 00:51 Dose: 4 mg Pharmacy Consult (Consult Rx Vancomycin Dosing) 1 each MISCELLANE DAILY PRN PRN Reason: Consult order Sodium Chloride (0.9 % Sodium Chloride Flush 3 Ml Syringe) 3 ml IVFLUSH QSHIFT [facility] Last Admin: 07/13/23 08:11 Dose: Not Given Sodium Chloride (Sodium Chloride 0.65 % Nasal 44 Ml Sprbtl) 1 spray NOSTRIL-B DAILY [facility] Last Admin: 07/13/23 09:27 Dose: Not Given Sodium Chloride (Sodium Chloride 0.65 % Nasal 44 Ml Sprbtl) 1 spray NOSTRIL-B Q8H PRN PRN Reason: Congestion Home Medications ?Medication ?Instructions ?Recorded ?Confirmed ?Last Taken ?Type albuterol sulfate 90 mcg/actuation 2 puff inhalation Q4H PRN 05/12/23 07/12/23 Unknown History aerosol inhaler (Ventolin HFA) Shortness Of Breath Or Wheezing budesonide-formoterol HFA 160 2 puff inhalation BID 05/12/23 07/12/23 Unknown History mcg-4.5 mcg/actuation aerosol inhaler (Symbicort) metoprolol tartrate 25 mg tablet 37.5 mg PO BID 05/12/23 07/12/23 Unknown History fluticasone propionate 50 1 spray intranasal DAILY PRN 05/22/23 07/12/23 Unknown History mcg/actuation nasal Congestion spray,suspension acetaminophen 325 mg tablet 650 mg PO Q4H PRN pain / fever 07/12/23 07/12/23 Unknown History bisacodyl 10 mg rectal suppository 10 mg NM DAILY PRN Constipation 07/12/23 07/12/23 Unknown History hydroxyzine HCl 10 mg tablet 10 mg PO BID PRN Anxiety 07/12/23 07/12/23 Unknown History melatonin 3 mg tablet 3 mg PO BEDTIME 07/12/23 07/12/23 Unknown History midodrine 10 mg tablet 10 mg PO BID 07/12/23 07/12/23 Unknown History sodium chloride 0.65 % nasal spray 1 spray intranasal DAILY Nose 07/12/23 07/12/23 Unknown History aerosol (Saline Nasal) Dryness sodium chloride 0.65 % nasal spray 1 spray intranasal Q8H PRN 07/12/23 07/12/23 Unknown History aerosol (Saline Nasal) Congestion Physical Exam 2 Vital Signs: Vital Signs: Last Vital Signs Temp 97.5 F 07/13/23 08:52 Pulse 105 H 07/13/23 08:52 Resp 20 07/13/23 08:52 BP 142/84 H 07/13/23 09:12 Pulse Ox 96 07/13/23 07:06 O2 Del Method Nasal Cannula 07/13/23 07:06 O2 Flow Rate 2 07/13/23 07:06 BMI result Body Mass Index 19.4 Neuro: Other: She was alert and awake with normal spontaneity of speech fluency comprehension and flat affect. She was following commands. Face was symmetrical. There was no focal arm or leg weakness. Plantars were flexor. Deep tendon reflexes were absent. Results Labs 07/13/23 05:07 07/13/23 05:07 Labs: Short CBC 07/12/23 07/13/23 Range/Units 15:07 05:07 WBC 30.6 H* 24.8 H (4.8-10.8) X10*3/uL Hgb 7.6 L 6.7 L* (12.0-16.0) g/dl Hct 24.4 L 22.3 L (37.0-47.0) % Plt Count 685 H 551 H (160-400) X10*3/uL BMP 07/12/23 07/13/23 14:46 05:07 Sodium 141 138 Potassium 3.2 L 3.3 Chloride 97 101 Carbon Dioxide 33 H 29 BUN 23 H 22 H Creatinine 0.78 0.80 Calcium 8.8 8.3 L Liver Function 07/12/23 Range/Units 14:46 Total Bilirubin 0.4 (0.0-1.0) mg/dL Direct Bilirubin 0.3 (0.0-0.5) mg/dL AST 38 H (5-31) U/L ALT 23 (0-31) U/L Alkaline Phosphatase 360 H (39-117) U/L Albumin 2.5 L (3.5-5.0) g/dL Urine 07/12/23 Range/Units 16:20 Urine Color Yellow Urine Appearance Clear Urine pH 5.5 (5.0-9.0) Ur Specific [place] 1.015 (1.005-1.025) Urine Protein Trace (Neg-Trace) mg/dL Urine Glucose (UA) Negative (Negative) mg/dL Noncontrast head CT revealed multiple small areas of hypodensity on both sides including 1 in left frontal lobe but signal was similar to other lesion suggesting that this was a chronic lesion and on previous MRI there was area of restricted diffusion in that area. Microbiology Microbiology Results: Microbiology 07/12/23 16:41 Urine clean catch Urine Culture - Preliminary No growth to date. 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 Her CT scan of brain done the other day does not reveal any overt new lesion. The lesion reported in left frontal lobe is likely from previous stroke. In any case, another ischemic lesion were not changed management and I recommend continuing anticoagulation. This can or the lesion noted on this can did not suggest malignancy of brain. Procedures Date of Service Date of Service: 07/13/23
--- NOTE | 2023-07-13 11:37 | MHC.CM.PN ---
Addendum entered by Darby Ortiz, RN 07/13/23 13:13: PCP IS DR. LAY LUTZ AT [facility]. Original Note: EMR REVIEWED, CM MET W/PT AND SISTER/HCP KAROLINE AND DTR/HCP HARISH MOONEY [phone], PER PT AND FAMILY PT HAS BEEN AT [facility] SINCE SHE WAS DISCHARGED IN MAY AND THEY ARE NOT HAPPY W/HER CARE AND THINK PT WOULD PROGRESS MORE IF SHE WAS AT AN ACUTE REHAB AND WOULD LIKE PT PLACED NEAR [facility], KAROLINE AND HARISH WILL DISCUSS W/PT'S ONCOLOGIST DR. GONSALEZ TO ASSIST W/FINDING PT A NEW ONCOLOGY TEAM IN [facility] SHE HAS STARTED [facility] W/DR. GONSALEZ. AR REFERRAL TO BE PLACED FROM HARISH'S ZIPCODE [id number], HCP ON FILE VERIFIED, PT'S PCP LAY LUTZ, BASED OUT OF [facility].
--- NOTE | 2023-07-13 13:58 | MHC.STROKE ---
Met with patient. Pt awake, alert and engaging in conversation. Pt seen by Dr. Rosa earlier in the day. Upon review of the imaging by Dr. Rosa, he felt that there was no new stroke for this patient. Pt is aware of this result. Encouraged her to seek out our assistance if she has any further questions moving forward.
--- NOTE | 2023-07-13 15:51 | HO.MIDLINE_ITS ---
Midline Insertion MIDLINE INSERTION Diagnosis: Pneumonia Indication: IV access Pertinent Labs: reviewed Technique: Using sterile technique including cap and mask, glove and drape, the left arm was prepped and draped in the usual sterile fashion of full barrier technique with CHG. Using ultrasound guidance, the left basilic vein access was obtained in a single attempt by this RN. A 20 guage 8cm NON PASV midline was positioned. The procedure was performed in S272. Ultrasound was used to document vein patency and for needle entry. A formal ultrasound picture was recorded. Vascular Stave Block Splitter has released the line for use and it is currently dressed with a StatLock, Tegaderm, and CHG disc. Verification has been performed for blood return and line patency. Arm Circumference: 26 cm Equipment: BARD PowerGlide ST Midline Catheter Catheter Type: 20 guage 8 cm NON PASV midline Lot #: [id number]
--- NOTE | 2023-07-13 15:58 | HO.PM.IMPN ---
Subjective Subjective Date of Service: 07/13/23 Interval History: more alert and interactive moving all extremities decreae O2 supplement no other events overnight Review of Systems Review of Systems: Yes all other systems are reviewed and are negative Physical Exam Vital Signs: Vital Signs: Last Vital Signs Temp 97.6 F 07/13/23 11:50 Pulse 87 07/13/23 12:14 Resp 24 H 07/13/23 12:14 BP 92/58 L 07/13/23 11:50 Pulse Ox 95 07/13/23 11:50 O2 Del Method Nasal Cannula 07/13/23 11:50 O2 Flow Rate 2 07/13/23 11:50 BMI result Body Mass Index 19.4 Const: Other: Constitutional : Awake, slow, not in distress Neck : Normal inspection, Supple Cardiovascular : RRR, no JVP, no lower extremity edema Respiratory : good bilateral air entry, no crackles, wheezes or rhonchi Gastrointestinal: soft, lax, Normal bowel sounds, Non tender Skin : Warm, Dry Neurological : Alert & oriented to self and place, No focal deficit, moving all extremities with overall weakness Objective Data Active Medications Acetaminophen (Acetaminophen 325 Mg Tablet) 650 mg PO Q6H PRN PRN Reason: Pain, Mild (Pain Scale 1-3) Albuterol Sulfate (Albuterol Sulfate 90 Mcg 8 Gm Inhaler) 2 puff INHALE Q4H PRN PRN Reason: Shortness Of Breath Or Wheezing Albuterol/Ipratropium (Albuterol/Iprat 2.5/0.5mg 3 Ml Ampul.Neb) 3 ml INHALE RQ4H WHILE AWAKE [facility] Last Admin: 07/13/23 15:44 Dose: Not Given Documented By: LION Non-Admin Reason: pt getting a mid line Apixaban (Apixaban 5 Mg Tablet) 5 mg PO BID [facility] Last Admin: 07/13/23 09:12 Dose: 5 mg Documented By: PALMER Atorvastatin Calcium (Atorvastatin Calcium 40 Mg Tablet) 40 mg PO BEDTIME [facility] Bisacodyl (Bisacodyl 10 Mg Supp.Rect) 10 mg [place] DAILY PRN PRN Reason: Constipation Heparin Sodium (Porcine) 50 (units/ Sodium Chloride 5 ml) 0 units IVFLUSH TID [facility] Docusate Sodium (Docusate Sodium 100 Mg Capsule) 100 mg PO DAILY PRN PRN Reason: Constipation Fluticasone Propionate (Fluticasone Propionate Nasal 16 Gm [place]) 1 spray NOSTRIL-B DAILY PRN PRN Reason: Congestion Furosemide (Furosemide 40 Mg/4 Ml Vial) 40 mg IVPUSH DAILY [facility]; Protocol Last Admin: 07/13/23 09:12 Dose: 40 mg Documented By: PALMER Hydrocortisone (Hydrocortisone 2.5 % Rectal Cr 30 Gm Tube) 1 appl TN BID [facility] Last Admin: 07/13/23 09:26 Dose: Not Given Documented By: PALMER Non-Admin Reason: Med Not Available Hydroxyzine HCl (Hydroxyzine Hcl 10 Mg Tablet) 10 mg PO BID PRN PRN Reason: Anxiety Last Admin: 07/13/23 08:06 Dose: 10 mg Documented By: BRIAN Cefepime HCl 2 gm/ Sodium (Chloride) 50 mls @ 100 mls/hr IV Q8H [facility] Last Infusion: 07/13/23 14:40 Dose: Infused Documented By: PALMER Vancomycin HCl 1,500 mg/ (Sodium Chloride) 500 mls @ 333.333 mls/hr IV Q24H [facility] Melatonin (Melatonin 3 Mg Tablet) 6 mg PO BEDTIME PRN PRN Reason: Insomnia Last Admin: 07/12/23 22:54 Dose: 6 mg Documented By: CHYNA Metoprolol Tartrate (Metoprolol Tartrate 25 Mg Tablet) 37.5 mg PO BID [facility]; Protocol Last Admin: 07/13/23 09:11 Dose: 37.5 mg Documented By: PALMER Midodrine (Midodrine Hcl 10 Mg Tablet) 10 mg PO BID [facility] Last Admin: 07/13/23 09:12 Dose: 10 mg Documented By: PALMER Ondansetron HCl (Ondansetron Hcl 4 Mg/2 Ml Vial) 4 mg IVPUSH Q8H PRN PRN Reason: Nausea and Vomiting Last Admin: 07/13/23 00:51 Dose: 4 mg Documented By: MARCELINO Pharmacy Consult (Consult Rx Vancomycin Dosing) 1 each MISCELLANE DAILY PRN PRN Reason: Consult order Sodium Chloride (0.9 % Sodium Chloride Flush 3 Ml Syringe) 3 ml IVFLUSH QSHIFT [facility] Last Admin: 07/13/23 08:11 Dose: Not Given Documented By: BRIAN Non-Admin Reason: See Note Sodium Chloride (Sodium Chloride 0.65 % Nasal 44 Ml Sprbtl) 1 spray NOSTRIL-B DAILY [facility] Last Admin: 07/13/23 09:27 Dose: Not Given Documented By: PALMER Non-Admin Reason: Med Not Available Sodium Chloride (Sodium Chloride 0.65 % Nasal 44 Ml Sprbtl) 1 spray NOSTRIL-B Q8H PRN PRN Reason: Congestion Labs 07/13/23 05:07 07/13/23 05:07 Labs: Laboratory Results - last 24 hr 07/12/23 07/12/23 07/13/23 15:07 16:20 05:07 MCV 82.6 MCH 24.8 L MCHC 30.0 L RDW 18.9 H Plt Count 551 H MPV 9.3 L Immature Gran % (Auto) 1.4 H Neut % (Auto) 93.6 H Lymph % (Auto) 2.[address] [place] % (Auto) 2.7 Eos % (Auto) 0.0 Baso % (Auto) 0.2 Lymph # (Auto) 0.[address] [place] # (Auto) 0.8 Eos # (Auto) 0.0 Baso # (Auto) 0.1 Abs Immat Gran (auto) 0.42 H Absolute Neuts (auto) 28.6 H Absolute Nucleated RBC 0.000 0.000 Nucleated RBC % (auto) 0.0 0.0 Smear Tech's Comments VERIFIED PT 30.3 H INR 2.5 H Anion Gap 11 L Estim Creat Clear Calc 66.1 Estimated GFR > 60 Random Glucose 97 Calcium 8.3 L Urine Color Yellow Urine Appearance Clear Urine pH 5.5 Ur Specific [place] 1.015 Urine Protein Trace Urine Glucose (UA) Negative Urine Ketones Negative Urine Blood Negative Urine Nitrite Negative Ur Leukocyte Esterase Small (1+) H Urine RBC 0-2 Urine WBC 6-10 H Ur Squamous Epith Cells 0-2 Urine Bacteria None Seen Hyaline Casts 0-2 Blood Type Antibody Screen Antibody Identification Enhanced Crossmatch 07/13/23 09:45 MCV MCH MCHC RDW Plt Count MPV Immature Gran % (Auto) Neut % (Auto) Lymph % (Auto) [facility] [place] % (Auto) Eos % (Auto) Baso % (Auto) Lymph # (Auto) [facility] # (Auto) Eos # (Auto) Baso # (Auto) Abs Immat Gran (auto) Absolute Neuts (auto) Absolute Nucleated RBC Nucleated RBC % (auto) Smear Tech's Comments PT INR Anion Gap Estim Creat Clear Calc Estimated GFR Random Glucose Calcium Urine Color Urine Appearance Urine pH Ur Specific [place] Urine Protein Urine Glucose (UA) Urine Ketones Urine Blood Urine Nitrite Ur Leukocyte Esterase Urine RBC Urine WBC Ur Squamous Epith Cells Urine Bacteria Hyaline Casts Blood Type O Positive Antibody Screen POSITIVE Antibody Identification Warm Auto Antibody Enhanced Crossmatch See Detail Microbiology Microbiology Results: Microbiology 07/12/23 16:41 Urine Culture - Preliminary Urine clean catch No growth to date. Assessment and Plan (1) Elevated white blood cell count, unspecified: Status: Acute (2) Pleural effusion: Status: Acute (3) Pneumonia: Status: Acute Plan Pt is a 62-year-old female with a PMH significant for?asthma not on home oxygen, sinus tachycardia on beta-elli, history of mitral valve repair in 2016, hx of non small cell carcinoma of lung followed by Dr. Lowry, hx of DVT of left upper extremity with PE on Eliquis, and hx of hemorrhoidal bleeding who presents to the ED from [facility] for evaluation of increased confusion, SOB, and soft BP for the past 3-4 days. Pt will be admitted to the hospital for treatment and further evaluation of acute respiratory failure in the setting of likely postobstructive pneumonia with sepsis secondary to non small-cell cancer as well as AMS in the setting of likely new CVA. Acute respiratory failure in the setting of pneumonia with sepsis Improving CXR showing new dense consolidation in mid lung Pending cultures Continue vancomycin and cefepime, started 07/12/2023 wean O2 as tolerated Monitor respiratory status Abnormal CT head CT of head showing new low-attenuation in periventricular white matter of left frontal lobe, concerning for new infarct; also 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 continue AC Monitor on telemetry Acute HFpEF exacerbation CXR with pulmonary edema and bilateral pleural effusions Furosemide 40 mg IV daily Follow lytes, MG, I/O echocardiogram showing EF 55% with mitral stenosis and regurgitation Monitor on telemetry Hypokalemia, mild resolved. follow BMP Non small cell lung cancer Finished 1st cycle of pembrolizumab last week Scheduled to get PET scan and Port-A-Cath placement at [facility] next week Heme/Onc consult Hypoalbuminemia Albumin 2.5 at time of presentation Likely secondary to reduced p.o. intake Patient given albumin in ED Anemia H&H dropped to 6.7, to transfuse 1 unit for now Follow CBC Diet CYTOLOGY TECHNOLOGIST team evaluation, start diet Aspiration precautions Hx of DVT/PE Continue Eliquis Chronic sinus tachycardia Continue metoprolol Hemorrhoids Hydrocortisone rectal cream b.i.d. Full Code DVT Prophylaxis: On Eliquis Pt will require a hospitalization overnight for treatment of acute respiratory failure in the setting of pneumonia with sepsis secondary to non small-cell cancer as well as AMS. Patient will require hospitalization for administration of IV antibiotics, supplemental oxygen, close monitoring of labs, H&H, and respiratory status, as well as specialist consultation with Neurology and Hematology/Oncology. Quality Stroke Does the patient have a stroke diagnosis?: Yes Reason for No Anti-thrombotic by Day Two: Contraindicated (Pt on Eliquis; outside of tNK therapeutic window.) VTE Prior VTE?: No VTE Risk Level:: Medical - moderate - high VTE Device Contraindication: Treatment Not Indicated VTE Drug Contraindication: N/A - Med Ordered
[2023-07-13] MEDS: vancomycin HCL 1,500 MG in 0.9 % Sodium Chloride 500 ML 333.33 MG IV (16:47)
[2023-07-13] MEDS: ALPRAZolam 0.5 MG TABLET 0.25 MG PO (21:10)
[2023-07-13] MEDS: Atorvastatin Calcium 40 MG TABLET PO (21:10)
[2023-07-13] MEDS: Heparin Sodium,Porcine Flush 50 UNITS, 0.9 % Sodium Chloride Flush 5 ML IVFLUSH (22:25)
[2023-07-14] VITALS (21 sets, daily range): BP systolic 80–116; BP diastolic 47–79; PULSE 71–108; RESP 16–32; TEMP 35.9–36.4; O2SAT 93–100
[2023-07-14] MEDS: Furosemide 20 MG/2 ML VIAL IVPUSH ×3 (00:25→15:49)
[2023-07-14] MEDS: Melatonin 3 MG TABLET 6 MG PO (00:32)
[2023-07-14] MEDS: hydrOXYzine HCL 10 MG TABLET PO (00:55)
[2023-07-14] MEDS: Albuterol/Iprat 2.5/0.5MG 3 ML AMPUL.NEB INHALE ×5 (01:01→21:59)
[2023-07-14] MEDS: cefEPime HCl 2 GM in 0.9 % Sodium Chloride 50 ML IV ×2 (06:40→14:51)
[2023-07-14 06:58] LABS: Hematocrit 24.5 % (37.0-47.0); Hemoglobin 7.6 g/dl (12.0-16.0); Mean Corpuscular Hemoglobin 26.5 pg (27.0-33.0); Mean Corpuscular Volume 85.4 fL (80.0-98.0); Mean Platelet Volume 9.4 fL (9.4-12.3); Platelet Count 515 X10*3/uL (160-400); Red Blood Count 2.87 X10*6/uL (4.20-5.50); Red Cell Distribution Width 19.1 % (11.0-16.0); White Blood Count 25.2 X10*3/uL (4.8-10.8)
[2023-07-14 06:59] LABS: Hematocrit 24.6 % (37.0-47.0); Hemoglobin 7.7 g/dl (12.0-16.0); Mean Corpuscular HGB Conc 31.3 g/dl (31.0-35.0); Mean Corpuscular Hemoglobin 26.6 pg (27.0-33.0); Mean Corpuscular Volume 85.1 fL (80.0-98.0); Mean Platelet Volume 9.4 fL (9.4-12.3); Platelet Count 510 X10*3/uL (160-400); Red Blood Count 2.89 X10*6/uL (4.20-5.50); Red Cell Distribution Width 18.7 % (11.0-16.0); White Blood Count 25.3 X10*3/uL (4.8-10.8)
[2023-07-14 07:30] LABS: Anion Gap 11 (12-20); Blood Urea Nitrogen 26 mg/dL (9-16); Calcium 8.2 mg/dL (8.4-10.2); Carbon Dioxide 31 mmol/L (22-29); Chloride 101 mmol/L (96-108); Creatinine Clr Calc Pharmacy 56.3; Estimated Glomerular Filt Rate > 60; Glucose Random 104 mg/dL (60-115); Potassium 2.8 mmol/L (3.3-5.1); Sodium 140 mmol/L (135-145)
[2023-07-14] MEDS: Heparin Sodium,Porcine Flush 50 UNITS, 0.9 % Sodium Chloride Flush 5 ML IVFLUSH ×2 (08:37→14:59)
[2023-07-14] MEDS: Potassium Chloride/H20 10 MEQ/100 ML PIGGYBACK 100 MEQ IV ×2 (08:44→09:54)
[2023-07-14] MEDS: Midodrine HCl 10 MG TABLET PO ×3 (08:45→21:39)
[2023-07-14] MEDS: Metoprolol Tartrate 25 MG TABLET 37.5 MG PO (08:46)
[2023-07-14] MEDS: Apixaban 5 MG TABLET PO ×2 (08:47→21:39)
[2023-07-14] MEDS: Potassium Chloride Packet 20 MEQ PACKET 40 MEQ PO (08:47)
[2023-07-14] MEDS: 0.9 % Sodium Chloride Flush 3 ML SYRINGE IVFLUSH ×2 (08:48→15:55)
[2023-07-14] MEDS: 0.9 % Sodium Chloride 1,000 ML 999 ML IV (11:35)
[2023-07-14] MEDS: Sertraline HCL 25 MG TABLET PO (11:39)
[2023-07-14] MEDS: guaiFENesin DM 600/30 1 TAB TAB.ER.12H 2 TAB PO ×2 (11:39→21:40)
--- NOTE | 2023-07-14 13:13 | P.PNHO-ONC_ITS ---
Medical Summary - Medical Summary Date of Service: 07/14/23 Chief complaint: non small cell lung cancer Primary Care Provider: Unknown Physician Medical Summary: DIAGNOSIS: [id number] LUNG CARCINOMA. CURRENT THERAPY: Status post 1st cycle of pembrolizumab. Interval History Interval history: Woo Marks is a 62 year old lady with [id number] lung carcinoma, admitted last night with shortness of breath. PMH significant for?hx of DVT of left upper extremity with PE on Eliquis, who presented to the ED from [facility] for evaluation of increased confusion, SOB, and soft BP for the past 3-4 days. Pt is somnolent but arousable at time of interview and exam, falling back asleep without fully answering questions. Is alert and oriented to self and place only, not to time or situation. She was started on 1st cycle of Keytruda. She has been apparently declining since then with increased productive cough, SOB, weakness and malaise, and increased confusion. Her appetite has declined and so has intake of both fluids and solids. Here she was afebrile and normotensive, but tachycardic up to 104 and tachypneic up to 22. Labs were significant for leukocytosis of 30.6, H&H of 7.6/24.4, potassium 3.2, bicarb 33, AST 38, alk-phos 360, BNP 668, albumin 2.5, and procalcitonin 0.17. UA negative for UTI. CXR showed new dense consolidation in left mid lung concerning for pneumonia, and small to moderate right side and small left pleural effusions with associated bibasilar atelectasis with mild pulmonary venous congestion. CT?of head showed new low attenuation in periventricular white matter of left frontal lobe, likely new infarct. 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 EKG demonstrated sinus rhythm with PACs and T-wave inversion in V3. Pt was treated with DuoNeb, IVF, furosemide, albumin, potassium chloride IV, alprazolam, cefepime, and vancomycin. She was admitted to the hospital for further evaluation and management of acute respiratory failure in the setting of likely postobstructive pneumonia with sepsis secondary to non small-cell cancer as well as AMS in the setting of likely new CVA. Review of Systems 2 Review of Systems: Patient feels rather fatigued. No headache but dizziness. Has had shortness of breath. Cough with sputum. Denies abdominal pain nausea vomiting heartburn. Bowels are working. No gross blood. [facility] Medical History : Asthma not on home oxygen, Sinus tachycardia on beta-elli, history of mitral valve repair in 2017, Hx of non small cell carcinoma of lung, Hx of hemorrhoidal bleeding Thyroid mass Adenocarcinoma of lung GIB (gastrointestinal bleeding) Mediastinal mass Pulmonary emboli Family history of thyroid disease Bilateral cataracts Sinus tachycardia Asthma Family History: Mother Leukemia Maternal Aunt Lung cancer Ovarian cancer Review of Systems - ENT Reports system reviewed and no additional complaints, except as documented - Cardiovascular Reports fast heart rate - Respiratory Reports stridor, Reports wheezing - Gastrointestinal Reports difficulty swallowing - Genitourinary Reports difficulty urinating - Neurologic Reports system reviewed and no additional complaints, except as documented [facility] Medical History: Medical History (Last Updated 07/13/23 @ 16:05 by Sofía Santillan MD) Adenocarcinoma of lung Asthma Bilateral cataracts Family history of thyroid disease GIB (gastrointestinal bleeding) Mediastinal mass Pulmonary emboli Sinus tachycardia Thyroid mass Functional capacity: wheelchair bound Family History: Family History (Last Reviewed 07/12/23 @ 23:22 by BANDAR Dangelo) Mother Leukemia Maternal Aunt Lung cancer Ovarian cancer Surgical History: Surgical History (Last Reviewed 07/12/23 @ 23:22 by BANDAR Dangelo) History of open heart surgery History of tonsillectomy S/P IVC filter Social History: Social History (Last Reviewed 07/12/23 @ 23:22 by BANDAR Dangelo) Living Situation History: Household Members: Family Household Members Other:: SISTER Housing: House Do you presently have visiting nurse or other home services: No Alcohol History Details: 1. How often do you have a drink containing alcohol?: a. Never 3. How often do you have six or more drinks on one occasion?: a. Never AUDIT-C Alcohol total score: 0 Currently Displaying Signs/Symptoms of Alcohol Withdrawal: No Tobacco History: Patient Tobacco Use Status: Former Tobacco user Smoked in Last 30 Days: No e-Cigarette/Vaping Use: Never Used Second Hand Smoke Exposure: No Substance Use History: Use of substances other than those prescribed or required for medical reasons : No Currently Displaying Signs/Symptoms of Drug Intoxication Withdrawal: No Domestic Abuse History: Have you been hit, kicked, punched, or otherwise hurt by someone within the past year? If so, by whom?: No Do you feel safe in your current relationship?: Yes Is there a partner from a previous relationship who is making you feel unsafe now?: No Are you made to feel afraid or neglected: No Advance Directives: Advance Directives: Yes Advance Directives on File: Yes Advance Directives Date on File: 05/22/23 Homicidal Assessment: Do you have thoughts of harming others: None Do you have a plan to hurt others: No Plan Nutrition Assessment: Nutrition Risks: On aspiration precautions Patient : No : No Poor oral hygiene: No Occupation Assessmet: service: No Home Medications and Allergies Current Medications: Current Medications Acetaminophen (Acetaminophen 325 Mg Tablet) 650 mg PO Q6H PRN PRN Reason: Pain, Mild (Pain Scale 1-3) Albuterol Sulfate (Albuterol Sulfate 90 Mcg 8 Gm Inhaler) 2 puff INHALE RQ4H PRN PRN Reason: Shortness of Breath/Wheezing Albuterol/Ipratropium (Albuterol/Iprat 2.5/0.5mg 3 Ml Ampul.Neb) 3 ml INHALE RQ4H WHILE AWAKE [facility] Albuterol/Ipratropium (Albuterol/Iprat 2.5/0.5mg 3 Ml Ampul.Neb) 3 ml INHALE RQ4H WHILE AWAKE PRN PRN Reason: Shortness of Breath/Wheezing Last Admin: 07/14/23 13:05 Dose: 3 ml Apixaban (Apixaban 5 Mg Tablet) 5 mg PO BID [facility] Last Admin: 07/14/23 08:47 Dose: 5 mg Atorvastatin Calcium (Atorvastatin Calcium 40 Mg Tablet) 40 mg PO BEDTIME [facility] Last Admin: 07/13/23 21:10 Dose: 40 mg Bisacodyl (Bisacodyl 10 Mg Supp.Rect) 10 mg NM DAILY PRN PRN Reason: Constipation Heparin Sodium (Porcine) 50 (units/ Sodium Chloride 5 ml) 0 units IVFLUSH TID [facility] Last Admin: 07/14/23 08:37 Dose: 50 unit Docusate Sodium (Docusate Sodium 100 Mg Capsule) 100 mg PO DAILY PRN PRN Reason: Constipation Fluticasone Propionate (Fluticasone Propionate Nasal 16 Gm [place]) 1 spray NOSTRIL-B DAILY PRN PRN Reason: Congestion Guaifenesin/Dextromethorphan (Guaifenesin Dm 600/30 1 Tab Tab.Er.12h) 2 tab PO BID [facility] Last Admin: 07/14/23 11:39 Dose: 2 tab Hydroxyzine HCl (Hydroxyzine Hcl 10 Mg Tablet) 10 mg PO BID PRN PRN Reason: Anxiety Last Admin: 07/14/23 00:55 Dose: 10 mg Cefepime HCl 2 gm/ Sodium (Chloride) 50 mls @ 100 mls/hr IV Q8H [facility] Last Infusion: 07/14/23 10:59 Dose: Infused Vancomycin HCl 1,500 mg/ (Sodium Chloride) 500 mls @ 333.333 mls/hr IV Q24H [facility] Last Infusion: 07/13/23 18:20 Dose: Infused Melatonin (Melatonin 3 Mg Tablet) 6 mg PO BEDTIME PRN PRN Reason: Insomnia Last Admin: 07/14/23 00:32 Dose: 6 mg Metoprolol Tartrate (Metoprolol Tartrate 12.5 Mg Halftab) 12.5 mg PO BID [facility]; Protocol Midodrine (Midodrine Hcl 10 Mg Tablet) 10 mg PO BID [facility] Last Admin: 07/14/23 08:45 Dose: 10 mg Pt Own Med ( Hydrocortisone Acetate 25 Mg Suppository) 25 mg NM BID [facility] Ondansetron HCl (Ondansetron Hcl 4 Mg/2 Ml Vial) 4 mg IVPUSH Q8H PRN PRN Reason: Nausea and Vomiting Last Admin: 07/13/23 00:51 Dose: 4 mg Pharmacy Consult (Consult Rx Vancomycin Dosing) 1 each MISCELLANE DAILY PRN PRN Reason: Consult order Sertraline HCl (Sertraline Hcl 25 Mg Tablet) 25 mg PO DAILY [facility] Last Admin: 07/14/23 11:39 Dose: 25 mg Sodium Chloride (0.9 % Sodium Chloride Flush 3 Ml Syringe) 3 ml IVFLUSH QSHIFT [facility] Last Admin: 07/14/23 08:48 Dose: 3 ml Sodium Chloride (Sodium Chloride 0.65 % Nasal 44 Ml Sprbtl) 1 spray NOSTRIL-B DAILY [facility] Last Admin: 07/14/23 09:55 Dose: Not Given Sodium Chloride (Sodium Chloride 0.65 % Nasal 44 Ml Sprbtl) 1 spray NOSTRIL-B Q8H PRN PRN Reason: Congestion Trazodone HCl (Trazodone Hcl 25 Mg Halftab) 25 mg PO BEDTIME [facility] Home Medications ?Medication ?Instructions ?Recorded ?Confirmed ?Type albuterol sulfate 90 mcg/actuation 2 puff inhalation Q4H PRN 05/12/23 07/12/23 History aerosol inhaler (Ventolin HFA) Shortness Of Breath Or Wheezing budesonide-formoterol HFA 160 2 puff inhalation BID 05/12/23 07/12/23 History mcg-4.5 mcg/actuation aerosol inhaler (Symbicort) metoprolol tartrate 25 mg tablet 37.5 mg PO BID 05/12/23 07/12/23 History fluticasone propionate 50 1 spray intranasal DAILY PRN 05/22/23 07/12/23 History mcg/actuation nasal Congestion spray,suspension acetaminophen 325 mg tablet 650 mg PO Q4H PRN pain / fever 07/12/23 07/12/23 History bisacodyl 10 mg rectal suppository 10 mg NM DAILY PRN Constipation 07/12/23 07/12/23 History hydroxyzine HCl 10 mg tablet 10 mg PO BID PRN Anxiety 07/12/23 07/12/23 History melatonin 3 mg tablet 3 mg PO BEDTIME 07/12/23 07/12/23 History midodrine 10 mg tablet 10 mg PO BID 07/12/23 07/12/23 History sodium chloride 0.65 % nasal spray 1 spray intranasal DAILY Nose 07/12/23 07/12/23 History aerosol (Saline Nasal) Dryness sodium chloride 0.65 % nasal spray 1 spray intranasal Q8H PRN 07/12/23 07/12/23 History aerosol (Saline Nasal) Congestion hydrocortisone acetate 25 mg 25 mg NM BID 07/14/23 07/14/23 History rectal suppository Allergies Allergy/AdvReac Type Severity Reaction Status Date / Time hydrocodone [From Vicodin] Allergy Vomiting Verified 07/12/23 14:23 oxycodone [From Percocet] Allergy Vomiting Verified 07/12/23 14:23 shellfish derived Allergy Anaphylaxis Verified 07/12/23 14:23 Exam Vital signs: Vital Signs Temp 97.3 F 07/14/23 11:23 Pulse 98 07/14/23 13:09 Resp 32 H 07/14/23 13:09 BP 108/68 07/14/23 12:01 Pulse Ox 100 07/14/23 11:23 O2 Del Method Nasal Cannula 07/14/23 11:23 O2 Flow Rate 2 07/14/23 11:23 Intake & Output 07/13/23 07/14/23 07/14/23 18:59 06:59 18:59 Intake Total 840 / 1340 500 / 1340 250 / 250 Output Total 1700 / 1700 Balance 840 / -360 -1200 / -360 250 / 250 Urine Output (Average ml/kg/hr) 2.59 2.59 Intake: Intake, Oral Amount 240 / 240 Intake (Blood Product) Amount 0 / 350 350 / 350 Red Blood Cells (E0382) Unit 0 / 350 350 / 350 [id number] Intake, IV Amount 600 / 750 150 / 750 250 / 250 0.9 % Sodium Chloride 100 ml @ 100 / 100 100 mls/hr IV ONCE ONE Rx#: [id number] Potassium Chloride/H20 10 meq 200 / 200 In 100 ml @ 100 mls/hr IV Q1H [facility] Rx#:[id number] cefEPime HCl 2 gm In 0.9 % 100 / 150 50 / 150 50 / 50 Sodium Chloride 50 ml @ 100 mls /hr IV Q8H [facility] Rx#:[id number] vancomycin HCL 1,500 mg In 0.9 500 / 500 % Sodium Chloride 500 ml @ 333. 333 mls/hr IV Q24H [facility] Rx#: [id number] Output: Output, Urine Amount 1700 / 1700 Other: Number of Incontinent Voids 1 Last Bowel Movement 07/12/23 07/12/23 Weight 54.6 kg [place] Weight in Grams 73713 Weight 54.6 kg BMI result Body Mass Index 19.4 - Constitutional Present: mild distress - Routine HEENT Exam Head: Present: normal inspection, normocephalic - Routine Neck Exam Present: full ROM - Routine Respiratory Exam Present: decreased breath sounds, respiratory distress - Routine Cardiovascular Exam Cardiovascular: Present: RRR, S1, S2, tachycardia - Routine Abdominal Exam Present: soft, tenderness, nontender - Routine Extremities Exam Present: nontender Data - Labs CBC & Chem 7: 07/14/23 06:39 07/14/23 06:39 Labs: Laboratory Last Values WBC 25.2 X10*3/uL (4.8-10.8) H 07/14/23 06:39 WBC 25.3 X10*3/uL (4.8-10.8) H 07/14/23 06:39 RBC 2.87 X10*6/uL (4.20-5.50) L 07/14/23 06:39 RBC 2.89 X10*6/uL (4.20-5.50) L 07/14/23 06:39 Hgb 7.6 g/dl (12.0-16.0) L 07/14/23 06:39 Hgb 7.7 g/dl (12.0-16.0) L 07/14/23 06:39 Hct 24.5 % (37.0-47.0) L 07/14/23 06:39 Hct 24.6 % (37.0-47.0) L 07/14/23 06:39 MCV 85.1 fL (80.0-98.0) 07/14/23 06:39 MCV 85.4 fL (80.0-98.0) 07/14/23 06:39 MCH 26.5 pg (27.0-33.0) L 07/14/23 06:39 MCH 26.6 pg (27.0-33.0) L 07/14/23 06:39 MCHC 31.0 g/dl (31.0-35.0) 07/14/23 06:39 MCHC 31.3 g/dl (31.0-35.0) 07/14/23 06:39 RDW 18.7 % (11.0-16.0) H 07/14/23 06:39 RDW 19.1 % (11.0-16.0) H 07/14/23 06:39 Plt Count 510 X10*3/uL (160-400) H 07/14/23 06:39 Plt Count 515 X10*3/uL (160-400) H 07/14/23 06:39 MPV 9.4 fL (9.4-12.3) 07/14/23 06:39 MPV 9.4 fL (9.4-12.3) 07/14/23 06:39 Immature Gran % (Auto) 1.4 % (0.0-0.4) H 07/12/23 15:07 Neut % (Auto) 93.6 % (45-73) H 07/12/23 15:07 Lymph % (Auto) 2.1 % (20-40) L 07/12/23 15:07 [place] % (Auto) 2.7 % (2-11) 07/12/23 15:07 Eos % (Auto) 0.0 % (0-4) 07/12/23 15:07 Baso % (Auto) 0.2 % (0-2) 07/12/23 15:07 Lymph # (Auto) 0.7 X10*3/uL (1.2-4.9) L 07/12/23 15:07 [place] # (Auto) 0.8 X10*3/uL (0.1-1.2) 07/12/23 15:07 Eos # (Auto) 0.0 X10*3/uL (0.0-0.4) 07/12/23 15:07 Baso # (Auto) 0.1 X10*3/uL (0.0-0.2) 07/12/23 15:07 Abs Immat Gran (auto) 0.42 X10*3/uL (0.00-0.03) H 07/12/23 15:07 Absolute Neuts (auto) 28.6 x10*3/uL (2.0-8.3) H 07/12/23 15:07 Absolute Nucleated RBC 0.000 X10*3/uL (0.0-0.012) 07/14/23 06:39 Absolute Nucleated RBC 0.000 X10*3/uL (0.0-0.012) 07/14/23 06:39 Nucleated RBC % (auto) 0.0 /100WBC (0.0-0.2) 07/14/23 06:39 Nucleated RBC % (auto) 0.0 /100WBC (0.0-0.2) 07/14/23 06:39 Smear Tech's Comments VERIFIED 07/12/23 15:07 PT 30.3 SEC (11.1-13.3) H 07/13/23 05:07 INR 2.5 (0.9-1.1) H 07/13/23 05:07 VBG pH 7.51 (7.32-7.43) H 07/12/23 14:50 VBG pCO2 46 mmHg 07/12/23 14:50 VBG pO2 30 mmHg 07/12/23 14:50 VBG HCO3 37 mmol/L (22-26) H 07/12/23 14:50 VBG O2 Saturation 34.0 % 07/12/23 14:50 VBG Base Excess 13.4 mmol/L 07/12/23 14:50 Sodium 140 mmol/L (135-145) 07/14/23 06:39 Sodium Cancelled 07/14/23 06:39 Potassium 2.8 mmol/L (3.3-5.1) L* 07/14/23 06:39 Potassium Cancelled 07/14/23 06:39 Chloride 101 mmol/L (96-108) 07/14/23 06:39 Chloride Cancelled 07/14/23 06:39 Carbon Dioxide 31 mmol/L (22-29) H 07/14/23 06:39 Carbon Dioxide Cancelled 07/14/23 06:39 Anion Gap 11 (12-20) L 07/14/23 06:39 Anion Gap Cancelled 07/14/23 06:39 BUN 26 mg/dL (9-16) H 07/14/23 06:39 BUN Cancelled 07/14/23 06:39 Creatinine 0.87 mg/dL (0.5-1.4) 07/14/23 06:39 Creatinine Cancelled 07/14/23 06:39 Estim Creat Clear Calc 56.3 07/14/23 06:39 Estim Creat Clear Calc Cancelled 07/14/23 06:39 Estimated GFR > 60 07/14/23 06:39 Estimated GFR Cancelled 07/14/23 06:39 Random Glucose 104 mg/dL (60-115) 07/14/23 06:39 Random Glucose Cancelled 07/14/23 06:39 Lactic Acid 1.9 mmol/L (0.5-2.0) 07/12/23 14:46 Calcium 8.2 mg/dL (8.4-10.2) L 07/14/23 06:39 Calcium Cancelled 07/14/23 06:39 Magnesium 2.2 mg/dL (1.6-2.6) 07/12/23 14:46 Total Bilirubin 0.4 mg/dL (0.0-1.0) 07/12/23 14:46 Direct Bilirubin 0.3 mg/dL (0.0-0.5) 07/12/23 14:46 AST 38 U/L (5-31) H 07/12/23 14:46 ALT 23 U/L (0-31) 07/12/23 14:46 Alkaline Phosphatase 360 U/L (39-117) H 07/12/23 14:46 Troponin I High Sens 12.0 ng/L (<3.5-17.0) D 07/12/23 14:46 B-Natriuretic Peptide 668 pg/mL (<100) H 07/12/23 14:46 Total Protein 7.3 g/dL (6.5-8.0) 07/12/23 14:46 Albumin 2.5 g/dL (3.5-5.0) L 07/12/23 14:46 Lipase 42 U/L (8-78) 07/12/23 14:46 Procalcitonin 0.17 ng/mL 07/12/23 14:46 Urine Color Yellow 07/12/23 16:20 Urine Appearance Clear 07/12/23 16:20 Urine pH 5.5 (5.0-9.0) 07/12/23 16:20 Ur Specific [place] 1.015 (1.005-1.025) 07/12/23 16:20 Urine Protein Trace mg/dL (Neg-Trace) 07/12/23 16:20 Urine Glucose (UA) Negative mg/dL (Negative) 07/12/23 16:20 Urine Ketones Negative mg/dL (Negative) 07/12/23 16:20 Urine Blood Negative (Negative) 07/12/23 16:20 Urine Nitrite Negative (Negative) 07/12/23 16:20 Ur Leukocyte Esterase Small (1+) (Negative) H 07/12/23 16:20 Urine RBC 0-2 /HPF (0-2) 07/12/23 16:20 Urine WBC 6-10 /HPF (0-5) H 07/12/23 16:20 Ur Squamous Epith Cells 0-2 /HPF (0-2) 07/12/23 16:20 Urine Bacteria None Seen (None Seen) 07/12/23 16:20 Hyaline Casts 0-2 /LPF (0-2) 07/12/23 16:20 Blood Type O Positive 07/13/23 09:45 Antibody Screen POSITIVE 07/13/23 09:45 Antibody Identification Warm Auto Antibody 07/13/23 09:45 Enhanced Crossmatch See Detail 07/13/23 09:45 - Imaging Radiologist's impression: ITS Impressions Chest X-Ray 07/12/23 14:10 IMPRESSION: 1. New dense consolidation in the left midlung, concerning for pneumonia. 2. [id number] size right and small left pleural effusions with associated bibasilar atelectasis. Mild pulmonary venous congestion. Head CT 07/12/23 17:27 IMPRESSION: Generalized atrophy and nonspecific periventricular white matter disease. New low attenuation in the periventricular white matter of the left frontal lobe, probably representing a new infarct. Multiple old small more superior periventricular white matter infarcts in the bilateral frontal and parietal lobes probably unchanged from previous April 2023 imaging. Assessment and Plan Patient Active problem list reviewed?: Yes (1) Pneumonia Status: Acute Assessment and plan: She has moderate respiratory distress at the moment. Agree with current therapies. - Time Spent With Patient Time Spent with Patient (in minutes): 15
[2023-07-14] MEDS: ALPRAZolam 0.25 MG TABLET PO (13:26)
[2023-07-14] MEDS: Albumin Human 25 % 100 ML IV ×2 (13:51→15:49)
--- NOTE | 2023-07-14 14:08 | HO.PM.IMPN ---
Subjective Subjective Date of Service: 07/14/23 Interval History: alert and interactive feels anxious with reported respiratory distress found to have low BP this morning , no other events overnight Review of Systems Review of Systems: Yes all other systems are reviewed and are negative Physical Exam Vital Signs: Vital Signs: Last Vital Signs Temp 97.3 F 07/14/23 11:23 Pulse 98 07/14/23 13:09 Resp 32 H 07/14/23 13:09 BP 108/68 07/14/23 12:01 Pulse Ox 100 07/14/23 11:23 O2 Del Method Nasal Cannula 07/14/23 11:23 O2 Flow Rate 2 07/14/23 11:23 BMI result Body Mass Index 19.4 Const: Other: Constitutional : Awake, slow, anxious, in distress Neck : Normal inspection, Supple Cardiovascular : RRR, no JVP, no lower extremity edema Respiratory : decreased bilateral air entry, basal crackles bilaterally, expiratory wheezes or rhonchi Gastrointestinal: soft, lax, Normal bowel sounds, Non tender Skin : Warm, Dry Neurological : Alert & oriented to self and place, No focal deficit, moving all extremities with overall weakness Objective Data Active Medications Acetaminophen (Acetaminophen 325 Mg Tablet) 650 mg PO Q6H PRN PRN Reason: Pain, Mild (Pain Scale 1-3) Albuterol Sulfate (Albuterol Sulfate 90 Mcg 8 Gm Inhaler) 2 puff INHALE RQ4H PRN PRN Reason: Shortness of Breath/Wheezing Albuterol/Ipratropium (Albuterol/Iprat 2.5/0.5mg 3 Ml Ampul.Neb) 3 ml INHALE RQ4H WHILE AWAKE [facility] Albuterol/Ipratropium (Albuterol/Iprat 2.5/0.5mg 3 Ml Ampul.Neb) 3 ml INHALE RQ4H WHILE AWAKE PRN PRN Reason: Shortness of Breath/Wheezing Last Admin: 07/14/23 09:12 Dose: 3 ml Documented By: FRANSISCA Alprazolam (Alprazolam 0.25 Mg Tablet) 0.25 mg PO TID PRN PRN Reason: anxiety/restlessness Last Admin: 07/14/23 13:26 Dose: 0.25 mg Documented By: SUMAYA Apixaban (Apixaban 5 Mg Tablet) 5 mg PO BID [facility] Last Admin: 07/14/23 08:47 Dose: 5 mg Documented By: SUAMYA Atorvastatin Calcium (Atorvastatin Calcium 40 Mg Tablet) 40 mg PO BEDTIME [facility] Last Admin: 07/13/23 21:10 Dose: 40 mg Documented By: KALEB Bisacodyl (Bisacodyl 10 Mg Supp.Rect) 10 mg [place] DAILY PRN PRN Reason: Constipation Heparin Sodium (Porcine) 50 (units/ Sodium Chloride 5 ml) 0 units IVFLUSH TID [facility] Last Admin: 07/14/23 08:37 Dose: 50 unit Documented By: SUMAYA Docusate Sodium (Docusate Sodium 100 Mg Capsule) 100 mg PO DAILY PRN PRN Reason: Constipation Fluticasone Propionate (Fluticasone Propionate Nasal 16 Gm [place]) 1 spray NOSTRIL-B DAILY PRN PRN Reason: Congestion Guaifenesin/Dextromethorphan (Guaifenesin Dm 600/30 1 Tab Tab.Er.12h) 2 tab PO BID [facility] Last Admin: 07/14/23 11:39 Dose: 2 tab Documented By: SUMAYA Hydroxyzine HCl (Hydroxyzine Hcl 10 Mg Tablet) 10 mg PO BID PRN PRN Reason: Anxiety Last Admin: 07/14/23 00:55 Dose: 10 mg Documented By: KALEB Comments: per dr. Dahl can administer now. Cefepime HCl 2 gm/ Sodium (Chloride) 50 mls @ 100 mls/hr IV Q8H [facility] Last Infusion: 07/14/23 10:59 Dose: Infused Documented By: SUMAYA Vancomycin HCl 1,500 mg/ (Sodium Chloride) 500 mls @ 333.333 mls/hr IV Q24H [facility] Last Infusion: 07/13/23 18:20 Dose: Infused Documented By: PALMER Albumin Human (Kedbumin 25 %) 100 mls @ 100 mls/hr IV Q1H ONE Stop: 07/14/23 14:30 Last Admin: 07/14/23 13:51 Dose: 100 mls/hr Documented By: SUMAYA Melatonin (Melatonin 3 Mg Tablet) 6 mg PO BEDTIME PRN PRN Reason: Insomnia Last Admin: 07/14/23 00:32 Dose: 6 mg Documented By: KALEB Metoprolol Tartrate (Metoprolol Tartrate 12.5 Mg Halftab) 12.5 mg PO BID [facility]; Protocol Midodrine (Midodrine Hcl 10 Mg Tablet) 10 mg PO BID [facility] Last Admin: 07/14/23 08:45 Dose: 10 mg Documented By: SUMAYA Pt Own Med ( Hydrocortisone Acetate 25 Mg Suppository) 25 mg [place] BID [facility] Last Admin: 07/14/23 13:39 Dose: Not Given Documented By: SUMAYA Non-Admin Reason: cannot tolerate side position @ moment Ondansetron HCl (Ondansetron Hcl 4 Mg/2 Ml Vial) 4 mg IVPUSH Q8H PRN PRN Reason: Nausea and Vomiting Last Admin: 07/13/23 00:51 Dose: 4 mg Documented By: MARCELINO Pharmacy Consult (Consult Rx Vancomycin Dosing) 1 each MISCELLANE DAILY PRN PRN Reason: Consult order Sertraline HCl (Sertraline Hcl 25 Mg Tablet) 25 mg PO DAILY [facility] Last Admin: 07/14/23 11:39 Dose: 25 mg Documented By: SUMAYA Sodium Chloride (0.9 % Sodium Chloride Flush 3 Ml Syringe) 3 ml IVFLUSH QSHIFT [facility] Last Admin: 07/14/23 08:48 Dose: 3 ml Documented By: SUMAYA Sodium Chloride (Sodium Chloride 0.65 % Nasal 44 Ml Sprbtl) 1 spray NOSTRIL-B DAILY [facility] Last Admin: 07/14/23 09:55 Dose: Not Given Documented By: SUMAYA Non-Admin Reason: Patient Refused Sodium Chloride (Sodium Chloride 0.65 % Nasal 44 Ml Sprbtl) 1 spray NOSTRIL-B Q8H PRN PRN Reason: Congestion Trazodone HCl (Trazodone Hcl 25 Mg Halftab) 25 mg PO BEDTIME [facility] Labs 07/14/23 06:39 07/14/23 06:39 Labs: Laboratory Results - last 24 hr 07/13/23 07/14/23 07/14/23 09:45 06:39 06:39 MCV 85.4 85.1 MCH 26.5 L MCHC RDW Plt Count MPV Absolute Nucleated RBC Nucleated RBC % (auto) Anion Gap Estim Creat Clear Calc Estimated GFR Random Glucose Calcium Blood Type O Positive Antibody Screen POSITIVE Antibody Identification Warm Auto Antibody Enhanced Crossmatch See Detail 07/14/23 07/14/23 07/14/23 06:39 06:39 06:39 MCV MCH 26.6 L MCHC 31.0 31.3 RDW 19.1 H 18.7 H Plt Count 515 H MPV Absolute Nucleated RBC Nucleated RBC % (auto) Anion Gap Estim Creat Clear Calc Estimated GFR Random Glucose Calcium Blood Type Antibody Screen Antibody Identification Enhanced Crossmatch 07/14/23 07/14/23 07/14/23 06:39 06:39 06:39 MCV MCH MCHC RDW Plt Count 510 H MPV 9.4 9.4 Absolute Nucleated RBC 0.000 0.000 Nucleated RBC % (auto) 0.0 Anion Gap Estim Creat Clear Calc Estimated GFR Random Glucose Calcium Blood Type Antibody Screen Antibody Identification Enhanced Crossmatch 07/14/23 07/14/23 07/14/23 06:39 06:39 06:39 MCV MCH MCHC RDW Plt Count MPV Absolute Nucleated RBC Nucleated RBC % (auto) 0.0 Anion Gap 11 L Cancelled Estim Creat Clear Calc 56.3 Cancelled Estimated GFR > 60 Random Glucose Calcium Blood Type Antibody Screen Antibody Identification Enhanced Crossmatch 07/14/23 07/14/23 07/14/23 06:39 06:39 06:39 MCV MCH MCHC RDW Plt Count MPV Absolute Nucleated RBC Nucleated RBC % (auto) Anion Gap Estim Creat Clear Calc Estimated GFR Cancelled Random Glucose 104 Cancelled Calcium 8.2 L Cancelled Blood Type Antibody Screen Antibody Identification Enhanced Crossmatch Microbiology Microbiology Results: Microbiology 07/12/23 16:41 Urine Culture - Final Urine clean catch No growth. 07/12/23 15:07 Blood Culture - Preliminary Blood - Venous No growth after 24 hours. 07/12/23 14:44 Blood Culture - Preliminary Blood - Venous No growth after 24 hours. Assessment and Plan (1) Elevated white blood cell count, unspecified: Status: Acute (2) Pleural effusion: Status: Acute (3) Pneumonia: Status: Acute (4) Encephalopathy acute: Status: Acute (5) Acute respiratory failure with hypoxia: Status: Acute Plan Pt is a 62-year-old female with a PMH significant for?asthma not on home oxygen, sinus tachycardia on beta-elli, history of mitral valve repair in 2017, hx of non small cell carcinoma of lung followed by Dr. Lowry, hx of DVT of left upper extremity with PE on Eliquis, and hx of hemorrhoidal bleeding who presents to the ED from [facility] for evaluation of increased confusion, SOB, and soft BP for the past 3-4 days. Pt will be admitted to the hospital for treatment and further evaluation of acute respiratory failure in the setting of likely postobstructive pneumonia with sepsis secondary to non small-cell cancer as well as AMS in the setting of likely new CVA. 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 continue AC Monitor on telemetry Acute HFpEF exacerbation CXR showing pulmonary edema 07/13 Furosemide 20 mg IV Follow lytes, MG, I/O echocardiogram showing EF 55% with mitral stenosis and regurgitation Monitor on telemetry Generalized anxiety PRN Xanax Start Zoloft Trazodone bedtime Hypokalemia, mild replacement given. follow BMP Non small cell lung cancer Finished 1st cycle of pembrolizumab last week Scheduled to get PET scan and Port-A-Cath placement at [facility] next week Heme/Onc consult Hypoalbuminemia Albumin 2.5 at time of presentation Likely secondary to reduced p.o. intake Patient given albumin in ED Anemia H&H improved to 7.6 post 1 unit PRCB transfusion Follow CBC Diet [employer] team evaluation, start diet Aspiration precautions Hx of DVT/PE Continue Eliquis Chronic sinus tachycardia Continue metoprolol Hemorrhoids Hydrocortisone rectal cream b.i.d. Full Code DVT Prophylaxis: On Eliquis Pt will require a hospitalization overnight for treatment of acute respiratory failure in the setting of pneumonia with sepsis secondary to non small-cell cancer as well as AMS. Patient will require hospitalization for administration of IV antibiotics, supplemental oxygen, close monitoring of labs, H&H, and respiratory status, as well as specialist consultation Quality Stroke Does the patient have a stroke diagnosis?: Yes Reason for No Anti-thrombotic by Day Two: Contraindicated (Pt on Eliquis; outside of tNK therapeutic window.) VTE Prior VTE?: No VTE Risk Level:: Medical - moderate - high VTE Device Contraindication: Treatment Not Indicated VTE Drug Contraindication: N/A - Med Ordered
[2023-07-14 14:13] LABS: Vancomycin Random 24.1 mcg/mL (15-20)
--- NOTE | 2023-07-14 14:21 | HE.PHANOTE ---
RE VANCO TROUGH WAS SUPRATHERAPUETIC @ 24.1. PT WAS GETTING 1500 Q24 (26 MG/KG). WILL RESTART AT 750 Q 24 TOMORROW AM TO GIVE KIDNEYS TIME TO CLEAR MED. SUSPECTED AUC 490, TROUGH 14.7. NEXT LEVEL DUE 07/15 @0700 UNLESS SCR IS ELEVATED ON 07/14. THEN RANDOM LEVEL MAY BE WARRANTED BREONNA
--- NOTE | 2023-07-14 18:03 | PC.NURSE ---
At ~1230 pt was noted to be experiencing shortness of breath, and anxiety. Nurse found pt to have bilateral rales in basis in addition to expiratory wheezing. Provider was notified, and orders were carried out as prescribed. Pt was monitored for the remainder of the shift with marked improvement. Pt is currently on CPAP @ 7.5 cm/h2o
[2023-07-14 18:46] LABS: ABG Base Excess 6.4 mmol/L; ABG HCO3 31 mmol/L (22-26); ABG pCO2 45 mmHg (32-45); ABG pH 7.43 (7.35-7.45); ABG pO2 111 mmHg (83-108)
--- NOTE | 2023-07-14 20:28 | PM.CCN ---
Critical Care Event Note Summary Date of Service: 07/14/23 Code activated: No Narrative: Patient evaluated for?level of care secondary to hypoxia.? Respiratory status is stable on CPAP, variable rate 6-15 cm of water at 4 L. She is speaking in full sentences, no accessory muscle use, RR 24, O2 Sat 98%.? Patient is awake and alert, very anxious. Systolic blood pressure in 110s, HR 90's. Would recommend starting a diuretic drip. Fallon catheter for fluid management. Replace electrolytes as indicated.? At this time patient does not require intensive care level of monitoring.?? Please notify for re-evaluation if patient's condition changes. Critical Care Time (minutes): 0
[2023-07-14 21:20] LABS: Basophils Absolute Auto 0.1 X10*3/uL (0.0-0.2); Basophils Percent Auto 0.2 % (0-2); Eosinophils Percent Auto 0.1 % (0-4); Hematocrit 23.8 % (37.0-47.0); Hemoglobin 7.4 g/dl (12.0-16.0); Imm Gran Pct Auto 0.7 % (0.0-0.4); Lymphocytes Absolute Auto 0.5 X10*3/uL (1.2-4.9); Lymphocytes Percent Auto 1.7 % (20-40); MANUAL DIFF FLAG SCAN; Mean Corpuscular HGB Conc 31.1 g/dl (31.0-35.0); Mean Corpuscular Hemoglobin 26.4 pg (27.0-33.0); Mean Platelet Volume 9.3 fL (9.4-12.3); Monocytes Absolute Auto 0.5 X10*3/uL (0.1-1.2); Neutrophils Absolute Auto 25.8 x10*3/uL (2.0-8.3); Neutrophils Percent Auto 95.3 % (45-73); Platelet Count 484 X10*3/uL (160-400); Red Cell Distribution Width 18.9 % (11.0-16.0); SCAN SMEAR FLAG 1; White Blood Count 27.1 X10*3/uL (4.8-10.8)
[2023-07-14] MEDS: Furosemide 200 MG in 0.9 % Sodium Chloride 80 ML IVCONT (21:30)
[2023-07-14 21:34] LABS: Lactic Acid 1.5 mmol/L (0.5-2.0)
[2023-07-14 21:37] LABS: SLIDE REVIEW VERIFIED
[2023-07-14 21:38] LABS: Anion Gap 13 (12-20); Blood Urea Nitrogen 29 mg/dL (9-16); Calcium 8.9 mg/dL (8.4-10.2); Carbon Dioxide 28 mmol/L (22-29); Chloride 104 mmol/L (96-108); Creatinine Clr Calc Pharmacy 51.5; Estimated Glomerular Filt Rate 59; Glucose Random 128 mg/dL (60-115); Magnesium 2.3 mg/dL (1.6-2.6); Potassium 3.3 mmol/L (3.3-5.1); Sodium 142 mmol/L (135-145)
[2023-07-14] MEDS: Atorvastatin Calcium 40 MG TABLET PO (21:39)
[2023-07-14] MEDS: traZODone HCL 25 MG HALFTAB 12.5 MG PO (21:40)
--- NOTE | 2023-07-14 21:43 | W.PM.CCCN ---
History of Present Illness Data of Consult Service Date: 07/14/23 Requesting physician: Ken Wan [facility] Reason for consult: Hypoxia Ms. Marks is a 62-year-old female with a PMH significant for asthma not on home oxygen, sinus tachycardia on beta-elli, mitral valve repair in 2017, recent diagnosis of non small cell carcinoma of lung, DVT of left upper extremity with PE on Eliquis, and hx of hemorrhoidal bleeding who was admitted for treatment and further evaluation of acute respiratory failure in the setting of likely postobstructive pneumonia with sepsis secondary to non small-cell cancer as well as AMS in the setting of likely new CVA.? Of note, she finished her 1st cycle of Keytruda last week.? Dr Dahl requested that the patient be evaluated for level of care secondary to hypoxia. On my exam, the patient was awake, alert, oriented x 2 but appeared very anxious. Her respiratory status stable on CPAP, variable rate 6-15, 4 L. She was speaking in full sentences, no accessory muscle use, RR 24, O2 Sat 98%. Crackles auscultated bilaterally with expiratory wheezes in bilateral upper lobes. Her systolic blood pressure in 110s, HR 90's. She did have 2 family members in the room who appeared very anxious as well.? Given the changes on CXR and increase in O2 requirements, would recommend starting a diuretic drip. She appears to be volume overloaded. I would suggest a lassiter catheter for fluid management. Replace electrolytes as indicated.? At this time the patient does not require intensive care level of monitoring. Case discussed with Dr Dahl who will monitor the patient on [employer] and notify for re-evaluation if patient's condition changes.? Patient's care was discussed in detail with Dr. Yepez.? He is aware of all the above as well as the plan of care for this patient. Review of Systems Review of Systems: Yes all other systems are reviewed and are negative Cardiovascular: Cardiovascular: Reports dyspnea and Reports dyspnea on exertion Respiratory: Respiratory: Reports dyspnea and Reports dyspnea on exertion Musculoskeletal: Musculoskeletal: Reports muscle weakness [facility] Past Medical History Medical History (Updated 07/14/23 @ 14:18 by Sofía Santillan MD) Thyroid mass Adenocarcinoma of lung GIB (gastrointestinal bleeding) Mediastinal mass Pulmonary emboli Family history of thyroid disease Bilateral cataracts Sinus tachycardia Asthma Family History Family History Mother Leukemia Maternal Aunt Lung cancer Ovarian cancer Surgical History Surgical History S/P IVC filter History of tonsillectomy History of open heart surgery Social History Social History Household Members: Family Household Members Other:: SISTER Housing: House Do you presently have visiting nurse or other home services: No Comment: Commode near bed. Pt gait and balance are steady. Per protocol extra safety Patient Tobacco Use Status: Former Tobacco user Smoked in Last 30 Days: No e-Cigarette/Vaping Use: Never Used Second Hand Smoke Exposure: No Use of substances other than those prescribed or required for medical reasons: No Currently Displaying Signs/Symptoms of Drug Intoxication Withdrawal: No Have you been hit, kicked, punched, or otherwise hurt by someone within the past year? If so, by whom?: No Do you feel safe in your current relationship?: Yes Is there a partner from a previous relationship who is making you feel unsafe now?: No Are you made to feel afraid or neglected: No Advance Directives: Yes Advance Directives on File: Yes Advance Directives Date on File: 05/22/23 Do you have thoughts of harming others: None Do you have a plan to hurt others: No Plan Nutrition Risks: On aspiration precautions Patient : No : No Poor oral hygiene: No service: No Meds Allergies Allergy/AdvReac Type Severity Reaction Status Date / Time hydrocodone [From Vicodin] Allergy Vomiting Verified 07/12/23 14:23 oxycodone [From Percocet] Allergy Vomiting Verified 07/12/23 14:23 shellfish derived Allergy Anaphylaxis Verified 07/12/23 14:23 Active Medications: Current Medications Acetaminophen (Acetaminophen 325 Mg Tablet) 650 mg PO Q6H PRN PRN Reason: Pain, Mild (Pain Scale 1-3) Albuterol Sulfate (Albuterol Sulfate 90 Mcg 8 Gm Inhaler) 2 puff INHALE RQ4H PRN PRN Reason: Shortness of Breath/Wheezing Albuterol/Ipratropium (Albuterol/Iprat 2.5/0.5mg 3 Ml Ampul.Neb) 3 ml INHALE RQ4H WHILE AWAKE [facility] Last Admin: 07/14/23 15:58 Dose: 3 ml Albuterol/Ipratropium (Albuterol/Iprat 2.5/0.5mg 3 Ml Ampul.Neb) 3 ml INHALE RQ4H WHILE AWAKE PRN PRN Reason: Shortness of Breath/Wheezing Last Admin: 07/14/23 13:05 Dose: 3 ml Alprazolam (Alprazolam 0.25 Mg Tablet) 0.25 mg PO TID PRN PRN Reason: anxiety/restlessness Last Admin: 07/14/23 13:26 Dose: 0.25 mg Apixaban (Apixaban 5 Mg Tablet) 5 mg PO BID [facility] Last Admin: 07/14/23 08:47 Dose: 5 mg Atorvastatin Calcium (Atorvastatin Calcium 40 Mg Tablet) 40 mg PO BEDTIME [facility] Last Admin: 07/13/23 21:10 Dose: 40 mg Bisacodyl (Bisacodyl 10 Mg Supp.Rect) [address] DAILY PRN PRN Reason: Constipation Heparin Sodium (Porcine) 50 (units/ Sodium Chloride 5 ml) 0 units IVFLUSH TID [facility] Last Admin: 07/14/23 14:59 Dose: 50 unit Docusate Sodium (Docusate Sodium 100 Mg Capsule) 100 mg PO DAILY PRN PRN Reason: Constipation Fluticasone Propionate (Fluticasone Propionate Nasal 16 Gm [place]) 1 spray NOSTRIL-B DAILY PRN PRN Reason: Congestion Guaifenesin/Dextromethorphan (Guaifenesin Dm 600/30 1 Tab Tab.Er.12h) 2 tab PO BID [facility] Last Admin: 07/14/23 11:39 Dose: 2 tab Hydroxyzine HCl (Hydroxyzine Hcl 10 Mg Tablet) 10 mg PO BID PRN PRN Reason: Anxiety Last Admin: 07/14/23 00:55 Dose: 10 mg Cefepime HCl 2 gm/ Sodium (Chloride) 50 mls @ 100 mls/hr IV Q8H [facility] Last Infusion: 07/14/23 15:41 Dose: Infused Vancomycin HCl 750 mg/ Sodium (Chloride) 265 mls @ 265 mls/hr IV Q24H [facility] Furosemide 200 mg/ Sodium (Chloride) 100 mls @ 1 mls/hr IVCONT .Q24H [facility] Midodrine (Midodrine Hcl 10 Mg Tablet) 10 mg PO TIDWM [facility] Pt Own Med ( Hydrocortisone Acetate 25 Mg Suppository) [address] BID [facility] Last Admin: 07/14/23 13:39 Dose: Not Given Ondansetron HCl (Ondansetron Hcl 4 Mg/2 Ml Vial) 4 mg IVPUSH Q8H PRN PRN Reason: Nausea and Vomiting Last Admin: 07/13/23 00:51 Dose: 4 mg Pharmacy Consult (Consult Rx Vancomycin Dosing) 1 each MISCELLANE DAILY PRN PRN Reason: Consult order Sertraline HCl (Sertraline Hcl 25 Mg Tablet) 25 mg PO DAILY [facility] Last Admin: 07/14/23 11:39 Dose: 25 mg Sodium Chloride (0.9 % Sodium Chloride Flush 3 Ml Syringe) 3 ml IVFLUSH QSHIFT [facility] Last Admin: 07/14/23 15:55 Dose: 3 ml Sodium Chloride (Sodium Chloride 0.65 % Nasal 44 Ml Sprbtl) 1 spray NOSTRIL-B DAILY [facility] Last Admin: 07/14/23 09:55 Dose: Not Given Sodium Chloride (Sodium Chloride 0.65 % Nasal 44 Ml Sprbtl) 1 spray NOSTRIL-B Q8H PRN PRN Reason: Congestion Trazodone HCl (Trazodone Hcl 25 Mg Halftab) 12.5 mg PO BEDTIME [facility] Home Medications ?Medication ?Instructions ?Recorded ?Confirmed ?Last Taken ?Type albuterol sulfate 90 mcg/actuation 2 puff inhalation Q4H PRN 05/12/23 07/12/23 Unknown History aerosol inhaler (Ventolin HFA) Shortness Of Breath Or Wheezing budesonide-formoterol HFA 160 2 puff inhalation BID 05/12/23 07/12/23 Unknown History mcg-4.5 mcg/actuation aerosol inhaler (Symbicort) metoprolol tartrate 25 mg tablet 37.5 mg PO BID 05/12/23 07/12/23 Unknown History fluticasone propionate 50 1 spray intranasal DAILY PRN 05/22/23 07/12/23 Unknown History mcg/actuation nasal Congestion spray,suspension acetaminophen 325 mg tablet 650 mg PO Q4H PRN pain / fever 07/12/23 07/12/23 Unknown History bisacodyl 10 mg rectal suppository [address] DAILY PRN Constipation 07/12/23 07/12/23 Unknown History hydroxyzine HCl 10 mg tablet 10 mg PO BID PRN Anxiety 07/12/23 07/12/23 Unknown History melatonin 3 mg tablet 3 mg PO BEDTIME 07/12/23 07/12/23 Unknown History midodrine 10 mg tablet 10 mg PO BID 07/12/23 07/12/23 Unknown History sodium chloride 0.65 % nasal spray 1 spray intranasal DAILY Nose 07/12/23 07/12/23 Unknown History aerosol (Saline Nasal) Dryness sodium chloride 0.65 % nasal spray 1 spray intranasal Q8H PRN 07/12/23 07/12/23 Unknown History aerosol (Saline Nasal) Congestion hydrocortisone acetate [address] BID 07/14/23 07/14/23 Unknown History rectal suppository Physical Exam Vital Signs: Vital Signs: Last Vital Signs Temp 97.0 F 07/14/23 19:06 Pulse 108 H 07/14/23 19:06 Resp 20 07/14/23 19:06 BP 114/69 07/14/23 19:30 Pulse Ox 95 07/14/23 19:06 O2 Del Method CPAP 07/14/23 19:06 O2 Flow Rate 5 07/14/23 15:33 BMI result Body Mass Index 19.4 Const: General: anxious and tired appearing Orientation/consciousness: oriented to person and oriented to place Resp: Effort & Inspection: able to speak in complete sentences, audible wheezes, labored, tachypneic, no use of accessory muscles and prolonged expiratory phase Auscultation: crackles bilateral and wheezes expiratory wheezes and upper bilaterally Cardio: Jugular venous distension: no JVD Rate: regular rate Rhythm: regular rhythm Neuro: General: oriented to person and oriented to place Results Labs 07/15/23 06:54 07/15/23 06:54 Labs: Short CBC 07/14/23 07/14/23 07/14/23 Range/Units 06:39 06:39 06:39 WBC 25.2 H 25.3 H (4.8-10.8) X10*3/uL Hgb 7.6 L 7.7 L (12.0-16.0) g/dl Hct 24.5 L (37.0-47.0) % Plt Count (160-400) X10*3/uL 07/14/23 07/14/23 07/14/23 Range/Units 06:39 06:39 21:09 WBC 27.1 H (4.8-10.8) X10*3/uL Hgb 7.4 L (12.0-16.0) g/dl Hct 24.6 L 23.8 L (37.0-47.0) % Plt Count 515 H 510 H 484 H (160-400) X10*3/uL BMP 07/14/23 07/14/23 07/14/23 06:39 06:39 06:39 Sodium 140 Cancelled Potassium 2.8 L* Cancelled Chloride 101 Carbon Dioxide BUN Creatinine Calcium 07/14/23 07/14/23 07/14/23 06:39 06:39 06:39 Sodium Potassium Chloride Cancelled Carbon Dioxide 31 H Cancelled BUN 26 H Cancelled Creatinine 0.87 Calcium 07/14/23 07/14/23 07/14/23 06:39 06:39 21:09 Sodium 142 Potassium 3.3 Chloride 104 Carbon Dioxide 28 BUN 29 H Creatinine Cancelled 0.95 Calcium 8.2 L Cancelled 8.9 D Microbiology Microbiology Results: Microbiology 07/12/23 15:07 Blood - Venous Blood Culture - Preliminary No growth after 48 hours. 07/12/23 14:44 Blood - Venous Blood Culture - Preliminary No growth after 48 hours. 07/12/23 16:41 Urine clean catch Urine Culture - Final No growth. Imaging Chest x-ray: Radiologist's impression: XR/XR chest 1V IMPRESSION: 1. Worsening bilateral infiltrates. 2. Bilateral subpulmonic pleural effusions right more than left. 3. Underlying pulmonary vascular congestion. 4. Widened mediastinum unchanged. Assessment and Plan (1) Acute respiratory failure with hypoxia: Status: Acute (2) Pleural effusion: Status: Acute (3) Pneumonia: Qualifiers: Laterality: left Lung location: unspecified part of lung Pneumonia type: due to unspecified organism Qualified Code(s): J18.9 - Pneumonia, unspecified organism Status: Acute (4) Elevated white blood cell count, unspecified: Qualifiers: Leukocytosis type: unspecified Qualified Code(s): D72.829 - Elevated white blood cell count, unspecified Status: Acute (5) Encephalopathy acute: Status: Acute Total time managing care of this patient today: 75 minutes.
[2023-07-14 21:46] LABS: Troponin-I High Sensitivity 8.2 ng/L (<3.5-17.0)
[2023-07-15] VITALS (26 sets, daily range): BP systolic 89–177; BP diastolic 49–90; PULSE 74–119; RESP 14–35; TEMP 36.1–36.7; O2SAT 88–97
[2023-07-15] MEDS: Heparin Sodium,Porcine Flush 50 UNITS, 0.9 % Sodium Chloride Flush 5 ML IVFLUSH ×3 (00:30→14:35)
[2023-07-15] MEDS: cefEPime HCl 2 GM in 0.9 % Sodium Chloride 50 ML IV ×2 (00:31→01:12)
[2023-07-15] MEDS: 0.9 % Sodium Chloride Flush 3 ML SYRINGE IVFLUSH ×4 (00:34→23:47)
[2023-07-15] MEDS: Morphine Sulfate 4 MG/ML CARTRIDGE 3 MG IVPUSH (02:09)
[2023-07-15 07:16] LABS: Hematocrit 21.9 % (37.0-47.0); Mean Corpuscular HGB Conc 31.5 g/dl (31.0-35.0); Mean Corpuscular Hemoglobin 27.2 pg (27.0-33.0); Mean Corpuscular Volume 86.2 fL (80.0-98.0); Mean Platelet Volume 9.5 fL (9.4-12.3); Platelet Count 445 X10*3/uL (160-400); Red Blood Count 2.54 X10*6/uL (4.20-5.50); Red Cell Distribution Width 19.1 % (11.0-16.0)
[2023-07-15 07:34] LABS: Hemoglobin 6.9 g/dl (12.0-16.0)
[2023-07-15 07:50] LABS: Anion Gap 12 (12-20); Blood Urea Nitrogen 33 mg/dL (9-16); Calcium 8.7 mg/dL (8.4-10.2); Carbon Dioxide 28 mmol/L (22-29); Chloride 106 mmol/L (96-108); Creatinine Clr Calc Pharmacy 47.1; Estimated Glomerular Filt Rate 53; Glucose Random 103 mg/dL (60-115); Potassium 3.2 mmol/L (3.3-5.1); Sodium 143 mmol/L (135-145)
[2023-07-15 07:55] LABS: B Type Natriuretic Peptide 872 pg/mL (<100)
[2023-07-15] MEDS: Albuterol/Iprat 2.5/0.5MG 3 ML AMPUL.NEB INHALE ×4 (08:04→19:45)
[2023-07-15] MEDS: Sertraline HCL 25 MG TABLET PO (08:14)
[2023-07-15] MEDS: guaiFENesin DM 600/30 1 TAB TAB.ER.12H 2 TAB PO (08:15)
[2023-07-15] MEDS: Midodrine HCl 10 MG TABLET PO (08:15)
[2023-07-15] MEDS: ALPRAZolam 0.25 MG TABLET PO (09:23)
[2023-07-15 09:27] LABS: ABG Base Excess 4.1 mmol/L; ABG HCO3 28 mmol/L (22-26); ABG pCO2 41 mmHg (32-45); ABG pH 7.44 (7.35-7.45); ABG pO2 60 mmHg (83-108)
[2023-07-15] MEDS: Albumin Human 25 % 100 ML IV ×3 (09:56→21:35)
--- NOTE | 2023-07-15 10:40 | PM.CCN ---
Critical Care Event Note Summary Date of Service: 07/15/23 Code activated: No Narrative: Re-evaluated this a.m. IO balance still several liters positive. BNP is increasing. Lasix drip increased to 5 milligrams/hour and albumin added. Now tolerating CPAP of 4 with FiO2 of 28%, can be switched to high-flow. At this time does not require intensive care level of care. Critical Care Time (minutes): 0
[2023-07-15] MEDS: vancomycin HCL 750 MG in 0.9 % Sodium Chloride 250 ML 265 MG IV (10:52)
--- NOTE | 2023-07-15 11:38 | HO.PM.IMPN ---
Subjective Subjective Date of Service: 07/15/23 Interval History: alert and interactive anxious with respiratory distress overnight requring rescure CPAP low BP multiple occasions making fair amount of urine on Lasix drip Review of Systems Review of Systems: Yes all other systems are reviewed and are negative Physical Exam Vital Signs: Vital Signs: Last Vital Signs Temp 97.4 F 07/15/23 10:58 Pulse 108 H 07/15/23 10:58 Resp 22 H 07/15/23 10:58 BP 130/88 07/15/23 10:58 Pulse Ox 89 L 07/15/23 10:58 O2 Del Method High Flow Nasal C annula 07/15/23 10:58 O2 Flow Rate 50 07/15/23 10:58 FiO2 55 07/15/23 10:58 BMI result Body Mass Index 19.4 Const: Other: Constitutional : Awake, slow, anxious, frail, in distress Neck : Normal inspection, Supple Cardiovascular : RRR, no JVP, no lower extremity edema Respiratory : decreased bilateral air entry, basal crackles bilaterally, expiratory wheezes or rhonchi, on High flow O2 Gastrointestinal: soft, lax, Normal bowel sounds, Non tender Skin : Warm, Dry Neurological : Alert & oriented to self and place, No focal deficit, moving all extremities with overall weakness Objective Data Active Medications Acetaminophen (Acetaminophen 325 Mg Tablet) 650 mg PO Q6H PRN PRN Reason: Pain, Mild (Pain Scale 1-3) Albuterol Sulfate (Albuterol Sulfate 90 Mcg 8 Gm Inhaler) 2 puff INHALE RQ4H PRN PRN Reason: Shortness of Breath/Wheezing Albuterol/Ipratropium (Albuterol/Iprat 2.5/0.5mg 3 Ml Ampul.Neb) 3 ml INHALE RQ4H WHILE AWAKE [facility] Last Admin: 07/15/23 08:04 Dose: 3 ml Documented By: FRANSISCA Albuterol/Ipratropium (Albuterol/Iprat 2.5/0.5mg 3 Ml Ampul.Neb) 3 ml INHALE RQ4H WHILE AWAKE PRN PRN Reason: Shortness of Breath/Wheezing Last Admin: 07/14/23 09:12 Dose: 3 ml Documented By: FRANSISCA Alprazolam (Alprazolam 0.25 Mg Tablet) 0.25 mg PO TID PRN PRN Reason: anxiety/restlessness Last Admin: 07/15/23 09:23 Dose: 0.25 mg Documented By: PALMER Apixaban (Apixaban 5 Mg Tablet) 5 mg PO BID [facility] Last Admin: 07/15/23 07:35 Dose: Not Given Documented By: PALMER Non-Admin Reason: Physician Held Med Atorvastatin Calcium (Atorvastatin Calcium 40 Mg Tablet) 40 mg PO BEDTIME [facility] Last Admin: 07/14/23 21:39 Dose: 40 mg Documented By: SUMAYA Bisacodyl (Bisacodyl 10 Mg Supp.Rect) 10 mg KS DAILY PRN PRN Reason: Constipation Heparin Sodium (Porcine) 50 (units/ Sodium Chloride 5 ml) 0 units IVFLUSH TID [facility] Last Admin: 07/15/23 08:15 Dose: 50 unit Documented By: PALMER Docusate Sodium (Docusate Sodium 100 Mg Capsule) 100 mg PO DAILY PRN PRN Reason: Constipation Fluticasone Propionate (Fluticasone Propionate Nasal 16 Gm [place]) 1 spray NOSTRIL-B DAILY PRN PRN Reason: Congestion Guaifenesin/Dextromethorphan (Guaifenesin Dm 600/30 1 Tab Tab.Er.12h) 2 tab PO BID [facility] Last Admin: 07/15/23 08:15 Dose: 2 tab Documented By: PALMER Hydroxyzine HCl (Hydroxyzine Hcl 10 Mg Tablet) 10 mg PO BID PRN PRN Reason: Anxiety Last Admin: 07/14/23 00:55 Dose: 10 mg Documented By: KALEB Comments: per dr. Dahl can administer now. Cefepime HCl 2 gm/ Sodium (Chloride) 50 mls @ 100 mls/hr IV Q8H [facility] Last Infusion: 07/15/23 01:42 Dose: Infused Documented By: KALEB Furosemide 200 mg/ Sodium (Chloride) 100 mls @ 2.5 mls/hr IVCONT .Q24H [facility] Last Infusion: 07/15/23 09:52 Dose: 5 mg/hr, 2.5 mls/hr Documented By: VINOD Albumin Human (Kedbumin 25 %) 100 mls @ 100 mls/hr IV Q6H [facility] Stop: 07/16/23 04:29 Last Infusion: 07/15/23 10:56 Dose: Infused Documented By: PALMER Vancomycin HCl 750 mg/ Sodium (Chloride) 265 mls @ 265 mls/hr IV Q24H [facility] Last Admin: 07/15/23 10:52 Dose: 265 mls/hr Documented By: PALMER Midodrine (Midodrine Hcl 10 Mg Tablet) 10 mg PO TIDWM [facility] Last Admin: 07/15/23 08:15 Dose: 10 mg Documented By: PALMER Pt Own Med ( Hydrocortisone Acetate 25 Mg Suppository) 25 mg KS BID [facility] Last Admin: 07/15/23 08:33 Dose: Not Given Documented By: PALMER Non-Admin Reason: Patient Refused Ondansetron HCl (Ondansetron Hcl 4 Mg/2 Ml Vial) 4 mg IVPUSH Q8H PRN PRN Reason: Nausea and Vomiting Last Admin: 07/13/23 00:51 Dose: 4 mg Documented By: MARCELINO Pharmacy Consult (Consult Rx Vancomycin Dosing) 1 each MISCELLANE DAILY PRN PRN Reason: Consult order Sertraline HCl (Sertraline Hcl 25 Mg Tablet) 25 mg PO DAILY [facility] Last Admin: 07/15/23 08:14 Dose: 25 mg Documented By: PALMER Sodium Chloride (0.9 % Sodium Chloride Flush 3 Ml Syringe) 3 ml IVFLUSH QSHIFT [facility] Last Admin: 07/15/23 08:19 Dose: 3 ml Documented By: PALMER Sodium Chloride (Sodium Chloride 0.65 % Nasal 44 Ml Sprbtl) 1 spray NOSTRIL-B DAILY [facility] Last Admin: 07/15/23 09:20 Dose: Not Given Documented By: PALMER Non-Admin Reason: Patient Refused Sodium Chloride (Sodium Chloride 0.65 % Nasal 44 Ml Sprbtl) 1 spray NOSTRIL-B Q8H PRN PRN Reason: Congestion Trazodone HCl (Trazodone Hcl 25 Mg Halftab) 12.5 mg PO BEDTIME [facility] Last Admin: 07/14/23 21:40 Dose: 12.5 mg Documented By: SUMAYA Labs 07/15/23 06:54 07/15/23 06:54 Labs: Laboratory Results - last 24 hr 07/13/23 07/14/23 07/14/23 09:45 13:56 18:38 MCV MCH MCHC RDW Plt Count MPV Immature Gran % (Auto) Neut % (Auto) Lymph % (Auto) Dane % (Auto) Eos % (Auto) Baso % (Auto) Lymph # (Auto) Dane # (Auto) Eos # (Auto) Baso # (Auto) Abs Immat Gran (auto) Absolute Neuts (auto) Absolute Nucleated RBC Nucleated RBC % (auto) Smear Tech's Comments O2 Saturation 100.0 ABG pH at Pt Temp 7.43 ABG pCO2 at Pt Temp 45 ABG pO2 at Pt Temp 111 H ABG HCO3 31 H ABG Base Excess (Actual) 6.4 Anion Gap Estim Creat Clear Calc Estimated GFR Random Glucose Lactic Acid Calcium Phosphorus Magnesium Troponin I High Sens B-Natriuretic Peptide Random Vancomycin 24.1 H Blood Type O Positive Antibody Screen POSITIVE Antibody Identification Warm Auto Antibody Enhanced Crossmatch See Detail 07/14/23 07/14/23 07/15/23 21:08 21:09 06:54 MCV 85.0 Cancelled MCH 26.4 L MCHC 31.1 RDW 18.9 H Plt Count 484 H MPV 9.3 L Immature Gran % (Auto) 0.7 H Neut % (Auto) 95.3 H Lymph % (Auto) 1.7 L Dane % (Auto) 2.0 Eos % (Auto) 0.1 Baso % (Auto) 0.2 Lymph # (Auto) 0.5 L Dane # (Auto) 0.5 Eos # (Auto) 0.0 Baso # (Auto) 0.1 Abs Immat Gran (auto) 0.20 H Absolute Neuts (auto) 25.8 H Absolute Nucleated RBC 0.000 Nucleated RBC % (auto) 0.0 Smear Tech's Comments VERIFIED O2 Saturation ABG pH at Pt Temp ABG pCO2 at Pt Temp ABG pO2 at Pt Temp ABG HCO3 ABG Base Excess (Actual) Anion Gap 13 Estim Creat Clear Calc 51.5 Estimated GFR 59 Random Glucose 128 H Lactic Acid 1.5 Calcium 8.9 D Phosphorus 3.0 Magnesium 2.3 Troponin I High Sens 8.2 B-Natriuretic Peptide Random Vancomycin Blood Type Antibody Screen Antibody Identification Enhanced Crossmatch 07/15/23 07/15/23 07/15/23 06:54 06:54 06:54 MCV 86.2 MCH Cancelled 27.2 MCHC Cancelled 31.5 RDW Cancelled Plt Count MPV Immature Gran % (Auto) Neut % (Auto) Lymph % (Auto) Dane % (Auto) Eos % (Auto) Baso % (Auto) Lymph # (Auto) Dane # (Auto) Eos # (Auto) Baso # (Auto) Abs Immat Gran (auto) Absolute Neuts (auto) Absolute Nucleated RBC Nucleated RBC % (auto) Smear Tech's Comments O2 Saturation ABG pH at Pt Temp ABG pCO2 at Pt Temp ABG pO2 at Pt Temp ABG HCO3 ABG Base Excess (Actual) Anion Gap Estim Creat Clear Calc Estimated GFR Random Glucose Lactic Acid Calcium Phosphorus Magnesium Troponin I High Sens B-Natriuretic Peptide Random Vancomycin Blood Type Antibody Screen Antibody Identification Enhanced Crossmatch 07/15/23 07/15/23 07/15/23 06:54 06:54 06:54 MCV MCH MCHC RDW 19.1 H Plt Count Cancelled 445 H MPV Cancelled 9.5 Immature Gran % (Auto) Neut % (Auto) Lymph % (Auto) Dane % (Auto) Eos % (Auto) Baso % (Auto) Lymph # (Auto) Dane # (Auto) Eos # (Auto) Baso # (Auto) Abs Immat Gran (auto) Absolute Neuts (auto) Absolute Nucleated RBC Cancelled Nucleated RBC % (auto) Smear Tech's Comments O2 Saturation ABG pH at Pt Temp ABG pCO2 at Pt Temp ABG pO2 at Pt Temp ABG HCO3 ABG Base Excess (Actual) Anion Gap Estim Creat Clear Calc Estimated GFR Random Glucose Lactic Acid Calcium Phosphorus Magnesium Troponin I High Sens B-Natriuretic Peptide Random Vancomycin Blood Type Antibody Screen Antibody Identification Enhanced Crossmatch 07/15/23 07/15/23 07/15/23 06:54 06:54 09:19 MCV MCH MCHC RDW Plt Count MPV Immature Gran % (Auto) Neut % (Auto) Lymph % (Auto) Dane % (Auto) Eos % (Auto) Baso % (Auto) Lymph # (Auto) Dane # (Auto) Eos # (Auto) Baso # (Auto) Abs Immat Gran (auto) Absolute Neuts (auto) Absolute Nucleated RBC 0.000 Nucleated RBC % (auto) Cancelled 0.0 Smear Tech's Comments O2 Saturation 89.0 ABG pH at Pt Temp 7.44 ABG pCO2 at Pt Temp 41 ABG pO2 at Pt Temp 60 L ABG HCO3 28 H ABG Base Excess (Actual) 4.1 Anion Gap 12 Estim Creat Clear Calc 47.1 Estimated GFR 53 Random Glucose 103 Lactic Acid Calcium 8.7 Phosphorus Magnesium Troponin I High Sens B-Natriuretic Peptide 872 H Random Vancomycin Blood Type Antibody Screen Antibody Identification Enhanced Crossmatch Microbiology Microbiology Results: Microbiology 07/12/23 15:07 Blood Culture - Preliminary Blood - Venous No growth after 48 hours. 07/12/23 14:44 Blood Culture - Preliminary Blood - Venous No growth after 48 hours. 07/12/23 16:41 Urine Culture - Final Urine clean catch No growth. Assessment and Plan (1) Acute respiratory failure with hypoxia: Status: Acute (2) Pneumonia: Status: Acute (3) Encephalopathy acute: Status: Acute (4) Acute exacerbation of congestive heart failure: Status: Acute Plan Pt is a 62-year-old female with a PMH significant for?asthma not on home oxygen, sinus tachycardia on beta-elli, history of mitral valve repair in 2017, hx of non small cell carcinoma of lung followed by Dr. Lowry, hx of DVT of left upper extremity with PE on Eliquis, and hx of hemorrhoidal bleeding who presents to the ED from Replaced by [facility] for evaluation of increased confusion, SOB, and soft BP for the past 3-4 days. Pt will be admitted to the hospital for treatment and further evaluation of acute respiratory failure in the setting of likely postobstructive pneumonia with sepsis secondary to non small-cell cancer as well as AMS in the setting of likely new CVA. Acute respiratory failure in the setting of pneumonia with sepsis and CHF exacerbation increase O2 supplement with distress to HF 50% 55L CXR showing fluid overload Started on LAsix drip Critical care consult Pending cultures Continue vancomycin and Zosyn, started 07/12/2023 wean O2 as tolerated Monitor respiratory status Acute HFpEF exacerbation echocardiogram showing EF 55% with mitral stenosis and regurgitation CXR showing pulmonary edema 07/13 Furosemide drip IV Follow lytes, MG, I/O Monitor on telemetry Abnormal CT head CT of head showing new low-attenuation in periventricular white matter of left frontal lobe, concerning for new infarct; also 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 continue AC Monitor on telemetry Generalized anxiety PRN Xanax Start Zoloft Trazodone bedtime Hypokalemia, mild replacement given. follow BMP Non small cell lung cancer Finished 1st cycle of pembrolizumab last week Scheduled to get PET [place] [facility] [place] Heme/Onc consult Hypoalbuminemia Albumin 2.5 at time of presentation Likely secondary to reduced p.o. 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 Full Code DVT Prophylaxis: On Eliquis Pt will require a hospitalization overnight for treatment of acute respiratory failure in the setting of pneumonia with sepsis secondary to non small-cell cancer as well as AMS. Patient will require hospitalization for administration of IV antibiotics, supplemental oxygen, close monitoring of labs, H&H, and respiratory status, as well as specialist consultation Quality Stroke Does the patient have a stroke diagnosis?: Yes Reason for No Anti-thrombotic by Day Two: Contraindicated (Pt on Eliquis; outside of tNK therapeutic window.) VTE Prior VTE?: No VTE Risk Level:: Medical - moderate - high VTE Device Contraindication: Treatment Not Indicated VTE Drug Contraindication: N/A - Med Ordered
--- NOTE | 2023-07-15 12:05 | PC.NURSE ---
0906 pt had burst of PAT's and 7 beats VT. upon assessment, pt lethargic, responded to voice. BP 167/90 HR 110 tachypnea, desat on 3L at 80s%. RT presented in the room w critical care doc, pt placed on HF 50L 40%, increased Lasix gtt to 5mg/hr, started on IV Albumin per critical care doc. Hospitalist Dr Santillan notified. continuing monitor.
[2023-07-15 14:31] LABS: ABG Refer to POC result
[2023-07-15] MEDS: Piperacillin Sodium/Tazobactam 3.375 GM in 0.9 % Sodium Chloride 50 ML IV ×2 (14:38→20:31)
[2023-07-15 15:59] LABS: Hematocrit 26.6 % (37.0-47.0); Hemoglobin 8.3 g/dl (12.0-16.0); Mean Corpuscular HGB Conc 31.2 g/dl (31.0-35.0); Mean Corpuscular Hemoglobin 26.8 pg (27.0-33.0); Mean Corpuscular Volume 85.8 fL (80.0-98.0); Mean Platelet Volume 8.9 fL (9.4-12.3); Platelet Count 436 X10*3/uL (160-400); Red Cell Distribution Width 18.7 % (11.0-16.0)
[2023-07-15 16:04] LABS: White Blood Count 31.8 X10*3/uL (4.8-10.8)
[2023-07-15 16:41] LABS: VBG Base Excess 3.2 mmol/L; VBG HCO3 29 mmol/L (22-26); VBG pCO2 50 mmHg; VBG pH 7.36 (7.32-7.43); VBG pO2 62 mmHg
[2023-07-15 17:31] LABS: Venous Blood Gas Refer to POC result
[2023-07-15 17:31] LABS: Vancomycin Random 31.9 mcg/mL (15-20)
--- NOTE | 2023-07-15 17:52 | HE.PHANOTE ---
RE VANCO DOSING PT RENAL FUNCTION SLOWLY WORSENING OVER TIME. TODAY SCR IS 1.04 (YESTERDAY WAS 0.87). CHECKED RANDOM LEVEL TONIGHT TO SEE WHERE SHE IS TO DETERMINE FUTURE DOSING. EXPECTED ELEVATED LEVELS DUE TO MINIMAL TIME FROM LAST DOSE. LEVEL IS 31.9. INSIGHT BELIEVES PATIENT WILL REACH TROUGH 20.5 AND AUC 637 AT STEADY STATE WITH 750 MG Q24 DOSING. WILL CHANGE DOSE TO 500 MG Q24 AND OBTAIN ANOTHER LEVEL BEFORE NEXT DOSE TO ENSURE SAFETY AND EFFICACY. CONTINUE DAILY RENAL MONITORING TO WATCH FOR ANY SUDDEN CHANGES IN RENAL FUNCTION WELL.
[2023-07-15 17:58] LABS: ABG Base Excess 4.7 mmol/L; ABG HCO3 31 mmol/L (22-26); ABG pCO2 54 mmHg (32-45); ABG pH 7.36 (7.35-7.45); ABG pO2 72 mmHg (83-108)
[2023-07-15 20:02] LABS: Anion Gap 17 (12-20); Blood Urea Nitrogen 42 mg/dL (9-16); Calcium 9.1 mg/dL (8.4-10.2); Carbon Dioxide 26 mmol/L (22-29); Chloride 106 mmol/L (96-108); Creatinine Clr Calc Pharmacy 30.2; Estimated Glomerular Filt Rate 32; Glucose Random 147 mg/dL (60-115); Magnesium 2.4 mg/dL (1.6-2.6); Potassium 3.6 mmol/L (3.3-5.1); Sodium 145 mmol/L (135-145)
[2023-07-15] MEDS: Furosemide 200 MG in 0.9 % Sodium Chloride 80 ML IVCONT (20:34)
[2023-07-15 23:41] LABS: ABG Refer to POC result
[2023-07-16] VITALS (36 sets, daily range): BP systolic 80–170; BP diastolic 36–102; PULSE 88–133; RESP 14–25; TEMP 34.6–37.2; O2SAT 90–99; BMI 19.4
[2023-07-16] MEDS: Piperacillin Sodium/Tazobactam 3.375 GM in 0.9 % Sodium Chloride 50 ML IV ×2 (02:05→07:34)
[2023-07-16] MEDS: Albumin Human 25 % 100 ML IV (03:09)
[2023-07-16 05:40] LABS: VBG Base Excess 1.9 mmol/L; VBG HCO3 25 mmol/L (22-26); VBG pCO2 36 mmHg; VBG pH 7.45 (7.32-7.43); VBG pO2 76 mmHg; Venous Blood Gas Refer to POC result
[2023-07-16 05:42] LABS: Basophils Absolute Auto 0.1 X10*3/uL (0.0-0.2); Basophils Percent Auto 0.3 % (0-2); Hematocrit 25.1 % (37.0-47.0); Hemoglobin 7.7 g/dl (12.0-16.0); Imm Gran Abs Auto 0.31 X10*3/uL (0.00-0.03); Imm Gran Pct Auto 1.1 % (0.0-0.4); Lymphocytes Absolute Auto 0.4 X10*3/uL (1.2-4.9); Lymphocytes Percent Auto 1.5 % (20-40); MANUAL DIFF FLAG SCAN; Mean Corpuscular HGB Conc 30.7 g/dl (31.0-35.0); Mean Corpuscular Hemoglobin 26.5 pg (27.0-33.0); Mean Corpuscular Volume 86.3 fL (80.0-98.0); Mean Platelet Volume 9.4 fL (9.4-12.3); Monocytes Absolute Auto 0.4 X10*3/uL (0.1-1.2); Monocytes Percent Auto 1.4 % (2-11); Neutrophils Absolute Auto 26.2 x10*3/uL (2.0-8.3); Neutrophils Percent Auto 95.7 % (45-73); Platelet Count 444 X10*3/uL (160-400); Red Blood Count 2.91 X10*6/uL (4.20-5.50); Red Cell Distribution Width 18.8 % (11.0-16.0); SCAN SMEAR FLAG 1; White Blood Count 27.4 X10*3/uL (4.8-10.8)
[2023-07-16 05:57] LABS: Alanine Aminotransferase 27 U/L (0-31); Albumin Level 4.2 g/dL (3.5-5.0); Alkaline Phosphatase 255 U/L (39-117); Anion Gap 21 (12-20); Aspartate Amino Transferase 71 U/L (5-31); Bilirubin Total 0.9 mg/dL (0.0-1.0); Blood Urea Nitrogen 49 mg/dL (9-16); Calcium 9.3 mg/dL (8.4-10.2); Carbon Dioxide 23 mmol/L (22-29); Chloride 106 mmol/L (96-108); Creatinine Clr Calc Pharmacy 26.3; Estimated Glomerular Filt Rate 27; Glucose Random 133 mg/dL (60-115); Magnesium 2.6 mg/dL (1.6-2.6); Phosphorus 4.4 mg/dL (2.7-4.5); Potassium 3.4 mmol/L (3.3-5.1); Sodium 147 mmol/L (135-145); Total Protein 7.5 g/dL (6.5-8.0)
[2023-07-16 06:01] LABS: B Type Natriuretic Peptide 3069 pg/mL (<100)
[2023-07-16 06:04] LABS: SLIDE REVIEW VERIFIED
[2023-07-16] MEDS: Albuterol/Iprat 2.5/0.5MG 3 ML AMPUL.NEB INHALE ×3 (07:21→15:10)
[2023-07-16 07:32] LABS: VBG Base Excess 1.9 mmol/L; VBG HCO3 29 mmol/L (22-26); VBG pCO2 60 mmHg; VBG pH 7.29 (7.32-7.43); VBG pO2 102 mmHg
[2023-07-16] MEDS: 0.9 % Sodium Chloride Flush 3 ML SYRINGE IVFLUSH ×2 (07:35→16:45)
[2023-07-16] MEDS: Norepinephrine Bitartrate/D5W 8 MG/250 ML PLAST..BAG 5.12 MG IV (07:48)
[2023-07-16] MEDS: Ketamine HCl/NS 50 MG/5 ML SYRINGE 100 MG IVPUSH (07:51)
[2023-07-16] MEDS: propofoL 1,000 MG/100 ML VIAL 9.83 MG IVCONT (07:53)
[2023-07-16 08:02] LABS: Venous Blood Gas Refer to POC result
--- NOTE | 2023-07-16 09:49 | MHC.CM.PN ---
Pt remains in ICU on ventilatory support: goals of care are for a CT scan today and possible echo. She is being diureses for fluid overload. Review of Acute rehab facilities close to [facility] show one response: [facility] who will continue to follow. Updates to be remitted. Two facilites are not [facility] contractd and [facility] does not have an available bed. CM to follow
[2023-07-16 09:58] LABS: Vancomycin Random 26.5 mcg/mL (15-20)
--- NOTE | 2023-07-16 10:00 | CA_ITS ---
Transesophageal Echocardiogram Amended Patient (Last, First, Middle): Woo Marks Marie Gender: Female Date of : 1960 Age: 62 Procedure Date: 07/16/2023 Procedure Type: Transesophageal Echocardiogram Location: ICU Height: 167.64 cm Weight: 54.43 kg BSA: 1.61 m2 Heart Rate: bpm BP: 112 / 77 mmHg Lace Stripper: LOU Referring MD: Juventino Rojo MD Symptoms: Evaluate mitral valve Deputy Director Of Nursing: Juventino Rojo MD Conclusion: ??? 1. Severe mitral regurgitation of repaired valve of unclear etiology. There appears to be no clear perforation of the leaflet or jaclyn prosthetic regurgitation and no clear vegetations identify although the leaflet is thickened 2. Normal LV ejection fraction 3. Heavy smoke formation seen in the left atrium without any significant thrombi or masses 4. Mild aortic regurgitation next 5. Mildly dilated ascending aorta 6. No intracardiac shunting 7. No significant atherosclerosis in the ascending aorta Findings Procedure Information Consent was obtained prior to the procedure. Pre DAYLIN oral cavity was checked and revealed mild overcrowding. The adult 3D probe was passed with minimal difficulty. Left Ventricle Normal left ventricular size, thickness, systolic function, and wall motion. The visually estimated ejection fraction is between 55-60%. There were no thrombi or masses seen the left ventricle. The no obvious regional wall motion abnormality seen. Right Ventricle Normal right ventricular cavity size. There is mild to moderately decreased right ventricular systolic function. Atria The left atrium is severely dilated. There is no evidence of interatrial shunt. There is no evidence of an atrial septal defect. There is no evidence of thrombus or mass in the left atrium. As significant smoke formation seen within left atrium. The left atrial appendage was identified multiple views without any thrombi or masses. The left upper and right upper, middle and lower pulmonary vein were noted draining into the left atrium normally. The right atrium is mildly dilated. There is no evidence of thrombus or mass in the right atrium. The SVC was identified draining normally into the right atrium with adequate respiratory collapse ability suggestive of normal central venous pressure. Aortic Valve Normal aortic valve structure and function. There is no aortic valve stenosis. There is mild aortic valve regurgitation. Mitral Valve Mitral annular ring was in place. The mitral leaflets was significantly thickened without any clear evidence of masses attached to the mitral valve leaflet. Her there is evidence of significant mitral regurgitation noted with severe central mitral regurgitation. The ring was well seated without any abnormal periprosthetic regurgitation noted. Measured mitral regurgitation volume by PISA was 62 mL with the effective orifice area of 0.4 centimeters sq. findings consistent with severe mitral regurgitation. Forward gradient across the mitral valve was 16 mm Hg related to significant mitral regurgitation. Pulmonic Valve The pulmonic valve is normal. There is trace to mild pulmonic valve regurgitation. Tricuspid Valve Normal tricuspid valve structure. There is mild tricuspid valve regurgitation. Great Vessels All visible segments of the aorta are normal in size. There is mild dilatation of the ascending aorta. There is no evidence of plaque in the aorta. The visualized portions of the pulmonary artery and branches are normal. Venous The inferior vena cava was not well visualized. Pericardium/Pleural There is no evidence of pericardial effusion. Measurements Mitral Valve MV VTI: 0.69 MV Pk Vipul: 2.66 MV Mn Vipul: 1.95 MV Pk Grad: 28.00 MV Mn Grad: 16.00 MR Vol - PW Dopp: 62.40 MR VTI: 1.56 MR ERO: 40.00 MR Alias Vipul: 0.39 MR RAD: 1.00 Tricuspid Valve TR Pk Vipul: 3.10 TR Pk Grad: 38.00 Updated by Juventino Rojo on 03:26 PM with Status of Final Juventino Rojo MD electronically signed on 07/16/2023 3:26:16 PM with status of Final
--- NOTE | 2023-07-16 10:15 | MHC.CLN ---
PT IS INTUBATED AND SEDATED DIET ORDERED CHANGED TO NPO AT THIS TIME PT WITH OGT CLAMPED IF TF NEEDED; RECOMMEND PROMOTE AT MAX GOAL RATE 50ML/HR TO PROVIDE 1200KCALS (1632KCALS WITH SEDATION; 30KCALS/KG), 75G PROTEIN (1.4G/KG), 1007ML FREE WATER FROM FORMULA START FEEDING AT 20ML/HR AND INCREASE BY 10ML Q 4 HRS UNTIL MAX GOAL IS ACHIEVED MONITOR TOLERANCE, RESIDUALS AND LYTES SEE ALSO FULL CLINICAL NUTRITION ASSESSMENT
--- NOTE | 2023-07-16 10:20 | P.CONCA_ITS ---
History of Present Illness History of Present Illness Date of Service: 07/16/23 Requesting physician: Dionisio Yepez Consult reason: other (Acute respiratory failure, elevated BNP, mitral regurgitation) Chief complaint: AMS, CVA, pneumonia Narrative: I was consulted to see Woo in cardiology consultation today for acute respiratory failure. She has a 62-year-old female, history was obtained from the chart and patient's daughter at bedside. Patient with mitral valve repair in 2017 at [facility] for asymptomatic severe mitral regurgitation with a mitral valve repair with annuloplasty ring. The details of the surgery is not known to patient's daughter. Patient since then has done very well till this April where she was admitted here with respiratory symptoms and diagnose at that time with acute submassive pulmonary embolism and noted to have mediastinal lymphadenopathy and underwent biopsy we subsequently turned out to be adenocarcinoma, subsequently readmitted in late April with syncope and respiratory failure her postop productive pneumonia leading to deconditioning. Since then there has been gradual medical deterioration overall medical condition. In April admission she also was noted to have vasovagal syncope. She also sinus tachycardia chronically on beta-blockers. She has no evidence of coronary disease or myocardial infarction. Echocardiogram done in April had shown increased gradient across the mitral valve but there was sinus tachycardia suspected that this was related to sinus tachycardia although there was not significant mitral regurgitation with preserved leaflet mobility although RV function was reduced due to acute submassive pulmonary embolism. Subsequent admission she had multiple embolic appearing CVA suspected to be due to hypercoagulable state related to malignancy that was diagnose and then she was subsequently discharged [facility] She was brought this time from [facility] with altered mental status and shortness of breath. She was noted to have elevated BNP on admission with bilateral infiltrates with possible suggestion of post obstructive Pneumonia, tachycardia and possible new CVA. Although Neurology notes says that she has not had a new lesion. This is probably an old lesion. As per the daughter when she came in the following day she was feeling better and more responsive but by Sunday night she started having increasing shortness of breath and altered mental status yesterday her respiratory status continued to progressively get worse requiring CPAP and subsequently not responding to CPAP and subsequently requiring BiPAP. She was somnolent and only minimally responsive as per the daughter. Overnight she was then transferred to ICU with respiratory distress and this morning around 07:00 was intubated due to respiratory failure and persistent hypoxemia. As per the note she has not responded well to diuretic regimen. Echocardiogram done repeated shows worsening regurgitation of the mitral valve with gradient up to 15 mmHg. Also on the monitor she is frequent tachycardia which appear to be either SVT or short bursts of atrial fibrillation going up to 200 beats per minute. Patient was started on norepinephrine for support for intubation. The suspicion for aspiration pneumonia although hypoxemia appears to be out of proportion to aspiration as per the ICU team. Her BNP significantly elevated in the 3800 range. Chest x-ray is suggestive of bilateral infiltrative possible pulmonary edema. Cardiology consult was sought for further management plan. Review of Systems 2 Review of Systems: Yes unobtainable due to endotracheal tube PMFSH Past Medical History Medical History Thyroid mass Adenocarcinoma of lung GIB (gastrointestinal bleeding) Mediastinal mass Pulmonary emboli Family history of thyroid disease Bilateral cataracts Sinus tachycardia Asthma Family History Family History Mother Leukemia Maternal Aunt Lung cancer Ovarian cancer Surgical History Surgical History S/P IVC filter History of tonsillectomy History of open heart surgery Social History Social History Household Members: Family Household Members Other:: SISTER Housing: House Do you presently have visiting nurse or other home services: No Comment: Commode near bed. Pt gait and balance are steady. Per protocol extra safety Patient Tobacco Use Status: Former Tobacco user Smoked in Last 30 Days: No e-Cigarette/Vaping Use: Never Used Second Hand Smoke Exposure: No Use of substances other than those prescribed or required for medical reasons: No Currently Displaying Signs/Symptoms of Drug Intoxication Withdrawal: No Have you been hit, kicked, punched, or otherwise hurt by someone within the past year? If so, by whom?: No Do you feel safe in your current relationship?: Yes Is there a partner from a previous relationship who is making you feel unsafe now?: No Are you made to feel afraid or neglected: No Advance Directives: Yes Advance Directives on File: Yes Advance Directives Date on File: 05/22/23 Do you have thoughts of harming others: None Do you have a plan to hurt others: No Plan Nutrition Risks: On aspiration precautions Patient : No : No Poor oral hygiene: No service: No Meds Allergies Allergy/AdvReac Type Severity Reaction Status Date / Time hydrocodone [From Vicodin] Allergy Vomiting Verified 07/12/23 14:23 oxycodone [From Percocet] Allergy Vomiting Verified 07/12/23 14:23 shellfish derived Allergy Anaphylaxis Verified 07/12/23 14:23 Active Medications: Current Medications Acetaminophen (Acetaminophen 325 Mg Tablet) 650 mg PO Q6H PRN PRN Reason: Pain, Mild (Pain Scale 1-3) Albuterol/Ipratropium (Albuterol/Iprat 2.5/0.5mg 3 Ml Ampul.Neb) 3 ml INHALE RQ4H WHILE AWAKE [facility] Last Admin: 07/16/23 07:21 Dose: 3 ml Albuterol/Ipratropium (Albuterol/Iprat 2.5/0.5mg 3 Ml Ampul.Neb) 3 ml INHALE RQ4H WHILE AWAKE PRN PRN Reason: Shortness of Breath/Wheezing Last Admin: 07/14/23 13:05 Dose: 3 ml Atorvastatin Calcium (Atorvastatin Calcium 40 Mg Tablet) 40 mg PO BEDTIME [facility] Last Admin: 07/15/23 20:35 Dose: Not Given Bisacodyl (Bisacodyl 10 Mg Supp.Rect) 10 mg OH DAILY PRN PRN Reason: Constipation Chlorhexidine Gluconate (Chlorhexidine Gluc Oral Rinse 15 Ml Mouthwash) 15 ml BUCCAL TID [facility] Docusate Sodium (Docusate Sodium 100 Mg Capsule) 100 mg PO DAILY PRN PRN Reason: Constipation Famotidine (Famotidine/Pf 20 Mg/2 Ml Vial) 20 mg IVPUSH DAILY [facility] Fluticasone Propionate (Fluticasone Propionate Nasal 16 Gm Badger) 1 spray NOSTRIL-B DAILY PRN PRN Reason: Congestion Guaifenesin/Dextromethorphan (Guaifenesin Dm 600/30 1 Tab Tab.Er.12h) 2 tab PO BID [facility] Last Admin: 07/15/23 20:36 Dose: Not Given Heparin Sodium (Porcine) (Heparin Sodium,Porcine 5,000 Unit/Ml Vial) 5,000 unit SUBCUT Q8H [facility] Hydroxyzine HCl (Hydroxyzine Hcl 10 Mg Tablet) 10 mg PO BID PRN PRN Reason: Anxiety Last Admin: 07/14/23 00:55 Dose: 10 mg Propofol (Diprivan) 1,000 mg in 100 mls @ 0 mls/hr IVCONT .Q0M ABHAY; Protocol Last Titration: 07/16/23 08:31 Dose: 50 mcg/kg/min, 16.38 mls/hr Norepinephrine Bitartrate (Levophed) 8 mg in 250 mls @ 0 mls/hr IV .Q0M ABHAY; Protocol Last Titration: 07/16/23 09:21 Dose: 0.28 mcg/kg/min, 28.67 mls/hr Esmolol HCl (Brevibloc/Nacl) 2,500 mg in 250 mls @ 0 mls/hr IVCONT .Q0M ABHAY; Protocol Levofloxacin (Levaquin) 750 mg in 150 mls @ 100 mls/hr IV Q24H ABHAY Pt Own Med ( Hydrocortisone Acetate 25 Mg Suppository) 25 mg OH BID [facility] Last Admin: 07/15/23 20:37 Dose: Not Given Ondansetron HCl (Ondansetron Hcl 4 Mg/2 Ml Vial) 4 mg IVPUSH Q8H PRN PRN Reason: Nausea and Vomiting Last Admin: 07/13/23 00:51 Dose: 4 mg Sodium Chloride (0.9 % Sodium Chloride Flush 3 Ml Syringe) 3 ml IVFLUSH QSHIFT [facility] Last Admin: 07/16/23 07:35 Dose: 3 ml Sodium Chloride (Sodium Chloride 0.65 % Nasal 44 Ml Sprbtl) 1 spray NOSTRIL-B DAILY [facility] Last Admin: 07/15/23 09:20 Dose: Not Given Sodium Chloride (Sodium Chloride 0.65 % Nasal 44 Ml Sprbtl) 1 spray NOSTRIL-B Q8H PRN PRN Reason: Congestion Home Medications ?Medication ?Instructions ?Recorded ?Confirmed ?Last Taken ?Type albuterol sulfate 90 mcg/actuation 2 puff inhalation Q4H PRN 05/12/23 07/12/23 Unknown History aerosol inhaler (Ventolin HFA) Shortness Of Breath Or Wheezing budesonide-formoterol HFA 160 2 puff inhalation BID 05/12/23 07/12/23 Unknown History mcg-4.5 mcg/actuation aerosol inhaler (Symbicort) metoprolol tartrate 25 mg tablet 37.5 mg PO BID 05/12/23 07/12/23 Unknown History fluticasone propionate 50 1 spray intranasal DAILY PRN 05/22/23 07/12/23 Unknown History mcg/actuation nasal Congestion spray,suspension acetaminophen 325 mg tablet 650 mg PO Q4H PRN pain / fever 07/12/23 07/12/23 Unknown History bisacodyl 10 mg rectal suppository 10 mg OH DAILY PRN Constipation 07/12/23 07/12/23 Unknown History hydroxyzine HCl 10 mg tablet 10 mg PO BID PRN Anxiety 07/12/23 07/12/23 Unknown History melatonin 3 mg tablet 3 mg PO BEDTIME 07/12/23 07/12/23 Unknown History midodrine 10 mg tablet 10 mg PO BID 07/12/23 07/12/23 Unknown History sodium chloride 0.65 % nasal spray 1 spray intranasal DAILY Nose 07/12/23 07/12/23 Unknown History aerosol (Saline Nasal) Dryness sodium chloride 0.65 % nasal spray 1 spray intranasal Q8H PRN 07/12/23 07/12/23 Unknown History aerosol (Saline Nasal) Congestion hydrocortisone acetate 25 mg 25 mg OH BID 07/14/23 07/14/23 Unknown History rectal suppository Physical Exam 2 Vital Signs: Vital Signs: Last Vital Signs Temp 99.0 F 07/16/23 08:00 Pulse 100 07/16/23 09:21 Resp 15 07/16/23 09:00 BP 130/81 07/16/23 09:21 Pulse Ox 97 07/16/23 09:00 O2 Del Method Mechanical Ventil ation 07/16/23 09:00 O2 Flow Rate 55 07/15/23 20:58 FiO2 45 07/16/23 09:00 BMI result Body Mass Index 19.4 HEENT: Head: Yes normocephalic and Yes atraumatic Neck: Neck: Yes trachea midline, Yes supple and Yes no JVD Resp: Effort & Inspection: other (On mechanical ventilation) Auscultation: wheezes and bronchovesicular breath sounds on the right Cardio: Jugular venous distension: no JVD Rate: tachycardic Rhythm: a bnormal rhythm irregularly irregular Heart sounds: S1 normal heart sound present, S2 normal heart sound present, no click, no gallops and Murmur heart sound present systolic soft and at the left sternal border GI: Auscultation: normal bowel sounds Skin: General skin exam: no rashes or lesions noted Neuro: General: other (Not evaluated, patient on sedation) Extrem: General: Yes no clubbing, cyanosis or edema Objective Labs and Meds 07/16/23 05:29 07/16/23 05:29 Lab results: Laboratory Results - last 24 hr 07/13/23 07/15/23 07/15/23 09:45 15:53 15:57 WBC 31.8 H* RBC 3.10 L D Hgb 8.3 L D Hct 26.6 L D MCV 85.8 MCH 26.8 L MCHC 31.2 RDW 18.7 H Plt Count 436 H MPV 8.9 L Immature Gran % (Auto) Neut % (Auto) Lymph % (Auto) [place] % (Auto) Eos % (Auto) Baso % (Auto) Lymph # (Auto) [place] # (Auto) Eos # (Auto) Baso # (Auto) Abs Immat Gran (auto) Absolute Neuts (auto) Absolute Nucleated RBC 0.000 Nucleated RBC % (auto) 0.0 Smear Tech's Comments O2 Saturation ABG pH at Pt Temp ABG pCO2 at Pt Temp ABG pO2 at Pt Temp ABG HCO3 ABG Base Excess (Actual) VBG pH 7.36 VBG pCO2 50 VBG pO2 62 VBG HCO3 29 H VBG O2 Saturation 88.0 VBG Base Excess 3.2 Sodium Potassium Chloride Carbon Dioxide Anion Gap BUN Creatinine Estim Creat Clear Calc Estimated GFR Random Glucose Calcium Phosphorus Magnesium Total Bilirubin AST ALT Alkaline Phosphatase B-Natriuretic Peptide Total Protein Albumin Random Vancomycin Enhanced Crossmatch See Detail 07/15/23 07/15/23 07/15/23 16:55 17:50 19:39 WBC RBC Hgb Hct MCV MCH MCHC RDW Plt Count MPV Immature Gran % (Auto) Neut % (Auto) Lymph % (Auto) [place] % (Auto) Eos % (Auto) Baso % (Auto) Lymph # (Auto) [place] # (Auto) Eos # (Auto) Baso # (Auto) Abs Immat Gran (auto) Absolute Neuts (auto) Absolute Nucleated RBC Nucleated RBC % (auto) Smear Tech's Comments O2 Saturation 93.0 ABG pH at Pt Temp 7.36 ABG pCO2 at Pt Temp 54 H ABG pO2 at Pt Temp 72 L ABG HCO3 31 H ABG Base Excess (Actual) 4.7 VBG pH VBG pCO2 VBG pO2 VBG HCO3 VBG O2 Saturation VBG Base Excess Sodium 145 Potassium 3.6 Chloride 106 Carbon Dioxide 26 Anion Gap 17 BUN 42 H Creatinine 1.62 H Estim Creat Clear Calc 30.2 Estimated GFR 32 Random Glucose 147 H Calcium 9.1 Phosphorus Magnesium 2.4 Total Bilirubin AST ALT Alkaline Phosphatase B-Natriuretic Peptide Total Protein Albumin Random Vancomycin 31.9 H* Enhanced Crossmatch 07/16/23 07/16/23 07/16/23 05:29 05:32 07:25 WBC 27.4 H RBC 2.91 L Hgb 7.7 L Hct 25.1 L MCV 86.3 MCH 26.5 L MCHC 30.7 L RDW 18.8 H Plt Count 444 H MPV 9.4 Immature Gran % (Auto) 1.1 H Neut % (Auto) 95.7 H Lymph % (Auto) 1.5 L [place] % (Auto) 1.4 L Eos % (Auto) 0.0 Baso % (Auto) 0.3 Lymph # (Auto) 0.4 L [place] # (Auto) 0.4 Eos # (Auto) 0.0 Baso # (Auto) 0.1 Abs Immat Gran (auto) 0.31 H Absolute Neuts (auto) 26.2 H Absolute Nucleated RBC 0.000 Nucleated RBC % (auto) 0.0 Smear Tech's Comments VERIFIED O2 Saturation ABG pH at Pt Temp ABG pCO2 at Pt Temp ABG pO2 at Pt Temp ABG HCO3 ABG Base Excess (Actual) VBG pH 7.45 H 7.29 L VBG pCO2 36 60 VBG pO2 76 102 VBG HCO3 25 29 H VBG O2 Saturation 96.0 98.0 VBG Base Excess 1.9 1.9 Sodium 147 H Potassium 3.4 Chloride 106 Carbon Dioxide 23 Anion Gap 21 H BUN 49 H Creatinine 1.86 H Estim Creat Clear Calc 26.3 Estimated GFR 27 Random Glucose 133 H Calcium 9.3 Phosphorus 4.4 Magnesium 2.6 Total Bilirubin 0.9 AST 71 H ALT 27 Alkaline Phosphatase 255 H B-Natriuretic Peptide 3069 H Total Protein 7.5 Albumin 4.2 Random Vancomycin Enhanced Crossmatch 07/16/23 09:33 WBC RBC Hgb Hct MCV MCH MCHC RDW Plt Count MPV Immature Gran % (Auto) Neut % (Auto) Lymph % (Auto) [place] % (Auto) Eos % (Auto) Baso % (Auto) Lymph # (Auto) [place] # (Auto) Eos # (Auto) Baso # (Auto) Abs Immat Gran (auto) Absolute Neuts (auto) Absolute Nucleated RBC Nucleated RBC % (auto) Smear Tech's Comments O2 Saturation ABG pH at Pt Temp ABG pCO2 at Pt Temp ABG pO2 at Pt Temp ABG HCO3 ABG Base Excess (Actual) VBG pH VBG pCO2 VBG pO2 VBG HCO3 VBG O2 Saturation VBG Base Excess Sodium Potassium Chloride Carbon Dioxide Anion Gap BUN Creatinine Estim Creat Clear Calc Estimated GFR Random Glucose Calcium Phosphorus Magnesium Total Bilirubin AST ALT Alkaline Phosphatase B-Natriuretic Peptide Total Protein Albumin Random Vancomycin 26.5 H* Enhanced Crossmatch Imaging Radiologist's impression: Impressions Chest X-Ray 07/16/23 07:29 IMPRESSION: Worsening airspace disease and pleural effusion at the right lung base. Chest X-Ray 07/16/23 08:12 IMPRESSION: 1. ET tube at the level of the kirill, not optimally seen because of overlying lines. This should probably be pulled back slightly.. 2. NG tube in good position. 3. Large right subpulmonic effusion and right lower lobe atelectasis. 4. Diffuse airspace disease minimally improved when compared to the study from earlier today. Assessment and Plan (1) Acute respiratory failure with hypoxia: Status: Acute Acute respiratory failure with significant hypoxemia that was not corrected by noninvasive means patient requiring mechanical ventilation at this point time. Echocardiogram shows abnormality of mitral valve with significantly increased gradient as well as regurgitation question there is failure of mitral valve repair which is unclear causing her acute respiratory failure with congestive heart failure his chest x-ray and BNP as suggestive of significant pulmonary edema. She has not responding to diuretic therapy. She also has acute kidney injury with rising creatinine of unclear etiology. She is significantly anemic which has been corrected slightly. Overall diagnosis of her acute respiratory failure is unclear, component of postobstructive pneumonia as well as aspiration pneumonia although superimposed significant congestive heart failure unclear etiology is also likely. Need better evaluation of her mitral valve. Would suggest a transesophageal echocardiogram to be urgently performed to look at her mitral valve. This was discussed with her daughter and son-in-law at bedside. Further treatment based on the findings of the transesophageal echocardiogram. It has no significant abnormality of the mitral valve, consider hemodynamic evaluation with right heart catheterization to evaluate for pulmonary capillary wedge pressure as well as right-sided filling pressures. If she is significant abnormality of the mitral valve, require further evaluation tertiary care center. This was discussed with patient's daughter at bedside. She also has developed significant supraventricular arrhythmias which are either suggestive SVT and/or atrial fibrillation with rapid ventricular response. Start on esmolol drip for rate control. May require amiodarone drip if esmolol his ineffective. Will follow with you Greater than 60 minutes of critical care time was spent at bedside and to organize her care. Will continue to follow up after the DAYLIN. Procedures Date of Service Date of Service: 07/16/23
[2023-07-16] MEDS: Esmolol HCl/NaCl Iso 2,500 MG/250 ML IV.SOLN 16.38 MG IVCONT (10:42)
[2023-07-16] MEDS: Chlorhexidine Gluc Oral Rinse 15 ML MOUTHWASH BUCCAL ×2 (10:42→16:45)
[2023-07-16] MEDS: Heparin Sodium,Porcine 5,000 UNIT/ML VIAL 5000 UNIT SUBCUT ×2 (10:43→16:45)
[2023-07-16] MEDS: Famotidine/PF 20 MG/2 ML VIAL IVPUSH (10:43)
[2023-07-16] MEDS: levoFLOXacin/D5W 750 MG/150 ML PIGGYBACK 100 MG IV (10:48)
--- NOTE | 2023-07-16 10:49 | MHC.SLORD ---
Speech Language Pathology Order Status: Patient is in the ICU, intubated and sedated. Dysphagia tx deferred 24-48 hours post-extubation.
[2023-07-16] MEDS: propofoL 1,000 MG/100 ML VIAL 16.38 MG IVCONT ×2 (12:21→18:07)
--- NOTE | 2023-07-16 12:32 | PC.NURSE ---
Assumed care at 0700- on assessment patient unarousable to verbal stimuli, grimacing and withdrawing to painful stimuli. Pt. respirations labored, accessory muscle use, abdominally breathing and head nodding- pt. on Bipap 16/10 at 100%, O2 sustaining >92%. Decision made to intubate by MD and pt. HCP at bedside. MD and RT at bedside-Pt. given 100 mg Ketamine per MAY, Pt. intubated at 0753 by color printer operator- ETT 7.5 26 cm at the lip. Norepinephrine gtt and propofol gtt started and titrated per EMAR. Pt. Currently tolerating vent setting AC 14/360/5/30%, respirations even and unlabored. Pt. transported to CT scan by this RN, RT, and transporter. Health Care Specialist at bedside- Esmolol started per cardiology. Consent for DAYLIN obtained by Health Care Specialist from HCP, witnessed by this RN. RN, RT, and coring machine operator at bedside fro DAYLIN. Pt. VSS throughout procedure. Current VS HR 94, BP 115/78, RR 14, O2 93% on 30% FiO2. Pt. Repositioned and oral care provided Q2, bed locked in lowest position. Soft wrist restraints in place for safety. Plan of care ongoing.
--- NOTE | 2023-07-16 13:17 | W.PM.CCHP ---
Procedures Date of Service Date of Service: 07/16/23 Intubation Intubation Comments: Patient with acute hypercapnic and hypoxic respiratory failure refractory to noninvasive positive pressure ventilatory support intubated with 7.5 cuffed ET tube under glide scope guidance with no immediate complication. Tube position verified on chest x-ray. Consent for Procedure: Emergent-no informed consent obtained Sedative: ketamine Mg given: 100
--- NOTE | 2023-07-16 13:19 | PM.DS ---
DS: Providers Provider Date of Service: 07/16/23 Date of admission: 07/12/23 22:11 Date of discharge: 07/16/23 Primary care physician: Unknown Physician Consults: 07/12/23 22:16 Consult to Hematology / Oncology Routine Consulting Provider: Moreno Lowry Reason for consultation: AMS, CVA, pneu in pt with lung cancer 07/12/23 22:34 Consult to Neurology Routine Consulting Provider: [facility] Reason for consultation: New CVA on CT 07/14/23 19:06 Consult to Critical Care Routine Consulting Provider: Dionisio Yepez Reason for consultation: Respiratory failure Has provider been notified: Yes 07/16/23 08:00 Consult to Cardiology Routine Consulting Provider: [facility] Reason for consultation: valvular heart disease / congestive heart failure Has provider been notified: No DS: Transfer Hospital Acceptance Reason for Transfer: Evaluate severe mitral regurgitation Name of Facility: [facility] Accepting Provider: Dr. 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 Hospital course significant for progressive hypoxia refractory to high-flow nasal cannula and then noninvasive positive pressure ventilatory support requiring intubation and ventilatory support on 07/16/2023. Initially TTE showed moderate/severe mitral stenosis/regurgitation. After intubation DAYLIN demonstrated no mitral stenosis, but severe mitral regurgitation. Cardiology service advised transfer to [facility] for evaluation of severe MR. Transfer to [facility] was requested and granted. Discharge medications: Propofol drip, Levophed drip, esmolol drip, Levaquin 700 mg IV daily, famotidine 20 mg IV daily, chlorhexidine, heparin subQ. Status at Discharge Functional status at discharge: bed bound Overall status at discharge: other (Seriously ill) Time Attestation Discharge Coordination Time (in mins): 60 Quality: Safe Use of Opioids Does Pt have an Active Cancer Diagnosis on the Problem List?: Yes Opioid Measure Date for [facility] Report: 06/16/23 Opioid Measure Time for [facility] Report: 13:25 Quality: Stroke Does the patient have a stroke diagnosis?: No Physical Exam Vital Signs: Vital Signs: Last Vital Signs Temp 98.5 F 07/16/23 12:00 Pulse 94 07/16/23 13:00 Resp 20 07/16/23 13:00 BP 110/74 07/16/23 13:00 Pulse Ox 92 07/16/23 13:00 O2 Del Method Mechanical Ventil ation 07/16/23 13:00 O2 Flow Rate 55 07/15/23 20:58 FiO2 30 07/16/23 13:00 BMI result Body Mass Index 19.4 Const: General: no acute distress and other (Sedated on the vent) Eyes: Sclerae: sclerae normal EOM: EOMs intact bilaterally Neck: Neck: Yes no lymphadenopathy, Yes trachea midline and Yes supple Resp: Auscultation: crackles (Bilateral) Cardio: Rate: regular rate Rhythm: regular rhythm Heart sounds: no gallops, no murmurs and no rubs GI: Palpation (GI): Soft to palpation and Other GI palpation findings present ( Nontender) Auscultation: normal bowel sounds Extrem: General: Yes no pedal edema, No clubbing and No cyanosis DS: Data Data Completed and Pending Completed studies during hospitalization [Text1]: Procedures Drainage of Right Lower Lung Lobe, Via Natural or Artificial Opening Endoscopic, Diagnostic (05/11/23) Drainage of Right Pleural Cavity, Percutaneous Approach (05/22/23) Excision of Thorax Lymphatic, Percutaneous Endoscopic Approach, Diagnostic (05/11/23) Insertion of Intraluminal Device into Inferior Vena Cava, Percutaneous Approach (05/11/23) Inspection of Lower Intestinal Tract, Via Natural or Artificial Opening Endoscopic (05/11/23) Labs on day of discharge: Laboratory Results - last 24 hr 07/13/23 07/15/23 07/15/23 09:45 06:54 15:53 WBC 31.8 H* RBC 3.10 L D Hgb 8.3 L D Hct 26.6 L D MCV 85.8 MCH 26.8 L MCHC 31.2 RDW 18.7 H Plt Count 436 H MPV 8.9 L Immature Gran % (Auto) Neut % (Auto) Lymph % (Auto) Waller % (Auto) Eos % (Auto) Baso % (Auto) Lymph # (Auto) Waller # (Auto) Eos # (Auto) Baso # (Auto) Abs Immat Gran (auto) Absolute Neuts (auto) Absolute Nucleated RBC 0.000 Nucleated RBC % (auto) 0.0 Smear Tech's Comments Smear Path Review SEE NOTE O2 Saturation ABG pH at Pt Temp ABG pCO2 at Pt Temp ABG pO2 at Pt Temp ABG HCO3 ABG Base Excess (Actual) VBG pH VBG pCO2 VBG pO2 VBG HCO3 VBG O2 Saturation VBG Base Excess Sodium Potassium Chloride Carbon Dioxide Anion Gap BUN Creatinine Estim Creat Clear Calc Estimated GFR Random Glucose Calcium Phosphorus Magnesium Total Bilirubin AST ALT Alkaline Phosphatase B-Natriuretic Peptide Total Protein Albumin Random Vancomycin Enhanced Crossmatch See Detail 07/15/23 07/15/23 07/15/23 15:57 16:55 17:50 WBC RBC Hgb Hct MCV MCH MCHC RDW Plt Count MPV Immature Gran % (Auto) Neut % (Auto) Lymph % (Auto) Waller % (Auto) Eos % (Auto) Baso % (Auto) Lymph # (Auto) Waller # (Auto) Eos # (Auto) Baso # (Auto) Abs Immat Gran (auto) Absolute Neuts (auto) Absolute Nucleated RBC Nucleated RBC % (auto) Smear Tech's Comments Smear Path Review O2 Saturation 93.0 ABG pH at Pt Temp 7.36 ABG pCO2 at Pt Temp 54 H ABG pO2 at Pt Temp 72 L ABG HCO3 31 H ABG Base Excess (Actual) 4.7 VBG pH 7.36 VBG pCO2 50 VBG pO2 62 VBG HCO3 29 H VBG O2 Saturation 88.0 VBG Base Excess 3.2 Sodium Potassium Chloride Carbon Dioxide Anion Gap BUN Creatinine Estim Creat Clear Calc Estimated GFR Random Glucose Calcium Phosphorus Magnesium Total Bilirubin AST ALT Alkaline Phosphatase B-Natriuretic Peptide Total Protein Albumin Random Vancomycin 31.9 H* Enhanced Crossmatch 07/15/23 07/16/23 07/16/23 19:39 05:29 05:32 WBC 27.4 H RBC 2.91 L Hgb 7.7 L Hct 25.1 L MCV 86.3 MCH 26.5 L MCHC 30.7 L RDW 18.8 H Plt Count 444 H MPV 9.4 Immature Gran % (Auto) 1.1 H Neut % (Auto) 95.7 H Lymph % (Auto) 1.5 L Waller % (Auto) 1.4 L Eos % (Auto) 0.0 Baso % (Auto) 0.3 Lymph # (Auto) 0.4 L Waller # (Auto) 0.4 Eos # (Auto) 0.0 Baso # (Auto) 0.1 Abs Immat Gran (auto) 0.31 H Absolute Neuts (auto) 26.2 H Absolute Nucleated RBC 0.000 Nucleated RBC % (auto) 0.0 Smear Tech's Comments VERIFIED Smear Path Review O2 Saturation ABG pH at Pt Temp ABG pCO2 at Pt Temp ABG pO2 at Pt Temp ABG HCO3 ABG Base Excess (Actual) VBG pH 7.45 H VBG pCO2 36 VBG pO2 76 VBG HCO3 25 VBG O2 Saturation 96.0 VBG Base Excess 1.9 Sodium 145 147 H Potassium 3.6 3.4 Chloride 106 106 Carbon Dioxide 26 23 Anion Gap 17 21 H BUN 42 H 49 H Creatinine 1.62 H 1.86 H Estim Creat Clear Calc 30.2 26.3 Estimated GFR 32 27 Random Glucose 147 H 133 H Calcium 9.1 9.3 Phosphorus 4.4 Magnesium 2.4 2.6 Total Bilirubin 0.9 AST 71 H ALT 27 Alkaline Phosphatase 255 H B-Natriuretic Peptide 3069 H Total Protein 7.5 Albumin 4.2 Random Vancomycin Enhanced Crossmatch 07/16/23 07/16/23 07:25 09:33 WBC RBC Hgb Hct MCV MCH MCHC RDW Plt Count MPV Immature Gran % (Auto) Neut % (Auto) Lymph % (Auto) Waller % (Auto) Eos % (Auto) Baso % (Auto) Lymph # (Auto) Waller # (Auto) Eos # (Auto) Baso # (Auto) Abs Immat Gran (auto) Absolute Neuts (auto) Absolute Nucleated RBC Nucleated RBC % (auto) Smear Tech's Comments Smear Path Review O2 Saturation ABG pH at Pt Temp ABG pCO2 at Pt Temp ABG pO2 at Pt Temp ABG HCO3 ABG Base Excess (Actual) VBG pH 7.29 L VBG pCO2 60 VBG pO2 102 VBG HCO3 29 H VBG O2 Saturation 98.0 VBG Base Excess 1.9 Sodium Potassium Chloride Carbon Dioxide Anion Gap BUN Creatinine Estim Creat Clear Calc Estimated GFR Random Glucose Calcium Phosphorus Magnesium Total Bilirubin AST ALT Alkaline Phosphatase B-Natriuretic Peptide Total Protein Albumin Random Vancomycin 26.5 H* Enhanced Crossmatch Preliminary micro results at discharge 07/12/23 15:07 Blood Culture - Preliminary Blood - Venous No growth after 48 hours. 07/12/23 14:44 Blood Culture - Preliminary Blood - Venous No growth after 48 hours. Discharge Plan Discharge Anticipated Discharge Date/Time: 07/16/23 13:26 Patient Disposition: er [facility] Discharge Diagnosis: Severe mitral stenosis Referrals: Physician,Unknown J [Primary Care Provider] - 1 Week Discharge Medications: Continued fluticasone propionate 50 mcg/actuation Chapman,Suspension 1 spray INTRANASAL DAILY PRN (Reason: Congestion) Rx Instructions: administer into each nostril furosemide 40 mg Tablet 40 mg PO DAILY Qty: 30 0RF Protocol: Hold for SBP< HOLD for SBP < : 90 atorvastatin 40 mg Tablet 40 mg PO BEDTIME Qty: 30 0RF acetaminophen 325 mg Tablet 650 mg PO Q4H PRN (Reason: pain / fever) melatonin 3 mg Tablet 3 mg PO BEDTIME bisacodyl 10 mg Suppository 10 mg SC DAILY PRN (Reason: Constipation) hydroxyzine HCl 10 mg Tablet 10 mg PO BID PRN (Reason: Anxiety) midodrine 10 mg Tablet 10 mg PO BID Rx Instructions: do not give last dose of day after 6PM or within 4 hrs of bedtime hydrocortisone acetate 25 mg Suppository 25 mg SC BID albuterol sulfate [Ventolin HFA] 90 mcg/actuation Hfa Aerosol Inhaler 2 puff INHALATION Q4H PRN (Reason: Shortness Of Breath Or Wheezing) metoprolol tartrate 25 mg Tablet 37.5 mg PO BID budesonide-formoterol [Symbicort] 160-4.5 mcg/actuation Hfa Aerosol Inhaler 2 puff INHALATION BID polyethylene glycol 3350 17 gram Powder In Packet 17 g PO DAILY PRN (Reason: Constipation) Qty: 30 0RF Eliquis 5 mg Tablet 5 mg PO BID Qty: 60 0RF Discontinued Saline Nasal 0.65 % Aerosol,Chapman 1 spray INTRANASAL Q8H PRN (Reason: Congestion) Saline Nasal 0.65 % Aerosol,Chapman 1 spray INTRANASAL DAILY Discharge Orders: Discharge Order (Routine); Ordered 07/16/23 Ordered By: Dionisio Yepez Activity on Discharge: Rest with bed elevated Stand Alone Forms: Patient Portal Discharge page Print Language: Citizen Of [place] Care Plan Goals: Evaluate severe mitral regurgitation. Health Concerns: Remains seriously ill. Plan of Treatment: Evaluate severe mitral regurgitation. Assessment: Remains seriously ill.
[2023-07-16] MEDS: Norepinephrine Bitartrate/D5W 8 MG/250 ML PLAST..BAG 22.52 MG IV (16:52)
--- NOTE | 2023-07-17 11:36 | P.CDIM_ITS ---
PROVIDER RESPONSE TEXT: To clarify, the appropriate diagnosis supported by the clinical indicators: Acute renal failure with suspected ATN QUERY TEXT: PHYSICIAN'S DOCUMENTATION REQUEST Date of Query: 07/16/2023 10:24 AM EDT Patient Name: Woo Marks Admit Date: 07/13/2023 Dear Sofía Santillan, A review of the medical record indicates additional documentation may be needed. Please review below and update the documentation accordingly. Clinical Indicators: LABS: Cr: 1.62 1.86 H Bun: 33 49 H Gfr: >60 27 Fluids Please clarify which of the following accurately represents the patient's labs: Acute renal failure possible, suspected, probable Acute renal failure with suspected ATN Acute kidney injury (non-traumatic) Other (explain) Clinically unable to determine (explain) Thank you, Elvira Goins, CCS, CDIS Use of terms such as suspected, likely, concern for, or probable (associated with a specific diagnosi s that is being evaluated, monitored, or treated as if it exists) are acceptable and can be coded in the inpatient se tting, when documented at the time of discharge. Please use your independent medical judgment in providing your response. THIS QUERY IS PART OF THE PERMANENT MEDICAL RECORD
== END 2023-07-16 19:33 | disposition short-term general hospital (02) | DRG 720 ==
LOC: HO.ED 21:08 → HO.EDOVER 22:35 → HO.IMC 07-13 07:28 → HO.ICU 07-15 18:10
PROVIDERS: Emergency Medicine; Internal Medicine; Nurse Practitioner Family; Student in an Organized Health Care Education/Training Program; Admitting Provider Student in an Organized Health Care Education/Training Program; Emergency Provider Emergency Medicine; PCP Student in an Organized Health Care Education/Training Program; Visit Provider Internal Medicine Pulmonary Disease
DX: A41.9 Sepsis, unspecified organism (principal); N17.0 Acute kidney failure with tubular necrosis; I50.33 Acute on chronic diastolic (congestive) heart failure; J96.01 Acute respiratory failure with hypoxia; J96.02 Acute respiratory failure with hypercapnia; C34.90 Malignant neoplasm of unspecified part of unspecified bronchus or lung; J91.8 Pleural effusion in other conditions classified elsewhere; E88.09 Other disorders of plasma-protein metabolism, not elsewhere classified; D63.0 Anemia in neoplastic disease; J98.11 Atelectasis; I34.0 Nonrheumatic mitral (valve) insufficiency; F41.1 Generalized anxiety disorder; E87.6 Hypokalemia; K64.9 Unspecified hemorrhoids; R00.0 Tachycardia, unspecified; R90.89 Other abnormal findings on diagnostic imaging of central nervous system; Z86.718 Personal history of other venous thrombosis and embolism; Z86.711 Personal history of pulmonary embolism; Z79.01 Long term (current) use of anticoagulants; Z79.899 Other long term (current) drug therapy
CPT/HCPCS: 36410; 36415; 36600; 70450; 71045; 71250; 80048; 80053; 80076; 80202; 81001; 82803; 83605; 83690; 83735; 83880; 84100; 84145; 84484; 85025; 85027; 85610; 86850; 86870; 86900; 86901; 86920; 86921; 87040; 87086; 92610; 93005; 93306; 94002; 94640; 94660; 99285; C1758; J0692; J1642; J1644; J1805; J1940; J1956; J2270; J2405; J2543; J2704; J3370; J3371; J3480; P9016; P9047; Q9957

== ENCOUNTER → 2023-07-12 13:53 | Outpatient (BNV) | payer OTHER, SELFPAY | PROVIDERS: Admitting Provider Student in an Organized Health Care Education/Training Program; Emergency Provider Emergency Medicine; Visit Provider Internal Medicine | DX: R06.09 Other forms of dyspnea (principal); I49.1 Atrial premature depolarization | CPT/HCPCS: 93010 ==

== ENCOUNTER 2023-07-12 22:11 | Outpatient (BNV) | payer OTHER, SELFPAY | END 2023-07-13 07:00 | PROVIDERS: Admitting Provider Student in an Organized Health Care Education/Training Program; Emergency Provider Emergency Medicine; Visit Provider Internal Medicine | DX: I34.0 Nonrheumatic mitral (valve) insufficiency (principal); Z98.890 Other specified postprocedural states; I36.1 Nonrheumatic tricuspid (valve) insufficiency; I35.1 Nonrheumatic aortic (valve) insufficiency | CPT/HCPCS: 93306 ==

== ENCOUNTER 2023-07-12 22:11 | Outpatient (BNV) | payer OTHER, SELFPAY | END 2023-07-16 10:00 | PROVIDERS: Admitting Provider Student in an Organized Health Care Education/Training Program; Emergency Provider Emergency Medicine; Visit Provider Internal Medicine Cardiovascular Disease | DX: I34.0 Nonrheumatic mitral (valve) insufficiency (principal); Z95.2 Presence of prosthetic heart valve; I35.1 Nonrheumatic aortic (valve) insufficiency | CPT/HCPCS: 93312 ==

== ENCOUNTER → 2023-07-12 22:11 | Outpatient (BNV) | payer OTHER, SELFPAY | PROVIDERS: Admitting Provider Student in an Organized Health Care Education/Training Program; Emergency Provider Emergency Medicine; Visit Provider Internal Medicine Medical Oncology | DX: C34.90 Malignant neoplasm of unspecified part of unspecified bronchus or lung (principal); R06.02 Shortness of breath; J18.9 Pneumonia, unspecified organism | CPT/HCPCS: 99222 ==

== ENCOUNTER → 2023-07-12 22:11 | Outpatient (BNV) | payer OTHER, SELFPAY | PROVIDERS: Admitting Provider Student in an Organized Health Care Education/Training Program; Emergency Provider Emergency Medicine; Visit Provider Student in an Organized Health Care Education/Training Program | DX: J96.01 Acute respiratory failure with hypoxia (principal); J18.9 Pneumonia, unspecified organism; G93.40 Encephalopathy, unspecified; I50.9 Heart failure, unspecified | CPT/HCPCS: 99223; 99233 ==

== ENCOUNTER → 2023-07-12 22:11 | Outpatient (BNV) | payer OTHER, SELFPAY | PROVIDERS: Admitting Provider Student in an Organized Health Care Education/Training Program; Emergency Provider Emergency Medicine; Visit Provider Internal Medicine Cardiovascular Disease | DX: J96.01 Acute respiratory failure with hypoxia (principal) | CPT/HCPCS: 99291 ==

== ENCOUNTER → 2023-07-12 22:11 | Outpatient (BNV) | payer OTHER, SELFPAY | PROVIDERS: Admitting Provider Student in an Organized Health Care Education/Training Program; Emergency Provider Emergency Medicine; Visit Provider Psychiatry & Neurology Neurology | DX: I63.89 Other cerebral infarction (principal) | CPT/HCPCS: 99222 ==

== ENCOUNTER → 2023-07-12 22:11 | Outpatient (BNV) | payer OTHER, SELFPAY | PROVIDERS: Admitting Provider Student in an Organized Health Care Education/Training Program; Emergency Provider Emergency Medicine; Visit Provider Internal Medicine Pulmonary Disease | DX: J96.01 Acute respiratory failure with hypoxia (principal); I34.0 Nonrheumatic mitral (valve) insufficiency; J81.1 Chronic pulmonary edema; C34.90 Malignant neoplasm of unspecified part of unspecified bronchus or lung | CPT/HCPCS: 31500; 99238; 99499 ==

== ENCOUNTER → 2023-07-12 22:11 | Outpatient (BNV) | payer OTHER, SELFPAY | PROVIDERS: Admitting Provider Student in an Organized Health Care Education/Training Program; Emergency Provider Emergency Medicine; Visit Provider Nurse Practitioner Family | DX: J96.01 Acute respiratory failure with hypoxia (principal); J90 Pleural effusion, not elsewhere classified; J18.9 Pneumonia, unspecified organism; D72.829 Elevated white blood cell count, unspecified; G93.40 Encephalopathy, unspecified | CPT/HCPCS: 99291; 99292 ==